=== PATIENT | female | born 1960 | race Caucasian/White ===

== ENCOUNTER 2020-07-12 20:39 | Inpatient (IN) | payer MEDICARE, OTHER ==
[~2020-07-12] VITALS: Ht 175.3 cm; Wt 55.8 kg
[2020-07-12 20:00] VITALS: BP 140/70
--- NOTE | 2020-07-12 20:05 | NUR ---
Patient noted grinding her teeth, transport stated that according to the report given to patient, "patient grinds her teeth every now and then." Cleansed and repositioned the patient, will continue monitor patient.
[~2020-07-12 20:39] MED LIST: TUBERCULIN,PURIF.PROT.DERIV. 5 TU/0.1 ML TEST ID ONE
--- NOTE | 2020-07-12 22:00 | NUR ---
Admitted a 60 years old female from [facility] with the following diagnosis: Cerebral Palsy, Respiratory failure, vent dependent, Abdominal wall abcess; Cellulitis, COPD, DM, Hx or MDRO urine; E.Coli and ESBL. Right femoral central line is intact and patent. 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 Noted with mid-abdominal surgical scar, abdominal distention but soft and (+) and active abdominal sounds, noted with left and right buttocks open skin, abdominal fold rashes and left under breast rashes. Jo catheter intact and patent noted with sediment, flushed with NS. Turned and Repositioned, kept clean and comfortable. I spoke with Patient's brother ( Dawood) and notified that patient is being admitted at the unit.
[2020-07-12] MEDS ORDERED: INSULIN REGULAR, HUMAN 300 UNIT/3 ML VIAL ONE (22:20)
[2020-07-12] MEDS ORDERED: ALBUTEROL SULFATE 2.5 MG/ 0.5 ML NEBU ONE (22:21)
[2020-07-12] MEDS ORDERED: HEPARIN SODIUM,PORCINE 5,000 UNITS/ML VIAL ONE (22:23)
[2020-07-12] MEDS ORDERED: IPRATROPIUM BROMIDE 0.5 MG/2.5 ML NEBU ONE (22:23)
[2020-07-12] MEDS ORDERED: LORAZEPAM 2 MG/1 ML VIAL IM PRN (22:30)
[2020-07-12] MEDS ORDERED: IV 10% DEXTROSE 1,000 ML IV PRN (22:30)
[2020-07-12] MEDS ORDERED: IPRATROPIUM BROMIDE 0.5 MG/2.5 ML NEBU NEB PRN (22:30)
[2020-07-12] MEDS: HEPARIN SODIUM,PORCINE 5,000 UNITS/ML VIAL SQ SCH (22:30)
[2020-07-12] MEDS ORDERED: IPRATROPIUM BROMIDE 0.5 MG/2.5 ML NEBU NEB SCH (22:30)
[2020-07-12] MEDS ORDERED: levETIRAcetam IV 500 MG in IV DEXTROSE 5% 100 ML IV SCH (22:30)
[2020-07-12] MEDS ORDERED: ALBUTEROL SULFATE 2.5 MG/3 ML NEBU NEB PRN (22:30)
[2020-07-12] MEDS ORDERED: ALBUTEROL SULFATE 2.5 MG/3 ML NEBU NEB SCH (22:30)
[2020-07-12] MEDS ORDERED: MISCELLANEOUS MED XX PRN (22:30)
[2020-07-12] MEDS: COD LIVER OIL/ZINC OXIDE OINT 113 GM TUBE TOP SCH (22:30)
[2020-07-12] MEDS: NORMAL SALINE FLUSH 10 ML DISP.SYRIN IV SCH (23:15)
--- NOTE | 2020-07-12 23:30 | NUR ---
HHN TX not given due to PUI protocol. No SOB noted. Charge nurse is aware. Will continue to monitor.
[2020-07-13] VITALS: BP 108/50
[2020-07-13] MEDS: COD LIVER OIL/ZINC OXIDE OINT 113 GM TUBE TOP SCH ×8 (03:15→21:00)
[2020-07-13 04:00] VITALS: BP 114/58
[2020-07-13] MEDS: INSULIN REGULAR, HUMAN 300 UNIT/3 ML VIAL SQ SCH ×4 (06:43→17:21)
[2020-07-13] MEDS: BLOOD SUGAR DIAGNOSTIC 1 EACH STRIP VI SCH ×4 (06:43→17:22)
[2020-07-13 07:47] VITALS: BP 132/86
[2020-07-13] MEDS: PANTOPRAZOLE SODIUM 40 MG VIAL IV SCH (09:00)
[2020-07-13] MEDS: LEVOTHYROXINE SODIUM 100 MCG VIAL IV SCH (09:00)
[2020-07-13] MEDS ORDERED: TPN/PPN PER PHARMACY IV PRN (09:00)
[2020-07-13] MEDS: NORMAL SALINE FLUSH 10 ML DISP.SYRIN IV SCH ×2 (09:00→21:02)
[2020-07-13] MEDS: NEOMY/BACITRAC/POLYMI OINT 28.35 GM TUBE TOP SCH (09:00)
[2020-07-13] MEDS: CLOTRIMAZOLE 1% CREAM 30 GM TUBE TOP SCH ×2 (09:00→21:00)
[2020-07-13] MEDS: HEPARIN SODIUM,PORCINE 5,000 UNITS/ML VIAL SQ SCH ×2 (09:00→21:00)
[2020-07-13] MEDS: levETIRAcetam IV 500 MG in IV DEXTROSE 5% 100 ML IV SCH ×2 (09:00→21:02)
[2020-07-13] MEDS: HYDROGEN PEROXIDE 3% 118 ML BOTTLE TP SCH ×2 (09:13→21:05)
[2020-07-13] MEDS ORDERED: TUBERCULIN,PURIF.PROT.DERIV. 5 TU/0.1 ML TEST ID ONE (10:00)
[2020-07-13 12:00] VITALS: BP 118/59
[2020-07-13 13:48] LABS: BASOPHILS # (AUTO) 0.1 K/uL (0.0-8.0); BASOPHILS % (AUTO) 1.1 % (0.0-2.0); EOSINOPHILS # (AUTO) 0.2 K/uL (0.0-0.7); EOSINOPHILS % (AUTO) 2.3 % (0.0-7.0); HEMATOCRIT 37.5 % (31.2-41.9); HEMOGLOBIN 12.7 g/dL (10.9-14.3); LYMPHOCYTES # (AUTO) 1.5 K/uL (20.0-40.0); LYMPHOCYTES % (AUTO) 16.1 % (20.5-51.5); MEAN CORPUSCULAR HEMOGLOBIN 27.2 uug (24.7-32.8); MEAN CORPUSCULAR HGB CONC 34 g/dL (32.3-35.6); MEAN CORPUSCULAR VOLUME 80.7 fL (75.5-95.3); MONOCYTES % (AUTO) 10.7 % (0.0-11.0); NEUTROPHILS # (AUTO) 6.6 K/uL (1.8-8.9); NEUTROPHILS % (AUTO) 69.8 % (38.5-71.5); PLATELET COUNT (AUTO) 265 K/uL (179-408); RED BLOOD CELL COUNT(AUTO) 4.65 MIL/uL (3.63-4.92); WHITE BLOOD COUNT (AUTO) 9.4 K/uL (3.8-11.8)
[2020-07-13 13:59] LABS: CREATININE 0.6 mg/dL (0.6-1.3); MAGNESIUM 1.6 mg/dL (1.8-2.4); PHOSPHOROUS 2.5 mg/dL (2.5-4.9); POTASSIUM 3.2 mmol/L (3.5-5.1)
[2020-07-13] MEDS: IPRATROPIUM BROMIDE 0.5 MG/2.5 ML NEBU NEB SCH ×2 (14:33→23:13)
[2020-07-13] MEDS: ALBUTEROL SULFATE 2.5 MG/3 ML NEBU NEB SCH ×2 (14:33→23:13)
--- NOTE | 2020-07-13 14:42 | NUR ---
9:15am: SW received a call from Curt Delvalle, discharge liaison from [facility], . Curt wanted to introduce herself to this SW. Curt informed this SW that patient's care is overseen by a multidisciplinary team at the [facility], and provided this SW with the name and phone number to the RN on the team, Gricelda Fry [phone]. SARA explained that once all disciplines have completed the initial assessment, this SW will be in contact with Curt for coordination of care. Curt expressed understanding and agreement. Curt also stated that patient's brother is patient's appointed conservator. SW to follow-up with completing the patient's initial psychosocial assessment, and will then coordinate care with patient's conservator and the [facility].
[2020-07-13] MEDS ORDERED: TPN BAG #1 IV SCH ×7 (16:00)
[2020-07-13 16:22] VITALS: BP 147/86
[2020-07-13 20:00] VITALS: BP 108/57
--- NOTE | 2020-07-13 22:00 | NUR ---
Patient is afebrile, trach is intact and patent, connected to vent , no respiratory distress noted, old Gt stoma is draining with greenish drainage, no nausea/ vomiting noted, with ongoing treatment to left and right buttocks open skin, left under breast and abdominal fold rash and the right 4th toe as ordered, parker catheter draining well to yellow urine, good je care rendered, Right femoral central line is intact and patent,kept clean and comfortable
--- NOTE | 2020-07-13 23:13 | NUR ---
HHN TX NOT GIVEN DUE TO PUI PROTOCOL.
[2020-07-14] VITALS: BP 116/61
[2020-07-14] MEDS: BLOOD SUGAR DIAGNOSTIC 1 EACH STRIP VI SCH ×5 (00:52→23:17)
[2020-07-14 04:00] VITALS: BP 128/78
[2020-07-14] MEDS ORDERED: TPN BAG #2 IV SCH ×2 (04:00)
[2020-07-14] MEDS: INSULIN REGULAR, HUMAN 300 UNIT/3 ML VIAL SQ SCH ×5 (05:51→23:17)
[2020-07-14] MEDS: ALBUTEROL SULFATE 2.5 MG/3 ML NEBU NEB SCH ×3 (07:26→22:58)
[2020-07-14] MEDS: HYDROGEN PEROXIDE 3% 118 ML BOTTLE TP SCH ×2 (07:26→21:25)
[2020-07-14] MEDS: IPRATROPIUM BROMIDE 0.5 MG/2.5 ML NEBU NEB SCH ×3 (07:26→22:58)
[2020-07-14 07:40] VITALS: BP 127/65
[2020-07-14] MEDS: HEPARIN SODIUM,PORCINE 5,000 UNITS/ML VIAL SQ SCH ×2 (08:18→20:23)
[2020-07-14] MEDS: CLOTRIMAZOLE 1% CREAM 30 GM TUBE TOP SCH ×2 (08:19→20:50)
[2020-07-14] MEDS: COD LIVER OIL/ZINC OXIDE OINT 113 GM TUBE TOP SCH ×6 (08:19→20:50)
[2020-07-14] MEDS: NEOMY/BACITRAC/POLYMI OINT 28.35 GM TUBE TOP SCH (08:19)
[2020-07-14] MEDS: LEVOTHYROXINE SODIUM 100 MCG VIAL IV SCH (09:00)
[2020-07-14] MEDS: levETIRAcetam IV 500 MG in IV DEXTROSE 5% 100 ML IV SCH ×2 (09:10→20:51)
[2020-07-14] MEDS: PANTOPRAZOLE SODIUM 40 MG VIAL IV SCH (09:10)
[2020-07-14] MEDS: IV FAT EMULSIONS 20% 250 ML IV SCH (09:10)
[2020-07-14] MEDS: NORMAL SALINE FLUSH 10 ML DISP.SYRIN IV SCH ×2 (09:10→20:51)
[2020-07-14 11:00] LABS: CREATININE 0.5 mg/dL (0.6-1.3); POTASSIUM 4.4 mmol/L (3.5-5.1)
[2020-07-14 11:11] LABS: MAGNESIUM 1.8 mg/dL (1.8-2.4); PHOSPHOROUS 1.6 mg/dL (2.5-4.9)
--- NOTE | 2020-07-14 11:40 | NUR ---
WOUND CARE CONSULT: PT PRESENTS WITH SACRAL SCAR, RASH TO BUTTOCKS, SOME REDNESS UNDER LEFT BREAST AND ABDOMINAL FOLD WELL BROWN LESION TO RT BUTTOCK, ALL PRESENT ON ADMISSION. PT ALSO NOTED TO HAVE ABDOMINAL OSTOMY WITH POUCH IN PLACE. CONCUR WITH ALL CURRENT ORDERS. RECOMMENDATIONS MADE FOR SKIN PROTECTION. DISCUSSED WITH NURSING STAFF. RECOMMEND SURGICAL CONSULT FOR OSTOMY. DR ABBY MORGAN NOTIFIED OF CONSULT REQUEST. RECOMMEND LOW AIRLOSS MATTRESS. DISCUSSED WITH COMPONENT INSPECTOR. WILL SEE PRNAngeline MARKS IN AGREEMENT WITH PLAN OF CARE.
--- NOTE | 2020-07-14 11:59 | NUR ---
Seen by wound nurse (Kristan), recommended to continue tx to buttocks, first step low airloss mattress ordered.
[2020-07-14 12:00] VITALS: BP 132/63
--- NOTE | 2020-07-14 12:30 | NUR ---
11:00am: SW completed patient's initial assessment today. Patient is awake, however is non-verbal. SW is unable to gather information from the patient. Patient is a 60 year old female, admitted to subacute on 07/12 due to respiratory failure. Patient was admitted from [facility]. Patient requires a trach and is vent-dependent. Patient's medical history includes DM, COPD, Cerebral Palsy. Patient is a client of the [facility]. SARA completed patient's assessment by phone with patient's brother Dawood ([phone]). Dawood was cooperative and engaged in dialogue with this SW. Dawood is patient's only sibling, patient's parents are . Dawood is also patient's conservator, although he stated that he is unable to locate the paperwork since he has been assigned conservatorship so long ago. SARA asked if it would be possible to locate a copy and provide it to this SW, and Dawood stated that both he and the [facility] were currently looking for a copy. Patient has been living at [facility] since 2001, located at [address] [place] [address]. Both Dawood's and the [facility]'s discharge plans are for the patient to return there once patient is medically stable. SARA discussed the admission paperwork with Dawood and he stated that he can stop by the hospital and pick them up on Wednesday 07/18 for review and signature. SARA expressed agreement and stated that SW will prepare the forms for him and leave them at the lobby desk for pick-up. Dawood expressed agreement. Patient's code status discussed, and Dawood expressed that patient is a Full Code. SARA informed Dawood of the monthly IDT meetings, and invited him to join the next IDT meeting on 07/18. Dawood stated he would like to participate, and SARA asked Dawood to be available on 07/18 between 11am-12pm to receive this SW's call. SARA informed Dawood of routine podiatry and optometry services, and asked Dawood if he would like for patient to receive these services, and Dawood expressed agreement. SW to coordinate these services for the patient. SW to prepare admission paperwork for Dawood to pickup driver on Wednesday 07/18. SW to also coordinate care with the [facility], DC liaison Stacia Delvalle [phone].
[2020-07-14] MEDS ORDERED: TPN BAG #3 IV SCH ×6 (14:00)
[2020-07-14] MEDS ORDERED: DEXTROSE 50% 50 ML DISP.SYRIN IV PRN (15:00)
--- NOTE | 2020-07-14 16:38 | NUR ---
3:06pm: This SW and nurse modeling manager Perry Verde called Stacia Delvalle DC liaison at [facility], , to discuss coordination of care. Stacia was not available, and therefore this SW left a voicemail message asking Stacia to call this SW back.
--- NOTE | 2020-07-14 18:50 | NUR ---
Seen by Dr. Koch, new orders carried out, cxr, abg, sputum c+s in am.
[2020-07-14 20:07] VITALS: BP 103/77
[2020-07-15 01:05] VITALS: BP 115/73
[2020-07-15] MEDS ORDERED: TPN BAG #4 IV SCH ×4 (02:00)
--- NOTE | 2020-07-15 02:53 | NUR ---
continue on ppn@ 75ml/hr and lipids @10.417ml/hr, afebrile,colostomy bag noted moderate amount of dark brown drainage, right femoral triple lumen central line patent, no respiratory distress noted.
[2020-07-15] MEDS: INSULIN REGULAR, HUMAN 300 UNIT/3 ML VIAL SQ SCH ×4 (05:26→23:01)
[2020-07-15] MEDS: BLOOD SUGAR DIAGNOSTIC 1 EACH STRIP VI SCH ×4 (05:27→23:01)
[2020-07-15 06:10] LABS: ABG HCO3 18.6 mmol/L; ABG PCO2 30.7 mmHg (35.0-45.0); ABG PH 7.401 (7.350-7.450); ABG PO2 83.2 mmHg (75.0-100.0); ABG SITE RIGHT RADIAL; ABG TOTAL HEMOGLOBIN 12.7 G/dL (12.0-16.0); COHb 0.4 % (0.5-1.5); MetHb 0.2 % (0.0-1.5); O2Hb 95.4 % (94.0-97.0); VENT MODE VENT - A/C; VT, ABG 500 mL
[2020-07-15] MEDS: IPRATROPIUM BROMIDE 0.5 MG/2.5 ML NEBU NEB SCH ×3 (07:15→23:30)
[2020-07-15] MEDS: ALBUTEROL SULFATE 2.5 MG/3 ML NEBU NEB SCH ×3 (07:15→23:30)
--- NOTE | 2020-07-15 07:15 | NUR ---
HHN TX NOT GIVEN DUE TO PUI PROTOCOL.
[2020-07-15 07:29] LABS: CREATININE 0.5 mg/dL (0.6-1.3); MAGNESIUM 1.9 mg/dL (1.8-2.4); PHOSPHOROUS 3.4 mg/dL (2.5-4.9); POTASSIUM 3.6 mmol/L (3.5-5.1)
[2020-07-15 07:50] VITALS: BP 96/64
[2020-07-15] MEDS: HYDROGEN PEROXIDE 3% 118 ML BOTTLE TP SCH ×2 (09:00→21:25)
[2020-07-15] MEDS: NEOMY/BACITRAC/POLYMI OINT 28.35 GM TUBE TOP SCH (09:18)
[2020-07-15] MEDS: COD LIVER OIL/ZINC OXIDE OINT 113 GM TUBE TOP SCH ×6 (09:18→20:31)
[2020-07-15] MEDS: HEPARIN SODIUM,PORCINE 5,000 UNITS/ML VIAL SQ SCH ×2 (09:18→20:31)
[2020-07-15] MEDS: CLOTRIMAZOLE 1% CREAM 30 GM TUBE TOP SCH ×2 (09:18→20:31)
[2020-07-15] MEDS: levETIRAcetam IV 500 MG in IV DEXTROSE 5% 100 ML IV SCH ×2 (09:25→21:00)
[2020-07-15] MEDS: PANTOPRAZOLE SODIUM 40 MG VIAL IV SCH (09:27)
[2020-07-15] MEDS: NORMAL SALINE FLUSH 10 ML DISP.SYRIN IV SCH ×2 (09:27→21:00)
[2020-07-15] MEDS: LEVOTHYROXINE SODIUM 100 MCG VIAL IV SCH (10:00)
[2020-07-15 12:00] VITALS: BP 122/77
[2020-07-15] MEDS ORDERED: TPN BAG #5 IV SCH ×6 (14:00)
[2020-07-15 20:24] VITALS: BP 117/84
--- NOTE | 2020-07-15 23:30 | NUR ---
Pt received on HT-50 vent, tolerating current vent settings well. No distress noted at this time. Pt's trach is in place, patents, and secured with trach tie. HHN tx not given due to PUI protocols. Suctioned pt with moderate amount of thick yellowish secretions. Vent alarms audible and functioning. Will continue to monitor pt throughout shift.
[2020-07-16 01:05] VITALS: BP 114/73
[2020-07-16] MEDS ORDERED: TPN BAG #6 IV SCH ×2 (02:00)
[2020-07-16 05:10] VITALS: BP 127/87
[2020-07-16] MEDS: INSULIN REGULAR, HUMAN 300 UNIT/3 ML VIAL SQ SCH ×4 (05:45→23:11)
[2020-07-16] MEDS: BLOOD SUGAR DIAGNOSTIC 1 EACH STRIP VI SCH ×4 (05:46→23:12)
[2020-07-16 05:53] LABS: CREATININE 0.6 mg/dL (0.6-1.3); MAGNESIUM 1.9 mg/dL (1.8-2.4); PHOSPHOROUS 3.1 mg/dL (2.5-4.9); POTASSIUM 3.2 mmol/L (3.5-5.1)
[2020-07-16] MEDS: IPRATROPIUM BROMIDE 0.5 MG/2.5 ML NEBU NEB SCH ×3 (07:15→23:05)
[2020-07-16] MEDS: ALBUTEROL SULFATE 2.5 MG/3 ML NEBU NEB SCH ×3 (07:15→23:05)
[2020-07-16] MEDS: HYDROGEN PEROXIDE 3% 118 ML BOTTLE TP SCH ×2 (08:40→21:47)
[2020-07-16] MEDS: LEVOTHYROXINE SODIUM 100 MCG VIAL IV SCH (09:25)
[2020-07-16] MEDS: NORMAL SALINE FLUSH 10 ML DISP.SYRIN IV SCH ×2 (09:25→20:45)
[2020-07-16] MEDS: PANTOPRAZOLE SODIUM 40 MG VIAL IV SCH (09:25)
[2020-07-16] MEDS: levETIRAcetam IV 500 MG in IV DEXTROSE 5% 100 ML IV SCH ×2 (09:25→20:45)
[2020-07-16] MEDS: HEPARIN SODIUM,PORCINE 5,000 UNITS/ML VIAL SQ SCH ×2 (09:28→20:32)
[2020-07-16] MEDS: COD LIVER OIL/ZINC OXIDE OINT 113 GM TUBE TOP SCH ×6 (09:28→20:32)
[2020-07-16] MEDS: NEOMY/BACITRAC/POLYMI OINT 28.35 GM TUBE TOP SCH (09:28)
[2020-07-16] MEDS: CLOTRIMAZOLE 1% CREAM 30 GM TUBE TOP SCH ×2 (09:28→20:32)
--- NOTE | 2020-07-16 10:00 | NUR ---
Pharmacy will add k to the PPn ,k level result 3.2.
[2020-07-16] MEDS ORDERED: TPN BAG #7 IV SCH ×6 (14:00)
--- NOTE | 2020-07-16 18:30 | NUR ---
Continue on PPn at 75 cc/hr and lipids,femoral line triple lumen intact,flushed as ordered,Covid 19 negative results.
[2020-07-16 20:24] VITALS: BP 118/70
[2020-07-17] MEDS ORDERED: TPN BAG #8 IV SCH ×2 (02:00)
[2020-07-17] MEDS: INSULIN REGULAR, HUMAN 300 UNIT/3 ML VIAL SQ SCH ×3 (05:38→17:39)
[2020-07-17] MEDS: BLOOD SUGAR DIAGNOSTIC 1 EACH STRIP VI SCH ×3 (05:38→17:40)
[2020-07-17 07:08] LABS: CREATININE 0.6 mg/dL (0.6-1.3); PHOSPHOROUS 2.6 mg/dL (2.5-4.9); POTASSIUM 3.8 mmol/L (3.5-5.1)
[2020-07-17] MEDS: ALBUTEROL SULFATE 2.5 MG/3 ML NEBU NEB SCH ×3 (07:35→23:19)
[2020-07-17] MEDS: IPRATROPIUM BROMIDE 0.5 MG/2.5 ML NEBU NEB SCH ×3 (07:35→23:19)
[2020-07-17 07:51] VITALS: BP 119/74
[2020-07-17] MEDS: COD LIVER OIL/ZINC OXIDE OINT 113 GM TUBE TOP SCH ×6 (08:14→21:00)
[2020-07-17] MEDS: CLOTRIMAZOLE 1% CREAM 30 GM TUBE TOP SCH ×2 (08:14→21:00)
[2020-07-17] MEDS: HEPARIN SODIUM,PORCINE 5,000 UNITS/ML VIAL SQ SCH ×2 (08:14→21:00)
[2020-07-17] MEDS: NEOMY/BACITRAC/POLYMI OINT 28.35 GM TUBE TOP SCH (08:14)
[2020-07-17] MEDS: HYDROGEN PEROXIDE 3% 118 ML BOTTLE TP SCH ×2 (09:00→21:33)
[2020-07-17] MEDS: IV FAT EMULSIONS 20% 250 ML IV SCH (09:04)
[2020-07-17] MEDS: levETIRAcetam IV 500 MG in IV DEXTROSE 5% 100 ML IV SCH ×2 (09:04→20:58)
[2020-07-17] MEDS: PANTOPRAZOLE SODIUM 40 MG VIAL IV SCH (09:05)
[2020-07-17] MEDS: NORMAL SALINE FLUSH 10 ML DISP.SYRIN IV SCH ×2 (09:05→20:58)
[2020-07-17] MEDS: LEVOTHYROXINE SODIUM 100 MCG VIAL IV SCH (09:05)
--- NOTE | 2020-07-17 12:43 | NUR ---
SEEN BY KING ANDERSON WITH NO NEW ORDER.
[2020-07-17] MEDS ORDERED: TPN BAG #9 IV SCH ×7 (14:00)
--- NOTE | 2020-07-17 14:59 | NUR ---
SARA received a voicemail message earlier today from Stacia Delvalle, , DC liaison from the [facility]. SARA called Stacia back, but Stacia was not available. SARA left Stacia a voicemail message stating that SARA was returning her call, and also reminded her that patient's IDT meeting is scheduled for tomorrow, 07/18 between the hours of 11am-12pm. SARA stated that patient's brother would be participating in the meeting, and asked if Stacia can let this SW know if Stacia, or patient's team nurse Gricelda, would like to also participate. SARA also included in the voicemail a request to identify a point person at [facility], and/or at patient's facility, who would be the person to provide updates to, for the purpose of care coordination, since there have been numerous inquiries from different staff from both places requesting updates on patient's condition. SARA stated the importance of streamlining patient's coordination of care within boundaries of confidentiality. SW waiting to hear back from Stacia to discuss all above.
[2020-07-17 20:17] VITALS: BP 118/73
--- NOTE | 2020-07-17 20:30 | NUR ---
RECEIVED PATIENT ON A HT-50 VENT. PATIENT IS TOLERATING CURRENT VENTILATOR SETTINGS THAT ARE CHARTED ON THE MECHANICAL VENTILATOR NOTES. TRACH IS PATENT AND SECURE WITH TRACH TIE. HHN TREATMENT NOT GIVEN DUE TO PUI PROTOCOLS. SUCTIONED PATIENT, MODERATE AMOUNT OF THICK YELLOW SECRETIONS. VENTILATOR ALARMS CHECKED AND THEY ARE ON AND AUDIBLE. NO SOB NOTED AT THIS TIME. WILL CONTINUE TO MONITOR.
[2020-07-18] MEDS ORDERED: TPN BAG #10 IV SCH ×2 (02:00)
[2020-07-18] MEDS: INSULIN REGULAR, HUMAN 300 UNIT/3 ML VIAL SQ SCH ×4 (06:00→18:00)
[2020-07-18] MEDS: BLOOD SUGAR DIAGNOSTIC 1 EACH STRIP VI SCH ×4 (06:24→18:17)
[2020-07-18] MEDS: IPRATROPIUM BROMIDE 0.5 MG/2.5 ML NEBU NEB SCH ×3 (07:04→23:10)
[2020-07-18] MEDS: ALBUTEROL SULFATE 2.5 MG/3 ML NEBU NEB SCH ×3 (07:04→23:10)
[2020-07-18] MEDS: HYDROGEN PEROXIDE 3% 118 ML BOTTLE TP SCH ×2 (07:04→21:53)
[2020-07-18 07:48] VITALS: BP 106/65
[2020-07-18] MEDS: HEPARIN SODIUM,PORCINE 5,000 UNITS/ML VIAL SQ SCH ×2 (08:18→21:46)
[2020-07-18] MEDS: COD LIVER OIL/ZINC OXIDE OINT 113 GM TUBE TOP SCH ×6 (08:18→21:47)
[2020-07-18] MEDS: CLOTRIMAZOLE 1% CREAM 30 GM TUBE TOP SCH ×2 (08:19→21:47)
[2020-07-18] MEDS: NEOMY/BACITRAC/POLYMI OINT 28.35 GM TUBE TOP SCH (08:20)
[2020-07-18] MEDS: PANTOPRAZOLE SODIUM 40 MG VIAL IV SCH (08:44)
[2020-07-18] MEDS: NORMAL SALINE FLUSH 10 ML DISP.SYRIN IV SCH ×2 (08:44→21:02)
[2020-07-18] MEDS: LEVOTHYROXINE SODIUM 100 MCG VIAL IV SCH (08:44)
[2020-07-18] MEDS: levETIRAcetam IV 500 MG in IV DEXTROSE 5% 100 ML IV SCH ×2 (08:44→21:02)
--- NOTE | 2020-07-18 10:00 | NUR ---
4:47pm: SARA spoke with Stacia Delvalle DC Liaison from [facility]. Attendees for the IDT meeting on 07/18 were identified, which includes patient's brother Dawood and [facility] RN Gricelda Fry. SW to call Dawood and Gricelda at time of meeting, and Stacia stated she would let Gricelda know. The SARA and Stacia also identified contact people at the [facility] and at [facility], and discussed the frequency of routine check-in's for the identified contact people. It was agreed that in addition to patient's brother Dawood Nascimento, the following identified contact people can call into the nurses station 1 x week to obtain updates on the patient: Stacia Delvalle DC Liaison from [facility], Gricelda Fry RN from [facility], Mayur Sher, Hog Ribber at [facility], SERAFIN Hogue at [facility], This information was filed in patient's chart, and pharmacist in charge owner Mario was also informed. SW asked pharmacist in charge owner Mario to endorse this information to next shift nurses.
--- NOTE | 2020-07-18 13:40 | NUR ---
Patient's brother Dawood arrived at the hospital lobby. SW met with Dawood and provided him with the admission paperwork to review and sign. Dawood stated he would review/sign the forms and return them to this .
[2020-07-18] MEDS ORDERED: TPN BAG #11 IV SCH ×8 (14:00)
--- NOTE | 2020-07-18 14:37 | NUR ---
Patient's brother Dawood returned the signed admission paperwork. This paperwork includes: Conditions of Admission, Patient Rights Acknowledgement, An Important Message from Medicare about your Rights, Documentation of Preferred Intensity of Care, Voluntary Prior Express Consent Form, Race and Ethnicity Patient Self-Identification, and the [facility] Agreement. Dawood was also provided with a copy of the Patient's Bill of Rights.
--- NOTE | 2020-07-18 15:25 | NUR ---
INTERDISCIPLINARY PLAN OF CARE CONFERENCE was held this morning. Patient's brother Dawood and [facility] RN Gricelda participated in the meeting through speaker phone. Dr. Koch and the Interdisciplinary team reviewed the current plan of care in detail. Patient was newly admitted to subacute on 07/12/20; RN reported on the patient's medical condition, recent lab findings, and current skin treatment. See RN IDT conference notes. All disciplines reported on their treatment plan. See all disciplines IDT notes and physician's progress notes for additional details. Silvino's and Gricelda's questions were addressed by the IDT team and by Dr. Koch, and they expressed being content with the current plan of care.
--- NOTE | 2020-07-18 15:56 | NUR ---
Left message to Dr Dawson for Gi consult.
--- NOTE | 2020-07-18 18:56 | NUR ---
Third call to brotharmani Nascimento since 07/13/20 messages left to call this insurance writer back or the nursing station to review resident's plan of care. but no return call. Endorsed again to night charge nurse to follow up. Electronically signed by Valeria King RN
--- NOTE | 2020-07-18 19:15 | NUR ---
19:16 pm Called Brotharmani Jimenez and was able to review Resident's baseline summary plan of care, and verbalized understanding
[2020-07-18 20:22] VITALS: BP 108/70
[2020-07-19] MEDS: BLOOD SUGAR DIAGNOSTIC 1 EACH STRIP VI SCH ×4 (00:35→18:05)
[2020-07-19] MEDS ORDERED: TPN BAG #12 IV SCH ×2 (02:00)
[2020-07-19] MEDS: INSULIN REGULAR, HUMAN 300 UNIT/3 ML VIAL SQ SCH ×4 (05:12→18:00)
[2020-07-19] MEDS: IPRATROPIUM BROMIDE 0.5 MG/2.5 ML NEBU NEB SCH ×3 (07:05→22:50)
[2020-07-19] MEDS: HYDROGEN PEROXIDE 3% 118 ML BOTTLE TP SCH ×2 (07:05→21:10)
[2020-07-19] MEDS: ALBUTEROL SULFATE 2.5 MG/3 ML NEBU NEB SCH ×3 (07:05→22:50)
[2020-07-19 07:43] VITALS: BP 112/60
[2020-07-19] MEDS: COD LIVER OIL/ZINC OXIDE OINT 113 GM TUBE TOP SCH ×6 (09:32→21:00)
[2020-07-19] MEDS: NEOMY/BACITRAC/POLYMI OINT 28.35 GM TUBE TOP SCH (09:32)
[2020-07-19] MEDS: CLOTRIMAZOLE 1% CREAM 30 GM TUBE TOP SCH ×2 (09:32→21:00)
[2020-07-19] MEDS: HEPARIN SODIUM,PORCINE 5,000 UNITS/ML VIAL SQ SCH ×2 (09:33→21:00)
[2020-07-19] MEDS: levETIRAcetam IV 500 MG in IV DEXTROSE 5% 100 ML IV SCH ×2 (09:43→21:21)
[2020-07-19] MEDS: LEVOTHYROXINE SODIUM 100 MCG VIAL IV SCH (09:44)
[2020-07-19] MEDS: PANTOPRAZOLE SODIUM 40 MG VIAL IV SCH (09:44)
[2020-07-19] MEDS: NORMAL SALINE FLUSH 10 ML DISP.SYRIN IV SCH ×2 (09:44→21:21)
[2020-07-19] MEDS: IV FAT EMULSIONS 20% 250 ML IV SCH (10:00)
[2020-07-19 12:03] LABS: CREATININE 0.5 mg/dL (0.6-1.3); POTASSIUM 3.7 mmol/L (3.5-5.1)
[2020-07-19 12:07] LABS: MAGNESIUM 1.9 mg/dL (1.8-2.4); PHOSPHOROUS 3.2 mg/dL (2.5-4.9)
[2020-07-19] MEDS ORDERED: TPN BAG #13 IV SCH ×7 (14:00)
[2020-07-19 20:13] VITALS: BP 133/74
--- NOTE | 2020-07-19 22:50 | NUR ---
Pt received on HT-50 vent, tolerating current vent settings well. No respiratory distress noted at this time. Pt's trach is patent and secured with trach tie. HHN tx not given due to PUI protocols. Suctioned pt with moderate amount of thick yellowish secretions. Vent alarms audible and functioning. Will continue to monitor pt throughout shift.
[2020-07-20] MEDS: BLOOD SUGAR DIAGNOSTIC 1 EACH STRIP VI SCH ×4 (00:55→17:47)
[2020-07-20] MEDS ORDERED: TPN BAG #14 IV SCH ×2 (02:00)
[2020-07-20] MEDS: INSULIN REGULAR, HUMAN 300 UNIT/3 ML VIAL SQ SCH ×4 (05:09→17:47)
[2020-07-20] MEDS: IPRATROPIUM BROMIDE 0.5 MG/2.5 ML NEBU NEB SCH ×3 (07:00→23:01)
[2020-07-20] MEDS: ALBUTEROL SULFATE 2.5 MG/3 ML NEBU NEB SCH ×3 (07:00→23:01)
--- NOTE | 2020-07-20 07:00 | NUR ---
PATIENT NOT RECEIVING NEBULIZER BREATHING TREATMENT DUE TO PUI PROTOCOL. NO S/S OF RESPIRATORY DISTRESS OBSERVED AT THIS TIME.
[2020-07-20 07:17] LABS: CREATININE 0.6 mg/dL (0.6-1.3); MAGNESIUM 1.8 mg/dL (1.8-2.4); PHOSPHOROUS 3.1 mg/dL (2.5-4.9); POTASSIUM 3.1 mmol/L (3.5-5.1)
[2020-07-20 07:52] VITALS: BP 119/62
[2020-07-20] MEDS: HEPARIN SODIUM,PORCINE 5,000 UNITS/ML VIAL SQ SCH ×2 (08:31→21:00)
[2020-07-20] MEDS: COD LIVER OIL/ZINC OXIDE OINT 113 GM TUBE TOP SCH ×6 (08:31→21:00)
[2020-07-20] MEDS: NEOMY/BACITRAC/POLYMI OINT 28.35 GM TUBE TOP SCH (08:33)
[2020-07-20] MEDS: CLOTRIMAZOLE 1% CREAM 30 GM TUBE TOP SCH ×2 (08:33→21:00)
[2020-07-20] MEDS: LEVOTHYROXINE SODIUM 100 MCG VIAL IV SCH (09:00)
[2020-07-20] MEDS: NORMAL SALINE FLUSH 10 ML DISP.SYRIN IV SCH ×2 (09:00→21:14)
[2020-07-20] MEDS: PANTOPRAZOLE SODIUM 40 MG VIAL IV SCH (09:00)
[2020-07-20] MEDS: levETIRAcetam IV 500 MG in IV DEXTROSE 5% 100 ML IV SCH ×2 (09:00→21:13)
[2020-07-20] MEDS: HYDROGEN PEROXIDE 3% 118 ML BOTTLE TP SCH ×2 (09:23→21:11)
[2020-07-20] MEDS ORDERED: TPN BAG #15 IV SCH ×6 (14:00)
--- NOTE | 2020-07-20 14:00 | NUR ---
RT. GROIN CENTRAL LINE DRESSING CHANGED D/T DISLODGEMENT.
--- NOTE | 2020-07-20 16:26 | NUR ---
MESSAGE LEFT TO DR. REI NEWELL RE SPUTUM C&S RESULTS FOR PSEUDOMONAS MULTIDRUG RESISTANT AND AWAITING FOR HIM TO CALL BACK,PT. AFEBRILE WITH OUT S/S OF RESP. DISTRESS.
[2020-07-20 20:00] VITALS: BP 116/56
[2020-07-21] MEDS: BLOOD SUGAR DIAGNOSTIC 1 EACH STRIP VI SCH ×4 (00:11→18:06)
[2020-07-21] MEDS ORDERED: TPN BAG #16 IV SCH ×2 (02:00)
[2020-07-21] MEDS: INSULIN REGULAR, HUMAN 300 UNIT/3 ML VIAL SQ SCH ×4 (05:57→18:00)
[2020-07-21] MEDS: BISACODYL 10 MG SUPP.RECT RC PRN (05:58)
[2020-07-21 07:07] LABS: BASOPHILS # (AUTO) 0.1 K/uL (0.0-8.0); BASOPHILS % (AUTO) 0.8 % (0.0-2.0); EOSINOPHILS # (AUTO) 0.5 K/uL (0.0-0.7); EOSINOPHILS % (AUTO) 6.3 % (0.0-7.0); HEMATOCRIT 30.4 % (31.2-41.9); HEMOGLOBIN 10.5 g/dL (10.9-14.3); LYMPHOCYTES # (AUTO) 1.2 K/uL (20.0-40.0); MEAN CORPUSCULAR HEMOGLOBIN 28.1 uug (24.7-32.8); MEAN CORPUSCULAR HGB CONC 35 g/dL (32.3-35.6); MEAN CORPUSCULAR VOLUME 81.4 fL (75.5-95.3); MONOCYTES # (AUTO) 0.7 K/uL (2.0-10.0); MONOCYTES % (AUTO) 8.3 % (0.0-11.0); NEUTROPHILS # (AUTO) 5.5 K/uL (1.8-8.9); NEUTROPHILS % (AUTO) 69.6 % (38.5-71.5); PLATELET COUNT (AUTO) 246 K/uL (179-408); RED BLOOD CELL COUNT(AUTO) 3.73 MIL/uL (3.63-4.92); WHITE BLOOD COUNT (AUTO) 7.9 K/uL (3.8-11.8)
[2020-07-21] MEDS: ALBUTEROL SULFATE 2.5 MG/3 ML NEBU NEB SCH ×3 (07:08→23:04)
[2020-07-21] MEDS: IPRATROPIUM BROMIDE 0.5 MG/2.5 ML NEBU NEB SCH ×3 (07:08→23:04)
[2020-07-21] MEDS: HYDROGEN PEROXIDE 3% 118 ML BOTTLE TP SCH ×2 (07:08→20:57)
[2020-07-21 07:18] LABS: CREATININE 0.6 mg/dL (0.6-1.3); MAGNESIUM 1.9 mg/dL (1.8-2.4); PHOSPHOROUS 3.2 mg/dL (2.5-4.9); POTASSIUM 3.4 mmol/L (3.5-5.1)
[2020-07-21 07:29] VITALS: BP 120/63
[2020-07-21] MEDS: COD LIVER OIL/ZINC OXIDE OINT 113 GM TUBE TOP SCH ×6 (09:33→20:51)
[2020-07-21] MEDS: HEPARIN SODIUM,PORCINE 5,000 UNITS/ML VIAL SQ SCH ×2 (09:33→21:00)
[2020-07-21] MEDS: NEOMY/BACITRAC/POLYMI OINT 28.35 GM TUBE TOP SCH (09:34)
[2020-07-21] MEDS: CLOTRIMAZOLE 1% CREAM 30 GM TUBE TOP SCH ×2 (09:34→20:51)
[2020-07-21] MEDS: IV FAT EMULSIONS 20% 250 ML IV SCH (09:46)
[2020-07-21] MEDS: levETIRAcetam IV 500 MG in IV DEXTROSE 5% 100 ML IV SCH ×2 (09:48→20:24)
[2020-07-21] MEDS: LEVOTHYROXINE SODIUM 100 MCG VIAL IV SCH (09:48)
[2020-07-21] MEDS: PANTOPRAZOLE SODIUM 40 MG VIAL IV SCH (09:48)
[2020-07-21] MEDS: NORMAL SALINE FLUSH 10 ML DISP.SYRIN IV SCH ×2 (09:48→20:25)
[2020-07-21] MEDS ORDERED: POTASSIUM CHLORIDE 50 ML IV SCH (11:00)
--- NOTE | 2020-07-21 11:00 | NUR ---
SEEN BY DR. CATHY GambleAND STATED THAT WILL CONTACT JEANNINE ERWIN.Pedrito)TO ASSESS SPUTUM CX RESULTS .
--- NOTE | 2020-07-21 11:59 | NUR ---
PT. HAD LOCAL DRESSING CHANGE ON RT GROIN CENTRAL LINE D/T DISLODGEMENT D/T MOISTURE ,IT WAS DONE ON STERILE MANNER.STILL INTACT AND PATENT WITH SUTURES ATTACHED TO SKIN.,NO LOCAL BLEEDING OR DRAINAGE.
[2020-07-21] MEDS ORDERED: TPN BAG #17 IV SCH ×7 (14:00)
--- NOTE | 2020-07-21 16:00 | NUR ---
SEEN BY DR. KC AND WITH NNO.
--- NOTE | 2020-07-21 18:00 | NUR ---
RT. GROIN CENTRAL LINE DRESSING CHANGED X 2 D/T DISLODGEMENT.
--- NOTE | 2020-07-21 20:00 | NUR ---
SEEN AND EXAMINED BY JEANNINE GIL(Heraclio) SEE NOTES.
[2020-07-21 20:24] VITALS: BP 115/94
--- NOTE | 2020-07-21 23:04 | NUR ---
PATIENT NOT RECEIVING NEBULIZER BREATHING TREATMENT DUE TO PUI PROTOCOL. NO S/S OF RESPIRATORY DISTRESS OBSERVED AT THIS TIME.
[2020-07-22] MEDS: BLOOD SUGAR DIAGNOSTIC 1 EACH STRIP VI SCH ×4 (00:51→17:47)
[2020-07-22] MEDS ORDERED: TPN BAG #18 IV SCH ×2 (02:00)
[2020-07-22] MEDS: INSULIN REGULAR, HUMAN 300 UNIT/3 ML VIAL SQ SCH ×4 (06:00→17:48)
[2020-07-22] MEDS: HYDROGEN PEROXIDE 3% 118 ML BOTTLE TP SCH ×2 (07:05→21:25)
[2020-07-22] MEDS: ALBUTEROL SULFATE 2.5 MG/3 ML NEBU NEB SCH ×3 (07:05→23:09)
[2020-07-22] MEDS: IPRATROPIUM BROMIDE 0.5 MG/2.5 ML NEBU NEB SCH ×3 (07:05→23:09)
[2020-07-22 07:28] VITALS: BP 119/60
[2020-07-22] MEDS: CLOTRIMAZOLE 1% CREAM 30 GM TUBE TOP SCH ×2 (08:43→20:22)
[2020-07-22] MEDS: HEPARIN SODIUM,PORCINE 5,000 UNITS/ML VIAL SQ SCH ×2 (08:43→21:52)
[2020-07-22] MEDS: NEOMY/BACITRAC/POLYMI OINT 28.35 GM TUBE TOP SCH (08:43)
[2020-07-22] MEDS: COD LIVER OIL/ZINC OXIDE OINT 113 GM TUBE TOP SCH ×6 (08:43→20:22)
[2020-07-22] MEDS: levETIRAcetam IV 500 MG in IV DEXTROSE 5% 100 ML IV SCH ×2 (09:32→20:56)
[2020-07-22] MEDS: PANTOPRAZOLE SODIUM 40 MG VIAL IV SCH (09:33)
[2020-07-22] MEDS: LEVOTHYROXINE SODIUM 100 MCG VIAL IV SCH (09:33)
[2020-07-22] MEDS: NORMAL SALINE FLUSH 10 ML DISP.SYRIN IV SCH ×2 (09:33→20:21)
[2020-07-22 09:45] LABS: CARBON DIOXIDE 25 mmol/L (21-32); CHLORIDE 105 mmol/L (98-107); CREATININE 0.4 mg/dL (0.6-1.3); GLUCOSE 121 mg/dL (74-106); MAGNESIUM 1.5 mg/dL (1.8-2.4); PHOSPHOROUS 2.5 mg/dL (2.5-4.9); POTASSIUM 3.3 mmol/L (3.5-5.1); UREA NITROGEN, BLOOD 20 mg/dL (7-18)
[2020-07-22] MEDS ORDERED: TPN BAG #19 IV SCH ×7 (14:00)
[2020-07-22 20:26] VITALS: BP 125/69
[2020-07-22] MEDS: ACETAMINOPHEN 650 MG SUPP.RECT RC PRN (21:53)
--- NOTE | 2020-07-22 23:10 | NUR ---
HHN TX NOT GIVEN DUE TO PUI PROTOCOL.
--- NOTE | 2020-07-22 23:55 | NUR ---
Afebrile, on TPN @ 75ml/hr, infusing well on Right Femoral central line, no adverse reactions. Keppra IV given as ordered, no seizure episodes noted, old gt stoma noted with greenish yellow drainage on colostomy bag that was attached to stoma. Jo catheter is draining well to yellow urine, good je care rendered, turned and repositioned, will continue monitor.
[2020-07-23] MEDS ORDERED: COD LIVER OIL/ZINC OXIDE OINT 113 GM TUBE TOP PRN (00:45)
--- NOTE | 2020-07-23 00:57 | NUR ---
Clarification of sacral scar treatment done X 30 days and then re-eval.
[2020-07-23] MEDS: COD LIVER OIL/ZINC OXIDE OINT 113 GM TUBE TOP SCH ×9 (01:27→21:00)
[2020-07-23] MEDS ORDERED: TPN BAG #20 IV SCH ×2 (02:00)
[2020-07-23] MEDS: INSULIN REGULAR, HUMAN 300 UNIT/3 ML VIAL SQ SCH ×4 (06:00→17:12)
[2020-07-23] MEDS: BLOOD SUGAR DIAGNOSTIC 1 EACH STRIP VI SCH ×4 (06:45→17:12)
[2020-07-23] MEDS: ALBUTEROL SULFATE 2.5 MG/3 ML NEBU NEB SCH ×3 (07:20→22:56)
[2020-07-23] MEDS: IPRATROPIUM BROMIDE 0.5 MG/2.5 ML NEBU NEB SCH ×3 (07:20→22:56)
[2020-07-23 07:29] VITALS: BP 104/82
[2020-07-23] MEDS: CLOTRIMAZOLE 1% CREAM 30 GM TUBE TOP SCH ×2 (08:31→21:00)
[2020-07-23] MEDS: HEPARIN SODIUM,PORCINE 5,000 UNITS/ML VIAL SQ SCH ×2 (08:31→21:00)
[2020-07-23] MEDS: LEVOTHYROXINE SODIUM 100 MCG VIAL IV SCH (09:00)
[2020-07-23] MEDS: PANTOPRAZOLE SODIUM 40 MG VIAL IV SCH (09:00)
[2020-07-23] MEDS: NORMAL SALINE FLUSH 10 ML DISP.SYRIN IV SCH ×2 (09:00→20:43)
[2020-07-23] MEDS: levETIRAcetam IV 500 MG in IV DEXTROSE 5% 100 ML IV SCH ×2 (09:00→20:43)
[2020-07-23 09:50] LABS: CREATININE 0.5 mg/dL (0.6-1.3); MAGNESIUM 1.7 mg/dL (1.8-2.4); PHOSPHOROUS 3.6 mg/dL (2.5-4.9); POTASSIUM 3.4 mmol/L (3.5-5.1)
[2020-07-23 10:59] LABS: CREATININE 0.5 mg/dL (0.6-1.3); POTASSIUM 3.8 mmol/L (3.5-5.1)
[2020-07-23] MEDS: HYDROGEN PEROXIDE 3% 118 ML BOTTLE TP SCH ×2 (11:00→21:06)
--- NOTE | 2020-07-23 13:18 | NUR ---
RT. GROIN CENTRAL LINE DRESSING CHANGED X 2 D/T DISLODGEMENT.
[2020-07-23] MEDS ORDERED: TPN BAG #21 IV SCH ×7 (14:00)
--- NOTE | 2020-07-23 15:03 | NUR ---
NEW ORDER FOR COVID19 TEST CARRIED OUT FROM DR CATHY Gamble PER [facility] ,MESSAGE LEFT TO PT'S RESP. LIBERTARIAN BROTHER AMBROSIO.
[2020-07-23 20:13] VITALS: BP 119/69
--- NOTE | 2020-07-23 23:20 | NUR ---
Pt received on HT-50 vent, tolerating current vent settings well. No signs of respiratory distress noted at this time. Pt's trach is patent and secured with trach tie. HHN tx not given due to PUI protocols. Suctioned pt with large amount of thick yellowish secretions. Vent alarms audible and functioning. Will continue to monitor pt throughout shift.
[2020-07-24] MEDS: BLOOD SUGAR DIAGNOSTIC 1 EACH STRIP VI SCH ×4 (00:17→17:13)
[2020-07-24] MEDS ORDERED: TPN BAG #22 IV SCH ×2 (02:00)
[2020-07-24] MEDS: INSULIN REGULAR, HUMAN 300 UNIT/3 ML VIAL SQ SCH ×4 (05:20→17:13)
[2020-07-24] MEDS: ALBUTEROL SULFATE 2.5 MG/3 ML NEBU NEB SCH ×3 (07:33→23:11)
[2020-07-24] MEDS: IPRATROPIUM BROMIDE 0.5 MG/2.5 ML NEBU NEB SCH ×3 (07:33→23:11)
[2020-07-24 07:43] VITALS: BP 120/40
[2020-07-24] MEDS: HYDROGEN PEROXIDE 3% 118 ML BOTTLE TP SCH ×2 (09:00→09:07)
[2020-07-24] MEDS: COD LIVER OIL/ZINC OXIDE OINT 113 GM TUBE TOP SCH ×8 (09:07→21:01)
[2020-07-24] MEDS: CLOTRIMAZOLE 1% CREAM 30 GM TUBE TOP SCH ×2 (09:07→21:01)
[2020-07-24] MEDS: HEPARIN SODIUM,PORCINE 5,000 UNITS/ML VIAL SQ SCH ×2 (09:08→21:00)
[2020-07-24] MEDS: LEVOTHYROXINE SODIUM 100 MCG VIAL IV SCH (09:25)
[2020-07-24] MEDS: IV FAT EMULSIONS 20% 250 ML IV SCH (09:25)
[2020-07-24] MEDS: NORMAL SALINE FLUSH 10 ML DISP.SYRIN IV SCH ×2 (09:25→21:10)
[2020-07-24] MEDS: levETIRAcetam IV 500 MG in IV DEXTROSE 5% 100 ML IV SCH ×2 (09:25→21:10)
[2020-07-24] MEDS: PANTOPRAZOLE SODIUM 40 MG VIAL IV SCH (09:25)
[2020-07-24 12:35] LABS: CREATININE 0.5 mg/dL (0.6-1.3); MAGNESIUM 1.8 mg/dL (1.8-2.4); PHOSPHOROUS 3.2 mg/dL (2.5-4.9); POTASSIUM 4.1 mmol/L (3.5-5.1)
--- NOTE | 2020-07-24 13:55 | NUR ---
PT'S BROTER RESP. GREEN PARTY AWARE OF NEGATIVE COVID 19 TEST RESULT.
[2020-07-24] MEDS ORDERED: TPN IV SCH ×4 (14:00)
--- NOTE | 2020-07-24 18:29 | NUR ---
pt stable on vent saturating 96-99%. no tx given due to PUI protocols. no changes with settings.
[2020-07-24 20:00] VITALS: BP 107/54
[2020-07-25] MEDS: BLOOD SUGAR DIAGNOSTIC 1 EACH STRIP VI SCH ×4 (00:13→17:50)
[2020-07-25] MEDS ORDERED: TPN IV SCH (02:00)
[2020-07-25] MEDS: INSULIN REGULAR, HUMAN 300 UNIT/3 ML VIAL SQ SCH ×4 (05:10→17:51)
[2020-07-25 07:29] VITALS: BP 110/62
[2020-07-25] MEDS: ALBUTEROL SULFATE 2.5 MG/3 ML NEBU NEB SCH ×4 (07:35→23:30)
[2020-07-25] MEDS: IPRATROPIUM BROMIDE 0.5 MG/2.5 ML NEBU NEB SCH ×4 (07:35→23:30)
[2020-07-25] MEDS: COD LIVER OIL/ZINC OXIDE OINT 113 GM TUBE TOP SCH ×8 (08:55→21:35)
[2020-07-25] MEDS: CLOTRIMAZOLE 1% CREAM 30 GM TUBE TOP SCH ×2 (08:58→21:35)
[2020-07-25] MEDS: LEVOTHYROXINE SODIUM 100 MCG VIAL IV SCH (09:00)
[2020-07-25] MEDS: levETIRAcetam IV 500 MG in IV DEXTROSE 5% 100 ML IV SCH ×2 (09:00→21:31)
[2020-07-25] MEDS: PANTOPRAZOLE SODIUM 40 MG VIAL IV SCH (09:00)
[2020-07-25] MEDS: NORMAL SALINE FLUSH 10 ML DISP.SYRIN IV SCH ×2 (09:00→21:31)
[2020-07-25] MEDS: HYDROGEN PEROXIDE 3% 118 ML BOTTLE TP SCH ×2 (09:43→21:25)
[2020-07-25] MEDS: HEPARIN SODIUM,PORCINE 5,000 UNITS/ML VIAL SQ SCH ×2 (10:06→21:59)
--- NOTE | 2020-07-25 12:13 | NUR ---
SARA spoke with Ania at Dr. Houston's office, , to schedule an initial eye exam for this patient. Ania stated that Dr. Houston was out of town this week, but he returns next week and that she will notify him of the need to see patient for her initial eye exam. SARA faxed patient's face sheet to Ania at [phone].
[2020-07-25 14:58] LABS: CREATININE 0.5 mg/dL (0.6-1.3); POTASSIUM 3.8 mmol/L (3.5-5.1)
[2020-07-25 15:01] LABS: MAGNESIUM 1.8 mg/dL (1.8-2.4); PHOSPHOROUS 5.5 mg/dL (2.5-4.9)
[2020-07-25] MEDS ORDERED: TPN BAG #25 IV SCH ×6 (16:00)
--- NOTE | 2020-07-25 19:09 | NUR ---
continue on tpn at 85 cc/hr,and lipids,R femoral line intact,no s/s of infection noted.
[2020-07-25 20:44] VITALS: BP 111/63
--- NOTE | 2020-07-25 23:35 | NUR ---
Patient is afebrile, trach is intact and patent, no respiratory distress noted, connected to vent. On TPN @ 85ml/hr infusing well on Right Femoral Central line. Old GT stoma noted with yellowish drainage, colostomy bag attached to old gt site for drainage collection. Abdomen is distended but soft tot the touch, Jo catheter is draining well to yellow urine, treatment done to buttocks as ordered, kept clean and comfortable, will continue monitor.
[2020-07-26] MEDS: BLOOD SUGAR DIAGNOSTIC 1 EACH STRIP VI SCH ×4 (00:59→17:25)
[2020-07-26] MEDS ORDERED: TPN BAG #26 IV SCH ×2 (04:00)
[2020-07-26] MEDS: INSULIN REGULAR, HUMAN 300 UNIT/3 ML VIAL SQ SCH ×4 (05:29→17:26)
[2020-07-26] MEDS: ALBUTEROL SULFATE 2.5 MG/3 ML NEBU NEB SCH ×3 (07:24→22:50)
[2020-07-26] MEDS: IPRATROPIUM BROMIDE 0.5 MG/2.5 ML NEBU NEB SCH ×3 (07:24→22:50)
[2020-07-26] MEDS: HYDROGEN PEROXIDE 3% 118 ML BOTTLE TP SCH ×2 (07:25→20:34)
[2020-07-26 07:47] VITALS: BP 107/60
[2020-07-26 07:48] LABS: CREATININE 0.5 mg/dL (0.6-1.3); MAGNESIUM 2.1 mg/dL (1.8-2.4); PHOSPHOROUS 3.5 mg/dL (2.5-4.9)
[2020-07-26] MEDS: COD LIVER OIL/ZINC OXIDE OINT 113 GM TUBE TOP SCH ×8 (08:34→20:31)
[2020-07-26] MEDS: HEPARIN SODIUM,PORCINE 5,000 UNITS/ML VIAL SQ SCH ×2 (08:34→21:46)
[2020-07-26] MEDS: CLOTRIMAZOLE 1% CREAM 30 GM TUBE TOP SCH ×2 (08:35→20:31)
[2020-07-26] MEDS: IV FAT EMULSIONS 20% 250 ML IV SCH (09:00)
[2020-07-26] MEDS: PANTOPRAZOLE SODIUM 40 MG VIAL IV SCH (09:00)
[2020-07-26] MEDS: NORMAL SALINE FLUSH 10 ML DISP.SYRIN IV SCH ×2 (09:00→20:30)
[2020-07-26] MEDS: levETIRAcetam IV 500 MG in IV DEXTROSE 5% 100 ML IV SCH ×2 (09:00→21:00)
[2020-07-26] MEDS: LEVOTHYROXINE SODIUM 100 MCG VIAL IV SCH (09:00)
[2020-07-26] MEDS ORDERED: TPN BAG #27 IV SCH ×4 (14:00)
--- NOTE | 2020-07-26 17:00 | NUR ---
Seen and examined By Kelsey Dunbar,no new orders.
[2020-07-26] MEDS: BISACODYL 10 MG SUPP.RECT RC PRN (18:30)
[2020-07-26 20:17] VITALS: BP 123/77
--- NOTE | 2020-07-26 22:59 | NUR ---
Patient is afebrile, trach is intact and patent, no respiratory distress noted, connected to vent. On TPN @ 90ml/hr infusing well on Right Femoral Central line. Old GT stoma noted with yellowish drainage, colostomy bag attached to old gt site for drainage collection is intact. On keppra IV every 12 hours for seizure, no seizure episodes noted, on seizure precaution. Abdomen is distended but soft to the touch, Jo catheter is draining well to yellow urine, treatment done to buttocks as ordered, kept clean and comfortable, will continue monitor.
[2020-07-26] MEDS ORDERED: levETIRAcetam 500 MG/5 ML VIAL IV ONE (23:56)
[2020-07-27] MEDS: ACETAMINOPHEN 650 MG SUPP.RECT RC PRN ×2 (02:00→02:10)
[2020-07-27] MEDS ORDERED: TPN BAG #28 IV SCH ×2 (02:00)
--- NOTE | 2020-07-27 02:00 | NUR ---
Noted with Axillary temperature of 102.1, rechecked rectally and I obtained a temperature of 101.9. Patient is hot to the touch, Tylenol suppository given as ordered, cooling measures done. On seizure precaution, no seizure episodes noted. old GT stoma noted with yellow green drainage, Jo catheter draining well to yellow urine, good je care rendered, kept clean and comfortable.
[2020-07-27 02:20] VITALS: BP 117/74
--- NOTE | 2020-07-27 02:20 | NUR ---
I notified Dr. Davidson about patient having a temperature of 102.1, MD ordered bloof cultures X 2, U/A C &S and CXR in am, noted and carried out.
[2020-07-27 03:26] LABS: *BILIRUBIN,URIN NEGATIVE (NEGATIVE); *BLOOD, URINE 1+ (NEGATIVE); *CLARITY,URINE SLIGHTLY CLOUDY (CLEAR); *COLOR,URINE YELLOW (YELLOW); *KETONES,URINE NEGATIVE (NEGATIVE); *UROBILINOGEN,URINE 0.2 E.U./dl (NORMAL); LEUKOCYTE ESTERASE ,URINE 2+ (NEGATIVE); NITRITE, URINE NEGATIVE (NEGATIVE); PH,URINE 8.5 (5.0-8.0); UGLUCOSE NEGATIVE (NEGATIVE)
[2020-07-27 03:34] LABS: BACTERIA,URINE MANY /HPF (NONE SEEN); SQUAMOUS EPITHELIAL CELL,UR FEW /HPF (NONE SEEN); WBC,URINE 20-50 /HPF (0-3)
[2020-07-27 03:35] LABS: URINE AMORPHOUS PHOSPHATES MODERATE /HPF
[2020-07-27] MEDS: INSULIN REGULAR, HUMAN 300 UNIT/3 ML VIAL SQ SCH ×4 (06:00→17:14)
[2020-07-27] MEDS: BLOOD SUGAR DIAGNOSTIC 1 EACH STRIP VI SCH ×4 (06:39→17:13)
[2020-07-27] MEDS: ALBUTEROL SULFATE 2.5 MG/3 ML NEBU NEB SCH ×3 (07:12→23:30)
[2020-07-27] MEDS: IPRATROPIUM BROMIDE 0.5 MG/2.5 ML NEBU NEB SCH ×3 (07:12→23:30)
[2020-07-27 07:41] VITALS: BP 131/73
[2020-07-27] MEDS: HEPARIN SODIUM,PORCINE 5,000 UNITS/ML VIAL SQ SCH ×2 (08:25→21:00)
[2020-07-27] MEDS: COD LIVER OIL/ZINC OXIDE OINT 113 GM TUBE TOP SCH ×8 (08:25→21:00)
[2020-07-27] MEDS: CLOTRIMAZOLE 1% CREAM 30 GM TUBE TOP SCH ×2 (08:26→21:00)
[2020-07-27] MEDS: NORMAL SALINE FLUSH 10 ML DISP.SYRIN IV SCH ×2 (09:00→21:35)
[2020-07-27] MEDS: HYDROGEN PEROXIDE 3% 118 ML BOTTLE TP SCH ×2 (09:00→21:15)
[2020-07-27] MEDS: PANTOPRAZOLE SODIUM 40 MG VIAL IV SCH (09:00)
[2020-07-27] MEDS: levETIRAcetam IV 500 MG in IV DEXTROSE 5% 100 ML IV SCH ×2 (09:00→21:35)
[2020-07-27] MEDS: LEVOTHYROXINE SODIUM 100 MCG VIAL IV SCH (09:00)
--- NOTE | 2020-07-27 09:00 | NUR ---
SARA spoke with Stacia Delvalle DC Liaison at [facility], , who wanted to schedule a meeting for the [facility] team, with the subacute team. SARA scheduled a meeting for 08/07/2020 at 10:30am. SARA to coordinate this meeting. SARA also informed Stacia that the July IDT meeting dates for the patient are 08/01/2020 and 08/05/2020, both at 11am. Stacia stated that she will let the [facility] RN Gricelda know about the meeting, since Gricelda will be participating through speaker phone. SARA will also notify patient's brother Dawood about the IDT meetings.
[2020-07-27 09:27] LABS: CREATININE 0.5 mg/dL (0.6-1.3); MAGNESIUM 1.8 mg/dL (1.8-2.4); PHOSPHOROUS 3.2 mg/dL (2.5-4.9); POTASSIUM 3.4 mmol/L (3.5-5.1)
--- NOTE | 2020-07-27 13:00 | NUR ---
PAGED DR MORGAN TWICE REGARDING RESULTED UA AND CXR WITH NO RESPONSES, COULD NOT LEAVE MESSAGE BECAUSE THE VOICE MAIL WAS FULL.
--- NOTE | 2020-07-27 13:37 | NUR ---
SW called patient's brother Dawood, . Dawood was not available, and therefore this SW left [place] a message stating that the next team meeting for the patient has been scheduled for 08/01/2020 at 11am. This SW asked Dawood to call this SW back and let this SW know if Dawood would like to participate in the IDT meeting through speaker phone.
[2020-07-27] MEDS: POTASSIUM CHLORIDE 50 ML IV SCH ×2 (13:45→15:03)
[2020-07-27] MEDS ORDERED: TPN BAG #29 IV SCH ×5 (14:00)
--- NOTE | 2020-07-27 17:12 | NUR ---
[facility] DELIVERED 10 BAGS OF IV KEPPRA. SINCE THERE HAD NOTED EARLIER THAT IT WAS NOT COVERED, I CALLED THEM TO VERIFY THE REASON FOR THE CHANGE. THERE NOTED THAT IS PART OF EMERGENCY MEDICATION AND WILL BE COVERED BY THE INSURANCE, ALL WE HAVE TO DO IS TO COMPLETE AND RETURN PRIOR AUTHORIZATION.
--- NOTE | 2020-07-27 18:27 | NUR ---
SEEN AND EXAMINED BY DR KC, NOTIFIED OF ELEVATED TEMP; RESULTED CXR AND UA. NEW ORDERS GIVEN. NOTED AND CARRIED OUT.
[2020-07-27 20:26] VITALS: BP 116/57
[2020-07-28] MEDS: BLOOD SUGAR DIAGNOSTIC 1 EACH STRIP VI SCH ×4 (00:45→17:02)
[2020-07-28] MEDS ORDERED: TPN BAG #30 IV SCH ×2 (02:00)
--- NOTE | 2020-07-28 04:13 | NUR ---
patient is afebrile, trach intact and patent, connected to ventilator, no respiratory distress noted. Remains on TPN infusing well on right med- thigh central line. old gt stoma with colostomy bag attached noted with yellow greenish drainage, Jo catheter draining with yellow urine. Good skin care done, turned and repositioned, will continue monitor.
[2020-07-28] MEDS: INSULIN REGULAR, HUMAN 300 UNIT/3 ML VIAL SQ SCH ×4 (05:23→17:02)
[2020-07-28 06:17] LABS: BASOPHILS % (AUTO) 0.6 % (0.0-2.0); EOSINOPHILS # (AUTO) 0.1 K/uL (0.0-0.7); HEMATOCRIT 27.8 % (31.2-41.9); HEMOGLOBIN 9.3 g/dL (10.9-14.3); LYMPHOCYTES # (AUTO) 0.6 K/uL (20.0-40.0); LYMPHOCYTES % (AUTO) 8.6 % (20.5-51.5); MEAN CORPUSCULAR HEMOGLOBIN 28.5 uug (24.7-32.8); MEAN CORPUSCULAR HGB CONC 34 g/dL (32.3-35.6); MONOCYTES # (AUTO) 0.8 K/uL (2.0-10.0); MONOCYTES % (AUTO) 10.3 % (0.0-11.0); NEUTROPHILS # (AUTO) 5.9 K/uL (1.8-8.9); NEUTROPHILS % (AUTO) 78.5 % (38.5-71.5); PLATELET COUNT (AUTO) 144 K/uL (179-408); RED BLOOD CELL COUNT(AUTO) 3.27 MIL/uL (3.63-4.92); WHITE BLOOD COUNT (AUTO) 7.5 K/uL (3.8-11.8)
[2020-07-28 06:32] LABS: MAGNESIUM 1.5 mg/dL (1.8-2.4); PHOSPHOROUS 2.2 mg/dL (2.5-4.9)
[2020-07-28 06:41] LABS: ALANINE AMINOTRANSFERASE 78 U/L (14-59); ALKALINE PHOSPHATASE 105 U/L (50-136); AMYLASE 32 U/L (25-115); ASPARTATE AMINOTRANSFERASE 35 U/L (15-37); BILIRUBIN,TOTAL 0.3 mg/dL (0.2-1.0); CARBON DIOXIDE 22 mmol/L (21-32); CHLORIDE 99 mmol/L (98-107); CREATININE 0.4 mg/dL (0.6-1.3); GLUCOSE 266 mg/dL (74-106); TOTAL PROTEIN, SERUM 5.7 g/dL (6.4-8.2); UREA NITROGEN, BLOOD 26 mg/dL (7-18)
[2020-07-28 06:43] LABS: POTASSIUM 2.8 mmol/L (3.5-5.1)
[2020-07-28 06:48] LABS: LIPASE 87 U/L (73-393)
[2020-07-28] MEDS: IPRATROPIUM BROMIDE 0.5 MG/2.5 ML NEBU NEB SCH ×3 (07:20→23:04)
[2020-07-28] MEDS: ALBUTEROL SULFATE 2.5 MG/3 ML NEBU NEB SCH ×3 (07:20→23:04)
[2020-07-28 07:43] VITALS: BP 119/86
[2020-07-28] MEDS: HYDROGEN PEROXIDE 3% 118 ML BOTTLE TP SCH ×2 (08:13→21:18)
[2020-07-28] MEDS: HEPARIN SODIUM,PORCINE 5,000 UNITS/ML VIAL SQ SCH ×2 (08:21→21:00)
[2020-07-28] MEDS: CLOTRIMAZOLE 1% CREAM 30 GM TUBE TOP SCH ×2 (08:22→21:00)
[2020-07-28] MEDS: COD LIVER OIL/ZINC OXIDE OINT 113 GM TUBE TOP SCH ×8 (08:22→21:00)
[2020-07-28] MEDS: IV FAT EMULSIONS 20% 250 ML IV SCH (09:00)
[2020-07-28] MEDS: LEVOTHYROXINE SODIUM 100 MCG VIAL IV SCH (09:00)
[2020-07-28] MEDS: NORMAL SALINE FLUSH 10 ML DISP.SYRIN IV SCH ×2 (09:00→21:25)
[2020-07-28] MEDS: levETIRAcetam IV 500 MG in IV DEXTROSE 5% 100 ML IV SCH ×2 (09:00→21:25)
[2020-07-28] MEDS: PANTOPRAZOLE SODIUM 40 MG VIAL IV SCH (09:00)
[2020-07-28] MEDS: MAGNESIUM SULFATE/D5W 100 ML IV SCH ×2 (11:30→12:30)
--- NOTE | 2020-07-28 11:35 | NUR ---
PAGED DR. MORGAN REGARDING RESULTED CXR AND UA. DR. MORGAN NOTED TO CONTACT INFECTIOUS DISEASE PERLA PAEZ TO CHECK IF SHE WANT TO START PATIENT ON ANTIBIOTIC OR NOT.
[2020-07-28] MEDS ORDERED: SODIUM PHOSPHATE MM 15 MMOL in IV NORMAL SALINE 250 ML IV ONE (12:00)
--- NOTE | 2020-07-28 12:02 | NUR ---
SARA spoke with Stcaia Delvalle DC Liaison at [facility], , to follow-up and coordinate details for the meeting scheduled for 08/07 at 10:30am. Stacia provided this SW with a conference line and code for the [phone], code [id number].
[2020-07-28] MEDS: POTASSIUM CHLORIDE 50 ML IV SCH ×6 (13:00→18:00)
[2020-07-28] MEDS ORDERED: TPN BAG #31 IV SCH ×5 (14:00)
--- NOTE | 2020-07-28 14:00 | NUR ---
NOTIFIED I/D PERLA PAEZ OF RESULTED CXR, UA AND ELEVATED TEMP OF 100.8. JEANNINE NOTED SHE WILL SEE PATIENT TODAY.
[2020-07-28] MEDS: ACETAMINOPHEN 650 MG SUPP.RECT RC PRN (14:27)
--- NOTE | 2020-07-28 14:29 | NUR ---
NOTED WITH TEMP OF 100.8. COOLING MEASURE RENDERED. TYLENOL SUPPOSITORY GIVEN. CHARGE NURSE AWARE.
--- NOTE | 2020-07-28 17:55 | NUR ---
rechecked temp. 100.0. cooling measure rendered.
--- NOTE | 2020-07-28 18:12 | NUR ---
RECEIVED A CALL FROM LAB. BLOOD CULTURE POSITIVE GRAM NEGATIVE RODS. PERLA MORTON MADE AWARE.
[2020-07-28] MEDS: COLISTIMETHATE SODIUM 150 MG VIAL INH SCH (19:30)
[2020-07-28 20:08] VITALS: BP 127/64
--- NOTE | 2020-07-28 20:30 | NUR ---
started on cefepime 1 gm iv for pneumonia, no adverse reaction noted,afebrile, right femoral central line patent, flushed per protocol.
[2020-07-28] MEDS: CEFEPIME HCL 1 G in IV DEXTROSE 5% 50 ML IV SCH (20:46)
[2020-07-29] MEDS: BLOOD SUGAR DIAGNOSTIC 1 EACH STRIP VI SCH ×4 (00:36→17:35)
[2020-07-29] MEDS ORDERED: TPN BAG #32 IV SCH ×2 (02:00)
[2020-07-29] MEDS: INSULIN REGULAR, HUMAN 300 UNIT/3 ML VIAL SQ SCH ×4 (05:37→17:34)
[2020-07-29] MEDS: IPRATROPIUM BROMIDE 0.5 MG/2.5 ML NEBU NEB SCH ×3 (07:05→23:04)
[2020-07-29] MEDS: ALBUTEROL SULFATE 2.5 MG/3 ML NEBU NEB SCH ×3 (07:05→23:04)
[2020-07-29] MEDS: COLISTIMETHATE SODIUM 150 MG VIAL INH SCH ×2 (07:05→19:30)
[2020-07-29] MEDS: CEFEPIME HCL 1 G in IV DEXTROSE 5% 50 ML IV SCH ×2 (08:00→20:45)
[2020-07-29 08:02] VITALS: BP 95/49
[2020-07-29 08:03] LABS: CREATININE 0.5 mg/dL (0.6-1.3); MAGNESIUM 2.2 mg/dL (1.8-2.4); PHOSPHOROUS 2.2 mg/dL (2.5-4.9); POTASSIUM 3.8 mmol/L (3.5-5.1)
[2020-07-29] MEDS: HEPARIN SODIUM,PORCINE 5,000 UNITS/ML VIAL SQ SCH ×2 (08:38→21:00)
[2020-07-29] MEDS: COD LIVER OIL/ZINC OXIDE OINT 113 GM TUBE TOP SCH ×8 (08:41→21:00)
[2020-07-29] MEDS: CLOTRIMAZOLE 1% CREAM 30 GM TUBE TOP SCH ×2 (08:42→21:00)
[2020-07-29] MEDS: HYDROGEN PEROXIDE 3% 118 ML BOTTLE TP SCH ×2 (09:00→21:06)
[2020-07-29] MEDS: LEVOTHYROXINE SODIUM 100 MCG VIAL IV SCH (09:45)
[2020-07-29] MEDS: NORMAL SALINE FLUSH 10 ML DISP.SYRIN IV SCH ×2 (09:45→21:59)
[2020-07-29] MEDS: levETIRAcetam IV 500 MG in IV DEXTROSE 5% 100 ML IV SCH ×2 (09:45→21:59)
[2020-07-29] MEDS: PANTOPRAZOLE SODIUM 40 MG VIAL IV SCH (09:45)
[2020-07-29] MEDS ORDERED: TPN BAG #34 IV SCH ×2 (12:15)
[2020-07-29] MEDS ORDERED: SODIUM PHOSPHATE MM 15 MMOL in IV NORMAL SALINE 250 ML IV ONE (13:00)
[2020-07-29] MEDS ORDERED: TPN PER PHARMACY IV SCH ×5 (14:00)
[2020-07-29 20:16] VITALS: BP 116/67
[2020-07-29] MEDS ORDERED: ACETAMINOPHEN 650 MG SUPP.RECT RC ONE (21:15)
[2020-07-29] MEDS: ACETAMINOPHEN 650 MG SUPP.RECT RC PRN (22:30)
[2020-07-30] MEDS: BLOOD SUGAR DIAGNOSTIC 1 EACH STRIP VI SCH ×5 (00:51→23:17)
[2020-07-30] MEDS ORDERED: TPN BAG #34 IV SCH ×2 (02:00)
[2020-07-30] MEDS: INSULIN REGULAR, HUMAN 300 UNIT/3 ML VIAL SQ SCH ×5 (05:44→23:16)
[2020-07-30] MEDS: COLISTIMETHATE SODIUM 150 MG VIAL INH SCH ×2 (07:04→18:48)
[2020-07-30] MEDS: ALBUTEROL SULFATE 2.5 MG/3 ML NEBU NEB SCH ×3 (07:11→22:30)
[2020-07-30] MEDS: IPRATROPIUM BROMIDE 0.5 MG/2.5 ML NEBU NEB SCH ×3 (07:11→22:30)
[2020-07-30] MEDS: CEFEPIME HCL 1 G in IV DEXTROSE 5% 50 ML IV SCH ×2 (08:00→20:00)
[2020-07-30] MEDS: HYDROGEN PEROXIDE 3% 118 ML BOTTLE TP SCH ×2 (08:40→18:48)
[2020-07-30] MEDS: levETIRAcetam IV 500 MG in IV DEXTROSE 5% 100 ML IV SCH ×2 (09:00→21:01)
[2020-07-30] MEDS: PANTOPRAZOLE SODIUM 40 MG VIAL IV SCH (09:00)
[2020-07-30] MEDS: NORMAL SALINE FLUSH 10 ML DISP.SYRIN IV SCH ×2 (09:00→21:01)
[2020-07-30] MEDS: LEVOTHYROXINE SODIUM 100 MCG VIAL IV SCH (09:00)
[2020-07-30] MEDS: HEPARIN SODIUM,PORCINE 5,000 UNITS/ML VIAL SQ SCH ×2 (09:51→21:48)
[2020-07-30] MEDS: COD LIVER OIL/ZINC OXIDE OINT 113 GM TUBE TOP SCH ×8 (09:52→21:43)
[2020-07-30] MEDS: CLOTRIMAZOLE 1% CREAM 30 GM TUBE TOP SCH ×2 (09:52→21:43)
[2020-07-30 09:59] LABS: CARBON DIOXIDE 25 mmol/L (21-32); CHLORIDE 105 mmol/L (98-107); CREATININE 0.4 mg/dL (0.6-1.3); GLUCOSE 132 mg/dL (74-106); MAGNESIUM 1.7 mg/dL (1.8-2.4); PHOSPHOROUS 2.4 mg/dL (2.5-4.9); UREA NITROGEN, BLOOD 19 mg/dL (7-18)
[2020-07-30 10:00] LABS: POTASSIUM 2.5 mmol/L (3.5-5.1)
[2020-07-30] MEDS: POTASSIUM CHLORIDE 50 ML IV SCH ×4 (11:00→14:00)
[2020-07-30] MEDS: MAGNESIUM SULFATE/D5W 100 ML IV SCH ×2 (11:15→13:03)
[2020-07-30] MEDS ORDERED: TPN BAG #35 IV SCH ×5 (14:00)
[2020-07-30] MEDS ORDERED: POTASSIUM PHOSPHATE MM 15 MMOL in IV NORMAL SALINE 250 ML IV ONE (16:00)
--- NOTE | 2020-07-30 18:35 | NUR ---
Covid 19 test done today.per [facility] requirement.Responsible green party notified.
--- NOTE | 2020-07-30 19:00 | NUR ---
Continue on PPN at 90 cc/hr,mg sulfate 1 Gm x2 for low Mg 1.7,k phosp 15ml for low K 2.5,phosp 2.4,kcl 40 Meq x 1 over 4 hours,for K 2.5,triple lumen R femoral intact,on Ivatb Maxepine,no adverse reaction noted.
[2020-07-30 20:21] VITALS: BP 97/60
[2020-07-31] MEDS ORDERED: TPN BAG #36 IV SCH ×2 (02:00)
--- NOTE | 2020-07-31 04:36 | NUR ---
Patient continue to receive TPN at a rate of 90ml/hr infusing via R femoral line triple lumen, site without discharge/redness/tenderness. Pt also receiving Cefepime 1gm IV Q12hrs for UTI per sensitivity report. No adverse reaction noted. Afebrile this shift. Continue to monitor.
[2020-07-31] MEDS: INSULIN REGULAR, HUMAN 300 UNIT/3 ML VIAL SQ SCH ×3 (06:00→17:45)
[2020-07-31] MEDS: BLOOD SUGAR DIAGNOSTIC 1 EACH STRIP VI SCH ×3 (06:05→17:00)
[2020-07-31 06:24] LABS: MAGNESIUM 2.1 mg/dL (1.8-2.4); PHOSPHOROUS 2.6 mg/dL (2.5-4.9)
[2020-07-31] MEDS: IPRATROPIUM BROMIDE 0.5 MG/2.5 ML NEBU NEB SCH ×3 (07:02→23:12)
[2020-07-31] MEDS: COLISTIMETHATE SODIUM 150 MG VIAL INH SCH ×2 (07:02→19:29)
[2020-07-31] MEDS: HYDROGEN PEROXIDE 3% 118 ML BOTTLE TP SCH ×2 (07:02→21:13)
[2020-07-31] MEDS: ALBUTEROL SULFATE 2.5 MG/3 ML NEBU NEB SCH ×3 (07:02→23:12)
[2020-07-31 07:29] VITALS: BP 120/68
[2020-07-31] MEDS: COD LIVER OIL/ZINC OXIDE OINT 113 GM TUBE TOP SCH ×8 (08:14→20:27)
[2020-07-31] MEDS: CLOTRIMAZOLE 1% CREAM 30 GM TUBE TOP SCH ×2 (08:15→20:27)
[2020-07-31] MEDS: HEPARIN SODIUM,PORCINE 5,000 UNITS/ML VIAL SQ SCH ×2 (08:15→21:00)
[2020-07-31] MEDS: CEFEPIME HCL 1 G in IV DEXTROSE 5% 50 ML IV SCH ×2 (08:58→20:21)
[2020-07-31] MEDS: levETIRAcetam IV 500 MG in IV DEXTROSE 5% 100 ML IV SCH ×2 (08:58→21:18)
[2020-07-31] MEDS: NORMAL SALINE FLUSH 10 ML DISP.SYRIN IV SCH ×2 (08:59→21:18)
[2020-07-31] MEDS: LEVOTHYROXINE SODIUM 100 MCG VIAL IV SCH (08:59)
[2020-07-31] MEDS: PANTOPRAZOLE SODIUM 40 MG VIAL IV SCH (08:59)
[2020-07-31] MEDS: IV FAT EMULSIONS 20% 250 ML IV SCH (09:30)
[2020-07-31 10:07] LABS: CREATININE 0.5 mg/dL (0.6-1.3); POTASSIUM 3.6 mmol/L (3.5-5.1)
[2020-07-31 10:11] LABS: MAGNESIUM 2.1 mg/dL (1.8-2.4); PHOSPHOROUS 2.5 mg/dL (2.5-4.9)
--- NOTE | 2020-07-31 12:00 | NUR ---
SEEN BY KYLER Giron AND WITH NNO.
[2020-07-31] MEDS ORDERED: TPN BAG #37 IV SCH ×6 (14:00)
--- NOTE | 2020-07-31 14:55 | NUR ---
JEANNINE CLARK I.Pedrito) WAS NOTIFIED WITH MESSAGE RE POSITIVE BLOOD CX WITH CRE.
--- NOTE | 2020-07-31 15:04 | NUR ---
JEANNINE GIL (Heraclio) CALLED BACK AND AWARE OF MICROLAB RESULTS AND STATED THAT SHE WILL COME AND SEE PT. SEE PT.
--- NOTE | 2020-07-31 18:08 | NUR ---
PT'S BROTHER WAS NOTIFIED RE: RESULTS OF COVID 19 TEST NEGATIVE.
[2020-07-31 20:41] VITALS: BP 121/69
[2020-07-31] MEDS ORDERED: DOSING PER PHARMACY-AMIKACIN IV XX PRN (20:45)
--- NOTE | 2020-07-31 22:00 | NUR ---
Seen with new orders from Betzaida Multani, Infectious Disease DE ICER ELEMENT WINDER to start on Amikacin IV Pharmacy to dose for Blood stream infection.
[2020-07-31] MEDS ORDERED: DEXTROSE 5% IV ONE (23:00)
[2020-07-31] MEDS ORDERED: AMIKACIN IV ONE (23:00)
[2020-07-31] MEDS ORDERED: ACETAMINOPHEN 650 MG SUPP.RECT RC ONE (23:34)
--- NOTE | 2020-08-01 | NUR ---
Amikacin 280mg IVPB given X 1 dose infusing well on CARLEY peripheral line, no adverse reactions noted. Patient is afebrile, still on TPN infusion, Lipids is infusing well, no signs of fluid overload, no signs of respiratory distress. Patient is afebrile, old GT stoma is draining to yellow green drainage, abdomen is distended but soft, (+) bowel sounds on all 4 quadrants. Jo catheter is draining well to yellow urine, good je care rendered, turned and repositioned, will continue monitor. Addendum: 08/01/20 at 0602 by EUGENIE LOCKETT RN Put patient on contact isolation for Klebsiella Pneumonia in the blood; probable CRE.
[2020-08-01] MEDS ORDERED: AMIKACIN SULFATE 500 MG/2 ML VIAL ONE (00:14)
[2020-08-01] MEDS: BLOOD SUGAR DIAGNOSTIC 1 EACH STRIP VI SCH ×4 (00:44→17:50)
[2020-08-01] MEDS: INSULIN REGULAR, HUMAN 300 UNIT/3 ML VIAL SQ SCH ×4 (00:46→17:50)
[2020-08-01] MEDS: ACETAMINOPHEN 650 MG SUPP.RECT RC PRN (00:47)
[2020-08-01] MEDS ORDERED: TPN BAG #38 IV SCH ×2 (02:00)
--- NOTE | 2020-08-01 07:00 | NUR ---
Left message to Dawood (brother) to call back.
--- NOTE | 2020-08-01 07:15 | NUR ---
Acetaminophen suppository order for 06/30/20 2330 was not administered as per now order but rather it was administered at 0040 as PRN pain. Pls refer to medication administration record.
[2020-08-01 07:22] VITALS: BP 119/57
[2020-08-01] MEDS: IPRATROPIUM BROMIDE 0.5 MG/2.5 ML NEBU NEB SCH ×3 (07:35→23:10)
[2020-08-01] MEDS: ALBUTEROL SULFATE 2.5 MG/3 ML NEBU NEB SCH ×3 (07:35→23:10)
[2020-08-01] MEDS: HYDROGEN PEROXIDE 3% 118 ML BOTTLE TP SCH ×2 (07:35→21:59)
[2020-08-01] MEDS: COLISTIMETHATE SODIUM 150 MG VIAL INH SCH ×2 (08:00→20:30)
[2020-08-01] MEDS: CEFEPIME HCL 1 G in IV DEXTROSE 5% 50 ML IV SCH ×2 (08:00→20:36)
[2020-08-01] MEDS: HEPARIN SODIUM,PORCINE 5,000 UNITS/ML VIAL SQ SCH ×2 (08:32→21:31)
[2020-08-01] MEDS: CLOTRIMAZOLE 1% CREAM 30 GM TUBE TOP SCH ×2 (08:41→21:32)
[2020-08-01] MEDS: COD LIVER OIL/ZINC OXIDE OINT 113 GM TUBE TOP SCH ×8 (08:41→21:32)
[2020-08-01] MEDS: levETIRAcetam IV 500 MG in IV DEXTROSE 5% 100 ML IV SCH ×2 (09:00→21:29)
[2020-08-01] MEDS: NORMAL SALINE FLUSH 10 ML DISP.SYRIN IV SCH ×2 (09:00→20:37)
[2020-08-01] MEDS: LEVOTHYROXINE SODIUM 100 MCG VIAL IV SCH (09:00)
[2020-08-01] MEDS: PANTOPRAZOLE SODIUM 40 MG VIAL IV SCH (09:00)
[2020-08-01 11:43] LABS: CREATININE 0.5 mg/dL (0.6-1.3); MAGNESIUM 1.8 mg/dL (1.8-2.4); PHOSPHOROUS 2.2 mg/dL (2.5-4.9); POTASSIUM 3.4 mmol/L (3.5-5.1)
[2020-08-01] MEDS ORDERED: POTASSIUM CHLORIDE 50 ML IV SCH (13:00)
[2020-08-01] MEDS ORDERED: TPN BAG #39 IV SCH ×6 (14:00)
[2020-08-01] MEDS ORDERED: POTASSIUM PHOSPHATE MM 15 MMOL in IV NORMAL SALINE 250 ML IV ONE (14:00)
[2020-08-01] MEDS: AMIKACIN 300 MG in IV DEXTROSE 5% 100 ML IV SCH ×2 (14:33→22:25)
--- NOTE | 2020-08-01 15:00 | NUR ---
Seen and examined By Dr Davidson with new orders noted,to dc picc line triple lumen,continue on PPN at 90 cc/hr,on Ivatb Cefepine and Amikacin per pharmacy ,carried out.
--- NOTE | 2020-08-01 15:16 | NUR ---
INTERDISCIPLINARY PLAN OF CARE CONFERENCE was held today. Patient's brother Dawood and [facility] RN Gricelda participated in the meeting through speaker phone. Dr. Koch and the Interdisciplinary Team reviewed the current plan of care in detail. RN reported on patient's medical condition, and current treatments. RN also reported that patient is currently on contact isolation for CRE in the blood. See RN IDT conference notes. RD discussed current nutritional regime. See all disciplines IDT notes and physician's progress notes for additional details. Dawood's and Gricelda's questions were addressed by the IDT team and they expressed understanding and agreement with the current plan of care.
--- NOTE | 2020-08-01 19:00 | NUR ---
Betzaida Gear Machinist call with new orders noted and carried out.
--- NOTE | 2020-08-01 19:13 | NUR ---
Picc line on the R femoral discontinue midkine on the R upper arm inserted by Gloria Morse,procedure tolerated well.
[2020-08-01 20:02] VITALS: BP 117/60
[2020-08-02] MEDS: BLOOD SUGAR DIAGNOSTIC 1 EACH STRIP VI SCH ×4 (00:57→18:41)
[2020-08-02] MEDS ORDERED: TPN BAG #40 IV SCH ×2 (02:00)
--- NOTE | 2020-08-02 05:53 | NUR ---
continue on amikacin 300mg iv cre in blood,no adverse reaction noted,afebrile,continue on isolation.
[2020-08-02] MEDS: INSULIN REGULAR, HUMAN 300 UNIT/3 ML VIAL SQ SCH ×4 (06:00→18:00)
[2020-08-02] MEDS: AMIKACIN 300 MG in IV DEXTROSE 5% 100 ML IV SCH ×3 (07:01→22:59)
[2020-08-02 07:08] LABS: CREATININE 0.5 mg/dL (0.6-1.3); MAGNESIUM 1.8 mg/dL (1.8-2.4); PHOSPHOROUS 2.1 mg/dL (2.5-4.9)
[2020-08-02] MEDS: COLISTIMETHATE SODIUM 150 MG VIAL INH SCH ×2 (07:17→19:45)
[2020-08-02 07:27] VITALS: BP 122/62
[2020-08-02] MEDS: ALBUTEROL SULFATE 2.5 MG/3 ML NEBU NEB SCH ×3 (07:33→22:46)
[2020-08-02] MEDS: IPRATROPIUM BROMIDE 0.5 MG/2.5 ML NEBU NEB SCH ×3 (07:33→22:46)
[2020-08-02] MEDS: CEFEPIME HCL 1 G in IV DEXTROSE 5% 50 ML IV SCH ×2 (08:00→20:22)
[2020-08-02] MEDS: HYDROGEN PEROXIDE 3% 118 ML BOTTLE TP SCH ×2 (08:40→21:43)
[2020-08-02] MEDS: HEPARIN SODIUM,PORCINE 5,000 UNITS/ML VIAL SQ SCH ×2 (09:00→21:58)
[2020-08-02] MEDS: COD LIVER OIL/ZINC OXIDE OINT 113 GM TUBE TOP SCH ×7 (09:14→21:58)
[2020-08-02] MEDS: CLOTRIMAZOLE 1% CREAM 30 GM TUBE TOP SCH ×2 (09:16→21:58)
[2020-08-02] MEDS: IV FAT EMULSIONS 20% 250 ML IV SCH (09:54)
[2020-08-02] MEDS: levETIRAcetam IV 500 MG in IV DEXTROSE 5% 100 ML IV SCH ×2 (09:55→21:22)
[2020-08-02] MEDS: NORMAL SALINE FLUSH 10 ML DISP.SYRIN IV SCH ×2 (09:56→21:22)
[2020-08-02] MEDS: POTASSIUM CHLORIDE 50 ML IV SCH ×4 (09:56→12:30)
[2020-08-02] MEDS: PANTOPRAZOLE SODIUM 40 MG VIAL IV SCH (09:56)
[2020-08-02] MEDS: POTASSIUM PHOSPHATE MM 15 MMOL in IV NORMAL SALINE 250 ML IV ONE ×2 (09:56→10:00)
[2020-08-02] MEDS: LEVOTHYROXINE SODIUM 100 MCG VIAL IV SCH (09:56)
--- NOTE | 2020-08-02 10:51 | NUR ---
Left message to Dr Lester LOUIS regarding the increase of gastric discharge bile color 600 to 850 cc.
[2020-08-02] MEDS ORDERED: TPN BAG #41 IV SCH ×8 (14:00)
--- NOTE | 2020-08-02 17:24 | NUR ---
Spoke to Dr Batista and notified him regarding the gastric drainage ,he will evaluate the patient tonight.
--- NOTE | 2020-08-02 18:04 | NUR ---
Seen and examined by Dr Koch with new orders noted,
[2020-08-02 20:00] VITALS: BP 121/72
[2020-08-03] MEDS ORDERED: TPN BAG #42 IV SCH ×2 (02:00)
[2020-08-03] MEDS: INSULIN REGULAR, HUMAN 300 UNIT/3 ML VIAL SQ SCH ×4 (06:00→17:55)
[2020-08-03] MEDS: BLOOD SUGAR DIAGNOSTIC 1 EACH STRIP VI SCH ×4 (06:30→17:54)
[2020-08-03] MEDS: AMIKACIN 300 MG in IV DEXTROSE 5% 100 ML IV SCH ×2 (06:48→14:30)
[2020-08-03 07:46] VITALS: BP 129/71
[2020-08-03] MEDS: COLISTIMETHATE SODIUM 150 MG VIAL INH SCH ×2 (07:50→19:41)
[2020-08-03] MEDS: IPRATROPIUM BROMIDE 0.5 MG/2.5 ML NEBU NEB SCH ×3 (07:50→22:52)
[2020-08-03] MEDS: ALBUTEROL SULFATE 2.5 MG/3 ML NEBU NEB SCH ×3 (07:50→22:52)
[2020-08-03] MEDS: COD LIVER OIL/ZINC OXIDE OINT 113 GM TUBE TOP SCH ×6 (08:46→20:47)
[2020-08-03] MEDS: CLOTRIMAZOLE 1% CREAM 30 GM TUBE TOP SCH ×2 (08:46→20:47)
[2020-08-03] MEDS: HEPARIN SODIUM,PORCINE 5,000 UNITS/ML VIAL SQ SCH ×2 (08:47→20:47)
[2020-08-03] MEDS: LEVOTHYROXINE SODIUM 100 MCG VIAL IV SCH (08:59)
[2020-08-03] MEDS: levETIRAcetam IV 500 MG in IV DEXTROSE 5% 100 ML IV SCH ×2 (08:59→21:13)
[2020-08-03] MEDS: NORMAL SALINE FLUSH 10 ML DISP.SYRIN IV SCH ×2 (08:59→21:13)
[2020-08-03] MEDS: PANTOPRAZOLE SODIUM 40 MG VIAL IV SCH (08:59)
[2020-08-03] MEDS: CEFEPIME HCL 1 G in IV DEXTROSE 5% 50 ML IV SCH ×2 (08:59→20:16)
[2020-08-03 09:30] LABS: CARBON DIOXIDE 26 mmol/L (21-32); CHLORIDE 104 mmol/L (98-107); CREATININE 0.4 mg/dL (0.6-1.3); GLUCOSE 110 mg/dL (74-106); MAGNESIUM 1.5 mg/dL (1.8-2.4); PHOSPHOROUS 2.7 mg/dL (2.5-4.9); POTASSIUM 3.3 mmol/L (3.5-5.1); UREA NITROGEN, BLOOD 20 mg/dL (7-18)
[2020-08-03] MEDS: HYDROGEN PEROXIDE 3% 118 ML BOTTLE TP SCH ×2 (09:58→21:34)
[2020-08-03] MEDS: MAGNESIUM SULFATE/D5W 100 ML IV SCH ×2 (10:30→12:11)
--- NOTE | 2020-08-03 10:45 | NUR ---
AMIKACIN LEVEL AND BUN AND CREATININE RESULTS WERE FAXED AND NOTIFIED TO ARABELLA FROM [facility].
[2020-08-03] MEDS: POTASSIUM CHLORIDE 50 ML IV SCH ×4 (11:06→13:30)
[2020-08-03] MEDS ORDERED: TPN BAG #43 IV SCH ×8 (14:00)
--- NOTE | 2020-08-03 16:59 | NUR ---
SARA followed up with Ania at Dr. Houston's office, regarding the optometry exam that was requested on 07/25 (see SS note). Ania stated that Dr. Houston would be available during the first or second week of August, and that Ania would call this SARA closer to the date to confirm.
--- NOTE | 2020-08-03 17:30 | NUR ---
NEW ORDERS CARRIED OUT FROM JEANNINE MONTES) AND RECOMMENDED BY [facility] PH[facility]ACIST TRUPTI .
[2020-08-03 20:00] VITALS: BP 120/68
[2020-08-04] MEDS: BLOOD SUGAR DIAGNOSTIC 1 EACH STRIP VI SCH ×5 (00:42→23:18)
[2020-08-04] MEDS: AMIKACIN 350 MG in IV DEXTROSE 5% 100 ML IV SCH ×3 (01:01→17:51)
[2020-08-04] MEDS ORDERED: TPN BAG #44 IV SCH ×2 (02:00)
--- NOTE | 2020-08-04 02:00 | NUR ---
started amikacin 350mg iv for cre in blood, no adverse reaction noted, right upper arm mid line patent, flushed per protocol.
[2020-08-04] MEDS: INSULIN REGULAR, HUMAN 300 UNIT/3 ML VIAL SQ SCH ×6 (05:50→23:18)
[2020-08-04 06:02] LABS: CARBON DIOXIDE 26 mmol/L (21-32); CHLORIDE 104 mmol/L (98-107); CREATININE 0.4 mg/dL (0.6-1.3); GLUCOSE 111 mg/dL (74-106); MAGNESIUM 2.2 mg/dL (1.8-2.4); PHOSPHOROUS 2.8 mg/dL (2.5-4.9); POTASSIUM 3.8 mmol/L (3.5-5.1); UREA NITROGEN, BLOOD 20 mg/dL (7-18)
[2020-08-04 07:28] VITALS: BP 127/64
[2020-08-04] MEDS: ALBUTEROL SULFATE 2.5 MG/3 ML NEBU NEB SCH ×3 (07:28→23:10)
[2020-08-04] MEDS: COLISTIMETHATE SODIUM 150 MG VIAL INH SCH (07:28)
[2020-08-04] MEDS: IPRATROPIUM BROMIDE 0.5 MG/2.5 ML NEBU NEB SCH ×3 (07:28→23:10)
[2020-08-04] MEDS: CEFEPIME HCL 1 G in IV DEXTROSE 5% 50 ML IV SCH ×2 (08:08→20:07)
[2020-08-04] MEDS: PANTOPRAZOLE SODIUM 40 MG VIAL IV SCH (08:10)
[2020-08-04] MEDS: LEVOTHYROXINE SODIUM 100 MCG VIAL IV SCH (08:10)
[2020-08-04] MEDS: HEPARIN SODIUM,PORCINE 5,000 UNITS/ML VIAL SQ SCH ×2 (08:32→20:34)
[2020-08-04] MEDS: COD LIVER OIL/ZINC OXIDE OINT 113 GM TUBE TOP SCH ×6 (08:32→20:35)
[2020-08-04] MEDS: CLOTRIMAZOLE 1% CREAM 30 GM TUBE TOP SCH ×2 (08:32→20:35)
[2020-08-04] MEDS: HYDROGEN PEROXIDE 3% 118 ML BOTTLE TP SCH ×2 (08:37→21:14)
--- NOTE | 2020-08-04 09:30 | NUR ---
[facility]
--- NOTE | 2020-08-04 09:30 | NUR ---
PT. OBSERVED WITH RT ARM MIDLINE INSERTION SITE WITH SLIGHT REDNESS BUT WHEN REPOSITIONED OBSERVED WITH POSTERIOR RT . CONTRACTED ARM WITH INCREASED LOCAL TEMP. AND WITH APPARENTLY LOCAL EDEMA ,NO LEAKEAGE FROM INSERTION SITE,NO BLEEDING .PT. WITH VERY POOR VENOUS ACCESS BUT NURSE ABLE TO PLACE # 24 PERIPHERAL SALINE IV CATHETER AND A # 22 AND ABLE TO ADMIN. ALL MEDS EXCEPT. TPN AND LIPID AND DR. CATHY Gamble WAS PAGED WELL DR. KC.
[2020-08-04] MEDS: levETIRAcetam IV 500 MG in IV DEXTROSE 5% 100 ML IV SCH ×2 (09:35→21:00)
[2020-08-04] MEDS: IV FAT EMULSIONS 20% 250 ML IV SCH (09:35)
[2020-08-04] MEDS: NORMAL SALINE FLUSH 10 ML DISP.SYRIN IV SCH ×2 (09:35→21:00)
--- NOTE | 2020-08-04 09:54 | NUR ---
NEW ORDER FROM DR. CATHY GambleCARRIED OUT FOR PICC LINE INSERTION ,SIENA DUBOISUPSETTING MACHINE OPERATOR NOTIFIED AND WILL CALL PICC CLINICAL BIOSTATISTICIAN.
--- NOTE | 2020-08-04 10:00 | NUR ---
CONSENT WAS OBTAINED FROM PT'S RESP. LIBERTARIAN AMBROSIO POPE FOR PICC LINE INSERTION.
--- NOTE | 2020-08-04 11:30 | NUR ---
MONY Mendieta DOCUMENT WAS SIGNED BY DR. MORGAN AND FAXED TO [facility].PT. WAS SEEN AND EXAMINED BY DR. MORGAN AND WITH NEW ORDER TO ADMIN. D10% AT 100 ML /HR UNTIL PICC LINE IS PLACED AND AVAILABLE TO CONTINUE TPN AND LIPIDS.LEFT HAND WITH PERIPHERAL LINE # 22 AND #24 AVAILABLE.
--- NOTE | 2020-08-04 12:00 | NUR ---
JEANNINE Rehman) WAS AWARE OF GRAM NEG RODS IN A BOTTLE OF BLOOD CX FROM 08/02/20 AND AWARE THAT RT ARM MID LINE WILL BE CHANGED.
[2020-08-04] MEDS: IV 10% DEXTROSE 1,000 ML IV PRN ×2 (12:06→22:00)
[2020-08-04] MEDS ORDERED: TPN BAG #45 IV SCH ×8 (14:00)
--- NOTE | 2020-08-04 14:00 | NUR ---
DR. CATHY Gamble WAS NOTIFIED THAT PICC FRAME CATCHER WAS UNABLE TO PLACE ANY PICC LINE AND ANY MIDLINE AND ANY GROIN CENTRAL LINE ,SHE RECOMMENDED A CENTRAL LINE ON THE NECK BUT SHE STATED THAT SHE CAN NOT DO THAT AND TO F/U WITH NURSING SUPERVISER AND DRAFTING CLERK .PER LUCINAA MOLINA HE ASKED CH. NURSE TO CALL DR. LOREN NAJERA TO ASSESS PT. CH. NURSE CALLED DR. LOREN NAJERA AND HE STATED THAT HE WILL DO IT IN AM AND HE REQUESTED SUPPLY :20 CM TRIPLE LUMMEN ,ULTRASOUND PROBE COVER AND A PAIR OF STERILE GLOVES SIZE 7AND A HALF AND ALSO TO OBTAIN CONSENT FOR CENTRAL LINE PLACEMENT.
--- NOTE | 2020-08-04 15:29 | NUR ---
MESSAGE LEFT TO PT'S RESP. [employer] TO CALL BACK TO GIVE UPDATE OF LATEST ORDERS AND CONDITIONS.
--- NOTE | 2020-08-04 16:45 | NUR ---
DR. TEAGUE(G.I)WAS CALLED AND STATED THAT HE WILL SEE PT. TOMORROW.
--- NOTE | 2020-08-04 17:12 | NUR ---
PT'S RESP. DEMOCRAT AND BROTHER AMBROSIO WAS NOTIFIED THAT PICC LINE TECH WAS NOT ABLE TO PLACE PICC LINE BUT TOMORROW DR. LOREN NAJERA WILL ATTEMPT TO PLACE A CENTRAL LINE AND HE GAVE CONSENT TO 2 NURSES AT THIS TIME.
[2020-08-04 20:00] VITALS: BP 129/62
--- NOTE | 2020-08-04 22:57 | NUR ---
Afebrile, trach is intact and patent, connected to vent on prescribed settings, no respiratory distress noted. 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 On D10 Water @100ml/Hr infusing well on right hand, no signs of any infiltration, Jo catheter draining well to yellow urine, Good je care rendered, kept clean and comfortable.
[2020-08-05] MEDS: AMIKACIN 350 MG in IV DEXTROSE 5% 100 ML IV SCH ×3 (01:00→17:56)
[2020-08-05 01:32] LABS: CREATININE 0.4 mg/dL (0.6-1.3); UREA NITROGEN, BLOOD 13 mg/dL (7-18)
[2020-08-05] MEDS ORDERED: TPN IV SCH ×2 (02:00)
[2020-08-05] MEDS: BLOOD SUGAR DIAGNOSTIC 1 EACH STRIP VI SCH ×4 (05:50→23:23)
[2020-08-05] MEDS: INSULIN REGULAR, HUMAN 300 UNIT/3 ML VIAL SQ SCH ×4 (05:50→23:22)
--- NOTE | 2020-08-05 07:02 | NUR ---
Noted with facial rashes, kept skin clean and dry, will continue monitor. Addendum: 08/05/20 at 0712 by EUGENIE LOCKETT RN Rashes noted on the face but not on other parts of the body, no signs of any respiratory distress noted, afebrile, turned and repositioned, still noted with bile colored drainage from gt stoma and excessive gas coming from the stoma, release gas as needed, kept clean and comfortable.
[2020-08-05] MEDS: HYDROGEN PEROXIDE 3% 118 ML BOTTLE TP SCH ×2 (07:05→21:37)
[2020-08-05] MEDS: ALBUTEROL SULFATE 2.5 MG/3 ML NEBU NEB SCH ×3 (07:05→22:51)
[2020-08-05] MEDS: IPRATROPIUM BROMIDE 0.5 MG/2.5 ML NEBU NEB SCH ×3 (07:05→22:51)
[2020-08-05 07:26] VITALS: BP 128/76
[2020-08-05 07:31] LABS: CARBON DIOXIDE 24 mmol/L (21-32); CHLORIDE 99 mmol/L (98-107); CREATININE 0.4 mg/dL (0.6-1.3); GLUCOSE 124 mg/dL (74-106); MAGNESIUM 2.1 mg/dL (1.8-2.4); PHOSPHOROUS 3.3 mg/dL (2.5-4.9); UREA NITROGEN, BLOOD 10 mg/dL (7-18)
[2020-08-05] MEDS: CEFEPIME HCL 1 G in IV DEXTROSE 5% 50 ML IV SCH (08:00)
[2020-08-05] MEDS: COD LIVER OIL/ZINC OXIDE OINT 113 GM TUBE TOP SCH ×6 (09:00→21:41)
[2020-08-05] MEDS: HEPARIN SODIUM,PORCINE 5,000 UNITS/ML VIAL SQ SCH ×2 (09:00→21:52)
[2020-08-05] MEDS: PANTOPRAZOLE SODIUM 40 MG VIAL IV SCH (09:12)
[2020-08-05] MEDS: LEVOTHYROXINE SODIUM 100 MCG VIAL IV SCH (09:12)
[2020-08-05] MEDS: NORMAL SALINE FLUSH 10 ML DISP.SYRIN IV SCH ×2 (09:12→21:00)
[2020-08-05] MEDS: levETIRAcetam IV 500 MG in IV DEXTROSE 5% 100 ML IV SCH ×2 (09:12→21:00)
[2020-08-05] MEDS: CLOTRIMAZOLE 1% CREAM 30 GM TUBE TOP SCH ×2 (09:45→21:41)
--- NOTE | 2020-08-05 09:45 | NUR ---
GERHARDRubio JEFFERY WAS NOTIFIED ABOUT FACIAL RASH SIMILAR TO SEBORRHEIC DERMATITIS ONLY FOUND ON FACE(FOREHEAD,NASAL FOLDS AND A LITTLE BIT ON CHIN ) ,PICTURE TAKEN AND SHE STATED CONTINUE WITH AMIKACIN AND CEFEPIME ORDERED .
--- NOTE | 2020-08-05 11:00 | NUR ---
NEW ORDER WAS CARRIED OUT FROM DR. CATHY Gamble TO OK THE USE OF LOWER EXTREMITIES TO PLACE PERIPHERAL IV LINES TILL CENTRAL LINE IS AVAILABLE AND WITH NEW ORDER FOR NYSTATIN CREAM TO FACIAL RASH .
--- NOTE | 2020-08-05 11:30 | NUR ---
NEW ORDER CARRIED OUT FROM NERA ISMAIL(I.D) TO D/C CEFEPIME .
--- NOTE | 2020-08-05 12:22 | NUR ---
PT. SEEN AND EXAMINED BY DR. TEAGUE (G.I) AND STATED THAT HE TALKED TO DR. CATHY Gamble ABOUT PT. AND SHE NEED A SURGICAL F/U NOT A G.I.
--- NOTE | 2020-08-05 13:14 | NUR ---
DR. LOREN NAJERA CAME AND ASSESSED PT. FOR CENTRAL LINE AND AFTER TIME OUT AND CONSENT CHECKED HE WAS ABLE TO PLACE A CENTRAL LINE ON THE RT. NECK AT FIRST ATTEMPT WITH GOOD BLOOD RETURN ON TRIPLE LUMEN AND PT. HAD PROCEDURE WELL TOLERATED AND CXR WAS ORDERED STAT TO CHECK PLACEMENT.
--- NOTE | 2020-08-05 14:18 | NUR ---
DR. LOREN NAJERA WAS NOTIFIED RE:CXR RESULT FOR PLACEMENT OF RT NECK CENTRAL LINE AND HE SAID IT'S OK TO USE AND [facility] PHARMACIST AWARE.
--- NOTE | 2020-08-05 15:00 | NUR ---
NEW ORDER CARRIED OUT FROM DR. MORGAN FOR DESITIN ON ABDOMINAL SKIN MAINTENANCE TO PROTECT SKIN FROM ANY BILE DRAIN FROM OLD GT SITE THAT MAY BE LEAK FROM POUCH (D/T LARGE AMOUNTS OF GAS OBSERVED) AND IRRITATE SKIN.
[2020-08-05] MEDS: POTASSIUM CHLORIDE 50 ML IV SCH ×6 (15:35→20:02)
[2020-08-05] MEDS ORDERED: TPN BAG #45 IV SCH ×6 (16:00)
--- NOTE | 2020-08-05 16:00 | NUR ---
NEW ORDERS FROM NERA ISMAIL (I.D) RECOMMENDED BY [facility]AC[facility]
[2020-08-05 19:28] VITALS: BP 116/70
[2020-08-05] MEDS: NYSTATIN CREAM 30 GM TUBE TP SCH (21:41)
[2020-08-05] MEDS: COD LIVER OIL/ZINC OXIDE OINT 113 GM TUBE TP SCH (21:41)
[2020-08-05] MEDS: ACETAMINOPHEN 650 MG SUPP.RECT RC PRN (21:41)
--- NOTE | 2020-08-05 22:15 | NUR ---
Noted with right upper arm skin tear, cleansed and initiated in- house treatment. Addendum: 08/05/20 at 2236 by EUGENIE LOCKETT RN Patient is afebrile, trach is intact and patent, no signs of any distress noted. Right jugular central line is intact, TPN infusing well @ 90ml/hr, keppra IV given as ordered, no seizure episodes noted. Old gt stoma is draining with yellow- green drainage, and noted with excessive gas coming out from the stoma. Abdomen is distended but soft, noted with hyperactive bowel sounds on all 4 quadrants. Jo catheter is draining well to yellow urine, good je care rendered, kept clean and comfortable.
[2020-08-05] MEDS: NEOMY/BACITRAC/POLYMI OINT 28.35 GM TUBE TOP SCH (22:42)
[2020-08-06] MEDS: AMIKACIN 350 MG in IV DEXTROSE 5% 100 ML IV SCH ×3 (01:01→17:48)
[2020-08-06] MEDS ORDERED: TPN IV SCH ×10 (04:00→14:00)
[2020-08-06] MEDS: BLOOD SUGAR DIAGNOSTIC 1 EACH STRIP VI SCH ×3 (05:21→17:13)
[2020-08-06] MEDS: INSULIN REGULAR, HUMAN 300 UNIT/3 ML VIAL SQ SCH ×3 (05:21→17:13)
[2020-08-06 06:09] LABS: CREATININE 0.5 mg/dL (0.6-1.3); MAGNESIUM 1.9 mg/dL (1.8-2.4); PHOSPHOROUS 2.4 mg/dL (2.5-4.9); POTASSIUM 3.6 mmol/L (3.5-5.1)
[2020-08-06] MEDS: HYDROGEN PEROXIDE 3% 118 ML BOTTLE TP SCH ×2 (07:05→21:11)
[2020-08-06] MEDS: ALBUTEROL SULFATE 2.5 MG/3 ML NEBU NEB SCH ×3 (07:05→22:51)
[2020-08-06] MEDS: IPRATROPIUM BROMIDE 0.5 MG/2.5 ML NEBU NEB SCH ×3 (07:05→22:51)
[2020-08-06 07:28] VITALS: BP 108/67
[2020-08-06] MEDS: NYSTATIN CREAM 30 GM TUBE TP SCH ×2 (08:09→21:51)
[2020-08-06] MEDS: COD LIVER OIL/ZINC OXIDE OINT 113 GM TUBE TP SCH ×2 (08:09→21:51)
[2020-08-06] MEDS: HEPARIN SODIUM,PORCINE 5,000 UNITS/ML VIAL SQ SCH ×2 (08:09→21:50)
[2020-08-06] MEDS: CLOTRIMAZOLE 1% CREAM 30 GM TUBE TOP SCH ×2 (08:09→21:51)
[2020-08-06] MEDS: COD LIVER OIL/ZINC OXIDE OINT 113 GM TUBE TOP SCH ×6 (08:09→21:51)
[2020-08-06] MEDS: NEOMY/BACITRAC/POLYMI OINT 28.35 GM TUBE TOP SCH (08:09)
[2020-08-06] MEDS: levETIRAcetam IV 500 MG in IV DEXTROSE 5% 100 ML IV SCH ×2 (08:36→21:12)
[2020-08-06] MEDS: PANTOPRAZOLE SODIUM 40 MG VIAL IV SCH (08:37)
[2020-08-06] MEDS: NORMAL SALINE FLUSH 10 ML DISP.SYRIN IV SCH ×2 (08:37→21:12)
[2020-08-06] MEDS: LEVOTHYROXINE SODIUM 100 MCG VIAL IV SCH (08:37)
[2020-08-06] MEDS: ACETAMINOPHEN 650 MG SUPP.RECT RC PRN (14:50)
--- NOTE | 2020-08-06 15:26 | NUR ---
NEW ORDER CARRIED OUT FROM JEANNINE Swain.Pedrito) FOR BLOOD CULTURES IN AM .
--- NOTE | 2020-08-06 15:29 | NUR ---
RT. NECK CENTRAL LINE LOCAL DRESSING CHANGED D/T STARTING TO GET DISLODGED ,IN STERILE MANNER DONE NOTED WITH INTACT SUTURES AND NO LOCAL BLEEDING ,NO REDNESS ,LINES KEPT KEPT FAR POSSIBLE FROM TRACH AND VENT TO AVOID ANY SOILINF WITH HEATHER OR ORAL SECRETIONS.
--- NOTE | 2020-08-06 17:18 | NUR ---
Resident in stable condition. Remains afebrile. No SOB noted. 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 All staff educated on proper PPE usage. Resident with a central line on the R Jugular. Central line intact and patent. No S/SX of infection noted at central line site. ui software developer did Sterile Central Line dressing change. Will continue to monitor.
[2020-08-06 19:30] VITALS: BP 119/69
--- NOTE | 2020-08-06 22:45 | NUR ---
Afebrile, on TPN @ 90ml/Hr infusing well on Right jugular central line, no complications on the site noted. Keppra IV given, no seizure episodes noted. 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 On contact isolation precaution, facial rashes is getting better, nystatin cream applied as ordered. Old gt stoma is draining with yellow green drainage, noted with excessive gas from the stoma, released gas as needed, parker catheter is draining well to yellow urine, good je care rendered, kept patient clean and comfortable, will continue monitor.
[2020-08-07] MEDS: AMIKACIN 350 MG in IV DEXTROSE 5% 100 ML IV SCH ×3 (01:44→17:00)
[2020-08-07] MEDS ORDERED: TPN IV SCH ×10 (02:00→14:00)
[2020-08-07] MEDS: INSULIN REGULAR, HUMAN 300 UNIT/3 ML VIAL SQ SCH ×4 (05:30→18:00)
[2020-08-07] MEDS: BLOOD SUGAR DIAGNOSTIC 1 EACH STRIP VI SCH ×4 (05:30→18:22)
[2020-08-07 06:48] LABS: CARBON DIOXIDE 26 mmol/L (21-32); CHLORIDE 103 mmol/L (98-107); CREATININE 0.4 mg/dL (0.6-1.3); GLUCOSE 108 mg/dL (74-106); MAGNESIUM 1.8 mg/dL (1.8-2.4); PHOSPHOROUS 3.7 mg/dL (2.5-4.9); UREA NITROGEN, BLOOD 24 mg/dL (7-18)
--- NOTE | 2020-08-07 07:00 | NUR ---
Will test patient for COVID-19 today.
[2020-08-07] MEDS: IPRATROPIUM BROMIDE 0.5 MG/2.5 ML NEBU NEB SCH ×3 (07:13→23:02)
[2020-08-07] MEDS: ALBUTEROL SULFATE 2.5 MG/3 ML NEBU NEB SCH ×3 (07:13→23:02)
[2020-08-07] MEDS: HYDROGEN PEROXIDE 3% 118 ML BOTTLE TP SCH ×2 (07:13→21:57)
[2020-08-07] MEDS: NORMAL SALINE FLUSH 10 ML DISP.SYRIN IV SCH ×2 (09:32→21:00)
[2020-08-07] MEDS: levETIRAcetam IV 500 MG in IV DEXTROSE 5% 100 ML IV SCH ×2 (09:32→21:00)
[2020-08-07] MEDS: PANTOPRAZOLE SODIUM 40 MG VIAL IV SCH (09:32)
[2020-08-07] MEDS: IV FAT EMULSIONS 20% 250 ML IV SCH (09:32)
[2020-08-07] MEDS: LEVOTHYROXINE SODIUM 100 MCG VIAL IV SCH (09:32)
[2020-08-07] MEDS: COD LIVER OIL/ZINC OXIDE OINT 113 GM TUBE TOP SCH ×6 (09:53→22:00)
[2020-08-07] MEDS: HEPARIN SODIUM,PORCINE 5,000 UNITS/ML VIAL SQ SCH ×2 (09:53→22:00)
[2020-08-07] MEDS: CLOTRIMAZOLE 1% CREAM 30 GM TUBE TOP SCH ×2 (09:53→22:00)
[2020-08-07] MEDS: COD LIVER OIL/ZINC OXIDE OINT 113 GM TUBE TP SCH ×2 (09:54→22:00)
[2020-08-07] MEDS: NEOMY/BACITRAC/POLYMI OINT 28.35 GM TUBE TOP SCH (09:54)
[2020-08-07] MEDS: NYSTATIN CREAM 30 GM TUBE TP SCH ×2 (09:54→22:00)
--- NOTE | 2020-08-07 11:00 | NUR ---
MEETING ATTENDED BY PHONE CONFERENCE WITH PT'S RESP. LIBERTARIAN AND BROTHER AMBROSIO AND,ARSENIO (LOGISTICS PLANNING ENGINEER) AND SHANTHI (GLASS FRAME FITTER) AND OTHER ABOVE MENTIONED PROFESSIONALS (SEE GLASS FRAME FITTER NOTES) AND CH. NURSE GAVE THEM AN UPDATE RE: PT'S LATEST CONDITION,TX ,CONSULTATIONS AND PROGRESS ,PT'S BROTHER AMBROSIO WELL INFORMED PREVIOUSLY BY CH. NURSE AND WITH NO QUESTIONS AT THIS TIME.
--- NOTE | 2020-08-07 11:12 | NUR ---
Per request from Stacia Delvalle DC Liaison at [facility], a phone conference was held with the treating team at [facility] and representatives of [facility] and care. Participating in this meeting were this SW, Tico Faria, charge accounts audit clerk Kristy Borrero, and subacute nurse sales floor manager Perry Verde, along with Tony Nascimento, patient's brother, Mayur Sher, Nurse Technician of [facility], Redd Castellon LVN at [facility]. Radha Del Rosario, Crew Foreman of [facility] facility, Gricelda Fry, RN Nurse Humanities And Languages Professor at [facility], and Stacia Delvalle DC Liaisonat [facility]. DEYANIRA Wagner reported on patient's current medical condition, current treatments, medications/antibiotoics, and that patient continues to remain on contact isolation for CRE. Questions from the representatives of [facility] and [facility] were addressed by the subacute team. The representatives of [facility] and [facility] and [facility] all expressed understanding, and thanked the subacute team for providing an update on patient's condition. This SW informed patient's brother Taylor and [facility] nurse Gricelda about the next IDT meeting scheduled for 08/08/2020, and invited them both to participate by phone, and they were both in agreement. SW will contact Tony and Gricelda during the IDT meeting on 08/08.
--- NOTE | 2020-08-07 12:30 | NUR ---
SEEN BY KYLER MACEDO WITH NNO.
[2020-08-07 20:17] VITALS: BP 115/88
[2020-08-08] MEDS: AMIKACIN 350 MG in IV DEXTROSE 5% 100 ML IV SCH ×3 (00:57→17:00)
--- NOTE | 2020-08-08 01:13 | NUR ---
right jugular triple lumen central line patent, flushed per protocol, amikacin iv for infection ni blood, no adverse reaction noted,no respiratory distress noted.
[2020-08-08] MEDS ORDERED: TPN IV SCH ×10 (02:00→14:00)
[2020-08-08] MEDS: INSULIN REGULAR, HUMAN 300 UNIT/3 ML VIAL SQ SCH ×5 (05:30→23:40)
[2020-08-08] MEDS: BLOOD SUGAR DIAGNOSTIC 1 EACH STRIP VI SCH ×5 (05:30→23:39)
[2020-08-08 06:58] LABS: BASOPHILS % (AUTO) 0.4 % (0.0-2.0); EOSINOPHILS # (AUTO) 0.2 K/uL (0.0-0.7); EOSINOPHILS % (AUTO) 2.6 % (0.0-7.0); HEMATOCRIT 27.7 % (31.2-41.9); HEMOGLOBIN 9.5 g/dL (10.9-14.3); LYMPHOCYTES # (AUTO) 1.1 K/uL (20.0-40.0); LYMPHOCYTES % (AUTO) 13.6 % (20.5-51.5); MEAN CORPUSCULAR HEMOGLOBIN 29.2 uug (24.7-32.8); MEAN CORPUSCULAR HGB CONC 34 g/dL (32.3-35.6); MEAN CORPUSCULAR VOLUME 85.1 fL (75.5-95.3); MONOCYTES # (AUTO) 0.6 K/uL (2.0-10.0); MONOCYTES % (AUTO) 7.5 % (0.0-11.0); NEUTROPHILS # (AUTO) 6.1 K/uL (1.8-8.9); NEUTROPHILS % (AUTO) 75.9 % (38.5-71.5); PLATELET COUNT (AUTO) 334 K/uL (179-408); RED BLOOD CELL COUNT(AUTO) 3.26 MIL/uL (3.63-4.92); WHITE BLOOD COUNT (AUTO) 8.1 K/uL (3.8-11.8)
[2020-08-08 07:04] LABS: CARBON DIOXIDE 26 mmol/L (21-32); CHLORIDE 102 mmol/L (98-107); CREATININE 0.4 mg/dL (0.6-1.3); GLUCOSE 112 mg/dL (74-106); MAGNESIUM 1.9 mg/dL (1.8-2.4); POTASSIUM 3.4 mmol/L (3.5-5.1); UREA NITROGEN, BLOOD 19 mg/dL (7-18)
[2020-08-08] MEDS: ALBUTEROL SULFATE 2.5 MG/3 ML NEBU NEB SCH ×3 (07:17→23:00)
[2020-08-08] MEDS: IPRATROPIUM BROMIDE 0.5 MG/2.5 ML NEBU NEB SCH ×3 (07:17→23:00)
[2020-08-08 08:02] VITALS: BP 117/58
[2020-08-08] MEDS: HEPARIN SODIUM,PORCINE 5,000 UNITS/ML VIAL SQ SCH ×2 (08:51→21:00)
[2020-08-08] MEDS: COD LIVER OIL/ZINC OXIDE OINT 113 GM TUBE TOP SCH ×6 (08:59→21:00)
[2020-08-08] MEDS: CLOTRIMAZOLE 1% CREAM 30 GM TUBE TOP SCH ×2 (09:00→21:00)
[2020-08-08] MEDS: NEOMY/BACITRAC/POLYMI OINT 28.35 GM TUBE TOP SCH (09:00)
[2020-08-08] MEDS: COD LIVER OIL/ZINC OXIDE OINT 113 GM TUBE TP SCH ×2 (09:01→21:00)
[2020-08-08] MEDS: NYSTATIN CREAM 30 GM TUBE TP SCH ×2 (09:01→21:00)
[2020-08-08] MEDS: HYDROGEN PEROXIDE 3% 118 ML BOTTLE TP SCH ×2 (09:20→21:04)
[2020-08-08] MEDS: PANTOPRAZOLE SODIUM 40 MG VIAL IV SCH (09:53)
[2020-08-08] MEDS: levETIRAcetam IV 500 MG in IV DEXTROSE 5% 100 ML IV SCH ×2 (09:53→21:00)
[2020-08-08] MEDS: NORMAL SALINE FLUSH 10 ML DISP.SYRIN IV SCH ×2 (09:54→21:00)
[2020-08-08] MEDS: LEVOTHYROXINE SODIUM 100 MCG VIAL IV SCH (09:54)
[2020-08-08] MEDS: POTASSIUM CHLORIDE 50 ML IV SCH ×2 (10:45→11:45)
--- NOTE | 2020-08-08 13:29 | NUR ---
INTERDISCIPLINARY PLAN OF CARE CONFERENCE was held today. Patient's brother Tony and [facility] RN Gricelda participated in the meeting through speaker phone. Dr. Koch and the Interdisciplinary team reviewed the current plan of care in detail. RN reported on the patient's medical condition, current medications/treatments, and report from GI consult. See RN IDT conference notes. RT, RD, and Pharmacy all reported on their treatment plans and stated patient was stable at this time. RNA services continue. See all disciplines IDT notes and physician's progress notes for additional details. Tony's and Gricelda's questions were addressed by Dr. Koch and the IDT team, and both Tony and Gricelda expressed understanding and agreement with the current plan of care.
--- NOTE | 2020-08-08 19:50 | NUR ---
Continue on PPN at 90 cc/hr,R yugular triple lumen intact,no s/s of infection noted,Continue on Amikacin Ivatb,no adverse reaction noted.
[2020-08-08 19:59] VITALS: BP 113/67
[2020-08-08 20:08] VITALS: BP 116/72
--- NOTE | 2020-08-08 22:34 | NUR ---
Marcus from Lab called and stated that patient's Covid-19 test resulted negative.
--- NOTE | 2020-08-08 22:39 | NUR ---
Afebrile, still on TPN @ 90ml/hr, infusing well on right jugular central line. On Keppra IV for seizure, no seizure episodes noted, old gt stoma is still draining with bile color drainage, colostomy bag attached to the stoma. Jo catheter draining well with yellow urine, good je care rendered, kept clean and comfortable.
[2020-08-09] MEDS: AMIKACIN 350 MG in IV DEXTROSE 5% 100 ML IV SCH ×3 (01:50→17:42)
[2020-08-09] MEDS ORDERED: TPN IV SCH ×10 (02:00→14:00)
[2020-08-09] MEDS: INSULIN REGULAR, HUMAN 300 UNIT/3 ML VIAL SQ SCH ×3 (05:56→18:00)
[2020-08-09] MEDS: BLOOD SUGAR DIAGNOSTIC 1 EACH STRIP VI SCH ×3 (05:56→18:24)
[2020-08-09] MEDS: ALBUTEROL SULFATE 2.5 MG/3 ML NEBU NEB SCH ×3 (07:12→23:06)
[2020-08-09] MEDS: HYDROGEN PEROXIDE 3% 118 ML BOTTLE TP SCH ×2 (07:12→21:12)
[2020-08-09] MEDS: IPRATROPIUM BROMIDE 0.5 MG/2.5 ML NEBU NEB SCH ×3 (07:12→23:06)
[2020-08-09 07:40] VITALS: BP 107/65
[2020-08-09] MEDS: HEPARIN SODIUM,PORCINE 5,000 UNITS/ML VIAL SQ SCH ×2 (08:13→20:53)
[2020-08-09] MEDS: NEOMY/BACITRAC/POLYMI OINT 28.35 GM TUBE TOP SCH (08:14)
[2020-08-09] MEDS: COD LIVER OIL/ZINC OXIDE OINT 113 GM TUBE TOP SCH ×6 (08:14→20:53)
[2020-08-09] MEDS: CLOTRIMAZOLE 1% CREAM 30 GM TUBE TOP SCH ×2 (08:14→20:53)
[2020-08-09] MEDS: COD LIVER OIL/ZINC OXIDE OINT 113 GM TUBE TP SCH ×3 (08:15→20:53)
[2020-08-09] MEDS: NYSTATIN CREAM 30 GM TUBE TP SCH ×2 (08:15→20:53)
[2020-08-09 08:53] LABS: CARBON DIOXIDE 24 mmol/L (21-32); CHLORIDE 103 mmol/L (98-107); CREATININE 0.4 mg/dL (0.6-1.3); GLUCOSE 115 mg/dL (74-106); MAGNESIUM 1.7 mg/dL (1.8-2.4); PHOSPHOROUS 2.9 mg/dL (2.5-4.9); POTASSIUM 3.4 mmol/L (3.5-5.1); UREA NITROGEN, BLOOD 20 mg/dL (7-18)
[2020-08-09] MEDS: levETIRAcetam IV 500 MG in IV DEXTROSE 5% 100 ML IV SCH ×2 (09:00→21:13)
[2020-08-09] MEDS: LEVOTHYROXINE SODIUM 100 MCG VIAL IV SCH (09:00)
[2020-08-09] MEDS: NORMAL SALINE FLUSH 10 ML DISP.SYRIN IV SCH ×2 (09:00→21:13)
[2020-08-09] MEDS: PANTOPRAZOLE SODIUM 40 MG VIAL IV SCH (09:00)
[2020-08-09] MEDS: IV FAT EMULSIONS 20% 250 ML IV SCH (09:00)
--- NOTE | 2020-08-09 10:30 | NUR ---
Pt's brother aware of Covid 19 results negative.
[2020-08-09] MEDS: MAGNESIUM SULFATE/D5W 100 ML IV SCH ×2 (11:09→12:27)
[2020-08-09] MEDS ORDERED: SODIUM PHOSPHATE MM 15 MMOL in IV NORMAL SALINE 250 ML IV ONE (13:00)
--- NOTE | 2020-08-09 16:56 | NUR ---
Seen and examined by Dr Davidson ,no new orders.
--- NOTE | 2020-08-09 18:00 | NUR ---
Continue on PPN at 90 cc/hr,R yugular triple lumen intact,no s/s of infection noted,Continue on Amikacin Ivatb,no adverse reaction noted.
--- NOTE | 2020-08-09 18:48 | NUR ---
Seen and examined by Betzaida with new orders to continue Ivatb,no adverse reaction noted.Seen and examined by Dr Koch with no new orders at this time.
--- NOTE | 2020-08-09 20:01 | NUR ---
New tx orders for L and R buttocks excoriations x 30 days ,carried out.
[2020-08-09 20:18] VITALS: BP 133/71
[2020-08-10] MEDS: BLOOD SUGAR DIAGNOSTIC 1 EACH STRIP VI SCH ×4 (00:53→17:03)
[2020-08-10] MEDS: AMIKACIN 350 MG in IV DEXTROSE 5% 100 ML IV SCH ×3 (01:52→17:57)
[2020-08-10] MEDS ORDERED: TPN IV SCH ×9 (02:00→14:00)
--- NOTE | 2020-08-10 04:11 | NUR ---
Afebrile, still on TPN @ 90ml/hr, and Lipids infusing well on right jugular central line. On Keppra IV for seizure, no seizure episodes noted, old gt stoma is still draining with yellow green color drainage, colostomy bag attached to the stoma. Jo catheter draining well with yellow urine, good je care rendered, kept clean and comfortable.
[2020-08-10] MEDS: INSULIN REGULAR, HUMAN 300 UNIT/3 ML VIAL SQ SCH ×4 (06:00→17:02)
[2020-08-10 06:43] LABS: CARBON DIOXIDE 26 mmol/L (21-32); CHLORIDE 104 mmol/L (98-107); CREATININE 0.4 mg/dL (0.6-1.3); GLUCOSE 126 mg/dL (74-106); MAGNESIUM 2.4 mg/dL (1.8-2.4); PHOSPHOROUS 3.4 mg/dL (2.5-4.9); POTASSIUM 3.2 mmol/L (3.5-5.1); UREA NITROGEN, BLOOD 20 mg/dL (7-18)
[2020-08-10] MEDS: IPRATROPIUM BROMIDE 0.5 MG/2.5 ML NEBU NEB SCH ×4 (07:04→23:17)
[2020-08-10] MEDS: ALBUTEROL SULFATE 2.5 MG/3 ML NEBU NEB SCH ×4 (07:04→23:17)
[2020-08-10 07:34] VITALS: BP 120/64
[2020-08-10] MEDS: HEPARIN SODIUM,PORCINE 5,000 UNITS/ML VIAL SQ SCH ×2 (08:10→21:00)
[2020-08-10] MEDS: COD LIVER OIL/ZINC OXIDE OINT 113 GM TUBE TOP SCH ×6 (08:10→21:00)
[2020-08-10] MEDS: CLOTRIMAZOLE 1% CREAM 30 GM TUBE TOP SCH ×2 (08:11→21:00)
[2020-08-10] MEDS: COD LIVER OIL/ZINC OXIDE OINT 113 GM TUBE TP SCH ×4 (08:11→21:00)
[2020-08-10] MEDS: NEOMY/BACITRAC/POLYMI OINT 28.35 GM TUBE TOP SCH (08:11)
[2020-08-10] MEDS: NYSTATIN CREAM 30 GM TUBE TP SCH ×2 (08:12→21:00)
[2020-08-10] MEDS: NORMAL SALINE FLUSH 10 ML DISP.SYRIN IV SCH ×2 (09:00→21:00)
[2020-08-10] MEDS: PANTOPRAZOLE SODIUM 40 MG VIAL IV SCH (09:00)
[2020-08-10] MEDS: POTASSIUM CHLORIDE 50 ML IV SCH ×4 (09:00→12:00)
[2020-08-10] MEDS: levETIRAcetam IV 500 MG in IV DEXTROSE 5% 100 ML IV SCH ×2 (09:00→21:00)
[2020-08-10] MEDS: LEVOTHYROXINE SODIUM 100 MCG VIAL IV SCH (09:01)
[2020-08-10] MEDS: HYDROGEN PEROXIDE 3% 118 ML BOTTLE TP SCH ×2 (09:17→21:24)
--- NOTE | 2020-08-10 17:40 | NUR ---
SEEN AND EXAMINE BY DR. MORGAN WITH NO NEW ORDERS. NOTED WITH LOW POTASSIUM 3.2. POTASSIUM REPLACED ORDERED. CONTINUE ON TPN AT 90ML/HR. NO ADVERSE REACTION NOTED. AFEBRILE, WILL CONTINUE TO MONITOR.
[2020-08-10 20:08] VITALS: BP 106/69
[2020-08-10] MEDS: BISACODYL 10 MG SUPP.RECT RC PRN (22:00)
--- NOTE | 2020-08-10 22:58 | NUR ---
Patient remains on TPN @ 90ml/hr, infusing well on right jugular central line. On Keppra IV for seizure, no seizure episodes noted, old gt stoma is still draining bile colored drainage, colostomy bag attached to the stoma was noted with excessive gas, release gas as needed. Jo catheter draining well with yellow urine, good je care rendered, kept clean and comfortable.
[2020-08-10] MEDS: ACETAMINOPHEN 650 MG SUPP.RECT RC PRN (23:00)
[2020-08-11] MEDS: BLOOD SUGAR DIAGNOSTIC 1 EACH STRIP VI SCH ×4 (00:47→17:09)
[2020-08-11] MEDS: AMIKACIN 350 MG in IV DEXTROSE 5% 100 ML IV SCH ×3 (01:00→16:18)
[2020-08-11] MEDS ORDERED: TPN IV SCH ×9 (02:00→14:00)
[2020-08-11] MEDS: INSULIN REGULAR, HUMAN 300 UNIT/3 ML VIAL SQ SCH ×4 (05:56→17:08)
[2020-08-11 07:07] LABS: CARBON DIOXIDE 26 mmol/L (21-32); CHLORIDE 106 mmol/L (98-107); CREATININE 0.4 mg/dL (0.6-1.3); GLUCOSE 123 mg/dL (74-106); MAGNESIUM 1.9 mg/dL (1.8-2.4); PHOSPHOROUS 2.9 mg/dL (2.5-4.9); POTASSIUM 4.1 mmol/L (3.5-5.1); UREA NITROGEN, BLOOD 22 mg/dL (7-18)
[2020-08-11] MEDS: ALBUTEROL SULFATE 2.5 MG/3 ML NEBU NEB SCH ×3 (07:10→23:07)
[2020-08-11] MEDS: IPRATROPIUM BROMIDE 0.5 MG/2.5 ML NEBU NEB SCH ×3 (07:10→23:07)
[2020-08-11 07:38] VITALS: BP 134/80
[2020-08-11] MEDS: COD LIVER OIL/ZINC OXIDE OINT 113 GM TUBE TOP SCH ×5 (08:20→21:05)
[2020-08-11] MEDS: NEOMY/BACITRAC/POLYMI OINT 28.35 GM TUBE TOP SCH (08:20)
[2020-08-11] MEDS: NYSTATIN CREAM 30 GM TUBE TP SCH ×2 (08:20→21:07)
[2020-08-11] MEDS: CLOTRIMAZOLE 1% CREAM 30 GM TUBE TOP SCH ×2 (08:20→21:06)
[2020-08-11] MEDS: COD LIVER OIL/ZINC OXIDE OINT 113 GM TUBE TP SCH ×4 (08:20→21:07)
[2020-08-11] MEDS: HEPARIN SODIUM,PORCINE 5,000 UNITS/ML VIAL SQ SCH ×2 (08:20→21:00)
[2020-08-11] MEDS: levETIRAcetam IV 500 MG in IV DEXTROSE 5% 100 ML IV SCH ×2 (08:27→20:58)
[2020-08-11] MEDS: NORMAL SALINE FLUSH 10 ML DISP.SYRIN IV SCH ×2 (08:27→20:58)
[2020-08-11] MEDS: LEVOTHYROXINE SODIUM 100 MCG VIAL IV SCH (08:27)
[2020-08-11] MEDS: IV FAT EMULSIONS 20% 250 ML IV SCH (08:27)
[2020-08-11] MEDS: PANTOPRAZOLE SODIUM 40 MG VIAL IV SCH (08:38)
[2020-08-11] MEDS: HYDROGEN PEROXIDE 3% 118 ML BOTTLE TP SCH ×2 (08:56→21:05)
[2020-08-11 22:35] VITALS: BP 125/60
[2020-08-12] MEDS: BLOOD SUGAR DIAGNOSTIC 1 EACH STRIP VI SCH ×5 (00:49→23:39)
[2020-08-12] MEDS: AMIKACIN 350 MG in IV DEXTROSE 5% 100 ML IV SCH ×3 (01:04→17:03)
[2020-08-12] MEDS ORDERED: TPN IV SCH ×10 (02:00→14:00)
[2020-08-12] MEDS: INSULIN REGULAR, HUMAN 300 UNIT/3 ML VIAL SQ SCH ×5 (05:46→23:40)
[2020-08-12] MEDS: ALBUTEROL SULFATE 2.5 MG/3 ML NEBU NEB SCH ×3 (07:21→22:52)
[2020-08-12] MEDS: IPRATROPIUM BROMIDE 0.5 MG/2.5 ML NEBU NEB SCH ×3 (07:21→22:52)
[2020-08-12 07:41] VITALS: BP 108/53
[2020-08-12] MEDS: PANTOPRAZOLE SODIUM 40 MG VIAL IV SCH (08:04)
[2020-08-12] MEDS: LEVOTHYROXINE SODIUM 100 MCG VIAL IV SCH (08:04)
[2020-08-12] MEDS: levETIRAcetam IV 500 MG in IV DEXTROSE 5% 100 ML IV SCH ×2 (08:04→20:54)
[2020-08-12] MEDS: NORMAL SALINE FLUSH 10 ML DISP.SYRIN IV SCH ×2 (08:04→20:54)
[2020-08-12] MEDS: HYDROGEN PEROXIDE 3% 118 ML BOTTLE TP SCH ×2 (09:03→20:01)
[2020-08-12] MEDS: HEPARIN SODIUM,PORCINE 5,000 UNITS/ML VIAL SQ SCH ×2 (09:15→20:05)
[2020-08-12] MEDS: NEOMY/BACITRAC/POLYMI OINT 28.35 GM TUBE TOP SCH (09:15)
[2020-08-12] MEDS: COD LIVER OIL/ZINC OXIDE OINT 113 GM TUBE TOP SCH ×4 (09:15→20:01)
[2020-08-12] MEDS: COD LIVER OIL/ZINC OXIDE OINT 113 GM TUBE TP SCH ×4 (09:15→20:01)
[2020-08-12] MEDS: NYSTATIN CREAM 30 GM TUBE TP SCH ×2 (09:15→20:01)
[2020-08-12 10:07] LABS: CARBON DIOXIDE 25 mmol/L (21-32); CHLORIDE 100 mmol/L (98-107); CREATININE 0.4 mg/dL (0.6-1.3); GLUCOSE 114 mg/dL (74-106); UREA NITROGEN, BLOOD 18 mg/dL (7-18)
[2020-08-12 10:10] LABS: MAGNESIUM 1.6 mg/dL (1.8-2.4); PHOSPHOROUS 3.2 mg/dL (2.5-4.9)
--- NOTE | 2020-08-12 17:39 | NUR ---
Continue on TPN at 90 cc/hr,per pharmacy Kcl and mg was added to the tpn bag due to low k 3.0,mg 1.6,continue on Amikacin IVatb,no adverse reaction,Amikacin level result 5.9 reported to [facility] Iv department,will continue same dose of amikacin.
[2020-08-12 22:18] VITALS: BP 123/66
--- NOTE | 2020-08-12 22:34 | NUR ---
continue on tpn@ 90ml/hr, right jugular triple lumen patent, flushed per protocol, continue on amikacin 350mg iv for, cre in blood, no adverse reaction noted, old gastrostomy site draining bile color drainage, no s/s of hypo or hyperglycemia observed, trach to vent, no respiratory distress noted, afebrile
[2020-08-13] MEDS: AMIKACIN 350 MG in IV DEXTROSE 5% 100 ML IV SCH ×3 (00:57→17:46)
[2020-08-13] MEDS ORDERED: TPN IV SCH ×10 (02:00→14:00)
[2020-08-13] MEDS: ACETAMINOPHEN 650 MG SUPP.RECT RC PRN (02:08)
[2020-08-13] MEDS: BLOOD SUGAR DIAGNOSTIC 1 EACH STRIP VI SCH ×3 (05:29→17:32)
[2020-08-13] MEDS: INSULIN REGULAR, HUMAN 300 UNIT/3 ML VIAL SQ SCH ×3 (05:30→17:32)
[2020-08-13 07:02] LABS: CREATININE 0.5 mg/dL (0.6-1.3); MAGNESIUM 1.8 mg/dL (1.8-2.4); PHOSPHOROUS 2.9 mg/dL (2.5-4.9)
[2020-08-13] MEDS: ALBUTEROL SULFATE 2.5 MG/3 ML NEBU NEB SCH ×3 (07:10→23:10)
[2020-08-13] MEDS: IPRATROPIUM BROMIDE 0.5 MG/2.5 ML NEBU NEB SCH ×3 (07:10→23:10)
[2020-08-13 07:40] VITALS: BP 154/86
[2020-08-13] MEDS: HEPARIN SODIUM,PORCINE 5,000 UNITS/ML VIAL SQ SCH ×2 (08:47→21:58)
[2020-08-13] MEDS: NEOMY/BACITRAC/POLYMI OINT 28.35 GM TUBE TOP SCH (08:47)
[2020-08-13] MEDS: COD LIVER OIL/ZINC OXIDE OINT 113 GM TUBE TOP SCH ×4 (08:47→20:52)
[2020-08-13] MEDS: COD LIVER OIL/ZINC OXIDE OINT 113 GM TUBE TP SCH ×4 (08:47→20:52)
[2020-08-13] MEDS: NYSTATIN CREAM 30 GM TUBE TP SCH ×2 (08:47→20:52)
[2020-08-13] MEDS: LEVOTHYROXINE SODIUM 100 MCG VIAL IV SCH (09:00)
[2020-08-13] MEDS: levETIRAcetam IV 500 MG in IV DEXTROSE 5% 100 ML IV SCH ×2 (09:00→20:58)
[2020-08-13] MEDS: NORMAL SALINE FLUSH 10 ML DISP.SYRIN IV SCH ×2 (09:00→20:58)
[2020-08-13] MEDS: PANTOPRAZOLE SODIUM 40 MG VIAL IV SCH (09:00)
[2020-08-13] MEDS: HYDROGEN PEROXIDE 3% 118 ML BOTTLE TP SCH ×2 (09:18→20:33)
[2020-08-13 19:54] VITALS: BP 119/68
[2020-08-14] MEDS: BLOOD SUGAR DIAGNOSTIC 1 EACH STRIP VI SCH ×4 (00:58→17:31)
[2020-08-14] MEDS: INSULIN REGULAR, HUMAN 300 UNIT/3 ML VIAL SQ SCH ×4 (00:58→17:31)
[2020-08-14] MEDS: AMIKACIN 350 MG in IV DEXTROSE 5% 100 ML IV SCH ×3 (01:06→16:36)
[2020-08-14] MEDS ORDERED: TPN IV SCH ×9 (02:00→14:00)
--- NOTE | 2020-08-14 05:51 | NUR ---
continue on tpn @90ml/hr,continue on amikacin 350mg iv, no adverse reaction noted, right jugular triple lumen patent, flushed per protocol, afebrile, no s/s of hypo or hyperglycemia noted.
[2020-08-14] MEDS: IPRATROPIUM BROMIDE 0.5 MG/2.5 ML NEBU NEB SCH ×3 (07:14→22:31)
[2020-08-14] MEDS: ALBUTEROL SULFATE 2.5 MG/3 ML NEBU NEB SCH ×3 (07:14→22:31)
[2020-08-14 07:37] LABS: CREATININE 0.6 mg/dL (0.6-1.3); MAGNESIUM 1.8 mg/dL (1.8-2.4); POTASSIUM 3.8 mmol/L (3.5-5.1)
[2020-08-14 08:02] VITALS: BP 138/65
[2020-08-14] MEDS: HYDROGEN PEROXIDE 3% 118 ML BOTTLE TP SCH ×2 (08:16→18:42)
[2020-08-14] MEDS: LEVOTHYROXINE SODIUM 100 MCG VIAL IV SCH (08:22)
[2020-08-14] MEDS: NORMAL SALINE FLUSH 10 ML DISP.SYRIN IV SCH ×2 (08:22→21:00)
[2020-08-14] MEDS: PANTOPRAZOLE SODIUM 40 MG VIAL IV SCH (08:22)
[2020-08-14] MEDS: levETIRAcetam IV 500 MG in IV DEXTROSE 5% 100 ML IV SCH ×2 (08:22→20:33)
[2020-08-14] MEDS: HEPARIN SODIUM,PORCINE 5,000 UNITS/ML VIAL SQ SCH ×2 (09:07→21:00)
[2020-08-14] MEDS: COD LIVER OIL/ZINC OXIDE OINT 113 GM TUBE TOP SCH ×4 (09:08→21:00)
[2020-08-14] MEDS: NEOMY/BACITRAC/POLYMI OINT 28.35 GM TUBE TOP SCH (09:08)
[2020-08-14] MEDS: COD LIVER OIL/ZINC OXIDE OINT 113 GM TUBE TP SCH ×4 (09:09→21:00)
[2020-08-14] MEDS: NYSTATIN CREAM 30 GM TUBE TP SCH ×2 (09:09→21:00)
[2020-08-14] MEDS: IV FAT EMULSIONS 20% 250 ML IV SCH (09:36)
--- NOTE | 2020-08-14 12:00 | NUR ---
Seen Mavis Dobson, and Jess AUSTIN, notified of patient's condition (facial and back rash), new orders given to apply triamcinolone 0.1% cream mix with nystatin cream to the face, benzoyl peroxide gel to the back.
[2020-08-14 20:06] VITALS: BP 120/70
[2020-08-14] MEDS: BENZOYL PEROXIDE 10% GEL 60 GM TUBE TP SCH (21:00)
[2020-08-14] MEDS: TRIAMCINOLONE ACET 0.1% CREAM 15 GM TUBE TP SCH (21:00)
[2020-08-15] MEDS: AMIKACIN 350 MG in IV DEXTROSE 5% 100 ML IV SCH ×3 (00:05→17:04)
[2020-08-15] MEDS: BLOOD SUGAR DIAGNOSTIC 1 EACH STRIP VI SCH ×5 (00:12→23:23)
[2020-08-15] MEDS ORDERED: TPN IV SCH ×10 (02:00→14:00)
[2020-08-15] MEDS: INSULIN REGULAR, HUMAN 300 UNIT/3 ML VIAL SQ SCH ×5 (06:00→23:25)
[2020-08-15] MEDS: IPRATROPIUM BROMIDE 0.5 MG/2.5 ML NEBU NEB SCH ×3 (07:05→23:00)
[2020-08-15] MEDS: ALBUTEROL SULFATE 2.5 MG/3 ML NEBU NEB SCH ×3 (07:05→23:00)
[2020-08-15 07:30] VITALS: BP 141/61
[2020-08-15 08:41] LABS: CREATININE 0.6 mg/dL (0.6-1.3); MAGNESIUM 1.7 mg/dL (1.8-2.4); PHOSPHOROUS 2.6 mg/dL (2.5-4.9)
[2020-08-15 08:42] LABS: IRON, SERUM 25 ug/dL (50-175)
[2020-08-15] MEDS: HEPARIN SODIUM,PORCINE 5,000 UNITS/ML VIAL SQ SCH ×2 (08:48→21:57)
[2020-08-15] MEDS: COD LIVER OIL/ZINC OXIDE OINT 113 GM TUBE TP SCH ×4 (08:49→21:59)
[2020-08-15] MEDS: BENZOYL PEROXIDE 10% GEL 60 GM TUBE TP SCH ×2 (08:49→21:59)
[2020-08-15] MEDS: COD LIVER OIL/ZINC OXIDE OINT 113 GM TUBE TOP SCH ×4 (08:49→21:59)
[2020-08-15] MEDS: NYSTATIN CREAM 30 GM TUBE TP SCH ×2 (08:50→21:59)
[2020-08-15] MEDS: TRIAMCINOLONE ACET 0.1% CREAM 15 GM TUBE TP SCH ×2 (08:50→21:59)
[2020-08-15] MEDS: PANTOPRAZOLE SODIUM 40 MG VIAL IV SCH (09:00)
[2020-08-15] MEDS: NORMAL SALINE FLUSH 10 ML DISP.SYRIN IV SCH ×2 (09:00→21:11)
[2020-08-15] MEDS: levETIRAcetam IV 500 MG in IV DEXTROSE 5% 100 ML IV SCH ×2 (09:00→21:11)
[2020-08-15] MEDS: LEVOTHYROXINE SODIUM 100 MCG VIAL IV SCH (09:00)
[2020-08-15] MEDS: HYDROGEN PEROXIDE 3% 118 ML BOTTLE TP SCH ×2 (09:37→21:32)
[2020-08-15] MEDS ORDERED: MAGNESIUM SULFATE/D5W 100 ML IV SCH (11:00)
[2020-08-15] MEDS: POTASSIUM CHLORIDE 50 ML IV SCH ×6 (12:24→17:05)
[2020-08-15 20:42] VITALS: BP 143/69
[2020-08-16] MEDS: AMIKACIN 350 MG in IV DEXTROSE 5% 100 ML IV SCH ×3 (01:15→16:05)
[2020-08-16] MEDS ORDERED: TPN IV SCH ×11 (02:00→14:00)
[2020-08-16] MEDS: INSULIN REGULAR, HUMAN 300 UNIT/3 ML VIAL SQ SCH ×3 (05:36→18:00)
[2020-08-16] MEDS: BLOOD SUGAR DIAGNOSTIC 1 EACH STRIP VI SCH ×3 (05:36→18:27)
[2020-08-16 07:06] LABS: BASOPHILS % (AUTO) 0.6 % (0.0-2.0); EOSINOPHILS # (AUTO) 0.2 K/uL (0.0-0.7); EOSINOPHILS % (AUTO) 4.5 % (0.0-7.0); HEMOGLOBIN 8.8 g/dL (10.9-14.3); LYMPHOCYTES # (AUTO) 0.8 K/uL (20.0-40.0); LYMPHOCYTES % (AUTO) 15.8 % (20.5-51.5); MEAN CORPUSCULAR HEMOGLOBIN 29.3 uug (24.7-32.8); MEAN CORPUSCULAR HGB CONC 34 g/dL (32.3-35.6); MEAN CORPUSCULAR VOLUME 86.5 fL (75.5-95.3); MONOCYTES # (AUTO) 0.7 K/uL (2.0-10.0); MONOCYTES % (AUTO) 12.9 % (0.0-11.0); NEUTROPHILS # (AUTO) 3.5 K/uL (1.8-8.9); NEUTROPHILS % (AUTO) 66.2 % (38.5-71.5); PLATELET COUNT (AUTO) 249 K/uL (179-408); RED BLOOD CELL COUNT(AUTO) 3.01 MIL/uL (3.63-4.92); WHITE BLOOD COUNT (AUTO) 5.2 K/uL (3.8-11.8)
[2020-08-16 07:08] LABS: CREATININE 0.5 mg/dL (0.6-1.3); MAGNESIUM 1.9 mg/dL (1.8-2.4); PHOSPHOROUS 2.8 mg/dL (2.5-4.9); POTASSIUM 3.7 mmol/L (3.5-5.1)
[2020-08-16] MEDS: IPRATROPIUM BROMIDE 0.5 MG/2.5 ML NEBU NEB SCH ×3 (07:13→22:57)
[2020-08-16] MEDS: ALBUTEROL SULFATE 2.5 MG/3 ML NEBU NEB SCH ×3 (07:13→22:57)
[2020-08-16 07:50] VITALS: BP 133/66
[2020-08-16] MEDS: HEPARIN SODIUM,PORCINE 5,000 UNITS/ML VIAL SQ SCH ×2 (08:33→20:42)
[2020-08-16] MEDS: COD LIVER OIL/ZINC OXIDE OINT 113 GM TUBE TOP SCH ×4 (08:34→20:43)
[2020-08-16] MEDS: COD LIVER OIL/ZINC OXIDE OINT 113 GM TUBE TP SCH ×4 (08:34→20:43)
[2020-08-16] MEDS: BENZOYL PEROXIDE 10% GEL 60 GM TUBE TP SCH ×2 (08:34→20:43)
[2020-08-16] MEDS: TRIAMCINOLONE ACET 0.1% CREAM 15 GM TUBE TP SCH ×2 (08:35→20:44)
[2020-08-16] MEDS: NYSTATIN CREAM 30 GM TUBE TP SCH ×2 (08:35→20:44)
[2020-08-16] MEDS: FAMOTIDINE. 20 MG/2 ML VIAL IV SCH (09:00)
[2020-08-16] MEDS: levETIRAcetam IV 500 MG in IV DEXTROSE 5% 100 ML IV SCH ×2 (09:00→21:14)
[2020-08-16] MEDS: IV FAT EMULSIONS 20% 250 ML IV SCH (09:00)
[2020-08-16] MEDS: LEVOTHYROXINE SODIUM 100 MCG VIAL IV SCH (09:00)
[2020-08-16] MEDS: NORMAL SALINE FLUSH 10 ML DISP.SYRIN IV SCH ×2 (09:00→21:14)
[2020-08-16] MEDS: HYDROGEN PEROXIDE 3% 118 ML BOTTLE TP SCH ×2 (09:32→21:00)
--- NOTE | 2020-08-16 19:04 | NUR ---
Seen and examined By Dr Koch,no new orders noted Continue on ppn at 90 cc/hr and lipids MWF,on ivatb for bacteremia ,no adverse reaction noted.
[2020-08-16 20:00] VITALS: BP 130/71
--- NOTE | 2020-08-16 22:54 | NUR ---
Patient afebrile, trach intact and patent, no signs of any respiratory distress noted, on TPN @ 90ml/Hr, infusing well on her right jugular central line, keppra was also given as ordered, no seizure episodes noted. 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 On contact isolation for CRE in the blood. Old gt site still draining with yellow green drainage, also noted with excessive gas coming from the stoma, release gas as needed, parker catheter is draining well to yellow urine, good je care rendered, with ongoing treatment to face with triamcinolone with Nystatin, face still red, kept affected area clean and comfortable.
[2020-08-17] MEDS: BLOOD SUGAR DIAGNOSTIC 1 EACH STRIP VI SCH ×4 (00:21→17:57)
[2020-08-17] MEDS: AMIKACIN 350 MG in IV DEXTROSE 5% 100 ML IV SCH ×3 (01:11→17:19)
[2020-08-17] MEDS ORDERED: TPN IV SCH ×11 (02:00→14:00)
[2020-08-17] MEDS: ACETAMINOPHEN 650 MG SUPP.RECT RC PRN (06:00)
[2020-08-17] MEDS: INSULIN REGULAR, HUMAN 300 UNIT/3 ML VIAL SQ SCH ×4 (06:00→17:56)
[2020-08-17 06:15] LABS: CREATININE 0.5 mg/dL (0.6-1.3); MAGNESIUM 1.9 mg/dL (1.8-2.4); POTASSIUM 3.6 mmol/L (3.5-5.1)
--- NOTE | 2020-08-17 06:27 | NUR ---
Patient is awake, no signs of any distress noted, change colostomy bag over old gt site due to soiling X 3 this shift.
--- NOTE | 2020-08-17 07:06 | NUR ---
Changed treatment to abdominal area for skin irritation from continuous bile drainage from old gt site, kept skin clean and dry.
[2020-08-17] MEDS: ALBUTEROL SULFATE 2.5 MG/3 ML NEBU NEB SCH ×3 (07:30→22:30)
[2020-08-17] MEDS: IPRATROPIUM BROMIDE 0.5 MG/2.5 ML NEBU NEB SCH ×3 (07:30→22:30)
[2020-08-17 07:33] VITALS: BP 123/68
[2020-08-17] MEDS: NORMAL SALINE FLUSH 10 ML DISP.SYRIN IV SCH ×2 (09:00→20:46)
[2020-08-17] MEDS: FAMOTIDINE. 20 MG/2 ML VIAL IV SCH (09:00)
[2020-08-17] MEDS: levETIRAcetam IV 500 MG in IV DEXTROSE 5% 100 ML IV SCH ×2 (09:00→20:46)
[2020-08-17] MEDS: LEVOTHYROXINE SODIUM 100 MCG VIAL IV SCH (09:00)
--- NOTE | 2020-08-17 09:00 | NUR ---
OSTOMY SITE LEFT OPEN TO AIR WITH DESITIN ON SURROUNDING SKIN SKIN BARRIER D/T CONTINUOUS BILE DRAINAGE ERODING AND DENUDING SKIN AND ONLY CHANGING LOCAL DRESSING PROMPTLY.
[2020-08-17] MEDS: NYSTATIN CREAM 30 GM TUBE TP SCH ×2 (09:05→21:17)
[2020-08-17] MEDS: COD LIVER OIL/ZINC OXIDE OINT 113 GM TUBE TP SCH ×2 (09:05→20:39)
[2020-08-17] MEDS: BENZOYL PEROXIDE 10% GEL 60 GM TUBE TP SCH ×2 (09:05→21:17)
[2020-08-17] MEDS: TRIAMCINOLONE ACET 0.1% CREAM 15 GM TUBE TP SCH ×2 (09:05→21:17)
[2020-08-17] MEDS: COD LIVER OIL/ZINC OXIDE OINT 113 GM TUBE TOP SCH ×6 (09:06→20:39)
[2020-08-17] MEDS: HEPARIN SODIUM,PORCINE 5,000 UNITS/ML VIAL SQ SCH ×2 (09:07→20:39)
[2020-08-17] MEDS: HYDROGEN PEROXIDE 3% 118 ML BOTTLE TP SCH ×2 (09:44→21:24)
--- NOTE | 2020-08-17 17:19 | NUR ---
DR. KC AWARE OF OSTOMY DRAINING BILE CONTINUOUSLY AND ERODING SURROUNDING SKIN AND HE WILL TALK TO GI TO FIND OUT IF AN NGT WILL HELP TO PREVENT BILE DRAINING TROUGH THE OSTOMY AND IN THAT WAY HELP SKIN TO HEAL AND OSTOMY TO CLOSE ,ALSO AWARE THAT APPARENTLY SEBORRHEIC DERMATITIS AFFECTING RT NECK SKIN TOO COMPROMISING CENTRAL LINE DRESSING AND AT RISK FOR CONTAMINATION AND WITH NEW ORDER FOR DERMATOLOGY CONSULT.MESSAGE LEFT TO CHILD CARE LEAD TEACHER.
[2020-08-17] MEDS: COD LIVER OIL/ZINC OXIDE OINT 113 GM TUBE TOP PRN (18:00)
--- NOTE | 2020-08-17 19:37 | NUR ---
Received pt on HT-50 ventilator with the following settings of AC-14, Vt-500, PEEP+5, FIO2-2.5lpm bleed in, trached with Portex#7 cuffed trach, which is in the place and secure. No respiratory distress noted. Airway care done, pt responded to physical stimuli. HME changed. Resus. bag and back up trach at bedside. Vent and alarms checked and reset.
[2020-08-17 20:00] VITALS: BP 138/72
--- NOTE | 2020-08-17 22:17 | NUR ---
Afebrile, TPN @75ml/Hr infusing well on Right jugular central line, keppra IV given for seizure disorder, no seizure episodes noted. Still on Amikacin IV for Bacteria/ CRE in the blood, no adverse reactions noted. still with facial redness/rashes, treatment done as ordered, will follow- up for derma consult. Old gt stoma still draining continuously with bile drainage, skin on the old stoma and surrounding skin is denuded. kept area clean and applied Desitin moisture barrier ointment as ordered, Abdomen is distended but soft, Jo catheter is draining well with yellow urine, good je care rendered, will continue monitor.
[2020-08-18] MEDS: AMIKACIN 350 MG in IV DEXTROSE 5% 100 ML IV SCH ×3 (01:01→17:52)
[2020-08-18] MEDS ORDERED: TPN IV SCH ×11 (02:00→13:00)
[2020-08-18] MEDS: ACETAMINOPHEN 650 MG SUPP.RECT RC PRN ×2 (02:47→11:12)
[2020-08-18] MEDS: INSULIN REGULAR, HUMAN 300 UNIT/3 ML VIAL SQ SCH ×4 (06:00→17:47)
[2020-08-18] MEDS: BLOOD SUGAR DIAGNOSTIC 1 EACH STRIP VI SCH ×4 (06:07→17:46)
[2020-08-18] MEDS: ALBUTEROL SULFATE 2.5 MG/3 ML NEBU NEB SCH ×3 (07:45→22:55)
[2020-08-18] MEDS: IPRATROPIUM BROMIDE 0.5 MG/2.5 ML NEBU NEB SCH ×3 (07:45→22:55)
[2020-08-18] MEDS: HYDROGEN PEROXIDE 3% 118 ML BOTTLE TP SCH ×2 (07:46→21:05)
[2020-08-18 07:49] VITALS: BP 131/75
[2020-08-18 09:06] LABS: CREATININE 0.5 mg/dL (0.6-1.3); PHOSPHOROUS 3.2 mg/dL (2.5-4.9); POTASSIUM 3.5 mmol/L (3.5-5.1)
[2020-08-18] MEDS: HEPARIN SODIUM,PORCINE 5,000 UNITS/ML VIAL SQ SCH ×2 (09:06→20:52)
[2020-08-18] MEDS: NYSTATIN CREAM 30 GM TUBE TP SCH (09:07)
[2020-08-18] MEDS: TRIAMCINOLONE ACET 0.1% CREAM 15 GM TUBE TP SCH (09:07)
[2020-08-18] MEDS: COD LIVER OIL/ZINC OXIDE OINT 113 GM TUBE TP SCH ×3 (09:07→20:54)
[2020-08-18] MEDS: BENZOYL PEROXIDE 10% GEL 60 GM TUBE TP SCH ×2 (09:07→20:54)
[2020-08-18] MEDS: COD LIVER OIL/ZINC OXIDE OINT 113 GM TUBE TOP SCH ×6 (09:07→20:53)
[2020-08-18] MEDS: COD LIVER OIL/ZINC OXIDE OINT 113 GM TUBE TOP PRN ×2 (09:09→11:19)
[2020-08-18] MEDS: NORMAL SALINE FLUSH 10 ML DISP.SYRIN IV SCH ×2 (09:30→20:58)
[2020-08-18] MEDS: LEVOTHYROXINE SODIUM 100 MCG VIAL IV SCH (09:30)
[2020-08-18] MEDS: IV FAT EMULSIONS 20% 250 ML IV SCH (09:31)
[2020-08-18] MEDS: levETIRAcetam IV 500 MG in IV DEXTROSE 5% 100 ML IV SCH ×2 (09:31→20:58)
[2020-08-18] MEDS: FAMOTIDINE. 20 MG/2 ML VIAL IV SCH ×2 (09:31→20:58)
--- NOTE | 2020-08-18 11:10 | NUR ---
AFTER MORNING CARE AND OSTOMY CARE TYLENOL GIVEN D/T P/A 11/29 M/B FACIAL GRIMACING .
[2020-08-18] MEDS ORDERED: LORAZEPAM 2 MG/1 ML VIAL IM ONE (11:30)
--- NOTE | 2020-08-18 11:30 | NUR ---
MEDICATED WITH ATIVAN ORDERED PRN FOR ANXIETY M/B RESTLESSNESS ,MOVING CONTINUOUSLY MOUTH,NECK AND FRICTIONING BOTH HANDS AGAINST CHEST CONTINUOUSLY REACHING IRRITATED ABDOMINAL SKIN AT RISK FOR BREAKING DOWN SKIN.ABDOMINAL IRRITATED SKIN (D/T BILE DRAIN) TREATED WITH SKIN BARRIER (SEE RECORD) NEEDED DILIGENTLY.
--- NOTE | 2020-08-18 15:23 | NUR ---
MESSAGE LEFT TO DR. SERRANO (UNDERGROUND MINE SUPERINTENDENT ) TO F/U SKIN LESIONS ON RT. NECK AND FACE .MESSAGE LEFT TO DR. CATHY GambleRE:TO F/U CONSIDERATION OF MAY BE NGT TO ALLEVIATE CONTINUOUSLY BILE DRAIN TROUGH ABDOMINAL OSTOMY THAT IS CAUSING SKIN IRRITATION AND SKIN BREAK DOWN AND TO CHANGE ATIVAN PRN FROM IM TO IV PER PT'S COMFORT.
[2020-08-18] MEDS ORDERED: FAMOTIDINE. 20 MG/2 ML VIAL IV SCH (16:06)
--- NOTE | 2020-08-18 17:20 | NUR ---
PT. OBSERVED VISIBLE CALMED AND NO RESTLESSNESS OBSERVED AND SHE STOPPED FRICTIONING ABDOMINAL SKIN AND OSTOMY WITH LEFT FLEXED UPPER EXTREMITY.NO S/S OF ACUTE DISTRESS,NO RESPIRATORY DISTRESS S/S NOTED .WILL CONT. TO MONITOR.
--- NOTE | 2020-08-18 17:43 | NUR ---
DR. REI Gamble WAS CALLED AGAIN AT THIS TIME .
--- NOTE | 2020-08-18 18:06 | NUR ---
DR. CATHY Gamble CALLED BACK AND WITH NEW ORDERS CARRIED OUT AND HE STATED THAT HE WILL SPEAK TO Vicky MARKS TO CONSIDER A SX CLIP.
[2020-08-18 20:00] VITALS: BP 138/67
[2020-08-18] MEDS: KETOCONAZOLE 2% CREAM 30 GM TUBE TP SCH (20:54)
[2020-08-19] MEDS: BLOOD SUGAR DIAGNOSTIC 1 EACH STRIP VI SCH ×4 (00:49→18:25)
[2020-08-19] MEDS: AMIKACIN 350 MG in IV DEXTROSE 5% 100 ML IV SCH ×3 (00:55→17:17)
[2020-08-19] MEDS ORDERED: TPN IV SCH ×11 (01:00→13:00)
[2020-08-19] MEDS: INSULIN REGULAR, HUMAN 300 UNIT/3 ML VIAL SQ SCH ×4 (05:30→18:00)
[2020-08-19] MEDS: HYDROGEN PEROXIDE 3% 118 ML BOTTLE TP SCH ×2 (07:05→21:05)
[2020-08-19] MEDS: ALBUTEROL SULFATE 2.5 MG/3 ML NEBU NEB SCH ×3 (07:05→23:15)
[2020-08-19] MEDS: IPRATROPIUM BROMIDE 0.5 MG/2.5 ML NEBU NEB SCH ×3 (07:05→23:15)
[2020-08-19 07:24] LABS: CREATININE 0.5 mg/dL (0.6-1.3); MAGNESIUM 1.8 mg/dL (1.8-2.4); PHOSPHOROUS 3.1 mg/dL (2.5-4.9); POTASSIUM 3.3 mmol/L (3.5-5.1)
[2020-08-19 08:00] VITALS: BP 119/68
[2020-08-19] MEDS: COD LIVER OIL/ZINC OXIDE OINT 113 GM TUBE TP SCH ×4 (08:14→20:30)
[2020-08-19] MEDS: COD LIVER OIL/ZINC OXIDE OINT 113 GM TUBE TOP SCH ×6 (08:14→20:30)
[2020-08-19] MEDS: BENZOYL PEROXIDE 10% GEL 60 GM TUBE TP SCH ×2 (08:15→20:30)
[2020-08-19] MEDS: KETOCONAZOLE 2% CREAM 30 GM TUBE TP SCH ×2 (08:16→20:30)
[2020-08-19] MEDS: HEPARIN SODIUM,PORCINE 5,000 UNITS/ML VIAL SQ SCH ×2 (08:17→20:27)
[2020-08-19] MEDS: levETIRAcetam IV 500 MG in IV DEXTROSE 5% 100 ML IV SCH ×2 (09:22→20:55)
[2020-08-19] MEDS: diphenhydrAMINE 50 MG/1 ML VIAL IV PRN (09:25)
[2020-08-19] MEDS: FAMOTIDINE. 20 MG/2 ML VIAL IV SCH ×2 (09:25→21:24)
[2020-08-19] MEDS: LEVOTHYROXINE SODIUM 100 MCG VIAL IV SCH (09:25)
[2020-08-19] MEDS: NORMAL SALINE FLUSH 10 ML DISP.SYRIN IV SCH ×2 (09:25→20:55)
[2020-08-19] MEDS: ACETAMINOPHEN 650 MG SUPP.RECT RC PRN (09:26)
--- NOTE | 2020-08-19 10:00 | NUR ---
PT. WAS MEDICATED ORDERED FOR PAIN AND ITCHING AND WITH GOOD EFFECT ,PT. REMAINS CALMED AND RELAXED NOT FRICTIONING ABDOMINAL IRRITATED SKIN WITH LEFT FLEXED UPPER EXTREMITY.
[2020-08-19] MEDS: POTASSIUM CHLORIDE 50 ML IV SCH ×2 (10:52→11:00)
--- NOTE | 2020-08-19 11:00 | NUR ---
New order was carried out from Dr. Stuart garcia/brady potassium level 3.3.
[2020-08-19 20:01] VITALS: BP 121/66
[2020-08-19] MEDS: LORAZEPAM 2 MG/1 ML VIAL IV PRN (20:55)
[2020-08-19] MEDS ORDERED: LORAZEPAM 2 MG/1 ML VIAL IM ONE (20:56)
--- NOTE | 2020-08-19 20:56 | NUR ---
Patient is restless, trach is intact and patent, connected to vent, 02 sat @ 98%, cleaned, changed and repositioned, still restless. Ativan IVP given as ordered, kept patient clean and dry will continue monitor.
--- NOTE | 2020-08-19 22:47 | NUR ---
Patient is sleeping but easy to arouse, still on TPN @ 75ml/Hr, infusing well on Right jugular central line, central line is intact and patent, old GT stoma is continuously draining with bile colored drainage, treatment to stoma applied as ordered, parker catheter is draining well to yellow urine, good je care rendered, will continue monitor.
[2020-08-20] MEDS ORDERED: TPN IV SCH ×11 (01:00→13:00)
[2020-08-20] MEDS: AMIKACIN 350 MG in IV DEXTROSE 5% 100 ML IV SCH ×3 (01:08→17:22)
[2020-08-20] MEDS: BLOOD SUGAR DIAGNOSTIC 1 EACH STRIP VI SCH ×4 (05:43→17:58)
[2020-08-20] MEDS: INSULIN REGULAR, HUMAN 300 UNIT/3 ML VIAL SQ SCH ×4 (05:44→17:57)
[2020-08-20 07:10] LABS: CREATININE 0.6 mg/dL (0.6-1.3); PHOSPHOROUS 3.1 mg/dL (2.5-4.9); POTASSIUM 3.4 mmol/L (3.5-5.1)
[2020-08-20] MEDS: ALBUTEROL SULFATE 2.5 MG/3 ML NEBU NEB SCH ×3 (07:24→23:14)
[2020-08-20] MEDS: IPRATROPIUM BROMIDE 0.5 MG/2.5 ML NEBU NEB SCH ×3 (07:24→23:14)
[2020-08-20 07:36] VITALS: BP 116/67
[2020-08-20] MEDS: KETOCONAZOLE 2% CREAM 30 GM TUBE TP SCH ×2 (08:04→21:00)
[2020-08-20] MEDS: BENZOYL PEROXIDE 10% GEL 60 GM TUBE TP SCH ×2 (08:05→20:46)
[2020-08-20] MEDS: COD LIVER OIL/ZINC OXIDE OINT 113 GM TUBE TOP SCH ×6 (08:05→20:45)
[2020-08-20] MEDS: COD LIVER OIL/ZINC OXIDE OINT 113 GM TUBE TP SCH ×4 (08:05→20:46)
[2020-08-20] MEDS: HEPARIN SODIUM,PORCINE 5,000 UNITS/ML VIAL SQ SCH ×2 (08:08→21:00)
[2020-08-20] MEDS: LEVOTHYROXINE SODIUM 100 MCG VIAL IV SCH (09:45)
[2020-08-20] MEDS: levETIRAcetam IV 500 MG in IV DEXTROSE 5% 100 ML IV SCH ×2 (09:45→20:51)
[2020-08-20] MEDS: FAMOTIDINE. 20 MG/2 ML VIAL IV SCH ×2 (09:45→20:51)
[2020-08-20] MEDS: NORMAL SALINE FLUSH 10 ML DISP.SYRIN IV SCH ×2 (09:45→20:51)
[2020-08-20] MEDS: HYDROGEN PEROXIDE 3% 118 ML BOTTLE TP SCH ×2 (09:50→21:01)
[2020-08-20] MEDS: diphenhydrAMINE 50 MG/1 ML VIAL IV PRN ×2 (09:57→23:04)
[2020-08-20] MEDS: POTASSIUM CHLORIDE 50 ML IV SCH ×2 (10:00→11:00)
[2020-08-20 20:17] VITALS: BP 121/66
[2020-08-21] MEDS: BLOOD SUGAR DIAGNOSTIC 1 EACH STRIP VI SCH ×4 (00:42→17:14)
[2020-08-21] MEDS: AMIKACIN 350 MG in IV DEXTROSE 5% 100 ML IV SCH ×3 (01:15→17:54)
[2020-08-21] MEDS: TPN IV SCH ×4 (01:16→13:00)
[2020-08-21] MEDS: INSULIN REGULAR, HUMAN 300 UNIT/3 ML VIAL SQ SCH ×4 (05:50→17:14)
[2020-08-21 07:01] LABS: CREATININE 0.5 mg/dL (0.6-1.3); MAGNESIUM 1.9 mg/dL (1.8-2.4); PHOSPHOROUS 3.4 mg/dL (2.5-4.9); POTASSIUM 3.9 mmol/L (3.5-5.1)
[2020-08-21 07:31] VITALS: BP 123/48
[2020-08-21] MEDS: ALBUTEROL SULFATE 2.5 MG/3 ML NEBU NEB SCH ×3 (07:40→23:01)
[2020-08-21] MEDS: IPRATROPIUM BROMIDE 0.5 MG/2.5 ML NEBU NEB SCH ×3 (07:40→23:01)
[2020-08-21] MEDS: FAMOTIDINE. 20 MG/2 ML VIAL IV SCH ×2 (08:24→20:54)
[2020-08-21] MEDS: levETIRAcetam IV 500 MG in IV DEXTROSE 5% 100 ML IV SCH ×2 (08:24→20:54)
[2020-08-21] MEDS: NORMAL SALINE FLUSH 10 ML DISP.SYRIN IV SCH ×2 (08:25→20:54)
[2020-08-21] MEDS: LEVOTHYROXINE SODIUM 100 MCG VIAL IV SCH (08:26)
[2020-08-21] MEDS: IV FAT EMULSIONS 20% 250 ML IV SCH (08:28)
[2020-08-21] MEDS: diphenhydrAMINE 50 MG/1 ML VIAL IV PRN (08:28)
[2020-08-21] MEDS: ACETAMINOPHEN 650 MG SUPP.RECT RC PRN (08:29)
--- NOTE | 2020-08-21 08:30 | NUR ---
PT. WAS MEDICATED ORDERED FOR S/S OF PAIN (ABDOMINAL SKIN IRRITATION)
--- NOTE | 2020-08-21 08:30 | NUR ---
PT. WAS MEDICATED ORDERED WITH BENADRYL FOR ITCHING ON FACIAL SKIN ORDERED.
[2020-08-21] MEDS: HEPARIN SODIUM,PORCINE 5,000 UNITS/ML VIAL SQ SCH ×2 (09:11→21:00)
[2020-08-21] MEDS: COD LIVER OIL/ZINC OXIDE OINT 113 GM TUBE TOP SCH ×5 (09:11→21:01)
[2020-08-21] MEDS: COD LIVER OIL/ZINC OXIDE OINT 113 GM TUBE TP SCH ×4 (09:11→21:01)
[2020-08-21] MEDS: KETOCONAZOLE 2% CREAM 30 GM TUBE TP SCH ×2 (09:12→21:01)
[2020-08-21] MEDS: BENZOYL PEROXIDE 10% GEL 60 GM TUBE TP SCH ×2 (09:12→21:01)
[2020-08-21] MEDS: HYDROGEN PEROXIDE 3% 118 ML BOTTLE TP SCH ×2 (09:48→21:21)
--- NOTE | 2020-08-21 10:20 | NUR ---
DR. [id number]) WAS CALLED AND MESSAGE LEFT WITH COOK APPRENTICE PASTRY FOR CONSULTATION .
--- NOTE | 2020-08-21 10:24 | NUR ---
Dermatology order faxed to Dr. Vines at [phone] (tel # [phone]).
--- NOTE | 2020-08-21 12:00 | NUR ---
PT. APPEARS MORE CALMED AND COMFORTABLE TOLERATING CARE .TRACH DRESSING FREQUENTLY CHANGED TO KEEP SKIN DRY . RT. NECK CENTRAL LINE DRESSING KEPT STERILE POSSIBLE AND CHANGE NEEDED.
--- NOTE | 2020-08-21 12:25 | NUR ---
PT. WAS SEEN AND EXAMINED BY KYLER Giron AND WITH NEW ORDERS CARRIED OUT.
[2020-08-21] MEDS ORDERED: TPN IV SCH ×9 (14:00)
[2020-08-21] MEDS: LORAZEPAM 2 MG/1 ML VIAL IV PRN (14:30)
[2020-08-21] MEDS ORDERED: LORAZEPAM 2 MG/1 ML VIAL IM ONE (14:30)
--- NOTE | 2020-08-21 14:30 | NUR ---
PT. WAS MEDICATED ORDERED WITH ATIVAN IV FOR RESTLESSNESS INTERFERING WITH CARE ,MOVING HEAD SIDE TO SIDE AND ALSO MOUTH CONTINUOUSLY DISLODGING RT. NECK CENTRAL LINE DRESSING,LESS RESTRICTIVE MEASURES APPLIED BUT NOT EFFECTIVE.PT. KEPT CLEAN POSSIBLE AND COMFORTABLE POSSIBLE WITH GENTLE REPOSITIONING.FREQUENT VISUAL CHECKS DONE FOR COMFORT AND SAFETY. ABDOMINAL IRRITATED SKIN KEPT MUCH POSSIBLE DRY AND FREE FROM BILE .
[2020-08-21 19:58] VITALS: BP 136/59
[2020-08-22] MEDS: BLOOD SUGAR DIAGNOSTIC 1 EACH STRIP VI SCH ×4 (00:45→17:13)
[2020-08-22] MEDS: AMIKACIN 350 MG in IV DEXTROSE 5% 100 ML IV SCH ×3 (00:55→16:49)
[2020-08-22] MEDS ORDERED: TPN IV SCH ×11 (02:00→14:00)
[2020-08-22] MEDS: INSULIN REGULAR, HUMAN 300 UNIT/3 ML VIAL SQ SCH ×4 (05:45→17:13)
[2020-08-22] MEDS: ALBUTEROL SULFATE 2.5 MG/3 ML NEBU NEB SCH ×3 (07:20→23:07)
[2020-08-22] MEDS: HYDROGEN PEROXIDE 3% 118 ML BOTTLE TP SCH ×2 (07:20→21:02)
[2020-08-22] MEDS: IPRATROPIUM BROMIDE 0.5 MG/2.5 ML NEBU NEB SCH ×3 (07:20→23:07)
[2020-08-22 07:21] VITALS: BP 131/67
[2020-08-22 08:01] LABS: BASOPHILS % (AUTO) 0.5 % (0.0-2.0); EOSINOPHILS # (AUTO) 0.4 K/uL (0.0-0.7); HEMATOCRIT 27.8 % (31.2-41.9); HEMOGLOBIN 9.3 g/dL (10.9-14.3); LYMPHOCYTES # (AUTO) 0.9 K/uL (20.0-40.0); LYMPHOCYTES % (AUTO) 14.5 % (20.5-51.5); MEAN CORPUSCULAR HGB CONC 34 g/dL (32.3-35.6); MEAN CORPUSCULAR VOLUME 86.4 fL (75.5-95.3); MONOCYTES # (AUTO) 0.6 K/uL (2.0-10.0); MONOCYTES % (AUTO) 9.7 % (0.0-11.0); NEUTROPHILS # (AUTO) 4.4 K/uL (1.8-8.9); NEUTROPHILS % (AUTO) 68.3 % (38.5-71.5); PLATELET COUNT (AUTO) 206 K/uL (179-408); RED BLOOD CELL COUNT(AUTO) 3.21 MIL/uL (3.63-4.92); WHITE BLOOD COUNT (AUTO) 6.4 K/uL (3.8-11.8)
[2020-08-22 08:08] LABS: CREATININE 0.6 mg/dL (0.6-1.3); MAGNESIUM 1.8 mg/dL (1.8-2.4); PHOSPHOROUS 4.2 mg/dL (2.5-4.9); POTASSIUM 3.5 mmol/L (3.5-5.1)
[2020-08-22] MEDS: HEPARIN SODIUM,PORCINE 5,000 UNITS/ML VIAL SQ SCH ×2 (08:30→21:34)
[2020-08-22] MEDS: COD LIVER OIL/ZINC OXIDE OINT 113 GM TUBE TP SCH ×4 (08:30→21:34)
[2020-08-22] MEDS: COD LIVER OIL/ZINC OXIDE OINT 113 GM TUBE TOP SCH ×4 (08:30→21:34)
[2020-08-22] MEDS: BENZOYL PEROXIDE 10% GEL 60 GM TUBE TP SCH ×2 (08:31→21:34)
[2020-08-22] MEDS: KETOCONAZOLE 2% CREAM 30 GM TUBE TP SCH ×3 (08:31→21:35)
[2020-08-22] MEDS: levETIRAcetam IV 500 MG in IV DEXTROSE 5% 100 ML IV SCH ×2 (09:00→20:57)
[2020-08-22] MEDS: FAMOTIDINE. 20 MG/2 ML VIAL IV SCH ×2 (09:00→20:57)
[2020-08-22] MEDS: LEVOTHYROXINE SODIUM 100 MCG VIAL IV SCH (09:00)
[2020-08-22] MEDS: NORMAL SALINE FLUSH 10 ML DISP.SYRIN IV SCH ×2 (09:00→20:57)
--- NOTE | 2020-08-22 09:00 | NUR ---
Seen and examined by Dr Vines molded goods inspector trimmer with new orders noted.for seborrheic dermatitis on face and intertrigo around the mouth corners.
--- NOTE | 2020-08-22 10:48 | NUR ---
NEW ORDER CARRIED OUT FROM DR. SERRANO (SHAFT MECHANIC) AND CLARIFIED RECOMMENDED BY PHARMACIST.
--- NOTE | 2020-08-22 11:36 | NUR ---
SARA followed up with Ania at Dr. Houston's office, , regarding the optometry exam that was requested on 07/25 (see SS note). Ania stated that Dr. Houston would be returning to the office on 08/24, and she would then coordinate a date with him and call this SW back to confirm date. SARA expressed agreement. SW to follow-up with Ania, if needed.
[2020-08-22] MEDS ORDERED: FLUCONAZOLE 200 MG/NS 100ML IV 200 MG in PREMIXED 1 EACH IV ONE (12:00)
[2020-08-22] MEDS ORDERED: FLUCONAZOLE IV ONE (12:00)
[2020-08-22] MEDS ORDERED: [UNRECOGNIZED DRUG - OTHER] IV ONE (12:00)
[2020-08-22] MEDS ORDERED: PREMIXED IV ONE (12:00)
--- NOTE | 2020-08-22 15:30 | NUR ---
Seen by Dr Davidson,no new orders.Continue on PPN at 80 cc/hr,on Amikacin ivatb,for bacteremia,no adverse reaction noted.
[2020-08-22] MEDS: NYSTATIN CREAM 30 GM TUBE TP SCH (17:12)
--- NOTE | 2020-08-22 19:00 | NUR ---
Diflucan 200 mg ivatb given for candidiasis,no adverse reaction noted.
[2020-08-22 20:00] VITALS: BP 120/66
[2020-08-22] MEDS: TRIAMCINOLONE ACET 0.1% CREAM 15 GM TUBE TP SCH (21:35)
--- NOTE | 2020-08-22 22:15 | NUR ---
Patient is afebrile, facial rashes looks better and dry, Right Jugular Central line is intact, TPN infusing well @ 80ml/Hr, Pepcid IV and Keppra IV was given with no adverse reactions noted. Old gt stoma with bile color drainage, with treatment around stoma, treatment done as ordered, kept skin clean and dry, Jo catheter draining well to yellow urine, good je care rendered, turned and repositioned, kept clean and comfortable. Addendum: 08/22/20 at 2224 by EUGENIE LOCKETT RN S/p Diflucan IV was given by AM shift, no adverse reactions noted.
[2020-08-23] MEDS: BLOOD SUGAR DIAGNOSTIC 1 EACH STRIP VI SCH ×4 (00:27→17:48)
[2020-08-23] MEDS: AMIKACIN 350 MG in IV DEXTROSE 5% 100 ML IV SCH ×3 (00:58→17:00)
[2020-08-23] MEDS ORDERED: TPN IV SCH ×10 (02:00→14:00)
--- NOTE | 2020-08-23 05:30 | NUR ---
Patient is restless, trach is intact and patent, no respiratory distress noted, 02 sat is 99%, connected to vent on prescribed settings, old gt stoma with continuous bile drainage, treatment done to surrounding areas, parker catheter is draining well to yellow urine, turned and repositioned, still restless, Ativan given as ordered, kept clean and comfortable, will continue monitor.
[2020-08-23] MEDS: INSULIN REGULAR, HUMAN 300 UNIT/3 ML VIAL SQ SCH ×4 (06:00→17:49)
[2020-08-23] MEDS ORDERED: LORAZEPAM 2 MG/1 ML VIAL IM ONE (06:30)
[2020-08-23] MEDS: LORAZEPAM 2 MG/1 ML VIAL IV PRN (06:30)
--- NOTE | 2020-08-23 06:57 | NUR ---
Patient is sleeping at this time, appears calm, no signs of any distress noted, kept clean and comfortable.
[2020-08-23] MEDS: ALBUTEROL SULFATE 2.5 MG/3 ML NEBU NEB SCH ×3 (07:05→22:48)
[2020-08-23] MEDS: IPRATROPIUM BROMIDE 0.5 MG/2.5 ML NEBU NEB SCH ×3 (07:05→22:48)
[2020-08-23] MEDS: HYDROGEN PEROXIDE 3% 118 ML BOTTLE TP SCH ×2 (07:05→20:56)
[2020-08-23 07:22] VITALS: BP 132/74
[2020-08-23 08:10] LABS: CARBON DIOXIDE 21 mmol/L (21-32); CHLORIDE 105 mmol/L (98-107); CREATININE 0.4 mg/dL (0.6-1.3); GLUCOSE 114 mg/dL (74-106); MAGNESIUM 2.1 mg/dL (1.8-2.4); PHOSPHOROUS 4.5 mg/dL (2.5-4.9); POTASSIUM 3.9 mmol/L (3.5-5.1); UREA NITROGEN, BLOOD 24 mg/dL (7-18)
[2020-08-23] MEDS: COD LIVER OIL/ZINC OXIDE OINT 113 GM TUBE TOP SCH ×4 (09:00→21:37)
[2020-08-23] MEDS: NYSTATIN CREAM 30 GM TUBE TP SCH ×2 (09:00→17:44)
[2020-08-23] MEDS: HEPARIN SODIUM,PORCINE 5,000 UNITS/ML VIAL SQ SCH ×2 (09:00→21:37)
[2020-08-23] MEDS: KETOCONAZOLE 2% CREAM 30 GM TUBE TP SCH ×3 (09:00→21:37)
[2020-08-23] MEDS: COD LIVER OIL/ZINC OXIDE OINT 113 GM TUBE TP SCH ×4 (09:00→21:37)
[2020-08-23] MEDS: levETIRAcetam IV 500 MG in IV DEXTROSE 5% 100 ML IV SCH ×2 (09:00→21:29)
[2020-08-23] MEDS: IV FAT EMULSIONS 20% 250 ML IV SCH (09:00)
[2020-08-23] MEDS: FAMOTIDINE. 20 MG/2 ML VIAL IV SCH ×2 (09:00→21:30)
[2020-08-23] MEDS: BENZOYL PEROXIDE 10% GEL 60 GM TUBE TP SCH ×2 (09:00→21:37)
[2020-08-23] MEDS: LEVOTHYROXINE SODIUM 100 MCG VIAL IV SCH (09:00)
[2020-08-23] MEDS: NORMAL SALINE FLUSH 10 ML DISP.SYRIN IV SCH ×2 (09:00→21:30)
--- NOTE | 2020-08-23 11:04 | NUR ---
Gricelda from [facility] call ,notified her pt condition,vital signs and new orders.
--- NOTE | 2020-08-23 17:30 | NUR ---
Seen and examined by Kelsey [employer] Lister ,no new orders noted for the abdomen old Gt site,she stated Dr Davidson surgeon nenita discuss with Dr Lester Fam regarding the old gt site leakage and further tx.Pt continue on PPN at 80 cc/hr and lipids,last dose of ivatb Amikacin given for bacteremia,no adverse reaction noted,Betzaida Hinojosa notified pt received the last dose of ivatb,last blood cultures results was negative.didn't call back.
[2020-08-23 20:00] VITALS: BP 144/79
--- NOTE | 2020-08-23 21:00 | NUR ---
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
[2020-08-23] MEDS: TRIAMCINOLONE ACET 0.1% CREAM 15 GM TUBE TP SCH (21:37)
[2020-08-24] MEDS: BLOOD SUGAR DIAGNOSTIC 1 EACH STRIP VI SCH ×4 (00:22→17:59)
[2020-08-24] MEDS ORDERED: TPN IV SCH ×10 (02:00→14:00)
[2020-08-24] MEDS: INSULIN REGULAR, HUMAN 300 UNIT/3 ML VIAL SQ SCH ×4 (05:55→17:59)
[2020-08-24] MEDS: HYDROGEN PEROXIDE 3% 118 ML BOTTLE TP SCH ×2 (07:05→21:37)
[2020-08-24] MEDS: ALBUTEROL SULFATE 2.5 MG/3 ML NEBU NEB SCH ×3 (07:43→23:05)
[2020-08-24] MEDS: IPRATROPIUM BROMIDE 0.5 MG/2.5 ML NEBU NEB SCH ×3 (07:43→23:05)
[2020-08-24 08:07] VITALS: BP 132/72
[2020-08-24] MEDS: HEPARIN SODIUM,PORCINE 5,000 UNITS/ML VIAL SQ SCH ×2 (08:58→21:49)
[2020-08-24] MEDS: BENZOYL PEROXIDE 10% GEL 60 GM TUBE TP SCH ×2 (09:00→21:46)
[2020-08-24] MEDS: COD LIVER OIL/ZINC OXIDE OINT 113 GM TUBE TP SCH ×4 (09:00→21:46)
[2020-08-24] MEDS: levETIRAcetam IV 500 MG in IV DEXTROSE 5% 100 ML IV SCH ×2 (09:00→21:42)
[2020-08-24] MEDS: LEVOTHYROXINE SODIUM 100 MCG VIAL IV SCH (09:00)
[2020-08-24] MEDS: FAMOTIDINE. 20 MG/2 ML VIAL IV SCH ×2 (09:00→21:43)
[2020-08-24] MEDS: COD LIVER OIL/ZINC OXIDE OINT 113 GM TUBE TOP SCH ×4 (09:00→21:46)
[2020-08-24] MEDS: NYSTATIN CREAM 30 GM TUBE TP SCH ×2 (09:00→17:58)
[2020-08-24] MEDS: NORMAL SALINE FLUSH 10 ML DISP.SYRIN IV SCH ×2 (09:00→21:43)
[2020-08-24] MEDS: KETOCONAZOLE 2% CREAM 30 GM TUBE TP SCH ×3 (09:01→21:46)
[2020-08-24 12:00] LABS: CARBON DIOXIDE 24 mmol/L (21-32); CHLORIDE 101 mmol/L (98-107); CREATININE 0.4 mg/dL (0.6-1.3); GLUCOSE 112 mg/dL (74-106); MAGNESIUM 1.9 mg/dL (1.8-2.4); PHOSPHOROUS 3.7 mg/dL (2.5-4.9); POTASSIUM 3.9 mmol/L (3.5-5.1); UREA NITROGEN, BLOOD 22 mg/dL (7-18)
[2020-08-24 20:00] VITALS: BP 129/68
[2020-08-24] MEDS: TRIAMCINOLONE ACET 0.1% CREAM 15 GM TUBE TP SCH (21:46)
[2020-08-24] MEDS: LORAZEPAM 2 MG/1 ML VIAL IV PRN (22:45)
[2020-08-24] MEDS ORDERED: LORAZEPAM 2 MG/1 ML VIAL IM ONE (22:45)
[2020-08-25] MEDS: BLOOD SUGAR DIAGNOSTIC 1 EACH STRIP VI SCH ×5 (00:30→23:20)
--- NOTE | 2020-08-25 00:46 | NUR ---
Afebrile, TPN infusing @ 80ml/hr to right jugular central line, Keppra and IV Pepcid given as ordered, no seizure episodes , no signs of any distress noted, old gt stoma is continuously draining with bile color drainage, treatment done surrounding the stoma, abdomen is distended but soft to the touch, parker catheter is draining well to yellow urine, good pericare rendered, kept clean and comfortable.
[2020-08-25] MEDS ORDERED: TPN IV SCH ×10 (02:00→14:00)
[2020-08-25] MEDS: INSULIN REGULAR, HUMAN 300 UNIT/3 ML VIAL SQ SCH ×5 (06:00→23:20)
[2020-08-25] MEDS: ALBUTEROL SULFATE 2.5 MG/3 ML NEBU NEB SCH ×3 (07:21→23:08)
[2020-08-25] MEDS: IPRATROPIUM BROMIDE 0.5 MG/2.5 ML NEBU NEB SCH ×3 (07:21→23:08)
[2020-08-25 07:30] VITALS: BP 114/69
[2020-08-25] MEDS: levETIRAcetam IV 500 MG in IV DEXTROSE 5% 100 ML IV SCH ×2 (08:51→20:59)
[2020-08-25] MEDS: IV FAT EMULSIONS 20% 250 ML IV SCH (08:51)
[2020-08-25] MEDS: LEVOTHYROXINE SODIUM 100 MCG VIAL IV SCH (08:51)
[2020-08-25] MEDS: NORMAL SALINE FLUSH 10 ML DISP.SYRIN IV SCH ×2 (08:51→20:59)
[2020-08-25] MEDS: FAMOTIDINE. 20 MG/2 ML VIAL IV SCH ×2 (09:05→20:59)
[2020-08-25] MEDS: COD LIVER OIL/ZINC OXIDE OINT 113 GM TUBE TOP SCH ×4 (09:10→20:35)
[2020-08-25] MEDS: BENZOYL PEROXIDE 10% GEL 60 GM TUBE TP SCH ×2 (09:10→20:35)
[2020-08-25] MEDS: HEPARIN SODIUM,PORCINE 5,000 UNITS/ML VIAL SQ SCH ×2 (09:10→20:34)
[2020-08-25] MEDS: COD LIVER OIL/ZINC OXIDE OINT 113 GM TUBE TP SCH ×4 (09:10→20:35)
[2020-08-25] MEDS: NYSTATIN CREAM 30 GM TUBE TP SCH ×2 (09:10→17:01)
[2020-08-25] MEDS: KETOCONAZOLE 2% CREAM 30 GM TUBE TP SCH ×3 (09:10→20:35)
[2020-08-25] MEDS: HYDROGEN PEROXIDE 3% 118 ML BOTTLE TP SCH ×2 (09:35→21:36)
[2020-08-25 09:49] LABS: CREATININE 0.5 mg/dL (0.6-1.3); MAGNESIUM 1.8 mg/dL (1.8-2.4); PHOSPHOROUS 3.8 mg/dL (2.5-4.9); POTASSIUM 3.7 mmol/L (3.5-5.1)
--- NOTE | 2020-08-25 13:51 | NUR ---
SW received a message from Ania at Dr. Houston's office stating that Dr. Houston will be in on 08/30 to see the patient for her initial eye exam.
--- NOTE | 2020-08-25 15:41 | NUR ---
SARA called patient's brother Silvino [phone] and informed him that the next IDT meeting for the patient is scheduled for Friday, 08/29, at 11am. SARA asked Silvino if he wanted to participate in the meeting via speaker phone, and Silvino expressed agreement. SARA asked Silvino to be available on 08/29 between 11am-12pm to receive the team's call, and [employer] expressed understanding and agreement.
[2020-08-25 20:05] VITALS: BP 123/64
[2020-08-25] MEDS: TRIAMCINOLONE ACET 0.1% CREAM 15 GM TUBE TP SCH (20:35)
--- NOTE | 2020-08-25 20:36 | NUR ---
Patient afebrile, trach is intact and patent, no signs of any respiratory distress, old gt stoma still draining with bile color drainage continuously, with ongoing treatment surrounding the stoma, kept stoma clean and dry. Abdomen is soft to the touch, parker catheter draining well to yellow urine, good je care rendered, will continue monitor.
[2020-08-26] MEDS ORDERED: TPN IV SCH ×10 (02:00→14:00)
--- NOTE | 2020-08-26 02:10 | NUR ---
Patient is noted to be restless in bed, connected to bed, suctioned, no respiratory distress noted, 02 sat 98%, changed dressing from the old gt stoma, kept area clean and dry, turned and repositioned, will recheck frequently.
[2020-08-26] MEDS ORDERED: LORAZEPAM 2 MG/1 ML VIAL IM ONE (02:20)
[2020-08-26] MEDS: LORAZEPAM 2 MG/1 ML VIAL IV PRN (02:20)
--- NOTE | 2020-08-26 02:20 | NUR ---
Patient is still restless, Ativan given as ordered, kept patient clean and comfortable.
[2020-08-26] MEDS: BLOOD SUGAR DIAGNOSTIC 1 EACH STRIP VI SCH ×4 (06:00→23:14)
[2020-08-26] MEDS: INSULIN REGULAR, HUMAN 300 UNIT/3 ML VIAL SQ SCH ×4 (06:00→23:14)
[2020-08-26] MEDS: ALBUTEROL SULFATE 2.5 MG/3 ML NEBU NEB SCH ×3 (07:12→23:01)
[2020-08-26] MEDS: IPRATROPIUM BROMIDE 0.5 MG/2.5 ML NEBU NEB SCH ×3 (07:12→23:01)
[2020-08-26 07:55] VITALS: BP 99/62
[2020-08-26] MEDS: NYSTATIN CREAM 30 GM TUBE TP SCH ×2 (08:36→17:07)
[2020-08-26] MEDS: COD LIVER OIL/ZINC OXIDE OINT 113 GM TUBE TP SCH ×4 (08:36→20:20)
[2020-08-26] MEDS: BENZOYL PEROXIDE 10% GEL 60 GM TUBE TP SCH ×2 (08:36→20:20)
[2020-08-26] MEDS: COD LIVER OIL/ZINC OXIDE OINT 113 GM TUBE TOP SCH ×4 (08:36→20:20)
[2020-08-26] MEDS: HEPARIN SODIUM,PORCINE 5,000 UNITS/ML VIAL SQ SCH ×2 (08:36→20:20)
[2020-08-26] MEDS: KETOCONAZOLE 2% CREAM 30 GM TUBE TP SCH ×3 (08:37→20:21)
[2020-08-26] MEDS: HYDROGEN PEROXIDE 3% 118 ML BOTTLE TP SCH ×2 (08:40→21:00)
[2020-08-26] MEDS: NORMAL SALINE FLUSH 10 ML DISP.SYRIN IV SCH ×2 (09:17→20:46)
[2020-08-26] MEDS: LEVOTHYROXINE SODIUM 100 MCG VIAL IV SCH (09:17)
[2020-08-26] MEDS: levETIRAcetam IV 500 MG in IV DEXTROSE 5% 100 ML IV SCH ×2 (09:17→20:46)
[2020-08-26] MEDS: FAMOTIDINE. 20 MG/2 ML VIAL IV SCH ×2 (09:17→20:46)
[2020-08-26 10:33] LABS: CREATININE 0.5 mg/dL (0.6-1.3); MAGNESIUM 1.7 mg/dL (1.8-2.4); PHOSPHOROUS 3.3 mg/dL (2.5-4.9); POTASSIUM 3.2 mmol/L (3.5-5.1)
--- NOTE | 2020-08-26 18:00 | NUR ---
Pt still on PPN at 80 cc/hr,R yugular triple lumen catheter intact,no seizure activity noted.old Gt site cover with dressing,changed as needed.
[2020-08-26 20:11] VITALS: BP 124/74
[2020-08-26] MEDS: TRIAMCINOLONE ACET 0.1% CREAM 15 GM TUBE TP SCH (20:21)
[2020-08-27] MEDS ORDERED: TPN IV SCH ×10 (02:00→14:00)
[2020-08-27] MEDS: INSULIN REGULAR, HUMAN 300 UNIT/3 ML VIAL SQ SCH ×4 (06:00→23:24)
[2020-08-27] MEDS: BLOOD SUGAR DIAGNOSTIC 1 EACH STRIP VI SCH ×4 (06:01→23:24)
[2020-08-27] MEDS: ALBUTEROL SULFATE 2.5 MG/3 ML NEBU NEB SCH ×3 (07:33→22:52)
[2020-08-27] MEDS: IPRATROPIUM BROMIDE 0.5 MG/2.5 ML NEBU NEB SCH ×3 (07:33→22:52)
[2020-08-27] MEDS: HYDROGEN PEROXIDE 3% 118 ML BOTTLE TP SCH ×2 (07:34→21:28)
[2020-08-27 07:39] VITALS: BP 142/82
[2020-08-27 07:40] LABS: CREATININE 0.6 mg/dL (0.6-1.3); MAGNESIUM 2.1 mg/dL (1.8-2.4); PHOSPHOROUS 3.7 mg/dL (2.5-4.9)
[2020-08-27] MEDS: KETOCONAZOLE 2% CREAM 30 GM TUBE TP SCH ×3 (08:11→20:19)
[2020-08-27] MEDS: COD LIVER OIL/ZINC OXIDE OINT 113 GM TUBE TP SCH ×4 (08:11→20:19)
[2020-08-27] MEDS: BENZOYL PEROXIDE 10% GEL 60 GM TUBE TP SCH ×2 (08:11→20:19)
[2020-08-27] MEDS: NYSTATIN CREAM 30 GM TUBE TP SCH ×2 (08:11→17:08)
[2020-08-27] MEDS: HEPARIN SODIUM,PORCINE 5,000 UNITS/ML VIAL SQ SCH ×2 (08:11→20:19)
[2020-08-27] MEDS: COD LIVER OIL/ZINC OXIDE OINT 113 GM TUBE TOP SCH ×4 (08:11→20:19)
[2020-08-27] MEDS: NORMAL SALINE FLUSH 10 ML DISP.SYRIN IV SCH ×2 (09:00→21:14)
[2020-08-27] MEDS: levETIRAcetam IV 500 MG in IV DEXTROSE 5% 100 ML IV SCH ×2 (09:00→21:14)
[2020-08-27] MEDS: LEVOTHYROXINE SODIUM 100 MCG VIAL IV SCH (09:00)
[2020-08-27] MEDS: FAMOTIDINE. 20 MG/2 ML VIAL IV SCH ×2 (09:00→21:14)
[2020-08-27] MEDS: TRIAMCINOLONE ACET 0.1% CREAM 15 GM TUBE TP SCH (20:19)
[2020-08-27 20:45] VITALS: BP 128/80
[2020-08-28] MEDS ORDERED: TPN IV SCH ×10 (02:00→14:00)
[2020-08-28] MEDS: BLOOD SUGAR DIAGNOSTIC 1 EACH STRIP VI SCH ×3 (05:29→17:08)
[2020-08-28] MEDS: INSULIN REGULAR, HUMAN 300 UNIT/3 ML VIAL SQ SCH ×3 (05:29→17:07)
[2020-08-28 07:27] LABS: CARBON DIOXIDE 26 mmol/L (21-32); CHLORIDE 105 mmol/L (98-107); CREATININE 0.4 mg/dL (0.6-1.3); GLUCOSE 105 mg/dL (74-106); MAGNESIUM 1.6 mg/dL (1.8-2.4); PHOSPHOROUS 3.1 mg/dL (2.5-4.9); POTASSIUM 3.1 mmol/L (3.5-5.1); UREA NITROGEN, BLOOD 21 mg/dL (7-18)
[2020-08-28 07:52] VITALS: BP 150/73
[2020-08-28] MEDS: IPRATROPIUM BROMIDE 0.5 MG/2.5 ML NEBU NEB SCH ×3 (07:55→22:35)
[2020-08-28] MEDS: ALBUTEROL SULFATE 2.5 MG/3 ML NEBU NEB SCH ×3 (07:55→22:35)
[2020-08-28] MEDS: LEVOTHYROXINE SODIUM 100 MCG VIAL IV SCH (08:01)
[2020-08-28] MEDS: IV FAT EMULSIONS 20% 250 ML IV SCH (08:01)
[2020-08-28] MEDS: NORMAL SALINE FLUSH 10 ML DISP.SYRIN IV SCH ×2 (08:01→21:24)
[2020-08-28] MEDS: FAMOTIDINE. 20 MG/2 ML VIAL IV SCH ×2 (08:01→21:24)
[2020-08-28] MEDS: levETIRAcetam IV 500 MG in IV DEXTROSE 5% 100 ML IV SCH ×2 (08:01→21:23)
[2020-08-28] MEDS: HEPARIN SODIUM,PORCINE 5,000 UNITS/ML VIAL SQ SCH ×2 (08:10→21:00)
[2020-08-28] MEDS: HYDROGEN PEROXIDE 3% 118 ML BOTTLE TP SCH ×2 (09:23→21:00)
[2020-08-28] MEDS: COD LIVER OIL/ZINC OXIDE OINT 113 GM TUBE TOP SCH ×4 (09:56→20:45)
[2020-08-28] MEDS: COD LIVER OIL/ZINC OXIDE OINT 113 GM TUBE TP SCH ×4 (09:57→20:45)
[2020-08-28] MEDS: BENZOYL PEROXIDE 10% GEL 60 GM TUBE TP SCH ×2 (09:57→20:45)
[2020-08-28] MEDS: NYSTATIN CREAM 30 GM TUBE TP SCH ×2 (09:57→16:59)
[2020-08-28] MEDS: KETOCONAZOLE 2% CREAM 30 GM TUBE TP SCH ×2 (09:58)
[2020-08-28] MEDS: POTASSIUM CHLORIDE 50 ML IV SCH ×4 (10:15→13:22)
[2020-08-28] MEDS: MAGNESIUM SULFATE/D5W 100 ML IV SCH ×2 (11:03→12:09)
[2020-08-28] MEDS ORDERED: MAGNESIUM SULFATE/D5W 100 ML IV SCH (15:00)
--- NOTE | 2020-08-28 15:48 | NUR ---
Unable to contact brother Dawood regarding notification of covid19 test [phone] number not in service. Addendum: 08/28/20 at 1556 by EL KIRBY RN Error on above entry. phone lines down at this time.
--- NOTE | 2020-08-28 16:13 | NUR ---
Left message to brother Dawood regarding covid19 test to be done.
[2020-08-28] MEDS: HYDROGEN PEROXIDE 3% 118 ML BOTTLE TP PRN (18:39)
[2020-08-28 20:01] VITALS: BP 139/74
[2020-08-28] MEDS: TRIAMCINOLONE ACET 0.1% CREAM 15 GM TUBE TP SCH (20:45)
--- NOTE | 2020-08-28 21:30 | NUR ---
Patient is afebrile, still on TPN @ 80ml/Hr, infusing well on right Jugular central line, IV Pepcid and Keppra given, on seizure precaution, old gt stoma still draining with yellow green drainage, treatment done surrounding the stoma, kept affected area clean and dry. Jo catheter is draining well to yellow urine, good ej care rendered, turned and repositioned, will continue monitor.
[2020-08-29] MEDS: BLOOD SUGAR DIAGNOSTIC 1 EACH STRIP VI SCH ×4 (00:33→17:08)
[2020-08-29] MEDS: LORAZEPAM 2 MG/1 ML VIAL IV PRN (00:45)
[2020-08-29] MEDS ORDERED: LORAZEPAM 2 MG/1 ML VIAL IM ONE (00:45)
[2020-08-29] MEDS ORDERED: [UNRECOGNIZED DRUG - MIXTURE] IV SCH ×2 (02:00)
[2020-08-29] MEDS: INSULIN REGULAR, HUMAN 300 UNIT/3 ML VIAL SQ SCH ×4 (05:58→17:08)
[2020-08-29 07:34] VITALS: BP 114/61
[2020-08-29] MEDS: ALBUTEROL SULFATE 2.5 MG/3 ML NEBU NEB SCH ×3 (07:34→23:46)
[2020-08-29] MEDS: IPRATROPIUM BROMIDE 0.5 MG/2.5 ML NEBU NEB SCH ×3 (07:34→23:46)
[2020-08-29 07:42] LABS: CARBON DIOXIDE 25 mmol/L (21-32); CHLORIDE 104 mmol/L (98-107); CREATININE 0.4 mg/dL (0.6-1.3); GLUCOSE 112 mg/dL (74-106); MAGNESIUM 1.9 mg/dL (1.8-2.4); PHOSPHOROUS 2.8 mg/dL (2.5-4.9); POTASSIUM 3.6 mmol/L (3.5-5.1); UREA NITROGEN, BLOOD 22 mg/dL (7-18)
[2020-08-29] MEDS: LEVOTHYROXINE SODIUM 100 MCG VIAL IV SCH (08:03)
[2020-08-29] MEDS: FAMOTIDINE. 20 MG/2 ML VIAL IV SCH ×2 (08:03→21:04)
[2020-08-29] MEDS: NORMAL SALINE FLUSH 10 ML DISP.SYRIN IV SCH ×2 (08:03→21:04)
[2020-08-29] MEDS: HEPARIN SODIUM,PORCINE 5,000 UNITS/ML VIAL SQ SCH ×2 (08:04→21:00)
[2020-08-29] MEDS: COD LIVER OIL/ZINC OXIDE OINT 113 GM TUBE TOP SCH ×4 (08:06→21:00)
[2020-08-29] MEDS: COD LIVER OIL/ZINC OXIDE OINT 113 GM TUBE TP SCH ×4 (08:07→21:00)
[2020-08-29] MEDS: levETIRAcetam IV 500 MG in IV DEXTROSE 5% 100 ML IV SCH ×2 (08:41→21:04)
[2020-08-29] MEDS: HYDROGEN PEROXIDE 3% 118 ML BOTTLE TP PRN (08:44)
[2020-08-29] MEDS: BENZOYL PEROXIDE 10% GEL 60 GM TUBE TP SCH ×2 (09:00→21:00)
[2020-08-29] MEDS: HYDROGEN PEROXIDE 3% 118 ML BOTTLE TP SCH ×2 (09:00→21:39)
[2020-08-29] MEDS: NYSTATIN CREAM 30 GM TUBE TP SCH (09:00)
[2020-08-29] MEDS ORDERED: TPN IV SCH ×9 (14:00)
--- NOTE | 2020-08-29 15:14 | NUR ---
INTERDISCIPLINARY PLAN OF CARE CONFERENCE was held today. Patient's brother Silvino participated in the IDT meetings through speaker phone. Dr. Koch and the Interdisciplinary Team reviewed the current plan of care in detail. Nursing reported on patient's medical condition and current treatments. See nursing IDT conference notes. No major changes in medical condition were reported by nursing or by other disciplines. See all other disciplines IDT notes and physician's progress notes for additional details. Silvino's questions were addressed by Dr. Koch and the IDT team, and Silvino expressed being content with the current plan of care.
[2020-08-29 20:17] VITALS: BP 110/74
[2020-08-30] MEDS: BLOOD SUGAR DIAGNOSTIC 1 EACH STRIP VI SCH ×4 (00:15→17:15)
[2020-08-30] MEDS ORDERED: [UNRECOGNIZED DRUG - MIXTURE] IV SCH ×2 (02:00)
[2020-08-30] MEDS: INSULIN REGULAR, HUMAN 300 UNIT/3 ML VIAL SQ SCH ×4 (06:00→17:15)
[2020-08-30] MEDS: IPRATROPIUM BROMIDE 0.5 MG/2.5 ML NEBU NEB SCH ×3 (07:07→22:50)
[2020-08-30] MEDS: ALBUTEROL SULFATE 2.5 MG/3 ML NEBU NEB SCH ×3 (07:07→22:50)
[2020-08-30] MEDS: HYDROGEN PEROXIDE 3% 118 ML BOTTLE TP SCH ×2 (07:07→21:36)
[2020-08-30 07:42] VITALS: BP 132/66
[2020-08-30] MEDS: FAMOTIDINE. 20 MG/2 ML VIAL IV SCH ×2 (08:43→21:04)
[2020-08-30] MEDS: NORMAL SALINE FLUSH 10 ML DISP.SYRIN IV SCH ×2 (08:43→21:04)
[2020-08-30] MEDS: levETIRAcetam IV 500 MG in IV DEXTROSE 5% 100 ML IV SCH ×2 (08:43→21:04)
[2020-08-30] MEDS: LEVOTHYROXINE SODIUM 100 MCG VIAL IV SCH (08:43)
[2020-08-30] MEDS: IV FAT EMULSIONS 20% 250 ML IV SCH (08:43)
[2020-08-30 08:50] LABS: CREATININE 0.5 mg/dL (0.6-1.3); MAGNESIUM 1.8 mg/dL (1.8-2.4); POTASSIUM 3.8 mmol/L (3.5-5.1)
[2020-08-30] MEDS: COD LIVER OIL/ZINC OXIDE OINT 113 GM TUBE TOP SCH ×4 (09:06→21:00)
[2020-08-30] MEDS: BENZOYL PEROXIDE 10% GEL 60 GM TUBE TP SCH ×2 (09:06→21:00)
[2020-08-30] MEDS: COD LIVER OIL/ZINC OXIDE OINT 113 GM TUBE TP SCH ×4 (09:06→21:00)
[2020-08-30] MEDS: HEPARIN SODIUM,PORCINE 5,000 UNITS/ML VIAL SQ SCH ×2 (10:09→21:00)
--- NOTE | 2020-08-30 10:56 | NUR ---
Patient's optometry appointment with Dr. Houston has been rescheduled for 09/06/2020.
--- NOTE | 2020-08-30 11:27 | NUR ---
WOUND CARE CONSULT: PT SEEN FOR RE-EVALUATION OF ABDOMINAL SKIN IRRITATION AROUND PREVIOUS STOMA SITE. THERE IS AN AREA OF REDNESS AROUND PREVIOUS STOMA, NO DRAINAGE OR ODOR. ABDOMINAL SKIN IS FRAGILE,TIGHT AND SHINY. RECOMMEND OSTOMY POUCH WITH SKIN PREP AND STOMA POWDER PRIOR TO APPLICATION OF POUCH. DISCUSSED WITH NURSING STAFF, Kamla BULLOCK, SURGICAL N.P. AND COMPUTER SCIENCE INSTRUCTOR. IN AGREEMENT WITH PLAN OF CARE.
--- NOTE | 2020-08-30 11:35 | NUR ---
SEEN AND EVALUATED BY THE WOUND DENTAL TECHNOLOGIST ,REGARDING THE OLD GT SITE IRRITATION,WITH NEW ORDERS NOTED.
--- NOTE | 2020-08-30 11:47 | NUR ---
Continue on PPN at 80 cc/hr,infusing well, r yugular triple lumen catheter ,no s/s of infection noted.
[2020-08-30] MEDS ORDERED: TPN IV SCH ×8 (14:00)
--- NOTE | 2020-08-30 19:00 | NUR ---
Seen and examined by Dr Koch ,no new orders noted.
[2020-08-30 20:00] VITALS: BP 118/79
--- NOTE | 2020-08-30 22:20 | NUR ---
left a message nik,brother to call back encino regarding result of covid test.
[2020-08-31] MEDS: BLOOD SUGAR DIAGNOSTIC 1 EACH STRIP VI SCH ×4 (00:48→17:17)
[2020-08-31] MEDS ORDERED: [UNRECOGNIZED DRUG - MIXTURE] IV SCH ×2 (02:00)
[2020-08-31] MEDS: INSULIN REGULAR, HUMAN 300 UNIT/3 ML VIAL SQ SCH ×4 (05:36→17:18)
[2020-08-31] MEDS: ALBUTEROL SULFATE 2.5 MG/3 ML NEBU NEB SCH ×3 (07:21→23:11)
[2020-08-31] MEDS: IPRATROPIUM BROMIDE 0.5 MG/2.5 ML NEBU NEB SCH ×3 (07:21→23:11)
[2020-08-31 07:48] VITALS: BP 135/69
[2020-08-31] MEDS: HEPARIN SODIUM,PORCINE 5,000 UNITS/ML VIAL SQ SCH ×2 (08:22→21:00)
[2020-08-31] MEDS: COD LIVER OIL/ZINC OXIDE OINT 113 GM TUBE TOP SCH ×4 (08:22→21:00)
[2020-08-31] MEDS: COD LIVER OIL/ZINC OXIDE OINT 113 GM TUBE TP SCH ×4 (08:22→21:00)
[2020-08-31] MEDS: FAMOTIDINE. 20 MG/2 ML VIAL IV SCH ×2 (08:38→21:02)
[2020-08-31] MEDS: LEVOTHYROXINE SODIUM 100 MCG VIAL IV SCH (08:38)
[2020-08-31] MEDS: NORMAL SALINE FLUSH 10 ML DISP.SYRIN IV SCH ×2 (08:38→21:02)
[2020-08-31] MEDS: levETIRAcetam IV 500 MG in IV DEXTROSE 5% 100 ML IV SCH ×2 (08:39→21:02)
[2020-08-31] MEDS ORDERED: levETIRAcetam 500 MG/5 ML VIAL IV ONE (08:42)
[2020-08-31] MEDS: BENZOYL PEROXIDE 10% GEL 60 GM TUBE TP SCH ×2 (09:00→21:00)
--- NOTE | 2020-08-31 09:00 | NUR ---
PT. NOTED AT THIS TIME WITH ABDOMINAL GAS AND LEAKING FROM OSTOMY BAG(OSTOMY BAD INFLATED ) AND NOTED NAUSEOUS AND BURPING GAS AND ALSO FLATULENCE EPISODE.OSTOMY BAG GAS WAS RELEASED AND OBSERVED IMPROVEMENT.
[2020-08-31] MEDS: HYDROGEN PEROXIDE 3% 118 ML BOTTLE TP SCH ×2 (09:38→21:00)
[2020-08-31 12:28] LABS: CREATININE 0.5 mg/dL (0.6-1.3); MAGNESIUM 1.8 mg/dL (1.8-2.4); PHOSPHOROUS 3.7 mg/dL (2.5-4.9)
[2020-08-31] MEDS ORDERED: TPN IV SCH ×8 (14:00)
--- NOTE | 2020-08-31 16:54 | NUR ---
PT'S BROTHER AMBROSIO WAS CALLED RE: A MESSAGE YESTERDAY FOR NEGATIVE COVID 19 TEST.
[2020-08-31 20:00] VITALS: BP 118/50
[2020-09-01] MEDS: BLOOD SUGAR DIAGNOSTIC 1 EACH STRIP VI SCH ×4 (00:42→17:20)
[2020-09-01] MEDS ORDERED: [UNRECOGNIZED DRUG - MIXTURE] IV SCH ×2 (02:00)
[2020-09-01] MEDS: INSULIN REGULAR, HUMAN 300 UNIT/3 ML VIAL SQ SCH ×4 (05:41→17:20)
[2020-09-01] MEDS: ALBUTEROL SULFATE 2.5 MG/3 ML NEBU NEB SCH ×3 (07:18→23:43)
[2020-09-01] MEDS: IPRATROPIUM BROMIDE 0.5 MG/2.5 ML NEBU NEB SCH ×3 (07:18→23:43)
[2020-09-01 07:37] VITALS: BP 138/69
[2020-09-01 07:53] LABS: CREATININE 0.5 mg/dL (0.6-1.3); MAGNESIUM 1.9 mg/dL (1.8-2.4); PHOSPHOROUS 3.6 mg/dL (2.5-4.9); POTASSIUM 3.2 mmol/L (3.5-5.1)
[2020-09-01] MEDS: LEVOTHYROXINE SODIUM 100 MCG VIAL IV SCH (08:16)
[2020-09-01] MEDS: NORMAL SALINE FLUSH 10 ML DISP.SYRIN IV SCH ×2 (08:16→21:36)
[2020-09-01] MEDS: IV FAT EMULSIONS 20% 250 ML IV SCH (08:16)
[2020-09-01] MEDS: levETIRAcetam IV 500 MG in IV DEXTROSE 5% 100 ML IV SCH ×2 (08:16→21:36)
[2020-09-01] MEDS: FAMOTIDINE. 20 MG/2 ML VIAL IV SCH ×2 (08:16→21:36)
[2020-09-01] MEDS: COD LIVER OIL/ZINC OXIDE OINT 113 GM TUBE TP SCH ×4 (08:39→20:52)
[2020-09-01] MEDS: COD LIVER OIL/ZINC OXIDE OINT 113 GM TUBE TOP SCH ×4 (08:39→20:52)
[2020-09-01] MEDS: HEPARIN SODIUM,PORCINE 5,000 UNITS/ML VIAL SQ SCH ×2 (08:39→21:00)
[2020-09-01] MEDS: BENZOYL PEROXIDE 10% GEL 60 GM TUBE TP SCH ×2 (09:00→20:52)
[2020-09-01] MEDS: HYDROGEN PEROXIDE 3% 118 ML BOTTLE TP SCH ×2 (09:00→21:56)
[2020-09-01] MEDS: POTASSIUM CHLORIDE 50 ML IV SCH ×3 (10:00→12:00)
[2020-09-01] MEDS ORDERED: IV NORMAL SALINE 250 ML IV ONE (10:15)
--- NOTE | 2020-09-01 10:24 | NUR ---
NEW ORDERS CARRIED OUT FROM DR. MINAYA HAngeline D/T POTASSIUM LEVEL 3.2 AND SODIUM LEVEL 134 TODAY.
--- NOTE | 2020-09-01 11:00 | NUR ---
PT. WAS SEEN BY DR. CATHY Gamble AND WITH NNO AT THIS TIME BUT HE STATED THAT HE WILL CONTACT DR.TIM NAJERA TO CHANGE THE CENTRAL LINE FROM PT'S RT. NECK.
[2020-09-01] MEDS ORDERED: TPN IV SCH ×8 (14:00)
--- NOTE | 2020-09-01 18:14 | NUR ---
FREQUENT VISUAL CHECKS DONE AND NOTED NO BEHAVIORAL PROBLEMS OBSERVED, ALL NEEDS ATTENDED IN ADVANCE AND ABLE TO USE CALL LIGHT,PT'S AWARE AND HE ASKED NURSE TO PLEASE PLACE BED ALARM ON JUST IN CASE SHE TRIES TO GET OUT OB BED BECAUSE SHE HAD DONE IT IN THE PREVIOUS FACILITY WHEN SHE USED TO BE AGITATED ,HE WANTS IT LIKE THAT JUST FOR HIS PEACE OF MIND.STILL AWAITING FOR PSYCH. CONSULT. NO A/R TO IV ATB TX ,LEFT HAND WITH INTACT AND PATENT PERIPHERAL LINE.
--- NOTE | 2020-09-01 18:15 | NUR ---
ERROR IN ENTRY WRONG ACCOUNT.
[2020-09-01 19:19] VITALS: BP 120/68
--- NOTE | 2020-09-01 21:50 | NUR ---
Patient is afebrile, remains on TPN @ 80ml/hr, infusing well on right jugular central line, no adverse reaction noted, Lipids is also infusing, IV Keppra and Pepcid given as ordered. No seizure episodes, on aspiration and seizure precaution. Trach is intact and patent, suctioned, no respiratory distress noted. Old gt stoma still draining with yellow greenish drainage, treatment done to surrounding area, kept skin clean ans dry. Oj catheter is draining well with yellow urine, good je care rendered, kept clean and comfortable.
[2020-09-02] MEDS: BLOOD SUGAR DIAGNOSTIC 1 EACH STRIP VI SCH ×4 (00:39→17:40)
[2020-09-02] MEDS ORDERED: [UNRECOGNIZED DRUG - MIXTURE] IV SCH ×2 (02:00)
--- NOTE | 2020-09-02 02:41 | NUR ---
For COVID-19 testing as per [facility] requirement.
[2020-09-02] MEDS ORDERED: LORAZEPAM 2 MG/1 ML VIAL IM ONE (05:32)
[2020-09-02] MEDS: LORAZEPAM 2 MG/1 ML VIAL IV PRN (05:40)
[2020-09-02] MEDS: INSULIN REGULAR, HUMAN 300 UNIT/3 ML VIAL SQ SCH ×4 (06:00→17:40)
[2020-09-02] MEDS: IPRATROPIUM BROMIDE 0.5 MG/2.5 ML NEBU NEB SCH ×2 (07:05→15:05)
[2020-09-02] MEDS: HYDROGEN PEROXIDE 3% 118 ML BOTTLE TP SCH ×2 (07:05→21:00)
[2020-09-02] MEDS: ALBUTEROL SULFATE 2.5 MG/3 ML NEBU NEB SCH ×2 (07:05→15:05)
[2020-09-02] MEDS: levETIRAcetam IV 500 MG in IV DEXTROSE 5% 100 ML IV SCH ×2 (08:37→20:42)
[2020-09-02] MEDS: NORMAL SALINE FLUSH 10 ML DISP.SYRIN IV SCH ×2 (08:37→20:42)
[2020-09-02] MEDS: LEVOTHYROXINE SODIUM 100 MCG VIAL IV SCH (08:37)
[2020-09-02] MEDS: FAMOTIDINE. 20 MG/2 ML VIAL IV SCH ×2 (08:37→20:42)
[2020-09-02 08:39] LABS: BASOPHILS % (AUTO) 0.3 % (0.0-2.0); EOSINOPHILS # (AUTO) 0.2 K/uL (0.0-0.7); EOSINOPHILS % (AUTO) 3.2 % (0.0-7.0); HEMOGLOBIN 10.1 g/dL (10.9-14.3); LYMPHOCYTES % (AUTO) 16.3 % (20.5-51.5); MEAN CORPUSCULAR HEMOGLOBIN 29.5 uug (24.7-32.8); MEAN CORPUSCULAR HGB CONC 34 g/dL (32.3-35.6); MEAN CORPUSCULAR VOLUME 87.5 fL (75.5-95.3); MONOCYTES # (AUTO) 0.6 K/uL (2.0-10.0); MONOCYTES % (AUTO) 9.3 % (0.0-11.0); NEUTROPHILS # (AUTO) 4.5 K/uL (1.8-8.9); NEUTROPHILS % (AUTO) 70.9 % (38.5-71.5); PLATELET COUNT (AUTO) 247 K/uL (179-408); RED BLOOD CELL COUNT(AUTO) 3.43 MIL/uL (3.63-4.92); WHITE BLOOD COUNT (AUTO) 6.3 K/uL (3.8-11.8)
[2020-09-02] MEDS: COD LIVER OIL/ZINC OXIDE OINT 113 GM TUBE TOP SCH ×4 (08:39→21:15)
[2020-09-02] MEDS: HEPARIN SODIUM,PORCINE 5,000 UNITS/ML VIAL SQ SCH ×2 (08:39→21:16)
[2020-09-02] MEDS: COD LIVER OIL/ZINC OXIDE OINT 113 GM TUBE TP SCH ×4 (08:40→21:15)
[2020-09-02 08:41] LABS: CREATININE 0.6 mg/dL (0.6-1.3); MAGNESIUM 1.8 mg/dL (1.8-2.4); PHOSPHOROUS 3.1 mg/dL (2.5-4.9)
[2020-09-02] MEDS: BENZOYL PEROXIDE 10% GEL 60 GM TUBE TP SCH ×2 (09:00→21:16)
--- NOTE | 2020-09-02 09:00 | NUR ---
PT'S BROTHER AWARE OF COVID 19 TEST ORDER FOR TODAY WITH A MESSAGE.
[2020-09-02] MEDS ORDERED: TPN IV SCH ×8 (14:00)
[2020-09-02 19:17] VITALS: BP 129/86
--- NOTE | 2020-09-02 21:01 | NUR ---
Patient is awake, afebrile, no signs of any respiratory distress, connected to vent on prescribed settings, TPN infusing @ 80ml/hr, IV Pepcid and Keppra given as ordered, old gt stoma still draining well with yellow green drainage, kept skin clean and dry, abdomen is soft, still with excessive gas noted and with hyperactive bowel sounds, Jo catheter is draining with clear yellow urine, good je care rendered, kept patient clean and dry.
[2020-09-03] MEDS: ALBUTEROL SULFATE 2.5 MG/3 ML NEBU NEB SCH ×4 (00:16→23:35)
[2020-09-03] MEDS: IPRATROPIUM BROMIDE 0.5 MG/2.5 ML NEBU NEB SCH ×4 (00:16→23:35)
[2020-09-03] MEDS: BLOOD SUGAR DIAGNOSTIC 1 EACH STRIP VI SCH ×4 (00:41→17:52)
[2020-09-03] MEDS ORDERED: [UNRECOGNIZED DRUG - MIXTURE] IV SCH ×2 (02:00)
[2020-09-03] MEDS: INSULIN REGULAR, HUMAN 300 UNIT/3 ML VIAL SQ SCH ×4 (06:00→17:52)
[2020-09-03] MEDS: HYDROGEN PEROXIDE 3% 118 ML BOTTLE TP SCH ×2 (07:49→21:18)
[2020-09-03 07:56] VITALS: BP 118/64
[2020-09-03] MEDS: COD LIVER OIL/ZINC OXIDE OINT 113 GM TUBE TOP SCH ×4 (08:16→21:56)
[2020-09-03] MEDS: BENZOYL PEROXIDE 10% GEL 60 GM TUBE TP SCH ×2 (08:17→21:56)
[2020-09-03] MEDS: COD LIVER OIL/ZINC OXIDE OINT 113 GM TUBE TP SCH ×4 (08:17→21:56)
[2020-09-03 08:19] LABS: CREATININE 0.5 mg/dL (0.6-1.3); MAGNESIUM 1.8 mg/dL (1.8-2.4); PHOSPHOROUS 3.6 mg/dL (2.5-4.9); POTASSIUM 3.9 mmol/L (3.5-5.1)
[2020-09-03] MEDS: LEVOTHYROXINE SODIUM 100 MCG VIAL IV SCH (09:04)
[2020-09-03] MEDS: NORMAL SALINE FLUSH 10 ML DISP.SYRIN IV SCH ×2 (09:04→20:02)
[2020-09-03] MEDS: FAMOTIDINE. 20 MG/2 ML VIAL IV SCH ×2 (09:04→20:02)
[2020-09-03] MEDS: levETIRAcetam IV 500 MG in IV DEXTROSE 5% 100 ML IV SCH ×2 (09:04→20:02)
[2020-09-03] MEDS: HEPARIN SODIUM,PORCINE 5,000 UNITS/ML VIAL SQ SCH ×2 (09:58→21:00)
[2020-09-03] MEDS ORDERED: TPN IV SCH ×8 (14:00)
--- NOTE | 2020-09-03 17:00 | NUR ---
PT'S BROTHER AWARE THAT COVID 19 TEST RESULT IS NEGATIVE.
[2020-09-03 19:15] VITALS: BP 135/72
[2020-09-04] MEDS: BLOOD SUGAR DIAGNOSTIC 1 EACH STRIP VI SCH ×5 (00:23→23:47)
[2020-09-04] MEDS ORDERED: [UNRECOGNIZED DRUG - MIXTURE] IV SCH ×2 (02:00)
[2020-09-04] MEDS: INSULIN REGULAR, HUMAN 300 UNIT/3 ML VIAL SQ SCH ×5 (05:51→23:47)
[2020-09-04 06:06] LABS: CREATININE 0.5 mg/dL (0.6-1.3); MAGNESIUM 1.9 mg/dL (1.8-2.4); PHOSPHOROUS 3.6 mg/dL (2.5-4.9); POTASSIUM 3.7 mmol/L (3.5-5.1)
[2020-09-04] MEDS: IPRATROPIUM BROMIDE 0.5 MG/2.5 ML NEBU NEB SCH ×3 (07:22→23:00)
[2020-09-04] MEDS: ALBUTEROL SULFATE 2.5 MG/3 ML NEBU NEB SCH ×3 (07:22→23:00)
[2020-09-04 07:34] VITALS: BP 110/72
[2020-09-04] MEDS: IV FAT EMULSIONS 20% 250 ML IV SCH (08:07)
[2020-09-04] MEDS: levETIRAcetam IV 500 MG in IV DEXTROSE 5% 100 ML IV SCH ×2 (08:07→21:06)
[2020-09-04] MEDS: FAMOTIDINE. 20 MG/2 ML VIAL IV SCH ×2 (08:07→21:06)
[2020-09-04] MEDS: NORMAL SALINE FLUSH 10 ML DISP.SYRIN IV SCH ×2 (08:07→21:06)
[2020-09-04] MEDS: LEVOTHYROXINE SODIUM 100 MCG VIAL IV SCH (08:07)
[2020-09-04] MEDS: LORAZEPAM 2 MG/1 ML VIAL IV PRN (08:25)
--- NOTE | 2020-09-04 08:26 | NUR ---
PT. WAS MEDICATED ORDERED WITH ATIVAN PRN D/T RESTLESSNESS MOVING NECK AND HEAD CONTINUOUSLY AND AT RISK OF DISLODGING THE RT. NECK CENTRAL LINE DRESSING AND GETTING IT CONTAMINATED.
[2020-09-04] MEDS: HYDROGEN PEROXIDE 3% 118 ML BOTTLE TP SCH ×2 (08:30→21:05)
[2020-09-04] MEDS ORDERED: LORAZEPAM 2 MG/1 ML VIAL IM ONE (08:30)
[2020-09-04] MEDS: COD LIVER OIL/ZINC OXIDE OINT 113 GM TUBE TOP SCH ×4 (08:36→21:56)
[2020-09-04] MEDS: HEPARIN SODIUM,PORCINE 5,000 UNITS/ML VIAL SQ SCH ×2 (08:36→21:56)
[2020-09-04] MEDS: COD LIVER OIL/ZINC OXIDE OINT 113 GM TUBE TP SCH ×4 (08:36→21:57)
[2020-09-04] MEDS: BENZOYL PEROXIDE 10% GEL 60 GM TUBE TP SCH (08:37)
--- NOTE | 2020-09-04 10:04 | NUR ---
NURSE LÁZARO CALLED FROM [facility] AND WAS UPDATED ABOUT PT'S CURRENT CONDITION .
--- NOTE | 2020-09-04 11:08 | NUR ---
MESSAGE LEFT TO DR. CATHY WESTBROOK:HE NEEDS TO CALL DIRECTLY TO APPEAL DEPARTAMENT FROM [facility] IN ORDER TO APPEAL DENIAL FROM INSURANCE OF IV SYNTHROID MEDICATION AT [phone] PER SCAR FROM [facility] BILLING DEPARTAMENT.
--- NOTE | 2020-09-04 13:33 | NUR ---
SEEN AND EXAMINED BY KYLER MACEDO WITH NNO.
[2020-09-04] MEDS ORDERED: TPN IV SCH ×8 (14:00)
--- NOTE | 2020-09-04 17:02 | NUR ---
RT. NECK LOCAL CENTRAL LINE DRESSING CHANGED AT THIS TIME AND OBSERVED PATENT AND INTACT ,NO LOCAL S/S OF INFECTION,NO REDNESS ,NO DRAINAGE.
[2020-09-04 20:04] VITALS: BP 98/74
[2020-09-05] MEDS ORDERED: [UNRECOGNIZED DRUG - MIXTURE] IV SCH ×4 (02:00→13:15)
[2020-09-05] MEDS: BLOOD SUGAR DIAGNOSTIC 1 EACH STRIP VI SCH ×4 (05:58→23:33)
[2020-09-05] MEDS: INSULIN REGULAR, HUMAN 300 UNIT/3 ML VIAL SQ SCH ×4 (05:59→23:33)
[2020-09-05 07:26] VITALS: BP 153/80
[2020-09-05] MEDS: IPRATROPIUM BROMIDE 0.5 MG/2.5 ML NEBU NEB SCH ×3 (07:40→23:17)
[2020-09-05] MEDS: ALBUTEROL SULFATE 2.5 MG/3 ML NEBU NEB SCH ×3 (07:40→23:18)
[2020-09-05] MEDS: HYDROGEN PEROXIDE 3% 118 ML BOTTLE TP SCH ×2 (08:46→21:04)
[2020-09-05] MEDS: COD LIVER OIL/ZINC OXIDE OINT 113 GM TUBE TP SCH ×4 (09:00→21:16)
[2020-09-05] MEDS: COD LIVER OIL/ZINC OXIDE OINT 113 GM TUBE TOP SCH ×4 (09:00→21:16)
[2020-09-05] MEDS: HEPARIN SODIUM,PORCINE 5,000 UNITS/ML VIAL SQ SCH ×2 (09:00→21:15)
[2020-09-05] MEDS: NORMAL SALINE FLUSH 10 ML DISP.SYRIN IV SCH ×2 (09:58→21:17)
[2020-09-05] MEDS: levETIRAcetam IV 500 MG in IV DEXTROSE 5% 100 ML IV SCH ×2 (09:58→21:17)
[2020-09-05] MEDS: FAMOTIDINE. 20 MG/2 ML VIAL IV SCH ×2 (09:58→21:17)
[2020-09-05] MEDS: LEVOTHYROXINE SODIUM 100 MCG VIAL IV SCH (09:58)
[2020-09-05 13:31] LABS: CARBON DIOXIDE 23 mmol/L (21-32); CHLORIDE 104 mmol/L (98-107); CREATININE 0.4 mg/dL (0.6-1.3); GLUCOSE 89 mg/dL (74-106); POTASSIUM 4.2 mmol/L (3.5-5.1); UREA NITROGEN, BLOOD 21 mg/dL (7-18)
--- NOTE | 2020-09-05 13:54 | NUR ---
Seen and examined by Dr gustafson ,no new orders.
[2020-09-05] MEDS ORDERED: TPN IV SCH ×8 (14:00)
--- NOTE | 2020-09-05 14:15 | NUR ---
Seen and examined by Jess Puga,no new orders.
--- NOTE | 2020-09-05 15:11 | NUR ---
11:30am: Phone meeting held today with patient's brother, [facility] staff, and staff from the board and care facility patient resides in. Present during this meeting were: Stacia Delvalle DC coordinator [facility] ([facility]); Gricelda Fry nurse [facility], Redd Castellon-[facility] board and care, Gustavo Sher admininstrator of [facility], Tony Nascimento-brother conservator, Nixon Mcfarlane-[facility], [facility]. Present from subacute were this SW, clinical trials nurse Radhika, and unit nurse culinary manager Perry Verde. Radhika provided a report on patient's current medical condition, recent and current treatments, and medications. Recent dermatology consultation and treatment plan discussed. Plan of care for GI and surgeon discussed, and Radhika to follow up on plan of care. Questions from [facility] and board and care staff were addressed. All attendees expressed understanding and being in agreement with the current plan of care. SARA informed DEYANIRA Madison and patient's brother Silvino about the next IDT meeting, which is scheduled for 09/12/2020 at 11am, and invited them to participate in the meeting by speaker phone. Both Gricelda and Silvino stated they would participate, and therefore this SW asked for Gricelda and Silvino to be available between 11am-12pm on 09/12 to receive this SW's call during the meeting.
[2020-09-05 20:00] VITALS: BP 114/69
--- NOTE | 2020-09-05 21:19 | NUR ---
Patient remains on TPN @ 80ml/hr infusing well on right jugular central line, IV Keppra and Pepcid given as ordered, no adverse reactions noted, old gt stoma still draining with yellow green drainage, with ongoing treatment to old gt stoma surrounding areas, kept skin clean and dry, parker cataheter is draining well to yellow urine, good je care rendered, turned and repositioned, kept clean and comfortable.
[2020-09-06] MEDS: LORAZEPAM 2 MG/1 ML VIAL IV PRN
[2020-09-06] MEDS ORDERED: LORAZEPAM 2 MG/1 ML VIAL IM ONE
[2020-09-06] MEDS ORDERED: [UNRECOGNIZED DRUG - REMARK] IV SCH ×2 (02:00)
[2020-09-06] MEDS: BLOOD SUGAR DIAGNOSTIC 1 EACH STRIP VI SCH ×3 (05:50→18:21)
[2020-09-06] MEDS: INSULIN REGULAR, HUMAN 300 UNIT/3 ML VIAL SQ SCH ×3 (05:51→18:00)
[2020-09-06 07:23] VITALS: BP 133/67
[2020-09-06] MEDS: IPRATROPIUM BROMIDE 0.5 MG/2.5 ML NEBU NEB SCH ×2 (07:34→15:30)
[2020-09-06] MEDS: ALBUTEROL SULFATE 2.5 MG/3 ML NEBU NEB SCH ×2 (07:35→15:30)
[2020-09-06 08:11] LABS: CREATININE 0.5 mg/dL (0.6-1.3); MAGNESIUM 1.8 mg/dL (1.8-2.4); PHOSPHOROUS 3.5 mg/dL (2.5-4.9)
[2020-09-06] MEDS: COD LIVER OIL/ZINC OXIDE OINT 113 GM TUBE TOP SCH ×4 (08:25→20:19)
[2020-09-06] MEDS: COD LIVER OIL/ZINC OXIDE OINT 113 GM TUBE TP SCH ×4 (08:25→20:19)
[2020-09-06] MEDS: HEPARIN SODIUM,PORCINE 5,000 UNITS/ML VIAL SQ SCH ×2 (08:28→21:54)
[2020-09-06] MEDS: HYDROGEN PEROXIDE 3% 118 ML BOTTLE TP SCH ×2 (09:44→21:05)
[2020-09-06] MEDS: NORMAL SALINE FLUSH 10 ML DISP.SYRIN IV SCH ×2 (09:45→21:00)
[2020-09-06] MEDS: IV FAT EMULSIONS 20% 250 ML IV SCH (09:45)
[2020-09-06] MEDS: FAMOTIDINE. 20 MG/2 ML VIAL IV SCH ×2 (09:45→21:00)
[2020-09-06] MEDS: levETIRAcetam IV 500 MG in IV DEXTROSE 5% 100 ML IV SCH ×2 (09:45→21:00)
[2020-09-06] MEDS: LEVOTHYROXINE SODIUM 100 MCG VIAL IV SCH (09:45)
[2020-09-06] MEDS ORDERED: TPN IV SCH ×8 (14:00)
--- NOTE | 2020-09-06 19:09 | NUR ---
Continue on tpn at 80 cc/hr,and lipids ,R yugular triple lumen intact,no s/s of infection noted.
[2020-09-06 20:00] VITALS: BP 125/72
--- NOTE | 2020-09-06 22:00 | NUR ---
Afebrile, still on TPN @ 80ml/hr infusing well on right jugular central line, IV Keppra and Pepcid given as ordered, no adverse reactions noted. On seizure precaution, no seizure episodes noted at this time. Old Gt stoma still draining with yellow green drainage, with ongoing treatment to surrounding areas, parker catheter is draining well to yellow urine, good je care rendered, turned and repositioned, kept clean and comfortable.
[2020-09-07] MEDS: IPRATROPIUM BROMIDE 0.5 MG/2.5 ML NEBU NEB SCH ×4 (00:08→23:18)
[2020-09-07] MEDS: ALBUTEROL SULFATE 2.5 MG/3 ML NEBU NEB SCH ×4 (00:08→23:18)
[2020-09-07] MEDS: BLOOD SUGAR DIAGNOSTIC 1 EACH STRIP VI SCH ×4 (00:54→18:34)
[2020-09-07] MEDS: LORAZEPAM 2 MG/1 ML VIAL IV PRN (01:00)
[2020-09-07] MEDS: ACETAMINOPHEN 650 MG SUPP.RECT RC PRN (01:30)
[2020-09-07] MEDS ORDERED: [UNRECOGNIZED DRUG - MIXTURE] IV SCH ×2 (02:00)
[2020-09-07] MEDS: INSULIN REGULAR, HUMAN 300 UNIT/3 ML VIAL SQ SCH ×4 (06:40→18:00)
[2020-09-07] MEDS: HYDROGEN PEROXIDE 3% 118 ML BOTTLE TP SCH ×2 (07:17→21:00)
[2020-09-07 07:36] VITALS: BP 122/78
[2020-09-07] MEDS: HEPARIN SODIUM,PORCINE 5,000 UNITS/ML VIAL SQ SCH ×2 (08:23→21:00)
[2020-09-07] MEDS: COD LIVER OIL/ZINC OXIDE OINT 113 GM TUBE TOP SCH ×4 (09:00→21:00)
[2020-09-07] MEDS: COD LIVER OIL/ZINC OXIDE OINT 113 GM TUBE TP SCH ×4 (09:00→21:00)
[2020-09-07 09:11] LABS: CREATININE 0.5 mg/dL (0.6-1.3); PHOSPHOROUS 3.9 mg/dL (2.5-4.9); POTASSIUM 3.9 mmol/L (3.5-5.1)
[2020-09-07] MEDS: levETIRAcetam IV 500 MG in IV DEXTROSE 5% 100 ML IV SCH ×2 (09:46→21:00)
[2020-09-07] MEDS: FAMOTIDINE. 20 MG/2 ML VIAL IV SCH ×2 (09:46→21:00)
[2020-09-07] MEDS: LEVOTHYROXINE SODIUM 100 MCG VIAL IV SCH (09:46)
[2020-09-07] MEDS: NORMAL SALINE FLUSH 10 ML DISP.SYRIN IV SCH ×2 (09:46→21:00)
[2020-09-07] MEDS ORDERED: TPN IV SCH ×8 (14:00)
--- NOTE | 2020-09-07 16:45 | NUR ---
Continue on PPn at 80 cc/hr,tolerated well,Fior zepeda triple lumen,Dr gustafson request to Brennan Vides if can change the catheter to another site to prevent infection.dressing intact done on 09/04/20,no redness noted.
[2020-09-07 20:00] VITALS: BP 130/60
[2020-09-08] MEDS: BLOOD SUGAR DIAGNOSTIC 1 EACH STRIP VI SCH ×4 (00:46→18:30)
[2020-09-08] MEDS ORDERED: [UNRECOGNIZED DRUG - REMARK] IV SCH ×2 (02:00)
[2020-09-08] MEDS: LORAZEPAM 2 MG/1 ML VIAL IV PRN (02:55)
[2020-09-08] MEDS: INSULIN REGULAR, HUMAN 300 UNIT/3 ML VIAL SQ SCH ×4 (05:19→18:00)
[2020-09-08] MEDS: IPRATROPIUM BROMIDE 0.5 MG/2.5 ML NEBU NEB SCH ×3 (07:14→23:07)
[2020-09-08] MEDS: HYDROGEN PEROXIDE 3% 118 ML BOTTLE TP SCH ×2 (07:14→21:19)
[2020-09-08] MEDS: ALBUTEROL SULFATE 2.5 MG/3 ML NEBU NEB SCH ×3 (07:14→23:07)
[2020-09-08 07:38] VITALS: BP 129/67
[2020-09-08] MEDS: COD LIVER OIL/ZINC OXIDE OINT 113 GM TUBE TOP SCH ×4 (08:06→20:36)
[2020-09-08] MEDS: HEPARIN SODIUM,PORCINE 5,000 UNITS/ML VIAL SQ SCH ×2 (08:06→20:32)
[2020-09-08] MEDS: COD LIVER OIL/ZINC OXIDE OINT 113 GM TUBE TP SCH ×3 (08:06→20:36)
[2020-09-08] MEDS: NORMAL SALINE FLUSH 10 ML DISP.SYRIN IV SCH ×2 (08:28→20:50)
[2020-09-08] MEDS: levETIRAcetam IV 500 MG in IV DEXTROSE 5% 100 ML IV SCH ×2 (08:28→20:50)
[2020-09-08] MEDS: LEVOTHYROXINE SODIUM 100 MCG VIAL IV SCH (08:28)
[2020-09-08] MEDS: FAMOTIDINE. 20 MG/2 ML VIAL IV SCH ×2 (08:28→20:50)
[2020-09-08] MEDS: IV FAT EMULSIONS 20% 250 ML IV SCH (08:28)
[2020-09-08 08:38] LABS: CARBON DIOXIDE 24 mmol/L (21-32); CHLORIDE 103 mmol/L (98-107); CREATININE 0.4 mg/dL (0.6-1.3); GLUCOSE 106 mg/dL (74-106); MAGNESIUM 1.8 mg/dL (1.8-2.4); PHOSPHOROUS 3.6 mg/dL (2.5-4.9); POTASSIUM 4.3 mmol/L (3.5-5.1); UREA NITROGEN, BLOOD 28 mg/dL (7-18)
[2020-09-08 09:56] LABS: BASOPHILS % (AUTO) 0.4 % (0.0-2.0); EOSINOPHILS # (AUTO) 0.2 K/uL (0.0-0.7); EOSINOPHILS % (AUTO) 3.4 % (0.0-7.0); HEMATOCRIT 27.4 % (31.2-41.9); HEMOGLOBIN 9.2 g/dL (10.9-14.3); LYMPHOCYTES # (AUTO) 0.8 K/uL (20.0-40.0); MEAN CORPUSCULAR HGB CONC 34 g/dL (32.3-35.6); MEAN CORPUSCULAR VOLUME 89.4 fL (75.5-95.3); MONOCYTES # (AUTO) 0.4 K/uL (2.0-10.0); MONOCYTES % (AUTO) 8.5 % (0.0-11.0); NEUTROPHILS # (AUTO) 3.3 K/uL (1.8-8.9); NEUTROPHILS % (AUTO) 70.7 % (38.5-71.5); PLATELET COUNT (AUTO) 186 K/uL (179-408); RED BLOOD CELL COUNT(AUTO) 3.07 MIL/uL (3.63-4.92); WHITE BLOOD COUNT (AUTO) 4.6 K/uL (3.8-11.8)
[2020-09-08] MEDS ORDERED: IV NORMAL SALINE 250 ML IV ONE (10:30)
[2020-09-08] MEDS ORDERED: TPN IV SCH ×8 (14:00)
[2020-09-08 20:00] VITALS: BP 101/71
[2020-09-09] MEDS: BLOOD SUGAR DIAGNOSTIC 1 EACH STRIP VI SCH ×4 (00:38→17:58)
[2020-09-09] MEDS ORDERED: [UNRECOGNIZED DRUG - REMARK] IV SCH ×2 (02:00)
[2020-09-09] MEDS: INSULIN REGULAR, HUMAN 300 UNIT/3 ML VIAL SQ SCH ×4 (05:49→17:58)
[2020-09-09] MEDS: ALBUTEROL SULFATE 2.5 MG/3 ML NEBU NEB SCH ×3 (07:47→23:10)
[2020-09-09] MEDS: IPRATROPIUM BROMIDE 0.5 MG/2.5 ML NEBU NEB SCH ×3 (07:47→23:10)
[2020-09-09] MEDS: HYDROGEN PEROXIDE 3% 118 ML BOTTLE TP SCH ×2 (07:47→21:00)
[2020-09-09 07:51] VITALS: BP 144/70
[2020-09-09] MEDS: LEVOTHYROXINE SODIUM 100 MCG VIAL IV SCH (09:13)
[2020-09-09] MEDS: NORMAL SALINE FLUSH 10 ML DISP.SYRIN IV SCH ×2 (09:13→20:59)
[2020-09-09] MEDS: levETIRAcetam IV 500 MG in IV DEXTROSE 5% 100 ML IV SCH ×2 (09:13→20:59)
[2020-09-09] MEDS: FAMOTIDINE. 20 MG/2 ML VIAL IV SCH ×2 (09:13→20:59)
[2020-09-09] MEDS: HEPARIN SODIUM,PORCINE 5,000 UNITS/ML VIAL SQ SCH ×2 (09:18→20:23)
[2020-09-09] MEDS: COD LIVER OIL/ZINC OXIDE OINT 113 GM TUBE TOP SCH ×4 (09:19→21:00)
[2020-09-09] MEDS: COD LIVER OIL/ZINC OXIDE OINT 113 GM TUBE TP SCH ×2 (09:20→21:00)
[2020-09-09 14:07] LABS: CREATININE 0.5 mg/dL (0.6-1.3); MAGNESIUM 1.8 mg/dL (1.8-2.4); PHOSPHOROUS 3.6 mg/dL (2.5-4.9)
[2020-09-09] MEDS ORDERED: TPN IV SCH ×8 (15:00)
--- NOTE | 2020-09-09 17:41 | NUR ---
Continue on PPn at 80 CC/hr,infusing on the R yugular triple lumen,no adverse reaction noted,iv site with no redness o s/s of infection noted,lipids started on friday completed this morning.
[2020-09-09 20:15] VITALS: BP 138/69
[2020-09-10] MEDS: BLOOD SUGAR DIAGNOSTIC 1 EACH STRIP VI SCH ×4 (00:42→18:09)
[2020-09-10] MEDS ORDERED: [UNRECOGNIZED DRUG - MIXTURE] IV SCH ×2 (03:00)
[2020-09-10] MEDS: INSULIN REGULAR, HUMAN 300 UNIT/3 ML VIAL SQ SCH ×4 (05:56→18:00)
[2020-09-10] MEDS: HYDROGEN PEROXIDE 3% 118 ML BOTTLE TP SCH ×2 (07:26→19:41)
[2020-09-10] MEDS: IPRATROPIUM BROMIDE 0.5 MG/2.5 ML NEBU NEB SCH ×3 (07:26→23:01)
[2020-09-10] MEDS: ALBUTEROL SULFATE 2.5 MG/3 ML NEBU NEB SCH ×3 (07:26→23:01)
[2020-09-10 07:27] VITALS: BP 127/61
[2020-09-10] MEDS: levETIRAcetam IV 500 MG in IV DEXTROSE 5% 100 ML IV SCH ×2 (08:40→21:30)
[2020-09-10] MEDS: FAMOTIDINE. 20 MG/2 ML VIAL IV SCH ×2 (08:40→21:30)
[2020-09-10] MEDS: NORMAL SALINE FLUSH 10 ML DISP.SYRIN IV SCH ×2 (08:40→21:30)
[2020-09-10] MEDS: LEVOTHYROXINE SODIUM 100 MCG VIAL IV SCH (08:40)
[2020-09-10] MEDS: HEPARIN SODIUM,PORCINE 5,000 UNITS/ML VIAL SQ SCH ×2 (09:02→21:00)
[2020-09-10] MEDS: COD LIVER OIL/ZINC OXIDE OINT 113 GM TUBE TP SCH ×2 (09:03→21:00)
[2020-09-10] MEDS: COD LIVER OIL/ZINC OXIDE OINT 113 GM TUBE TOP SCH ×4 (09:03→21:00)
[2020-09-10 09:17] LABS: CREATININE 0.6 mg/dL (0.6-1.3); MAGNESIUM 1.9 mg/dL (1.8-2.4); PHOSPHOROUS 3.5 mg/dL (2.5-4.9); POTASSIUM 3.5 mmol/L (3.5-5.1)
[2020-09-10] MEDS ORDERED: TPN IV SCH ×8 (14:00)
--- NOTE | 2020-09-10 19:47 | NUR ---
Covid results negative,Silvino pt's brother notified.Patient continue on PPN at 80 cc/hr,infusing well on the R yugular triple lumen,dressing changed.
[2020-09-10 19:48] VITALS: BP 144/67
[2020-09-10] MEDS: LORAZEPAM 2 MG/1 ML VIAL IV PRN (23:30)
[2020-09-11] MEDS: BLOOD SUGAR DIAGNOSTIC 1 EACH STRIP VI SCH ×4 (00:41→17:30)
[2020-09-11] MEDS ORDERED: [UNRECOGNIZED DRUG - REMARK] IV SCH ×2 (02:00)
[2020-09-11] MEDS: INSULIN REGULAR, HUMAN 300 UNIT/3 ML VIAL SQ SCH ×4 (06:00→17:31)
--- NOTE | 2020-09-11 06:23 | NUR ---
Still on TPN @ 80ml/hr, infusing well on left jugular central line, no adverse reactions noted, IV PEPCID and Keppra given as ordered, no seizure episodes at this time, still with drainage from old gt stoma, treatment around the stoma is done, Jo catheter is draining with yellow urine,good je care done, turned and repositioned, kept and comfortable.
[2020-09-11 07:27] VITALS: BP 117/58
[2020-09-11] MEDS: IPRATROPIUM BROMIDE 0.5 MG/2.5 ML NEBU NEB SCH ×3 (07:38→23:10)
[2020-09-11] MEDS: ALBUTEROL SULFATE 2.5 MG/3 ML NEBU NEB SCH ×3 (07:38→23:10)
[2020-09-11 08:06] LABS: CREATININE 0.5 mg/dL (0.6-1.3); MAGNESIUM 1.8 mg/dL (1.8-2.4); PHOSPHOROUS 2.8 mg/dL (2.5-4.9); POTASSIUM 3.2 mmol/L (3.5-5.1)
[2020-09-11] MEDS: NORMAL SALINE FLUSH 10 ML DISP.SYRIN IV SCH ×2 (08:13→21:02)
[2020-09-11] MEDS: FAMOTIDINE. 20 MG/2 ML VIAL IV SCH ×2 (08:13→21:02)
[2020-09-11] MEDS: IV FAT EMULSIONS 20% 250 ML IV SCH (08:13)
[2020-09-11] MEDS: LEVOTHYROXINE SODIUM 100 MCG VIAL IV SCH (08:13)
[2020-09-11] MEDS: levETIRAcetam IV 500 MG in IV DEXTROSE 5% 100 ML IV SCH ×2 (08:13→21:02)
[2020-09-11] MEDS: HYDROGEN PEROXIDE 3% 118 ML BOTTLE TP SCH ×2 (09:06→21:24)
[2020-09-11] MEDS: HEPARIN SODIUM,PORCINE 5,000 UNITS/ML VIAL SQ SCH ×2 (09:16→21:00)
[2020-09-11] MEDS: COD LIVER OIL/ZINC OXIDE OINT 113 GM TUBE TP SCH ×2 (09:16→20:45)
[2020-09-11] MEDS: COD LIVER OIL/ZINC OXIDE OINT 113 GM TUBE TOP SCH ×4 (09:16→20:45)
[2020-09-11] MEDS: POTASSIUM CHLORIDE 50 ML IV SCH ×4 (13:00→16:00)
[2020-09-11] MEDS ORDERED: TPN IV SCH ×16 (14:00→17:00)
[2020-09-11 20:00] VITALS: BP 141/79
--- NOTE | 2020-09-11 21:51 | NUR ---
Afebrile, remains on TPN @ 80ml/hr, infusing well on right jugular central line, IV Keppra and IV Pepcid given as ordered, no seizure episodes noted, on aspiration precaution. Old gt stoma still with yellow green drainage, with ongoing treatment surrounding the old gt stoma, kept area clean and dry. Abdomen is distended but soft, (+) bowel sounds on all 4 quadrants, Jo catheter is draining well to yellow urine, good je care rendered.
[2020-09-11] MEDS: LORAZEPAM 2 MG/1 ML VIAL IV PRN (22:15)
[2020-09-12] MEDS: BLOOD SUGAR DIAGNOSTIC 1 EACH STRIP VI SCH ×4 (00:46→17:28)
[2020-09-12] MEDS ORDERED: [UNRECOGNIZED DRUG - MIXTURE] IV SCH ×4 (02:00→05:00)
[2020-09-12] MEDS: INSULIN REGULAR, HUMAN 300 UNIT/3 ML VIAL SQ SCH ×4 (06:00→17:28)
[2020-09-12 07:33] VITALS: BP 130/63
[2020-09-12] MEDS: HYDROGEN PEROXIDE 3% 118 ML BOTTLE TP SCH ×2 (07:50→21:00)
[2020-09-12] MEDS: IPRATROPIUM BROMIDE 0.5 MG/2.5 ML NEBU NEB SCH ×3 (07:50→23:07)
[2020-09-12] MEDS: ALBUTEROL SULFATE 2.5 MG/3 ML NEBU NEB SCH ×3 (07:50→23:07)
[2020-09-12] MEDS: HEPARIN SODIUM,PORCINE 5,000 UNITS/ML VIAL SQ SCH ×2 (08:18→21:47)
[2020-09-12 08:55] LABS: CREATININE 0.5 mg/dL (0.6-1.3); PHOSPHOROUS 3.3 mg/dL (2.5-4.9); POTASSIUM 4.2 mmol/L (3.5-5.1)
[2020-09-12] MEDS: COD LIVER OIL/ZINC OXIDE OINT 113 GM TUBE TOP SCH ×4 (09:07→21:48)
[2020-09-12] MEDS: COD LIVER OIL/ZINC OXIDE OINT 113 GM TUBE TP SCH ×2 (09:07→21:48)
[2020-09-12] MEDS: levETIRAcetam IV 500 MG in IV DEXTROSE 5% 100 ML IV SCH ×2 (09:10→21:08)
[2020-09-12] MEDS: NORMAL SALINE FLUSH 10 ML DISP.SYRIN IV SCH ×2 (09:10→21:09)
[2020-09-12] MEDS: FAMOTIDINE. 20 MG/2 ML VIAL IV SCH ×2 (09:10→21:09)
[2020-09-12] MEDS: LEVOTHYROXINE SODIUM 100 MCG VIAL IV SCH (09:11)
[2020-09-12] MEDS ORDERED: TPN IV SCH ×16 (11:15→14:00)
--- NOTE | 2020-09-12 13:00 | NUR ---
Seen and examined by Jess Puga,no new orders noted.
--- NOTE | 2020-09-12 15:45 | NUR ---
INTERDISCIPLINARY PLAN OF CARE CONFERENCE was held today. Patient's brother Silvino and [facility] RN Gricelda, participated in the IDT meetings through speaker phone. Dr. Koch and the Interdisciplinary Team reviewed the current plan of care in detail. Nursing reported on patient's medical condition, current treatments, and findings of most recent labs. See nursing IDT conference notes. See all disciplines IDT notes and physician's progress notes for additional details. Silvino's and Gricelda's questions were addressed by the IDT team, and both Silvino and Gricelda expressed being content with the current plan of care.
--- NOTE | 2020-09-12 18:02 | NUR ---
Pt continue on PPN at 80 cc/hr,R yugular triple lumen in place ,no s/s of infection noted,dressing intact changed as ordered.
[2020-09-12 22:50] VITALS: BP 111/72
[2020-09-13] MEDS ORDERED: [UNRECOGNIZED DRUG - REMARK] IV SCH ×2 (02:00)
[2020-09-13] MEDS: INSULIN REGULAR, HUMAN 300 UNIT/3 ML VIAL SQ SCH ×4 (06:00→17:27)
[2020-09-13] MEDS: BLOOD SUGAR DIAGNOSTIC 1 EACH STRIP VI SCH ×4 (06:13→17:23)
[2020-09-13] MEDS: IPRATROPIUM BROMIDE 0.5 MG/2.5 ML NEBU NEB SCH ×3 (07:21→23:13)
[2020-09-13] MEDS: ALBUTEROL SULFATE 2.5 MG/3 ML NEBU NEB SCH ×3 (07:21→23:13)
[2020-09-13 07:47] VITALS: BP 118/70
[2020-09-13] MEDS: COD LIVER OIL/ZINC OXIDE OINT 113 GM TUBE TP SCH ×2 (08:13→21:35)
[2020-09-13] MEDS: COD LIVER OIL/ZINC OXIDE OINT 113 GM TUBE TOP SCH ×4 (08:13→21:34)
[2020-09-13] MEDS: HEPARIN SODIUM,PORCINE 5,000 UNITS/ML VIAL SQ SCH ×2 (08:15→21:34)
[2020-09-13] MEDS: HYDROGEN PEROXIDE 3% 118 ML BOTTLE TP SCH ×2 (08:40→21:36)
[2020-09-13] MEDS: LEVOTHYROXINE SODIUM 100 MCG VIAL IV SCH (08:42)
[2020-09-13] MEDS: NORMAL SALINE FLUSH 10 ML DISP.SYRIN IV SCH ×2 (08:42→21:11)
[2020-09-13] MEDS: levETIRAcetam IV 500 MG in IV DEXTROSE 5% 100 ML IV SCH ×2 (08:42→21:11)
[2020-09-13] MEDS: IV FAT EMULSIONS 20% 250 ML IV SCH (08:42)
[2020-09-13] MEDS: FAMOTIDINE. 20 MG/2 ML VIAL IV SCH ×2 (08:42→21:11)
[2020-09-13] MEDS: LORAZEPAM 2 MG/1 ML VIAL IV PRN (09:19)
--- NOTE | 2020-09-13 09:20 | NUR ---
PT. WAS MEDICATED ORDERED WITH ATIVAN FOR RESTLESSNESS ,MOVING NECK AND HEAD CONTINUOUSLY AND AT RISK OF DISLODGING RT NECK CENTRAL LINE DRESSING AND AT RISK FOR CONTAMINATION OF IT.
--- NOTE | 2020-09-13 10:35 | NUR ---
PT. WAS SEEN AND EXAMINED BY DR. RAMSAY GENERAL MAINTENANCE TECHNICIAN AND WITHY NEW ORDERS CARRIED OUT.
[2020-09-13 11:56] LABS: CREATININE 0.5 mg/dL (0.6-1.3); MAGNESIUM 1.9 mg/dL (1.8-2.4); PHOSPHOROUS 3.5 mg/dL (2.5-4.9); POTASSIUM 3.6 mmol/L (3.5-5.1)
[2020-09-13] MEDS ORDERED: TPN IV SCH ×8 (14:00)
--- NOTE | 2020-09-13 15:23 | NUR ---
Patient seen by customer specialist Dr. Houston today. See optometry notes for details.
[2020-09-13 20:08] VITALS: BP 136/65
[2020-09-13 20:43] VITALS: BP 136/65
[2020-09-14] MEDS ORDERED: [UNRECOGNIZED DRUG - MIXTURE] IV SCH ×2 (02:00)
[2020-09-14] MEDS: BLOOD SUGAR DIAGNOSTIC 1 EACH STRIP VI SCH ×5 (05:46→23:18)
[2020-09-14] MEDS: INSULIN REGULAR, HUMAN 300 UNIT/3 ML VIAL SQ SCH ×5 (05:47→23:17)
[2020-09-14 06:23] LABS: CREATININE 0.6 mg/dL (0.6-1.3); MAGNESIUM 1.6 mg/dL (1.8-2.4); PHOSPHOROUS 3.5 mg/dL (2.5-4.9); POTASSIUM 3.5 mmol/L (3.5-5.1)
[2020-09-14] MEDS: ALBUTEROL SULFATE 2.5 MG/3 ML NEBU NEB SCH ×3 (07:29→23:24)
[2020-09-14] MEDS: IPRATROPIUM BROMIDE 0.5 MG/2.5 ML NEBU NEB SCH ×3 (07:29→23:24)
[2020-09-14 07:52] VITALS: BP 143/68
[2020-09-14] MEDS: COD LIVER OIL/ZINC OXIDE OINT 113 GM TUBE TOP SCH ×4 (08:37→20:06)
[2020-09-14] MEDS: HEPARIN SODIUM,PORCINE 5,000 UNITS/ML VIAL SQ SCH ×2 (08:37→21:56)
[2020-09-14] MEDS: HYDROGEN PEROXIDE 3% 118 ML BOTTLE TP SCH ×2 (08:40→21:00)
[2020-09-14] MEDS: MOXIFLOXACIN HCL 3 ML OPHT DROPS EACHEYE SCH ×3 (09:00→17:06)
[2020-09-14] MEDS: COD LIVER OIL/ZINC OXIDE OINT 113 GM TUBE TP SCH ×2 (09:00→20:06)
[2020-09-14] MEDS: FAMOTIDINE. 20 MG/2 ML VIAL IV SCH ×2 (09:35→21:06)
[2020-09-14] MEDS: NORMAL SALINE FLUSH 10 ML DISP.SYRIN IV SCH ×2 (09:35→21:06)
[2020-09-14] MEDS: levETIRAcetam IV 500 MG in IV DEXTROSE 5% 100 ML IV SCH ×2 (09:35→21:06)
[2020-09-14] MEDS: LEVOTHYROXINE SODIUM 100 MCG VIAL IV SCH (09:37)
[2020-09-14] MEDS: MAGNESIUM SULFATE/D5W 100 ML IV SCH ×2 (09:47→11:00)
--- NOTE | 2020-09-14 12:10 | NUR ---
Spoke with Pt's brother Dawood Pily. Verbal consent given by Dawood Nascimento for patient to receive COVID 19 Vaccine.
[2020-09-14] MEDS ORDERED: TPN IV SCH ×8 (14:00)
[2020-09-14 20:05] VITALS: BP 140/69
[2020-09-15] MEDS ORDERED: [UNRECOGNIZED DRUG - OTHER] IV SCH ×2 (02:00)
[2020-09-15] MEDS: INSULIN REGULAR, HUMAN 300 UNIT/3 ML VIAL SQ SCH ×3 (06:00→17:28)
[2020-09-15] MEDS: BLOOD SUGAR DIAGNOSTIC 1 EACH STRIP VI SCH ×3 (06:06→17:27)
[2020-09-15] MEDS: IPRATROPIUM BROMIDE 0.5 MG/2.5 ML NEBU NEB SCH ×3 (07:52→23:03)
[2020-09-15] MEDS: ALBUTEROL SULFATE 2.5 MG/3 ML NEBU NEB SCH ×3 (07:52→23:03)
[2020-09-15 07:53] VITALS: BP 149/105
[2020-09-15 08:53] LABS: BASOPHILS % (AUTO) 0.3 % (0.0-2.0); EOSINOPHILS # (AUTO) 0.1 K/uL (0.0-0.7); EOSINOPHILS % (AUTO) 1.5 % (0.0-7.0); HEMATOCRIT 28.5 % (31.2-41.9); HEMOGLOBIN 9.6 g/dL (10.9-14.3); LYMPHOCYTES # (AUTO) 1.1 K/uL (20.0-40.0); LYMPHOCYTES % (AUTO) 14.7 % (20.5-51.5); MEAN CORPUSCULAR HEMOGLOBIN 29.7 uug (24.7-32.8); MEAN CORPUSCULAR HGB CONC 34 g/dL (32.3-35.6); MEAN CORPUSCULAR VOLUME 88.1 fL (75.5-95.3); MONOCYTES # (AUTO) 0.5 K/uL (2.0-10.0); MONOCYTES % (AUTO) 6.4 % (0.0-11.0); NEUTROPHILS # (AUTO) 5.9 K/uL (1.8-8.9); NEUTROPHILS % (AUTO) 77.1 % (38.5-71.5); PLATELET COUNT (AUTO) 168 K/uL (179-408); RED BLOOD CELL COUNT(AUTO) 3.23 MIL/uL (3.63-4.92); WHITE BLOOD COUNT (AUTO) 7.6 K/uL (3.8-11.8)
[2020-09-15 08:54] LABS: CREATININE 0.5 mg/dL (0.6-1.3); MAGNESIUM 1.8 mg/dL (1.8-2.4); PHOSPHOROUS 3.3 mg/dL (2.5-4.9); POTASSIUM 3.3 mmol/L (3.5-5.1)
[2020-09-15] MEDS: MOXIFLOXACIN HCL 3 ML OPHT DROPS EACHEYE SCH ×3 (08:55→17:28)
[2020-09-15] MEDS: HYDROGEN PEROXIDE 3% 118 ML BOTTLE TP SCH ×2 (08:55→21:34)
[2020-09-15] MEDS: COD LIVER OIL/ZINC OXIDE OINT 113 GM TUBE TOP SCH ×4 (08:57→20:57)
[2020-09-15] MEDS: HEPARIN SODIUM,PORCINE 5,000 UNITS/ML VIAL SQ SCH ×2 (08:57→20:57)
[2020-09-15] MEDS: COD LIVER OIL/ZINC OXIDE OINT 113 GM TUBE TP SCH ×2 (08:58→20:57)
[2020-09-15] MEDS: NORMAL SALINE FLUSH 10 ML DISP.SYRIN IV SCH ×2 (09:18→21:00)
[2020-09-15] MEDS: FAMOTIDINE. 20 MG/2 ML VIAL IV SCH ×2 (09:18→21:00)
[2020-09-15] MEDS: levETIRAcetam IV 500 MG in IV DEXTROSE 5% 100 ML IV SCH ×2 (09:18→21:00)
[2020-09-15] MEDS: LEVOTHYROXINE SODIUM 100 MCG VIAL IV SCH (09:18)
[2020-09-15] MEDS: IV FAT EMULSIONS 20% 250 ML IV SCH (09:18)
[2020-09-15] MEDS: POTASSIUM CHLORIDE 50 ML IV SCH ×2 (13:00→14:00)
[2020-09-15] MEDS ORDERED: TPN IV SCH ×8 (14:00)
[2020-09-15 20:38] VITALS: BP 123/73
[2020-09-16] MEDS: ACETAMINOPHEN 650 MG SUPP.RECT RC PRN (01:00)
[2020-09-16] MEDS ORDERED: [UNRECOGNIZED DRUG - MIXTURE] IV SCH ×2 (02:00)
[2020-09-16] MEDS: INSULIN REGULAR, HUMAN 300 UNIT/3 ML VIAL SQ SCH ×4 (05:17→17:01)
[2020-09-16] MEDS: BLOOD SUGAR DIAGNOSTIC 1 EACH STRIP VI SCH ×4 (06:00→17:01)
[2020-09-16] MEDS: HYDROGEN PEROXIDE 3% 118 ML BOTTLE TP SCH ×2 (07:37→21:07)
[2020-09-16] MEDS: IPRATROPIUM BROMIDE 0.5 MG/2.5 ML NEBU NEB SCH ×3 (07:37→22:50)
[2020-09-16] MEDS: ALBUTEROL SULFATE 2.5 MG/3 ML NEBU NEB SCH ×3 (07:37→22:50)
[2020-09-16 07:52] VITALS: BP 107/67
[2020-09-16] MEDS: MOXIFLOXACIN HCL 3 ML OPHT DROPS EACHEYE SCH ×3 (08:17→17:00)
[2020-09-16] MEDS: COD LIVER OIL/ZINC OXIDE OINT 113 GM TUBE TOP SCH ×2 (08:19→20:51)
[2020-09-16] MEDS: COD LIVER OIL/ZINC OXIDE OINT 113 GM TUBE TP SCH ×2 (08:19→20:51)
[2020-09-16] MEDS: HEPARIN SODIUM,PORCINE 5,000 UNITS/ML VIAL SQ SCH ×2 (08:19→21:15)
[2020-09-16] MEDS: NORMAL SALINE FLUSH 10 ML DISP.SYRIN IV SCH ×2 (09:35→21:53)
[2020-09-16] MEDS: LEVOTHYROXINE SODIUM 100 MCG VIAL IV SCH (09:35)
[2020-09-16] MEDS: levETIRAcetam IV 500 MG in IV DEXTROSE 5% 100 ML IV SCH ×2 (09:35→21:53)
[2020-09-16] MEDS: FAMOTIDINE. 20 MG/2 ML VIAL IV SCH ×2 (09:35→21:53)
[2020-09-16 12:09] LABS: CREATININE 0.5 mg/dL (0.6-1.3); PHOSPHOROUS 3.3 mg/dL (2.5-4.9); POTASSIUM 4.3 mmol/L (3.5-5.1)
[2020-09-16] MEDS ORDERED: TPN IV SCH ×8 (14:00)
[2020-09-16] MEDS: LORAZEPAM 2 MG/1 ML VIAL IV PRN (18:00)
--- NOTE | 2020-09-16 18:00 | NUR ---
PT. WITH FREQUENT EPISODES OF RESTLESSNESS MOVING HEAD AND NECK SIDE TO SIDE AND ALSO TRUNK SIDE TO SIDE SLOWLY AND AT RISK FOR DISLODGING RT NECK CENTRAL LINE LOCAL DRESSING.
--- NOTE | 2020-09-16 18:34 | NUR ---
PT. REMAINS RELAXED AND COMFORTABLE.
[2020-09-16 19:51] VITALS: BP 108/48
[2020-09-17] MEDS: BLOOD SUGAR DIAGNOSTIC 1 EACH STRIP VI SCH ×4 (00:29→17:24)
[2020-09-17] MEDS ORDERED: [UNRECOGNIZED DRUG - MIXTURE] IV SCH ×2 (02:00)
--- NOTE | 2020-09-17 02:19 | NUR ---
Patient is afebrile, remains on TPN @ 80ml/hr, infusing well on right jugular central line. On seizure and aspiration precaution. IV Pepcid and Keppra given as ordered, no adverse reactions noted, old gt stoma still draining with yellow green drainage, treatment done on old gt stoma as ordered, turned and repositioned, kept clean and comfortable.
[2020-09-17] MEDS: INSULIN REGULAR, HUMAN 300 UNIT/3 ML VIAL SQ SCH ×4 (05:58→17:25)
[2020-09-17] MEDS: IPRATROPIUM BROMIDE 0.5 MG/2.5 ML NEBU NEB SCH ×3 (07:07→23:00)
[2020-09-17] MEDS: ALBUTEROL SULFATE 2.5 MG/3 ML NEBU NEB SCH ×3 (07:08→23:00)
[2020-09-17 07:45] VITALS: BP 133/69
[2020-09-17] MEDS: MOXIFLOXACIN HCL 3 ML OPHT DROPS EACHEYE SCH ×3 (08:18→17:25)
[2020-09-17] MEDS: COD LIVER OIL/ZINC OXIDE OINT 113 GM TUBE TP SCH ×2 (08:20→21:54)
[2020-09-17] MEDS: COD LIVER OIL/ZINC OXIDE OINT 113 GM TUBE TOP SCH ×2 (08:20→21:54)
[2020-09-17] MEDS: FAMOTIDINE. 20 MG/2 ML VIAL IV SCH ×2 (09:00→20:26)
[2020-09-17] MEDS: levETIRAcetam IV 500 MG in IV DEXTROSE 5% 100 ML IV SCH ×2 (09:00→20:26)
[2020-09-17] MEDS: LEVOTHYROXINE SODIUM 100 MCG VIAL IV SCH (09:00)
[2020-09-17] MEDS: NORMAL SALINE FLUSH 10 ML DISP.SYRIN IV SCH ×2 (09:00→20:26)
[2020-09-17] MEDS: HEPARIN SODIUM,PORCINE 5,000 UNITS/ML VIAL SQ SCH ×2 (09:01→21:55)
[2020-09-17] MEDS: HYDROGEN PEROXIDE 3% 118 ML BOTTLE TP SCH ×2 (09:19→21:00)
[2020-09-17 10:04] LABS: CREATININE 0.5 mg/dL (0.6-1.3); MAGNESIUM 1.8 mg/dL (1.8-2.4); PHOSPHOROUS 3.5 mg/dL (2.5-4.9); POTASSIUM 3.3 mmol/L (3.5-5.1)
[2020-09-17] MEDS: POTASSIUM CHLORIDE 50 ML IV SCH ×2 (13:39→14:00)
[2020-09-17] MEDS ORDERED: TPN IV SCH ×8 (14:00)
[2020-09-17 20:42] VITALS: BP 129/70
[2020-09-18] MEDS: BLOOD SUGAR DIAGNOSTIC 1 EACH STRIP VI SCH ×4 (00:35→17:24)
[2020-09-18] MEDS ORDERED: [UNRECOGNIZED DRUG - REMARK] IV SCH ×2 (02:00)
[2020-09-18] MEDS: LORAZEPAM 2 MG/1 ML VIAL IV PRN (02:33)
[2020-09-18] MEDS: INSULIN REGULAR, HUMAN 300 UNIT/3 ML VIAL SQ SCH ×4 (05:12→17:23)
[2020-09-18] MEDS: ALBUTEROL SULFATE 2.5 MG/3 ML NEBU NEB SCH ×3 (07:05→23:01)
[2020-09-18] MEDS: IPRATROPIUM BROMIDE 0.5 MG/2.5 ML NEBU NEB SCH ×3 (07:05→23:01)
[2020-09-18] MEDS: HYDROGEN PEROXIDE 3% 118 ML BOTTLE TP SCH ×2 (07:05→21:51)
[2020-09-18 07:34] VITALS: BP 148/84
[2020-09-18] MEDS: IV FAT EMULSIONS 20% 250 ML IV SCH ×2 (09:21→09:26)
[2020-09-18] MEDS: MOXIFLOXACIN HCL 3 ML OPHT DROPS EACHEYE SCH ×3 (09:21→17:23)
[2020-09-18] MEDS: HEPARIN SODIUM,PORCINE 5,000 UNITS/ML VIAL SQ SCH ×2 (09:22→21:17)
[2020-09-18] MEDS: COD LIVER OIL/ZINC OXIDE OINT 113 GM TUBE TOP SCH ×2 (09:22→21:21)
[2020-09-18] MEDS: COD LIVER OIL/ZINC OXIDE OINT 113 GM TUBE TP SCH ×2 (09:22→21:21)
[2020-09-18] MEDS: LEVOTHYROXINE SODIUM 100 MCG VIAL IV SCH (09:23)
[2020-09-18] MEDS: levETIRAcetam IV 500 MG in IV DEXTROSE 5% 100 ML IV SCH ×2 (09:23→20:50)
[2020-09-18] MEDS: FAMOTIDINE. 20 MG/2 ML VIAL IV SCH ×2 (09:23→20:50)
[2020-09-18] MEDS: NORMAL SALINE FLUSH 10 ML DISP.SYRIN IV SCH ×2 (09:23→20:50)
[2020-09-18 09:31] LABS: CREATININE 0.5 mg/dL (0.6-1.3); MAGNESIUM 1.9 mg/dL (1.8-2.4); PHOSPHOROUS 3.6 mg/dL (2.5-4.9); POTASSIUM 3.9 mmol/L (3.5-5.1)
--- NOTE | 2020-09-18 10:00 | NUR ---
PT'S BROTHER CALLED BACK AND AWARE THAT PT. WAS NEGATIVE FOR COVID 19 TEST FROM 09/14/20.
--- NOTE | 2020-09-18 11:00 | NUR ---
CH. NURSE SPOKE TO NURSE SESAY FROM [facility] AND AWARE OF PT'S CURRENT STABLE CONDITION ,WITH NO PRESSURE SORES,NO INFECTIONS,STABLE V/S AND NNO ,CURRENTLY ON TPN AND WELL TOLERATED.ABDOMINAL SKIN SURROUNDING STOMA SLIGHTLY RED BUT WITHOUT SKIN BREAKAGE.
[2020-09-18] MEDS ORDERED: TPN IV SCH ×8 (14:00)
--- NOTE | 2020-09-18 15:00 | NUR ---
CORRECTIONAL FACILITY NURSE ARSENIO ASKED DR. CATHY Gamble BY PHONE TO CALL [phone] TO APPEALING DEPARTMENT FROM [facility] [employer] TO APPEAL REJECTED PRIOR AUTHORIZATION COVERAGE FROM INSURANCE FOR MEDICATION SYNTHROID 50MCG IV PUSH.
[2020-09-18 20:01] VITALS: BP 139/82
[2020-09-19] MEDS: BLOOD SUGAR DIAGNOSTIC 1 EACH STRIP VI SCH ×5 (00:20→23:38)
[2020-09-19] MEDS ORDERED: [UNRECOGNIZED DRUG - REMARK] IV SCH ×2 (02:00)
[2020-09-19] MEDS: INSULIN REGULAR, HUMAN 300 UNIT/3 ML VIAL SQ SCH ×5 (05:40→23:39)
[2020-09-19] MEDS: HYDROGEN PEROXIDE 3% 118 ML BOTTLE TP SCH ×2 (07:27→21:05)
[2020-09-19] MEDS: IPRATROPIUM BROMIDE 0.5 MG/2.5 ML NEBU NEB SCH ×3 (07:27→23:02)
[2020-09-19] MEDS: ALBUTEROL SULFATE 2.5 MG/3 ML NEBU NEB SCH ×3 (07:27→23:02)
[2020-09-19 07:34] VITALS: BP 147/60
[2020-09-19] MEDS: MOXIFLOXACIN HCL 3 ML OPHT DROPS EACHEYE SCH ×3 (08:09→17:00)
[2020-09-19 08:13] LABS: CREATININE 0.6 mg/dL (0.6-1.3); MAGNESIUM 1.8 mg/dL (1.8-2.4); PHOSPHOROUS 3.7 mg/dL (2.5-4.9); POTASSIUM 3.6 mmol/L (3.5-5.1)
[2020-09-19] MEDS: HEPARIN SODIUM,PORCINE 5,000 UNITS/ML VIAL SQ SCH ×2 (08:13→21:45)
[2020-09-19] MEDS: COD LIVER OIL/ZINC OXIDE OINT 113 GM TUBE TOP SCH ×2 (08:15→21:45)
[2020-09-19] MEDS: COD LIVER OIL/ZINC OXIDE OINT 113 GM TUBE TP SCH ×2 (08:15→21:47)
[2020-09-19] MEDS: LEVOTHYROXINE SODIUM 100 MCG VIAL IV SCH (09:03)
[2020-09-19] MEDS: levETIRAcetam IV 500 MG in IV DEXTROSE 5% 100 ML IV SCH ×2 (09:03→21:18)
[2020-09-19] MEDS: FAMOTIDINE. 20 MG/2 ML VIAL IV SCH ×2 (09:03→21:18)
[2020-09-19] MEDS: NORMAL SALINE FLUSH 10 ML DISP.SYRIN IV SCH ×2 (09:03→21:18)
[2020-09-19] MEDS ORDERED: TPN IV SCH ×8 (14:00)
--- NOTE | 2020-09-19 19:46 | NUR ---
New orders to Give COVID vaccine x 1 carried out.
--- NOTE | 2020-09-19 19:46 | NUR ---
Continue on TPN at 80 cc/hr,yugular triple lumen intact,no s/s of infection noted.
[2020-09-19 20:21] VITALS: BP 139/70
--- NOTE | 2020-09-19 22:32 | NUR ---
Afebrile, remains on TPN @ 80ml/hr infusing well on right jugular central line, no adverse reactions noted. IV Pepcid and Keppra given as ordered, no adverse reactions noted. still with yellow greenish drainage from old gt stoma stoma, abdomen is distended but soft, (+) hyperactive bowel sounds on all 4 quadrants, treatment around old gt stoma applied as ordered, Jo catheter is draining well to yellow urine, good je care rendered, turned and repositioned, will continue monitor.
[2020-09-20] MEDS: LORAZEPAM 2 MG/1 ML VIAL IV PRN (01:30)
[2020-09-20] MEDS ORDERED: [UNRECOGNIZED DRUG - MIXTURE] IV SCH ×2 (02:00)
[2020-09-20] MEDS: INSULIN REGULAR, HUMAN 300 UNIT/3 ML VIAL SQ SCH ×3 (05:38→17:06)
[2020-09-20] MEDS: BLOOD SUGAR DIAGNOSTIC 1 EACH STRIP VI SCH ×3 (05:38→17:06)
[2020-09-20 07:39] VITALS: BP 146/69
[2020-09-20] MEDS: IPRATROPIUM BROMIDE 0.5 MG/2.5 ML NEBU NEB SCH ×3 (08:07→22:37)
[2020-09-20] MEDS: ALBUTEROL SULFATE 2.5 MG/3 ML NEBU NEB SCH ×3 (08:08→22:37)
[2020-09-20] MEDS: MOXIFLOXACIN HCL 3 ML OPHT DROPS EACHEYE SCH ×3 (08:30→16:54)
[2020-09-20] MEDS: COD LIVER OIL/ZINC OXIDE OINT 113 GM TUBE TP SCH ×2 (08:31→21:15)
[2020-09-20] MEDS: COD LIVER OIL/ZINC OXIDE OINT 113 GM TUBE TOP SCH ×2 (08:31→21:15)
[2020-09-20] MEDS: HEPARIN SODIUM,PORCINE 5,000 UNITS/ML VIAL SQ SCH ×2 (08:36→21:00)
[2020-09-20] MEDS: IV FAT EMULSIONS 20% 250 ML IV SCH (08:51)
[2020-09-20] MEDS: levETIRAcetam IV 500 MG in IV DEXTROSE 5% 100 ML IV SCH ×2 (08:51→21:21)
[2020-09-20] MEDS: LEVOTHYROXINE SODIUM 100 MCG VIAL IV SCH (08:51)
[2020-09-20] MEDS: NORMAL SALINE FLUSH 10 ML DISP.SYRIN IV SCH ×2 (08:51→21:21)
[2020-09-20] MEDS: FAMOTIDINE. 20 MG/2 ML VIAL IV SCH ×2 (08:51→21:21)
[2020-09-20] MEDS: HYDROGEN PEROXIDE 3% 118 ML BOTTLE TP SCH ×2 (10:05→21:05)
[2020-09-20 13:10] LABS: CARBON DIOXIDE 23 mmol/L (21-32); CHLORIDE 105 mmol/L (98-107); CREATININE 0.4 mg/dL (0.6-1.3); GLUCOSE 113 mg/dL (74-106); MAGNESIUM 1.8 mg/dL (1.8-2.4); PHOSPHOROUS 3.4 mg/dL (2.5-4.9); UREA NITROGEN, BLOOD 25 mg/dL (7-18)
[2020-09-20] MEDS ORDERED: TPN IV SCH ×6 (14:00)
--- NOTE | 2020-09-20 15:49 | NUR ---
Continue on Tpn at 80 cc/hr,and lipids on MWF ,R yugular triple lumen intact,no s/s of infection noted.
[2020-09-20] MEDS ORDERED: COVID-19 VACC,MRNA(MODERNA)/PF 100 MCG/0.5 ML VIAL IM ONE (18:00)
--- NOTE | 2020-09-20 18:30 | NUR ---
COVID VACCINE GIVEN TP PATIENT ORDERED, NO REACTIONS AT THIS TIME. PATIENT'S BROTHER WAS NOTIFIED.
[2020-09-20 20:00] VITALS: BP 122/87
[2020-09-21] MEDS ORDERED: [UNRECOGNIZED DRUG - REMARK] IV SCH ×2 (02:00)
--- NOTE | 2020-09-21 02:51 | NUR ---
S/P COVID-19 vaccination, afebrile, no adverse reaction noted. Site without redness/swelling. Continue to monitor.
[2020-09-21] MEDS: INSULIN REGULAR, HUMAN 300 UNIT/3 ML VIAL SQ SCH ×4 (06:00→18:00)
[2020-09-21] MEDS: BLOOD SUGAR DIAGNOSTIC 1 EACH STRIP VI SCH ×4 (06:00→18:01)
[2020-09-21] MEDS: HYDROGEN PEROXIDE 3% 118 ML BOTTLE TP SCH ×2 (07:05→18:34)
[2020-09-21] MEDS: IPRATROPIUM BROMIDE 0.5 MG/2.5 ML NEBU NEB SCH ×3 (07:05→23:00)
[2020-09-21] MEDS: ALBUTEROL SULFATE 2.5 MG/3 ML NEBU NEB SCH ×3 (07:05→23:00)
[2020-09-21 07:10] LABS: CREATININE 0.6 mg/dL (0.6-1.3); MAGNESIUM 1.9 mg/dL (1.8-2.4); PHOSPHOROUS 4.1 mg/dL (2.5-4.9); POTASSIUM 3.5 mmol/L (3.5-5.1)
[2020-09-21 08:00] VITALS: BP 117/72
[2020-09-21] MEDS: HEPARIN SODIUM,PORCINE 5,000 UNITS/ML VIAL SQ SCH ×2 (08:40→20:53)
[2020-09-21] MEDS: COD LIVER OIL/ZINC OXIDE OINT 113 GM TUBE TP SCH ×2 (08:40→21:00)
[2020-09-21] MEDS: COD LIVER OIL/ZINC OXIDE OINT 113 GM TUBE TOP SCH ×2 (08:40→21:00)
[2020-09-21] MEDS: levETIRAcetam IV 500 MG in IV DEXTROSE 5% 100 ML IV SCH ×2 (09:43→21:50)
[2020-09-21] MEDS: FAMOTIDINE. 20 MG/2 ML VIAL IV SCH ×2 (09:43→21:50)
[2020-09-21] MEDS: NORMAL SALINE FLUSH 10 ML DISP.SYRIN IV SCH ×2 (09:43→21:50)
[2020-09-21] MEDS: LEVOTHYROXINE SODIUM 100 MCG VIAL IV SCH (09:43)
[2020-09-21] MEDS ORDERED: TPN IV SCH ×7 (14:00)
--- NOTE | 2020-09-21 19:12 | NUR ---
no rashes or adverse reaction from moderna covid vaccine observed.
[2020-09-21 20:16] VITALS: BP 107/58
--- NOTE | 2020-09-21 23:28 | NUR ---
Patient is afebrile, no signs of any adverse reactions noted from the COVID-19 vaccine.
[2020-09-22] MEDS: BLOOD SUGAR DIAGNOSTIC 1 EACH STRIP VI SCH ×5 (00:42→23:17)
[2020-09-22] MEDS: LORAZEPAM 2 MG/1 ML VIAL IV PRN (00:45)
[2020-09-22] MEDS ORDERED: [UNRECOGNIZED DRUG - MIXTURE] IV SCH ×2 (02:00)
[2020-09-22] MEDS: INSULIN REGULAR, HUMAN 300 UNIT/3 ML VIAL SQ SCH ×5 (05:23→23:17)
[2020-09-22 07:27] LABS: CREATININE 0.5 mg/dL (0.6-1.3); MAGNESIUM 2.3 mg/dL (1.8-2.4); PHOSPHOROUS 3.5 mg/dL (2.5-4.9); POTASSIUM 4.4 mmol/L (3.5-5.1)
[2020-09-22] MEDS: ALBUTEROL SULFATE 2.5 MG/3 ML NEBU NEB SCH ×3 (07:35→23:31)
[2020-09-22] MEDS: IPRATROPIUM BROMIDE 0.5 MG/2.5 ML NEBU NEB SCH ×3 (07:35→23:31)
[2020-09-22 07:51] VITALS: BP 135/68
[2020-09-22] MEDS: HEPARIN SODIUM,PORCINE 5,000 UNITS/ML VIAL SQ SCH ×2 (08:14→20:17)
[2020-09-22] MEDS: COD LIVER OIL/ZINC OXIDE OINT 113 GM TUBE TP SCH ×2 (08:37→20:17)
[2020-09-22] MEDS: COD LIVER OIL/ZINC OXIDE OINT 113 GM TUBE TOP SCH ×2 (08:37→20:17)
[2020-09-22] MEDS: LEVOTHYROXINE SODIUM 100 MCG VIAL IV SCH (09:00)
[2020-09-22] MEDS: IV FAT EMULSIONS 20% 250 ML IV SCH (09:00)
[2020-09-22] MEDS: HYDROGEN PEROXIDE 3% 118 ML BOTTLE TP SCH ×2 (09:00→21:47)
[2020-09-22] MEDS: NORMAL SALINE FLUSH 10 ML DISP.SYRIN IV SCH ×2 (09:00→21:53)
[2020-09-22] MEDS: levETIRAcetam IV 500 MG in IV DEXTROSE 5% 100 ML IV SCH ×2 (09:00→21:53)
[2020-09-22] MEDS: FAMOTIDINE. 20 MG/2 ML VIAL IV SCH ×2 (09:00→21:53)
--- NOTE | 2020-09-22 17:54 | NUR ---
Patient remains afebrile, no signs of any adverse reactions noted from the COVID-19 vaccine.
[2020-09-22 19:10] VITALS: BP 127/62
--- NOTE | 2020-09-22 22:14 | NUR ---
Patient is afebrile, no signs of adverse effects from Covid-19 vaccine.
[2020-09-23] MEDS ORDERED: [UNRECOGNIZED DRUG - REMARK] IV SCH ×2 (02:00)
[2020-09-23] MEDS: INSULIN REGULAR, HUMAN 300 UNIT/3 ML VIAL SQ SCH ×4 (05:52→23:12)
[2020-09-23] MEDS: BLOOD SUGAR DIAGNOSTIC 1 EACH STRIP VI SCH ×4 (05:52→23:12)
[2020-09-23] MEDS: IPRATROPIUM BROMIDE 0.5 MG/2.5 ML NEBU NEB SCH ×3 (07:14→23:00)
[2020-09-23] MEDS: ALBUTEROL SULFATE 2.5 MG/3 ML NEBU NEB SCH ×3 (07:14→23:00)
[2020-09-23 08:00] VITALS: BP 135/74
[2020-09-23] MEDS: HEPARIN SODIUM,PORCINE 5,000 UNITS/ML VIAL SQ SCH ×2 (08:29→20:20)
[2020-09-23] MEDS: COD LIVER OIL/ZINC OXIDE OINT 113 GM TUBE TP SCH ×2 (08:29→20:20)
[2020-09-23] MEDS: COD LIVER OIL/ZINC OXIDE OINT 113 GM TUBE TOP SCH ×2 (08:29→20:20)
[2020-09-23] MEDS: levETIRAcetam IV 500 MG in IV DEXTROSE 5% 100 ML IV SCH ×2 (08:42→21:17)
[2020-09-23] MEDS: FAMOTIDINE. 20 MG/2 ML VIAL IV SCH ×2 (08:42→21:17)
[2020-09-23] MEDS: LEVOTHYROXINE SODIUM 100 MCG VIAL IV SCH (08:42)
[2020-09-23] MEDS: NORMAL SALINE FLUSH 10 ML DISP.SYRIN IV SCH ×2 (08:42→21:17)
[2020-09-23] MEDS: HYDROGEN PEROXIDE 3% 118 ML BOTTLE TP SCH ×2 (09:00→21:00)
[2020-09-23 12:46] LABS: CARBON DIOXIDE 25 mmol/L (21-32); CHLORIDE 103 mmol/L (98-107); CREATININE 0.4 mg/dL (0.6-1.3); GLUCOSE 115 mg/dL (74-106); MAGNESIUM 1.5 mg/dL (1.8-2.4); PHOSPHOROUS 3.7 mg/dL (2.5-4.9); POTASSIUM 3.2 mmol/L (3.5-5.1); TRIGLYCERIDES 58 MG/DL (30-150); UREA NITROGEN, BLOOD 22 mg/dL (7-18)
[2020-09-23] MEDS ORDERED: TPN IV SCH ×7 (14:00)
[2020-09-23] MEDS ORDERED: IV NORMAL SALINE 250 ML IV ONE (14:00)
[2020-09-23] MEDS: POTASSIUM CHLORIDE 50 ML IV SCH ×4 (14:13→17:28)
[2020-09-23] MEDS: MAGNESIUM SULFATE/D5W 100 ML IV SCH ×2 (18:21→20:00)
--- NOTE | 2020-09-23 18:42 | NUR ---
no adverse reaction to covid vaccine noted.
[2020-09-23 19:06] LABS: BASOPHILS % (AUTO) 0.3 % (0.0-2.0); EOSINOPHILS % (AUTO) 0.5 % (0.0-7.0); HEMATOCRIT 34.5 % (31.2-41.9); HEMOGLOBIN 11.5 g/dL (10.9-14.3); LYMPHOCYTES # (AUTO) 0.9 K/uL (20.0-40.0); LYMPHOCYTES % (AUTO) 12.4 % (20.5-51.5); MEAN CORPUSCULAR HEMOGLOBIN 29.1 uug (24.7-32.8); MEAN CORPUSCULAR HGB CONC 33 g/dL (32.3-35.6); MEAN CORPUSCULAR VOLUME 87.4 fL (75.5-95.3); MONOCYTES # (AUTO) 0.7 K/uL (2.0-10.0); MONOCYTES % (AUTO) 8.9 % (0.0-11.0); NEUTROPHILS # (AUTO) 5.7 K/uL (1.8-8.9); NEUTROPHILS % (AUTO) 77.9 % (38.5-71.5); PLATELET COUNT (AUTO) 197 K/uL (179-408); RED BLOOD CELL COUNT(AUTO) 3.95 MIL/uL (3.63-4.92); WHITE BLOOD COUNT (AUTO) 7.4 K/uL (3.8-11.8)
[2020-09-23 19:15] VITALS: BP 139/81
[2020-09-24] MEDS ORDERED: [UNRECOGNIZED DRUG - REMARK] IV SCH ×2 (02:00)
[2020-09-24] MEDS: BLOOD SUGAR DIAGNOSTIC 1 EACH STRIP VI SCH ×4 (05:29→23:18)
[2020-09-24] MEDS: INSULIN REGULAR, HUMAN 300 UNIT/3 ML VIAL SQ SCH ×4 (05:29→23:18)
[2020-09-24] MEDS: IPRATROPIUM BROMIDE 0.5 MG/2.5 ML NEBU NEB SCH ×3 (07:12→23:01)
[2020-09-24] MEDS: ALBUTEROL SULFATE 2.5 MG/3 ML NEBU NEB SCH ×3 (07:12→23:01)
--- NOTE | 2020-09-24 07:15 | NUR ---
pt restless with large amount of secretion, ativan 1mg ivp given. tolerated well.
[2020-09-24] MEDS: LORAZEPAM 2 MG/1 ML VIAL IV PRN ×2 (07:25→15:50)
[2020-09-24 07:48] VITALS: BP 142/77
[2020-09-24] MEDS: HEPARIN SODIUM,PORCINE 5,000 UNITS/ML VIAL SQ SCH ×2 (08:21→20:11)
[2020-09-24] MEDS: COD LIVER OIL/ZINC OXIDE OINT 113 GM TUBE TOP SCH ×2 (08:21→20:11)
[2020-09-24] MEDS: COD LIVER OIL/ZINC OXIDE OINT 113 GM TUBE TP SCH ×2 (08:21→20:11)
[2020-09-24 08:40] LABS: CREATININE 0.6 mg/dL (0.6-1.3); MAGNESIUM 2.2 mg/dL (1.8-2.4); PHOSPHOROUS 3.4 mg/dL (2.5-4.9); POTASSIUM 3.6 mmol/L (3.5-5.1)
[2020-09-24] MEDS: HYDROGEN PEROXIDE 3% 118 ML BOTTLE TP SCH ×2 (08:40→21:05)
[2020-09-24] MEDS: NORMAL SALINE FLUSH 10 ML DISP.SYRIN IV SCH ×2 (09:42→21:08)
[2020-09-24] MEDS: LEVOTHYROXINE SODIUM 100 MCG VIAL IV SCH (09:42)
[2020-09-24] MEDS: levETIRAcetam IV 500 MG in IV DEXTROSE 5% 100 ML IV SCH ×2 (09:42→21:08)
[2020-09-24] MEDS: FAMOTIDINE. 20 MG/2 ML VIAL IV SCH ×2 (09:42→21:08)
[2020-09-24] MEDS ORDERED: IV NORMAL SALINE 500 ML IV ONE (11:00)
[2020-09-24] MEDS ORDERED: TPN IV SCH ×7 (14:00)
--- NOTE | 2020-09-24 17:53 | NUR ---
Continue on ppn at 80 cc/hr,Na level 133,Ns 500 ml given as ordered yugular triple lumen site with no s/s of infection.
[2020-09-24 20:43] VITALS: BP 137/82
[2020-09-25] MEDS ORDERED: [UNRECOGNIZED DRUG - MIXTURE] IV SCH ×2 (02:00)
[2020-09-25] MEDS: INSULIN REGULAR, HUMAN 300 UNIT/3 ML VIAL SQ SCH (05:49)
[2020-09-25] MEDS: BLOOD SUGAR DIAGNOSTIC 1 EACH STRIP VI SCH (05:49)
[2020-09-25 07:35] VITALS: BP 117/62
[2020-09-25 08:45] LABS: CREATININE 0.5 mg/dL (0.6-1.3); MAGNESIUM 1.9 mg/dL (1.8-2.4); PHOSPHOROUS 2.6 mg/dL (2.5-4.9); POTASSIUM 3.5 mmol/L (3.5-5.1)
== END 2020-09-21 23:59 | disposition still patient (30) | DRG 207 ==
LOC: SA 20:39
PROVIDERS: ADMIT Internal Medicine Nephrology; ATTEND Internal Medicine Nephrology
PROC: 5A1955Z Respiratory Ventilation, Greater than 96 Consecutive Hours (ICD-10-PCS; principal; 2020-07-12)
PROC: 3E0336Z Introduction of Nutritional Substance into Peripheral Vein, Percutaneous Approach (ICD-10-PCS; 2020-07-12)
PROC: 05H933Z Insertion of Infusion Device into Right Brachial Vein, Percutaneous Approach (ICD-10-PCS; 2020-08-01)
PROC: 02HV33Z Insertion of Infusion Device into Superior Vena Cava, Percutaneous Approach (ICD-10-PCS; 2020-08-05)
PROC: B548ZZA Ultrasonography of Superior Vena Cava, Guidance (ICD-10-PCS; 2020-08-05)
DX: J96.11 Chronic respiratory failure with hypoxia (principal); G92 Toxic encephalopathy; R53.2 Functional quadriplegia; N39.0 Urinary tract infection, site not specified; Z99.11 Dependence on respirator [ventilator] status; K31.6 Fistula of stomach and duodenum; E87.1 Hypo-osmolality and hyponatremia; G80.9 Cerebral palsy, unspecified; L30.9 Dermatitis, unspecified; Z93.0 Tracheostomy status; J96.12 Chronic respiratory failure with hypercapnia; G40.909 Epilepsy, unspecified, not intractable, without status epilepticus; K21.9 Gastro-esophageal reflux disease without esophagitis; E11.9 Type 2 diabetes mellitus without complications; E78.5 Hyperlipidemia, unspecified; E03.9 Hypothyroidism, unspecified; J44.9 Chronic obstructive pulmonary disease, unspecified; Z87.01 Personal history of pneumonia (recurrent); R13.10 Dysphagia, unspecified; E83.42 Hypomagnesemia; E87.6 Hypokalemia
CPT/HCPCS: 36415; 36569; 36600; 71045; 83550; 83690; 83735; 84100; 84443; 84478; 84520; 85025; 85610; 86140; 86580; 87040; 87070; 87077; 87086; 94002; 94003; 94640; C9113; J0278; J0692; J0770; J1450; J1644; J1815; J1953; J2060; J3475; J3480; J3490; J3590; J7040; J7050; J7060; J7131; U0003

== ENCOUNTER 2020-09-22 | Inpatient (IN) | payer MEDICARE, OTHER ==
[~2020-09-22] VITALS: Ht 175.3 cm; Wt 54.4 kg
[2020-09-24] MEDS ORDERED: LORAZEPAM 2 MG/1 ML VIAL IM ONE (15:50)
[2020-09-25] MEDS: IPRATROPIUM BROMIDE 0.5 MG/2.5 ML NEBU NEB SCH ×4 (07:30→23:32)
[2020-09-25] MEDS ORDERED: ACETAMINOPHEN 650 MG SUPP.RECT RC PRN ×2 (08:00)
[2020-09-25] MEDS ORDERED: TPN/PPN PER PHARMACY IV PRN (08:00)
[2020-09-25] MEDS ORDERED: BISACODYL 10 MG SUPP.RECT RC PRN (08:00)
[2020-09-25] MEDS ORDERED: HYDROGEN PEROXIDE 3% 118 ML BOTTLE TP PRN (08:00)
[2020-09-25] MEDS ORDERED: IPRATROPIUM BROMIDE 0.5 MG/2.5 ML NEBU NEB PRN (08:00)
[2020-09-25] MEDS ORDERED: ALBUTEROL SULFATE 2.5 MG/3 ML NEBU NEB PRN (08:00)
[2020-09-25 08:01] VITALS: BP 117/62
[2020-09-25] MEDS ORDERED: [UNRECOGNIZED DRUG - MIXTURE] IV SCH ×2 (08:15)
[2020-09-25] MEDS ORDERED: DEXTROSE 50% 50 ML DISP.SYRIN IV PRN (08:15)
[2020-09-25] MEDS ORDERED: diphenhydrAMINE 50 MG/1 ML VIAL IV PRN (08:15)
[2020-09-25] MEDS: COD LIVER OIL/ZINC OXIDE OINT 113 GM TUBE TP SCH ×2 (08:48→21:59)
[2020-09-25] MEDS: COD LIVER OIL/ZINC OXIDE OINT 113 GM TUBE TOP SCH ×2 (08:48→21:59)
[2020-09-25] MEDS: HEPARIN SODIUM,PORCINE 5,000 UNITS/ML VIAL SQ SCH ×2 (08:50→21:00)
[2020-09-25] MEDS: LEVOTHYROXINE SODIUM 100 MCG VIAL IV SCH (09:10)
[2020-09-25] MEDS: NORMAL SALINE FLUSH 10 ML DISP.SYRIN IV SCH ×2 (09:10→20:56)
[2020-09-25] MEDS: levETIRAcetam IV 500 MG in IV DEXTROSE 5% 100 ML IV SCH ×2 (09:10→20:56)
[2020-09-25] MEDS: IV FAT EMULSIONS 20% 250 ML IV SCH (09:10)
[2020-09-25] MEDS: FAMOTIDINE. 20 MG/2 ML VIAL IV SCH ×2 (09:10→20:56)
[2020-09-25] MEDS: HYDROGEN PEROXIDE 3% 118 ML BOTTLE TP SCH ×2 (09:23→21:00)
[2020-09-25] MEDS: INSULIN REGULAR, HUMAN 300 UNIT/3 ML VIAL SQ SCH ×3 (12:00→23:28)
[2020-09-25] MEDS: BLOOD SUGAR DIAGNOSTIC 1 EACH STRIP VI SCH ×3 (13:00→23:27)
[2020-09-25] MEDS ORDERED: TPN IV SCH ×7 (14:00)
[2020-09-25] MEDS ORDERED: LORAZEPAM 2 MG/1 ML VIAL IM ONE (14:25)
[2020-09-25] MEDS: LORAZEPAM 2 MG/1 ML VIAL IV PRN (14:27)
[2020-09-25] MEDS: ALBUTEROL SULFATE 2.5 MG/3 ML NEBU NEB SCH ×2 (16:02→23:26)
--- NOTE | 2020-09-25 16:30 | NUR ---
Consent for piccline/midline insertion given by brother Dawood Nascimento, supervisor wash house notified, stated "piccline nurse will be coming at 8pm"
--- NOTE | 2020-09-25 16:30 | NUR ---
0815 Tpn dose not administered, already on tpn from previous shift (2 am) with exact composition, continue infusion from audiology doctor, community ambassador notified.
[2020-09-25 20:00] VITALS: BP 117/62
--- NOTE | 2020-09-25 22:20 | NUR ---
judah estes called and asked consent is signed, replied yes, signed by brother, franklyn so stated, will be there in 15 minutes.
--- NOTE | 2020-09-26 00:10 | NUR ---
franklyn farrarn.p. came inserted picc line triple lumen @ right thigh, ordered stat cxr, stat kub to confirm picc line placement, 2430- cxr and kub done, anuj farrar.melo. read result, stated okay to use right thigh picc line.
[2020-09-26] MEDS ORDERED: [UNRECOGNIZED DRUG - REMARK] IV SCH ×2 (02:00)
[2020-09-26] MEDS: BLOOD SUGAR DIAGNOSTIC 1 EACH STRIP VI SCH ×4 (05:33→23:40)
[2020-09-26] MEDS: INSULIN REGULAR, HUMAN 300 UNIT/3 ML VIAL SQ SCH ×4 (05:34→23:40)
--- NOTE | 2020-09-26 06:33 | NUR ---
discontinued right neck picc line, no bleeding or hematoma observed, tolerated procedure well.
[2020-09-26 07:25] VITALS: BP 122/74
[2020-09-26] MEDS: HYDROGEN PEROXIDE 3% 118 ML BOTTLE TP SCH ×2 (07:53→21:35)
[2020-09-26] MEDS: IPRATROPIUM BROMIDE 0.5 MG/2.5 ML NEBU NEB SCH ×2 (07:53→22:44)
[2020-09-26] MEDS: ALBUTEROL SULFATE 2.5 MG/3 ML NEBU NEB SCH ×3 (07:53→22:44)
[2020-09-26] MEDS: HEPARIN SODIUM,PORCINE 5,000 UNITS/ML VIAL SQ SCH ×2 (08:09→21:55)
[2020-09-26] MEDS: COD LIVER OIL/ZINC OXIDE OINT 113 GM TUBE TOP SCH ×2 (08:10→21:55)
[2020-09-26] MEDS: COD LIVER OIL/ZINC OXIDE OINT 113 GM TUBE TP SCH ×2 (08:10→21:55)
[2020-09-26] MEDS: FAMOTIDINE. 20 MG/2 ML VIAL IV SCH ×2 (09:00→21:05)
[2020-09-26] MEDS: levETIRAcetam IV 500 MG in IV DEXTROSE 5% 100 ML IV SCH ×2 (09:00→21:05)
[2020-09-26] MEDS: LEVOTHYROXINE SODIUM 100 MCG VIAL IV SCH (09:00)
[2020-09-26] MEDS: NORMAL SALINE FLUSH 10 ML DISP.SYRIN IV SCH ×2 (09:00→21:05)
[2020-09-26 12:23] LABS: CREATININE 0.5 mg/dL (0.6-1.3); MAGNESIUM 1.6 mg/dL (1.8-2.4); PHOSPHOROUS 2.7 mg/dL (2.5-4.9); POTASSIUM 3.6 mmol/L (3.5-5.1)
[2020-09-26] MEDS ORDERED: TPN IV SCH ×7 (14:00)
[2020-09-26] MEDS: MAGNESIUM SULFATE/D5W 100 ML IV SCH ×2 (14:00→15:44)
--- NOTE | 2020-09-26 17:30 | NUR ---
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
[2020-09-26 20:00] VITALS: BP 135/71
[2020-09-27] MEDS ORDERED: LORAZEPAM 2 MG/1 ML VIAL IM ONE (02:00)
[2020-09-27] MEDS ORDERED: [UNRECOGNIZED DRUG - MIXTURE] IV SCH ×2 (02:00)
[2020-09-27] MEDS: LORAZEPAM 2 MG/1 ML VIAL IV PRN (02:11)
[2020-09-27] MEDS: INSULIN REGULAR, HUMAN 300 UNIT/3 ML VIAL SQ SCH ×3 (05:09→17:41)
[2020-09-27] MEDS: BLOOD SUGAR DIAGNOSTIC 1 EACH STRIP VI SCH ×3 (05:10→17:42)
[2020-09-27 07:31] VITALS: BP 130/70
[2020-09-27] MEDS: IPRATROPIUM BROMIDE 0.5 MG/2.5 ML NEBU NEB SCH ×3 (07:45→22:45)
[2020-09-27] MEDS: ALBUTEROL SULFATE 2.5 MG/3 ML NEBU NEB SCH ×3 (07:45→22:45)
[2020-09-27] MEDS: HEPARIN SODIUM,PORCINE 5,000 UNITS/ML VIAL SQ SCH ×2 (08:49→20:10)
[2020-09-27] MEDS: COD LIVER OIL/ZINC OXIDE OINT 113 GM TUBE TP SCH ×2 (08:50→20:10)
[2020-09-27] MEDS: COD LIVER OIL/ZINC OXIDE OINT 113 GM TUBE TOP SCH ×2 (08:50→20:10)
[2020-09-27] MEDS: HYDROGEN PEROXIDE 3% 118 ML BOTTLE TP SCH ×2 (09:00→21:36)
[2020-09-27] MEDS: IV FAT EMULSIONS 20% 250 ML IV SCH (09:42)
[2020-09-27] MEDS: NORMAL SALINE FLUSH 10 ML DISP.SYRIN IV SCH ×2 (09:42→21:03)
[2020-09-27] MEDS: levETIRAcetam IV 500 MG in IV DEXTROSE 5% 100 ML IV SCH ×2 (09:42→21:03)
[2020-09-27] MEDS: FAMOTIDINE. 20 MG/2 ML VIAL IV SCH ×2 (09:42→21:03)
[2020-09-27] MEDS: LEVOTHYROXINE SODIUM 100 MCG VIAL IV SCH (09:42)
[2020-09-27] MEDS ORDERED: IV NORMAL SALINE 500 ML IV ONE (11:00)
[2020-09-27] MEDS ORDERED: TPN IV SCH ×9 (14:00)
--- NOTE | 2020-09-27 19:39 | NUR ---
Continue on PPN at 80 cc/hr,and lipids ,NS 500 ml given as ordered for low NA.picc line on the R femoral intact.
[2020-09-27 20:00] VITALS: BP 124/94
[2020-09-28] MEDS ORDERED: LORAZEPAM 2 MG/1 ML VIAL IM ONE (01:00)
[2020-09-28] MEDS ORDERED: [UNRECOGNIZED DRUG - REMARK] IV SCH ×2 (02:00)
[2020-09-28] MEDS: INSULIN REGULAR, HUMAN 300 UNIT/3 ML VIAL SQ SCH ×4 (05:21→17:20)
[2020-09-28] MEDS: BLOOD SUGAR DIAGNOSTIC 1 EACH STRIP VI SCH ×4 (05:22→17:20)
[2020-09-28] MEDS: ALBUTEROL SULFATE 2.5 MG/3 ML NEBU NEB SCH ×3 (07:20→22:30)
[2020-09-28] MEDS: IPRATROPIUM BROMIDE 0.5 MG/2.5 ML NEBU NEB SCH ×3 (07:20→22:30)
[2020-09-28 07:31] VITALS: BP 110/63
[2020-09-28] MEDS: HYDROGEN PEROXIDE 3% 118 ML BOTTLE TP SCH ×2 (09:00→21:34)
[2020-09-28] MEDS: COD LIVER OIL/ZINC OXIDE OINT 113 GM TUBE TP SCH ×2 (09:29→21:55)
[2020-09-28] MEDS: COD LIVER OIL/ZINC OXIDE OINT 113 GM TUBE TOP SCH ×2 (09:29→21:55)
[2020-09-28] MEDS: HEPARIN SODIUM,PORCINE 5,000 UNITS/ML VIAL SQ SCH ×2 (09:31→21:55)
[2020-09-28] MEDS: levETIRAcetam IV 500 MG in IV DEXTROSE 5% 100 ML IV SCH ×2 (09:37→21:06)
[2020-09-28] MEDS: FAMOTIDINE. 20 MG/2 ML VIAL IV SCH ×2 (09:37→21:06)
[2020-09-28] MEDS: NORMAL SALINE FLUSH 10 ML DISP.SYRIN IV SCH ×2 (09:37→21:06)
[2020-09-28] MEDS: LEVOTHYROXINE SODIUM 100 MCG VIAL IV SCH (09:38)
[2020-09-28] MEDS ORDERED: TPN IV SCH ×8 (14:00)
[2020-09-28 20:00] VITALS: BP 134/74
--- NOTE | 2020-09-28 22:28 | NUR ---
Afebrile, remains on TPN/PPN @ 80ml/hr infusing well on right femoral central line, no adverse reactions noted, IV keppra and Pepcid given as ordered, on aspiration and seizure precaution, still with ongoing treatment to old gt stoma site, abdomen soft and non- distended, (+) hyperactive bowel sounds, noted with yellow green drainage from the old gt stoma, Jo catheter is draining well with yellow urine, good je care rendered,turned and repositioned patient, kept patient clean and comfortable.
[2020-09-29] MEDS: BLOOD SUGAR DIAGNOSTIC 1 EACH STRIP VI SCH ×4 (00:51→17:06)
[2020-09-29] MEDS: LORAZEPAM 2 MG/1 ML VIAL IV PRN (01:10)
[2020-09-29] MEDS ORDERED: [UNRECOGNIZED DRUG - MIXTURE] IV SCH ×2 (02:00)
[2020-09-29] MEDS: INSULIN REGULAR, HUMAN 300 UNIT/3 ML VIAL SQ SCH ×4 (06:00→17:05)
[2020-09-29] MEDS: ALBUTEROL SULFATE 2.5 MG/3 ML NEBU NEB SCH ×3 (07:18→22:36)
[2020-09-29] MEDS: IPRATROPIUM BROMIDE 0.5 MG/2.5 ML NEBU NEB SCH ×3 (07:18→22:36)
[2020-09-29 07:42] VITALS: BP 139/79
[2020-09-29] MEDS: HEPARIN SODIUM,PORCINE 5,000 UNITS/ML VIAL SQ SCH ×2 (08:37→21:00)
[2020-09-29] MEDS: COD LIVER OIL/ZINC OXIDE OINT 113 GM TUBE TOP SCH ×2 (08:39→21:00)
[2020-09-29] MEDS: COD LIVER OIL/ZINC OXIDE OINT 113 GM TUBE TP SCH ×2 (08:39→21:00)
[2020-09-29] MEDS: HYDROGEN PEROXIDE 3% 118 ML BOTTLE TP SCH ×2 (09:00→21:46)
[2020-09-29] MEDS: FAMOTIDINE. 20 MG/2 ML VIAL IV SCH ×2 (09:36→21:29)
[2020-09-29] MEDS: LEVOTHYROXINE SODIUM 100 MCG VIAL IV SCH (09:36)
[2020-09-29] MEDS: levETIRAcetam IV 500 MG in IV DEXTROSE 5% 100 ML IV SCH ×2 (09:36→21:29)
[2020-09-29] MEDS: NORMAL SALINE FLUSH 10 ML DISP.SYRIN IV SCH ×2 (09:36→21:29)
[2020-09-29] MEDS: IV FAT EMULSIONS 20% 250 ML IV SCH (09:50)
[2020-09-29] MEDS ORDERED: TPN IV SCH ×8 (14:00)
--- NOTE | 2020-09-29 16:29 | NUR ---
SW called patient's brother Silvino [phone] and [facility] RN Gricelda [phone] and informed them both that the next IDT meeting is scheduled for 10/03/2020 at 11am. Both Gricelda and Silvino stated that would like to participate in the meeting by speaker phone, and this SW asked them to be available between 11am-12pm on 10/03 in order to receive the teams call. Both Silvino and Gricelda expressed understanding and agreement.
[2020-09-29 20:00] VITALS: BP 122/69
--- NOTE | 2020-09-29 20:30 | NUR ---
Marcus from Lab called re: Patient Covid-19 result was negative.
--- NOTE | 2020-09-29 20:30 | NUR ---
Marcus from Lab called re: Patient Covid-19 result was negative.
--- NOTE | 2020-09-29 20:30 | NUR ---
Marcus from Lab called re: Patient Covid-19 result was negative.
[2020-09-30] MEDS: LORAZEPAM 2 MG/1 ML VIAL IV PRN (00:05)
[2020-09-30] MEDS ORDERED: LORAZEPAM 2 MG/1 ML VIAL IM ONE (00:05)
--- NOTE | 2020-09-30 00:11 | NUR ---
Patient is afebrile, trach is intact and patent, connected to vent, 02 sat is 100%, patient is restless, turned and repositioned but still restless, Ativan given as ordered, still on TPN @ 80ml/Hr and lipids is infusing well, no signs of fluid overload noted. Keppra and Pepcid IV given as ordered, kept clean and comfortable, will continue monitor.
[2020-09-30] MEDS: BLOOD SUGAR DIAGNOSTIC 1 EACH STRIP VI SCH ×4 (00:47→18:40)
[2020-09-30] MEDS ORDERED: [UNRECOGNIZED DRUG - REMARK] IV SCH ×2 (02:00)
[2020-09-30] MEDS: INSULIN REGULAR, HUMAN 300 UNIT/3 ML VIAL SQ SCH ×4 (05:26→18:00)
[2020-09-30] MEDS: ALBUTEROL SULFATE 2.5 MG/3 ML NEBU NEB SCH ×3 (07:40→22:36)
[2020-09-30] MEDS: IPRATROPIUM BROMIDE 0.5 MG/2.5 ML NEBU NEB SCH ×3 (07:40→22:36)
[2020-09-30 07:42] VITALS: BP 110/64
[2020-09-30 08:21] LABS: BASOPHILS % (AUTO) 0.2 % (0.0-2.0); EOSINOPHILS # (AUTO) 0.2 K/uL (0.0-0.7); EOSINOPHILS % (AUTO) 4.1 % (0.0-7.0); HEMATOCRIT 27.4 % (31.2-41.9); LYMPHOCYTES # (AUTO) 1.2 K/uL (20.0-40.0); LYMPHOCYTES % (AUTO) 21.5 % (20.5-51.5); MEAN CORPUSCULAR HEMOGLOBIN 28.4 uug (24.7-32.8); MEAN CORPUSCULAR HGB CONC 33 g/dL (32.3-35.6); MEAN CORPUSCULAR VOLUME 86.6 fL (75.5-95.3); MONOCYTES # (AUTO) 0.6 K/uL (2.0-10.0); MONOCYTES % (AUTO) 11.2 % (0.0-11.0); NEUTROPHILS # (AUTO) 3.5 K/uL (1.8-8.9); PLATELET COUNT (AUTO) 179 K/uL (179-408); RED BLOOD CELL COUNT(AUTO) 3.16 MIL/uL (3.63-4.92); WHITE BLOOD COUNT (AUTO) 5.5 K/uL (3.8-11.8)
--- NOTE | 2020-09-30 08:41 | NUR ---
PT'S BROTHER AMBROSIO WAS NOTIFIED WITH A MESSAGE RE: COVID19 TEST RESULT FROM 09/27/20.
[2020-09-30] MEDS: COD LIVER OIL/ZINC OXIDE OINT 113 GM TUBE TOP SCH ×2 (08:53→21:40)
[2020-09-30] MEDS: COD LIVER OIL/ZINC OXIDE OINT 113 GM TUBE TP SCH ×2 (08:53→21:40)
[2020-09-30] MEDS: HEPARIN SODIUM,PORCINE 5,000 UNITS/ML VIAL SQ SCH ×2 (08:53→21:39)
[2020-09-30] MEDS: HYDROGEN PEROXIDE 3% 118 ML BOTTLE TP SCH ×2 (09:17→21:35)
[2020-09-30] MEDS: FAMOTIDINE. 20 MG/2 ML VIAL IV SCH ×2 (09:58→20:39)
[2020-09-30] MEDS: LEVOTHYROXINE SODIUM 100 MCG VIAL IV SCH (09:58)
[2020-09-30] MEDS: NORMAL SALINE FLUSH 10 ML DISP.SYRIN IV SCH ×2 (09:58→20:39)
[2020-09-30] MEDS: levETIRAcetam IV 500 MG in IV DEXTROSE 5% 100 ML IV SCH ×2 (09:58→20:39)
[2020-09-30] MEDS ORDERED: TPN IV SCH ×7 (14:00)
--- NOTE | 2020-09-30 15:08 | NUR ---
PT. WAS SEEN AND EXAMINED BY DR. HESTER AND WITH NNO.
[2020-09-30 19:10] VITALS: BP 127/62
--- NOTE | 2020-09-30 22:21 | NUR ---
Patient is afebrile, trach is intact and connected to vent, no respiratory distress noted, TPN is infusing @ 80ml/Hr on Right thigh, no signs of fluid overload, old GT stoma still draining with greenish yellow drainage, treatment done as ordered, abdomen is distended but soft, Jo catheter is draining well with yellow urine, good je care rendered, turned and repositioned patient, kept clean and comfortable.
[2020-10-01] MEDS: BLOOD SUGAR DIAGNOSTIC 1 EACH STRIP VI SCH ×4 (00:47→18:12)
[2020-10-01] MEDS ORDERED: LORAZEPAM 2 MG/1 ML VIAL IM ONE (01:51)
[2020-10-01] MEDS: LORAZEPAM 2 MG/1 ML VIAL IV PRN (01:51)
[2020-10-01] MEDS ORDERED: [UNRECOGNIZED DRUG - MIXTURE] IV SCH ×2 (02:00)
[2020-10-01] MEDS: INSULIN REGULAR, HUMAN 300 UNIT/3 ML VIAL SQ SCH ×4 (05:56→18:00)
[2020-10-01] MEDS: HYDROGEN PEROXIDE 3% 118 ML BOTTLE TP SCH ×2 (07:07→21:50)
[2020-10-01] MEDS: IPRATROPIUM BROMIDE 0.5 MG/2.5 ML NEBU NEB SCH ×3 (07:07→22:55)
[2020-10-01] MEDS: ALBUTEROL SULFATE 2.5 MG/3 ML NEBU NEB SCH ×3 (07:07→22:55)
[2020-10-01 07:28] VITALS: BP 117/67
[2020-10-01] MEDS: HEPARIN SODIUM,PORCINE 5,000 UNITS/ML VIAL SQ SCH ×2 (08:38→21:36)
[2020-10-01] MEDS: COD LIVER OIL/ZINC OXIDE OINT 113 GM TUBE TOP SCH ×2 (08:38→21:37)
[2020-10-01] MEDS: COD LIVER OIL/ZINC OXIDE OINT 113 GM TUBE TP SCH ×2 (08:39→21:37)
[2020-10-01] MEDS: LEVOTHYROXINE SODIUM 100 MCG VIAL IV SCH (09:30)
[2020-10-01] MEDS: FAMOTIDINE. 20 MG/2 ML VIAL IV SCH ×2 (09:30→21:08)
[2020-10-01] MEDS: NORMAL SALINE FLUSH 10 ML DISP.SYRIN IV SCH ×2 (09:30→21:08)
[2020-10-01] MEDS: levETIRAcetam IV 500 MG in IV DEXTROSE 5% 100 ML IV SCH ×2 (09:30→21:08)
[2020-10-01] MEDS ORDERED: TPN IV SCH ×7 (14:00)
[2020-10-01 20:38] VITALS: BP 139/80
[2020-10-02] MEDS: BLOOD SUGAR DIAGNOSTIC 1 EACH STRIP VI SCH ×5 (00:05→23:07)
[2020-10-02] MEDS ORDERED: [UNRECOGNIZED DRUG - REMARK] IV SCH ×2 (02:00)
[2020-10-02] MEDS: INSULIN REGULAR, HUMAN 300 UNIT/3 ML VIAL SQ SCH ×4 (06:00→17:44)
[2020-10-02] MEDS: IPRATROPIUM BROMIDE 0.5 MG/2.5 ML NEBU NEB SCH ×3 (07:24→22:30)
[2020-10-02 07:34] VITALS: BP 109/64
[2020-10-02] MEDS: ALBUTEROL SULFATE 2.5 MG/3 ML NEBU NEB SCH ×3 (07:35→22:30)
--- NOTE | 2020-10-02 08:15 | NUR ---
RECTAL TEMP. CHECKED AND 98.8F.BED BATH WILL BE GIVEN.
[2020-10-02] MEDS: levETIRAcetam IV 500 MG in IV DEXTROSE 5% 100 ML IV SCH ×2 (09:00→20:38)
[2020-10-02] MEDS: COD LIVER OIL/ZINC OXIDE OINT 113 GM TUBE TOP SCH ×2 (09:00→21:46)
[2020-10-02] MEDS: COD LIVER OIL/ZINC OXIDE OINT 113 GM TUBE TP SCH ×2 (09:00→21:46)
[2020-10-02] MEDS: HEPARIN SODIUM,PORCINE 5,000 UNITS/ML VIAL SQ SCH ×2 (09:00→21:44)
[2020-10-02] MEDS: FAMOTIDINE. 20 MG/2 ML VIAL IV SCH ×2 (09:00→20:38)
[2020-10-02] MEDS: LEVOTHYROXINE SODIUM 100 MCG VIAL IV SCH (09:00)
[2020-10-02] MEDS: IV FAT EMULSIONS 20% 250 ML IV SCH (09:00)
[2020-10-02] MEDS: NORMAL SALINE FLUSH 10 ML DISP.SYRIN IV SCH ×2 (09:00→20:38)
[2020-10-02] MEDS: HYDROGEN PEROXIDE 3% 118 ML BOTTLE TP SCH ×2 (09:50→21:49)
--- NOTE | 2020-10-02 12:50 | NUR ---
PT. WAS SEEN NAD EXAMINED BY KYLER Giron AND AWARE OF TEMP 100.8F AND WITH NEW ORDERS CARRIED OUT.
[2020-10-02 13:08] LABS: BASOPHILS # (AUTO) 0.1 K/uL (0.0-8.0); BASOPHILS % (AUTO) 1.7 % (0.0-2.0); EOSINOPHILS % (AUTO) 0.5 % (0.0-7.0); HEMATOCRIT 28.6 % (31.2-41.9); HEMOGLOBIN 9.4 g/dL (10.9-14.3); LYMPHOCYTES # (AUTO) 0.8 K/uL (20.0-40.0); LYMPHOCYTES % (AUTO) 11.6 % (20.5-51.5); MEAN CORPUSCULAR HEMOGLOBIN 28.3 uug (24.7-32.8); MEAN CORPUSCULAR HGB CONC 33 g/dL (32.3-35.6); MEAN CORPUSCULAR VOLUME 86.2 fL (75.5-95.3); NEUTROPHILS % (AUTO) 71.2 % (38.5-71.5); PLATELET COUNT (AUTO) 186 K/uL (179-408); RED BLOOD CELL COUNT(AUTO) 3.31 MIL/uL (3.63-4.92)
[2020-10-02 13:23] LABS: BILIRUBIN,TOTAL 0.7 mg/dL (0.2-1.0); CREATININE 0.5 mg/dL (0.6-1.3); MAGNESIUM 1.8 mg/dL (1.8-2.4); POTASSIUM 4.2 mmol/L (3.5-5.1); TOTAL PROTEIN, SERUM 6.8 g/dL (6.4-8.2)
[2020-10-02] MEDS ORDERED: TPN IV SCH ×7 (14:00)
--- NOTE | 2020-10-02 16:16 | NUR ---
DR.ASHANI Gamble WAS CALLED RE:PT'S LOW GRADE TEMP.(SEE RECORD) AND ORDERS FROM KYLER Giron
--- NOTE | 2020-10-02 17:23 | NUR ---
JEANNINE Rehman) WAS NOTIFIED RE: PT. WITH TEMP 100.8 F AND WITH NEW ORDERS CARRIED OUT.
--- NOTE | 2020-10-02 18:35 | NUR ---
F/c was changed and urine specimen was sent to lab and blood was drawn for blood cx.
[2020-10-02 19:35] LABS: *BILIRUBIN,URIN NEGATIVE (NEGATIVE); *BLOOD, URINE 2+ (NEGATIVE); *CLARITY,URINE CLOUDY (CLEAR); *COLOR,URINE YELLOW (YELLOW); *KETONES,URINE NEGATIVE (NEGATIVE); LEUKOCYTE ESTERASE ,URINE 3+ (NEGATIVE); NITRITE, URINE NEGATIVE (NEGATIVE); PH,URINE 8.5 (5.0-8.0); UGLUCOSE NEGATIVE (NEGATIVE)
[2020-10-02 20:40] VITALS: BP 111/65
[2020-10-02 20:52] LABS: BACTERIA,URINE MODERATE /HPF (NONE SEEN); SQUAMOUS EPITHELIAL CELL,UR FEW /HPF (NONE SEEN); WBC,URINE TNTC /HPF (0-3)
[2020-10-03] MEDS ORDERED: [UNRECOGNIZED DRUG - REMARK] IV SCH ×2 (02:00)
[2020-10-03] MEDS: BLOOD SUGAR DIAGNOSTIC 1 EACH STRIP VI SCH ×4 (05:55→23:39)
[2020-10-03] MEDS: INSULIN REGULAR, HUMAN 300 UNIT/3 ML VIAL SQ SCH ×4 (05:55→17:30)
[2020-10-03] MEDS ORDERED: PANTOPRAZOLE ORAL SUSPENSION 40 MG SUSPDR.PKT GT SCH (07:12)
[2020-10-03 07:21] VITALS: BP 92/57
[2020-10-03 07:28] VITALS: BP 112/48
[2020-10-03] MEDS: ALBUTEROL SULFATE 2.5 MG/3 ML NEBU NEB SCH ×3 (07:35→23:01)
[2020-10-03] MEDS: IPRATROPIUM BROMIDE 0.5 MG/2.5 ML NEBU NEB SCH ×3 (07:35→23:01)
[2020-10-03] MEDS: HEPARIN SODIUM,PORCINE 5,000 UNITS/ML VIAL SQ SCH ×2 (08:48→21:00)
[2020-10-03] MEDS: HYDROGEN PEROXIDE 3% 118 ML BOTTLE TP SCH ×2 (09:00→21:00)
[2020-10-03] MEDS: COD LIVER OIL/ZINC OXIDE OINT 113 GM TUBE TP SCH ×2 (09:00→21:00)
[2020-10-03] MEDS: COD LIVER OIL/ZINC OXIDE OINT 113 GM TUBE TOP SCH ×2 (09:00→21:00)
[2020-10-03] MEDS: levETIRAcetam IV 500 MG in IV DEXTROSE 5% 100 ML IV SCH ×2 (09:09→20:47)
[2020-10-03] MEDS: FAMOTIDINE. 20 MG/2 ML VIAL IV SCH ×2 (09:09→20:47)
[2020-10-03] MEDS: NORMAL SALINE FLUSH 10 ML DISP.SYRIN IV SCH ×2 (09:10→20:47)
[2020-10-03] MEDS: LEVOTHYROXINE SODIUM 100 MCG VIAL IV SCH (09:10)
[2020-10-03] MEDS ORDERED: POTASSIUM CHLORIDE 50 ML IV SCH (13:00)
[2020-10-03] MEDS ORDERED: SODIUM ACETATE IV SCH ×6 (14:00)
[2020-10-03] MEDS ORDERED: [UNRECOGNIZED DRUG - OTHER] IV SCH ×6 (14:00)
[2020-10-03] MEDS ORDERED: SODIUM CHLORIDE IV SCH ×6 (14:00)
[2020-10-03] MEDS: POTASSIUM CHLORIDE 50 ML IV SCH ×6 (15:00→20:13)
--- NOTE | 2020-10-03 16:13 | NUR ---
INTERDISCIPLINARY PLAN OF CARE CONFERENCE was held today. Patient's brother Silvino and [facility] nurse Gricelda participated in the meeting by speaker phone. Dr. Kcoh and the Interdisciplinary Team reviewed the current plan of care in detail. RN reported on patient's medical condition, current treatments, and pending labs. See RN IDT conference notes. No major changes were reported by the other disciplines. See all other disciplines IDT notes and physician's progress notes for additional details. Silvino's and Gricelda's questions were addressed by the IDT team, and they both expressed being content with the current plan of care.
--- NOTE | 2020-10-03 17:48 | NUR ---
Continue on PPN at 80 cc/hr ,infusing well on the r femoral triple lumen,Lipids completed and new orders for K 60 meq iv for K 2.8,Seen by Kelsey Dunbar Np ,notified her pt has low grade temp yesterday ,she stated ,When Betzaida Cohen ,medical clear the patient ,Pt will get Radiology guided Jt placement.
[2020-10-03 20:14] VITALS: BP 140/60
[2020-10-04] MEDS: INSULIN REGULAR, HUMAN 300 UNIT/3 ML VIAL SQ SCH ×4 (00:44→17:04)
[2020-10-04] MEDS ORDERED: [UNRECOGNIZED DRUG - MIXTURE] IV SCH ×2 (02:00)
[2020-10-04] MEDS: BLOOD SUGAR DIAGNOSTIC 1 EACH STRIP VI SCH ×3 (05:38→17:04)
[2020-10-04 07:27] VITALS: BP 117/68
[2020-10-04] MEDS: ALBUTEROL SULFATE 2.5 MG/3 ML NEBU NEB SCH ×3 (07:27→22:36)
[2020-10-04] MEDS: IPRATROPIUM BROMIDE 0.5 MG/2.5 ML NEBU NEB SCH ×3 (07:27→22:36)
[2020-10-04] MEDS: HYDROGEN PEROXIDE 3% 118 ML BOTTLE TP SCH ×2 (07:27→21:43)
[2020-10-04] MEDS: HEPARIN SODIUM,PORCINE 5,000 UNITS/ML VIAL SQ SCH ×2 (08:17→20:44)
[2020-10-04] MEDS: COD LIVER OIL/ZINC OXIDE OINT 113 GM TUBE TOP SCH ×2 (08:17→20:44)
[2020-10-04] MEDS: COD LIVER OIL/ZINC OXIDE OINT 113 GM TUBE TP SCH ×2 (08:17→20:44)
[2020-10-04] MEDS: IV FAT EMULSIONS 20% 250 ML IV SCH (09:00)
[2020-10-04] MEDS: NORMAL SALINE FLUSH 10 ML DISP.SYRIN IV SCH ×2 (09:00→21:13)
[2020-10-04] MEDS: FAMOTIDINE. 20 MG/2 ML VIAL IV SCH ×2 (09:00→21:13)
[2020-10-04] MEDS: levETIRAcetam IV 500 MG in IV DEXTROSE 5% 100 ML IV SCH ×2 (09:00→21:13)
[2020-10-04] MEDS: LEVOTHYROXINE SODIUM 100 MCG VIAL IV SCH (09:00)
[2020-10-04] MEDS: POTASSIUM CHLORIDE 50 ML IV SCH ×2 (11:00→12:31)
[2020-10-04] MEDS ORDERED: TPN IV SCH ×8 (14:00)
--- NOTE | 2020-10-04 19:00 | NUR ---
Covid test done today,Left message to Silvino pt's brother.Continue on PPN at 80 cc/hr and lipids,potassium given as ordered.picc line on the r femoral triple lumen intact.
--- NOTE | 2020-10-04 19:00 | NUR ---
Message left to Noel Huston,notified her regarding,Kelsey hurtado NP,request a medical clearance to reinsert The JT by radiologist,Pt has a urine culture pending and has temp 2 days ago temp 100.8.Pt needs to transfer to [facility] for this procedure.
[2020-10-04 20:03] VITALS: BP 124/66
[2020-10-04] MEDS: CEFEPIME HCL 1 G in IV DEXTROSE 5% 50 ML IV SCH (22:00)
--- NOTE | 2020-10-04 22:04 | NUR ---
Seen with new orders from Betzaida Multani NP to recollect urine for U/A C&S, and to start on Cefepime 1 gram IVPB every 8 hours X 5 days per protocol, noted and carried out.
[2020-10-05] MEDS: BLOOD SUGAR DIAGNOSTIC 1 EACH STRIP VI SCH ×4 (00:47→17:08)
--- NOTE | 2020-10-05 01:02 | NUR ---
Still on TPN @ 80ml/hr, infusing well on right thigh, Lipids infusing well, keppra and Pepcid IV were given as ordered, Started on Cefepime IV for UTI, no adverse reactions noted, fluids given as ordered. Jo catheter draining well with yellow urine. Kept clean and comfortable.
[2020-10-05] MEDS ORDERED: LORAZEPAM 2 MG/1 ML VIAL IM ONE (02:00)
[2020-10-05] MEDS ORDERED: [UNRECOGNIZED DRUG - MIXTURE] IV SCH ×2 (02:00)
[2020-10-05] MEDS: LORAZEPAM 2 MG/1 ML VIAL IV PRN (02:00)
[2020-10-05] MEDS: CEFEPIME HCL 1 G in IV DEXTROSE 5% 50 ML IV SCH ×3 (05:39→22:29)
[2020-10-05] MEDS: INSULIN REGULAR, HUMAN 300 UNIT/3 ML VIAL SQ SCH ×4 (05:56→17:08)
[2020-10-05] MEDS: ALBUTEROL SULFATE 2.5 MG/3 ML NEBU NEB SCH ×3 (07:35→22:36)
[2020-10-05] MEDS: IPRATROPIUM BROMIDE 0.5 MG/2.5 ML NEBU NEB SCH ×3 (07:35→22:36)
[2020-10-05 07:37] VITALS: BP 139/90
[2020-10-05] MEDS: HEPARIN SODIUM,PORCINE 5,000 UNITS/ML VIAL SQ SCH ×2 (08:02→20:40)
[2020-10-05] MEDS: COD LIVER OIL/ZINC OXIDE OINT 113 GM TUBE TOP SCH ×2 (08:02→21:00)
[2020-10-05] MEDS: COD LIVER OIL/ZINC OXIDE OINT 113 GM TUBE TP SCH ×2 (08:02→21:00)
[2020-10-05] MEDS: FAMOTIDINE. 20 MG/2 ML VIAL IV SCH ×2 (09:00→21:08)
[2020-10-05] MEDS: NORMAL SALINE FLUSH 10 ML DISP.SYRIN IV SCH ×2 (09:00→21:08)
[2020-10-05] MEDS: levETIRAcetam IV 500 MG in IV DEXTROSE 5% 100 ML IV SCH ×2 (09:00→21:08)
[2020-10-05] MEDS: LEVOTHYROXINE SODIUM 100 MCG VIAL IV SCH (09:00)
[2020-10-05] MEDS: HYDROGEN PEROXIDE 3% 118 ML BOTTLE TP SCH ×2 (09:00→21:38)
[2020-10-05] MEDS ORDERED: TPN IV SCH ×7 (14:00)
[2020-10-05 19:50] VITALS: BP 139/74
--- NOTE | 2020-10-05 21:38 | NUR ---
Still on TPN @ 80ml/hr, infusing well on right thigh, keppra and Pepcid IV were given as ordered, Still on Cefepime IV for UTI, no adverse reactions noted, fluids given as ordered. Jo catheter draining well with yellow urine, good je care rendered. Kept clean and comfortable.
[2020-10-06] MEDS: BLOOD SUGAR DIAGNOSTIC 1 EACH STRIP VI SCH ×4 (00:31→17:46)
[2020-10-06] MEDS: INSULIN REGULAR, HUMAN 300 UNIT/3 ML VIAL SQ SCH ×4 (00:33→17:45)
[2020-10-06] MEDS ORDERED: [UNRECOGNIZED DRUG - MIXTURE] IV SCH ×2 (02:00)
[2020-10-06] MEDS: CEFEPIME HCL 1 G in IV DEXTROSE 5% 50 ML IV SCH ×3 (05:38→22:28)
[2020-10-06 07:40] VITALS: BP 130/62
[2020-10-06] MEDS: FAMOTIDINE. 20 MG/2 ML VIAL IV SCH ×2 (08:00→21:05)
[2020-10-06] MEDS: IV FAT EMULSIONS 20% 250 ML IV SCH (08:00)
[2020-10-06] MEDS: NORMAL SALINE FLUSH 10 ML DISP.SYRIN IV SCH ×2 (08:00→21:08)
[2020-10-06] MEDS: levETIRAcetam IV 500 MG in IV DEXTROSE 5% 100 ML IV SCH ×2 (08:00→21:08)
[2020-10-06] MEDS: LEVOTHYROXINE SODIUM 100 MCG VIAL IV SCH (08:01)
[2020-10-06] MEDS: IPRATROPIUM BROMIDE 0.5 MG/2.5 ML NEBU NEB SCH ×3 (08:17→23:46)
[2020-10-06] MEDS: ALBUTEROL SULFATE 2.5 MG/3 ML NEBU NEB SCH ×3 (08:17→23:46)
[2020-10-06] MEDS: HEPARIN SODIUM,PORCINE 5,000 UNITS/ML VIAL SQ SCH ×2 (08:36→20:25)
[2020-10-06] MEDS: COD LIVER OIL/ZINC OXIDE OINT 113 GM TUBE TOP SCH ×2 (08:37→21:00)
[2020-10-06] MEDS: HYDROGEN PEROXIDE 3% 118 ML BOTTLE TP SCH ×2 (08:37→21:00)
[2020-10-06] MEDS: COD LIVER OIL/ZINC OXIDE OINT 113 GM TUBE TP SCH ×2 (08:37→21:00)
[2020-10-06] MEDS ORDERED: TPN IV SCH ×8 (14:00)
[2020-10-06 19:20] VITALS: BP 129/65
[2020-10-07] MEDS: BLOOD SUGAR DIAGNOSTIC 1 EACH STRIP VI SCH ×4 (00:41→17:14)
[2020-10-07] MEDS ORDERED: [UNRECOGNIZED DRUG - MIXTURE] IV SCH ×2 (02:00)
[2020-10-07] MEDS: CEFEPIME HCL 1 G in IV DEXTROSE 5% 50 ML IV SCH ×3 (05:05→22:00)
[2020-10-07] MEDS: INSULIN REGULAR, HUMAN 300 UNIT/3 ML VIAL SQ SCH ×4 (05:49→17:14)
[2020-10-07 07:33] VITALS: BP_SYST 112; BP_SYST 147; BP_DIAS 66; BP_DIAS 74
[2020-10-07] MEDS: ALBUTEROL SULFATE 2.5 MG/3 ML NEBU NEB SCH ×3 (07:35→23:34)
[2020-10-07] MEDS: IPRATROPIUM BROMIDE 0.5 MG/2.5 ML NEBU NEB SCH ×3 (07:35→23:34)
[2020-10-07] MEDS: FAMOTIDINE. 20 MG/2 ML VIAL IV SCH ×2 (09:00→21:00)
[2020-10-07] MEDS: NORMAL SALINE FLUSH 10 ML DISP.SYRIN IV SCH ×2 (09:00→21:00)
[2020-10-07] MEDS: levETIRAcetam IV 500 MG in IV DEXTROSE 5% 100 ML IV SCH ×2 (09:00→21:00)
[2020-10-07] MEDS: HYDROGEN PEROXIDE 3% 118 ML BOTTLE TP SCH ×2 (09:00→21:00)
[2020-10-07] MEDS: LEVOTHYROXINE SODIUM 100 MCG VIAL IV SCH (09:00)
[2020-10-07 09:03] LABS: BASOPHILS % (AUTO) 0.3 % (0.0-2.0); EOSINOPHILS % (AUTO) 0.3 % (0.0-7.0); HEMATOCRIT 28.4 % (31.2-41.9); HEMOGLOBIN 9.2 g/dL (10.9-14.3); LYMPHOCYTES # (AUTO) 0.5 K/uL (20.0-40.0); LYMPHOCYTES % (AUTO) 6.2 % (20.5-51.5); MEAN CORPUSCULAR HEMOGLOBIN 27.3 uug (24.7-32.8); MEAN CORPUSCULAR HGB CONC 33 g/dL (32.3-35.6); MEAN CORPUSCULAR VOLUME 84.2 fL (75.5-95.3); MONOCYTES # (AUTO) 0.8 K/uL (2.0-10.0); MONOCYTES % (AUTO) 9.2 % (0.0-11.0); NEUTROPHILS # (AUTO) 6.9 K/uL (1.8-8.9); PLATELET COUNT (AUTO) 203 K/uL (179-408); RED BLOOD CELL COUNT(AUTO) 3.38 MIL/uL (3.63-4.92); WHITE BLOOD COUNT (AUTO) 8.2 K/uL (3.8-11.8)
[2020-10-07] MEDS: HEPARIN SODIUM,PORCINE 5,000 UNITS/ML VIAL SQ SCH ×2 (09:15→20:19)
[2020-10-07] MEDS: COD LIVER OIL/ZINC OXIDE OINT 113 GM TUBE TOP SCH ×2 (09:16→21:00)
[2020-10-07] MEDS: COD LIVER OIL/ZINC OXIDE OINT 113 GM TUBE TP SCH ×2 (09:16→21:00)
[2020-10-07 09:58] LABS: IRON, SERUM 15 ug/dL (50-175)
[2020-10-07 10:22] LABS: FERRITIN 147 ng/mL (8-252)
[2020-10-07] MEDS ORDERED: LORAZEPAM 2 MG/1 ML VIAL IM ONE (12:30)
[2020-10-07] MEDS: LORAZEPAM 2 MG/1 ML VIAL IV PRN (12:34)
[2020-10-07] MEDS ORDERED: TPN IV SCH ×8 (14:00)
--- NOTE | 2020-10-07 17:18 | NUR ---
Continue on PPn at 80 cc/hr,lipids on MWF,on ivatb for UTI,no adverse reaction noted,R femoral triple lumen picc line intact,no redness noted.
[2020-10-07 19:10] VITALS: BP 102/51
--- NOTE | 2020-10-07 21:30 | NUR ---
MESSAGE LEFT TO JEANNINE DUNCAN FOR LAB RESULT WITH NEW ORDER.
[2020-10-07] MEDS: MEROPENEM 0.5 G in IV NORMAL SALINE 50 ML IV SCH (22:00)
[2020-10-07] MEDS: AMPICILLIN IV 1 G in IV NORMAL SALINE 50 ML IV SCH (22:00)
[2020-10-08] MEDS: BLOOD SUGAR DIAGNOSTIC 1 EACH STRIP VI SCH ×5 (00:35→23:46)
[2020-10-08] MEDS ORDERED: [UNRECOGNIZED DRUG - REMARK] IV SCH ×2 (02:00)
[2020-10-08] MEDS: MEROPENEM 0.5 G in IV NORMAL SALINE 50 ML IV SCH ×3 (05:41→21:13)
[2020-10-08] MEDS: AMPICILLIN IV 1 G in IV NORMAL SALINE 50 ML IV SCH ×3 (05:41→21:13)
[2020-10-08] MEDS: INSULIN REGULAR, HUMAN 300 UNIT/3 ML VIAL SQ SCH ×5 (05:43→23:46)
[2020-10-08] MEDS: IPRATROPIUM BROMIDE 0.5 MG/2.5 ML NEBU NEB SCH ×3 (07:35→22:36)
[2020-10-08] MEDS: ALBUTEROL SULFATE 2.5 MG/3 ML NEBU NEB SCH ×3 (07:35→22:36)
[2020-10-08 07:54] VITALS: BP 103/47
[2020-10-08] MEDS: COD LIVER OIL/ZINC OXIDE OINT 113 GM TUBE TOP SCH ×2 (08:17→20:44)
[2020-10-08] MEDS: HEPARIN SODIUM,PORCINE 5,000 UNITS/ML VIAL SQ SCH ×2 (08:18→20:44)
[2020-10-08] MEDS: COD LIVER OIL/ZINC OXIDE OINT 113 GM TUBE TP SCH ×2 (08:18→20:44)
[2020-10-08] MEDS: HYDROGEN PEROXIDE 3% 118 ML BOTTLE TP SCH ×2 (08:44→21:35)
[2020-10-08] MEDS: FAMOTIDINE. 20 MG/2 ML VIAL IV SCH ×2 (09:22→21:00)
[2020-10-08] MEDS: NORMAL SALINE FLUSH 10 ML DISP.SYRIN IV SCH ×2 (09:22→20:44)
[2020-10-08] MEDS: levETIRAcetam IV 500 MG in IV DEXTROSE 5% 100 ML IV SCH ×2 (09:22→21:12)
[2020-10-08] MEDS: LEVOTHYROXINE SODIUM 100 MCG VIAL IV SCH (09:23)
[2020-10-08] MEDS ORDERED: TPN IV SCH ×8 (14:00)
--- NOTE | 2020-10-08 17:19 | NUR ---
Patient continues on TPN and IV medications. Patient also continues on Cefepime IV for UTI. No ASE noted. Tolerating ATB therapy well. No pain/discomfort noted. Remains Afebrile. No SOB noted. All needs met. Will continue to monitor.
--- NOTE | 2020-10-08 17:58 | NUR ---
Continue on Tpn at 80 cc/hr,infusing well on the R femoral,no s/s of infection noted,Iv site dressing intact,on ivatb for Uti,no adverse reaction noted,on isolation precaution for Esbl in urine.
--- NOTE | 2020-10-08 19:45 | NUR ---
Dawood Pt's brother notified regarding Covid 19 results negative,and pt continue on Ivatb for uti,He agreed with plan of care.
[2020-10-08 20:08] VITALS: BP 107/49
[2020-10-09] MEDS: LORAZEPAM 2 MG/1 ML VIAL IV PRN (01:00)
[2020-10-09] MEDS ORDERED: LORAZEPAM 2 MG/1 ML VIAL IM ONE (01:00)
[2020-10-09] MEDS ORDERED: [UNRECOGNIZED DRUG - MIXTURE] IV SCH ×2 (02:00)
--- NOTE | 2020-10-09 02:02 | NUR ---
Patient is on TPN @ 80ml/Hr infusing well on right thigh, Keppra and Pepcid IV given as ordered, on Ampicillin and Merrem IV for UTI; ESBL in the urine, no adverse reactions noted. On contact isolation precaution for ESBL in the urine, Jo catheter is draining well to yellow urine, good je care rendered old GT stoma is still draining with bile color drainage, turned and repositioned, kept clean and comfortable.
[2020-10-09] MEDS: INSULIN REGULAR, HUMAN 300 UNIT/3 ML VIAL SQ SCH ×3 (05:00→17:45)
[2020-10-09] MEDS: BLOOD SUGAR DIAGNOSTIC 1 EACH STRIP VI SCH ×3 (05:01→17:45)
[2020-10-09] MEDS: MEROPENEM 0.5 G in IV NORMAL SALINE 50 ML IV SCH ×3 (05:13→21:21)
[2020-10-09] MEDS: AMPICILLIN IV 1 G in IV NORMAL SALINE 50 ML IV SCH ×3 (05:13→21:21)
[2020-10-09] MEDS: IPRATROPIUM BROMIDE 0.5 MG/2.5 ML NEBU NEB SCH ×3 (07:40→23:14)
[2020-10-09] MEDS: ALBUTEROL SULFATE 2.5 MG/3 ML NEBU NEB SCH ×3 (07:40→23:14)
[2020-10-09 07:50] VITALS: BP 120/60
[2020-10-09] MEDS: IV FAT EMULSIONS 20% 250 ML IV SCH (09:00)
[2020-10-09] MEDS: HYDROGEN PEROXIDE 3% 118 ML BOTTLE TP SCH ×2 (09:05→21:00)
[2020-10-09] MEDS: COD LIVER OIL/ZINC OXIDE OINT 113 GM TUBE TP SCH ×2 (09:08→21:00)
[2020-10-09] MEDS: COD LIVER OIL/ZINC OXIDE OINT 113 GM TUBE TOP SCH ×2 (09:08→21:00)
[2020-10-09] MEDS: FAMOTIDINE. 20 MG/2 ML VIAL IV SCH ×2 (09:25→21:21)
[2020-10-09] MEDS: LEVOTHYROXINE SODIUM 100 MCG VIAL IV SCH (09:25)
[2020-10-09] MEDS: NORMAL SALINE FLUSH 10 ML DISP.SYRIN IV SCH ×2 (09:25→21:21)
[2020-10-09] MEDS: levETIRAcetam IV 500 MG in IV DEXTROSE 5% 100 ML IV SCH ×2 (09:25→21:21)
[2020-10-09] MEDS: HEPARIN SODIUM,PORCINE 5,000 UNITS/ML VIAL SQ SCH ×2 (09:47→21:00)
--- NOTE | 2020-10-09 10:00 | NUR ---
SERAFIN KEARNEY FROM [facility] CALLED AND REQUESTED INFORMATION ABOUT CURRENT PT'S CONDITION AND AWARE OF THE FOLLOWING :STABLE ,STABLE V/S ,ON IV TAB FOR UTI ESBL IN URINE ,AFEBRILE IMPROVED REDNESS SURROUNDING ABDOMINAL STOMA.PROCEDURE PENDING FOR GT RADIOLOGY GUIDED PLACEMENT.
[2020-10-09] MEDS ORDERED: TPN IV SCH ×8 (14:00)
[2020-10-09 20:09] VITALS: BP 119/59
[2020-10-09 22:21] LABS: *OCCULT BLOOD STOOL NEGATIVE (NEGATIVE)
--- NOTE | 2020-10-09 22:40 | NUR ---
PT CONTINUE ON ATB IVPB Q8 HRS FOR UTI.NO A/R NOTED ON TPN 80ML/HRS KEEP CLEAN AND DRY PICC LINE SITE. ON ISOLATION FOR ESBL URINE.
[2020-10-10] MEDS ORDERED: [UNRECOGNIZED DRUG - MIXTURE] IV SCH ×2 (02:00)
--- NOTE | 2020-10-10 02:12 | NUR ---
Lipid is infusing well, Patient is on TPN @ 80ml/Hr infusing well on right thigh, Keppra and Pepcid IV given as ordered, on Ampicillin and Merrem IV for ESBL in the urine, no adverse reactions noted. On contact isolation precaution for ESBL in the urine, Jo catheter is draining well to yellow urine, good je care rendered old GT stoma is still draining with bile color drainage, turned and repositioned, kept clean and comfortable.
[2020-10-10] MEDS: MEROPENEM 0.5 G in IV NORMAL SALINE 50 ML IV SCH ×3 (05:26→22:07)
[2020-10-10] MEDS: AMPICILLIN IV 1 G in IV NORMAL SALINE 50 ML IV SCH ×3 (05:26→22:08)
[2020-10-10] MEDS: INSULIN REGULAR, HUMAN 300 UNIT/3 ML VIAL SQ SCH ×4 (05:28→17:42)
[2020-10-10] MEDS: BLOOD SUGAR DIAGNOSTIC 1 EACH STRIP VI SCH ×4 (05:29→17:42)
[2020-10-10 07:17] VITALS: BP 125/61
[2020-10-10 07:50] LABS: BASOPHILS % (AUTO) 0.4 % (0.0-2.0); EOSINOPHILS # (AUTO) 0.2 K/uL (0.0-0.7); EOSINOPHILS % (AUTO) 5.3 % (0.0-7.0); HEMATOCRIT 26.1 % (31.2-41.9); HEMOGLOBIN 8.6 g/dL (10.9-14.3); LYMPHOCYTES # (AUTO) 1.2 K/uL (20.0-40.0); LYMPHOCYTES % (AUTO) 25.6 % (20.5-51.5); MEAN CORPUSCULAR HEMOGLOBIN 27.4 uug (24.7-32.8); MEAN CORPUSCULAR HGB CONC 33 g/dL (32.3-35.6); MEAN CORPUSCULAR VOLUME 83.4 fL (75.5-95.3); MONOCYTES # (AUTO) 0.5 K/uL (2.0-10.0); MONOCYTES % (AUTO) 11.3 % (0.0-11.0); NEUTROPHILS # (AUTO) 2.7 K/uL (1.8-8.9); NEUTROPHILS % (AUTO) 57.4 % (38.5-71.5); PLATELET COUNT (AUTO) 239 K/uL (179-408); RED BLOOD CELL COUNT(AUTO) 3.13 MIL/uL (3.63-4.92); WHITE BLOOD COUNT (AUTO) 4.8 K/uL (3.8-11.8)
[2020-10-10 07:57] LABS: CREATININE 0.6 mg/dL (0.6-1.3); MAGNESIUM 1.9 mg/dL (1.8-2.4); PHOSPHOROUS 2.6 mg/dL (2.5-4.9); POTASSIUM 4.1 mmol/L (3.5-5.1)
[2020-10-10] MEDS: IPRATROPIUM BROMIDE 0.5 MG/2.5 ML NEBU NEB SCH ×3 (08:01→23:43)
[2020-10-10] MEDS: ALBUTEROL SULFATE 2.5 MG/3 ML NEBU NEB SCH ×3 (08:01→23:43)
[2020-10-10] MEDS: COD LIVER OIL/ZINC OXIDE OINT 113 GM TUBE TOP SCH ×2 (08:38→21:43)
[2020-10-10] MEDS: COD LIVER OIL/ZINC OXIDE OINT 113 GM TUBE TP SCH ×2 (08:38→21:44)
[2020-10-10] MEDS: HEPARIN SODIUM,PORCINE 5,000 UNITS/ML VIAL SQ SCH ×2 (08:40→21:43)
[2020-10-10] MEDS: HYDROGEN PEROXIDE 3% 118 ML BOTTLE TP SCH ×2 (08:56→21:05)
[2020-10-10] MEDS: levETIRAcetam IV 500 MG in IV DEXTROSE 5% 100 ML IV SCH ×2 (09:00→21:01)
[2020-10-10] MEDS: FAMOTIDINE. 20 MG/2 ML VIAL IV SCH ×2 (09:00→21:01)
[2020-10-10] MEDS: LEVOTHYROXINE SODIUM 100 MCG VIAL IV SCH (09:00)
[2020-10-10] MEDS: NORMAL SALINE FLUSH 10 ML DISP.SYRIN IV SCH ×2 (09:00→21:01)
--- NOTE | 2020-10-10 10:52 | NUR ---
Seen and examined by Dr Davidson ,no new orders.
--- NOTE | 2020-10-10 13:01 | NUR ---
New orders noted from Dr Davidson for Ferrlicit Iv for low Iron,carried out.
[2020-10-10] MEDS ORDERED: TPN IV SCH ×8 (14:00)
[2020-10-10] MEDS ORDERED: SOD FERRIC GLUC COMPLX/SUCROSE 125 MG in IV NORMAL SALINE 100 ML IV SCH (14:00)
[2020-10-10] MEDS: SOD FERRIC GLUC COMPLX/SUCROSE 125 MG in IV NORMAL SALINE 100 ML IV SCH (17:57)
--- NOTE | 2020-10-10 17:58 | NUR ---
Continue on PPN at 80 cc/hr,on Ivatb,no adverse reaction noted ,given for uti,picc line on the R thigh triple lumen intact.
[2020-10-10 19:59] VITALS: BP 119/52
[2020-10-11] MEDS: BLOOD SUGAR DIAGNOSTIC 1 EACH STRIP VI SCH ×4 (00:55→17:07)
[2020-10-11] MEDS ORDERED: [UNRECOGNIZED DRUG - MIXTURE] IV SCH ×2 (02:00)
--- NOTE | 2020-10-11 03:03 | NUR ---
continue on merrem iv and ampicillin iv for esbl in urine, no adverse reaction noted, right thigh triple lumen picc line patent, flushed per protocol.
[2020-10-11] MEDS: INSULIN REGULAR, HUMAN 300 UNIT/3 ML VIAL SQ SCH ×4 (05:29→17:10)
[2020-10-11] MEDS: AMPICILLIN IV 1 G in IV NORMAL SALINE 50 ML IV SCH ×3 (05:58→22:07)
[2020-10-11] MEDS: MEROPENEM 0.5 G in IV NORMAL SALINE 50 ML IV SCH ×3 (05:58→22:06)
[2020-10-11 07:16] VITALS: BP 123/69
[2020-10-11 07:19] LABS: CREATININE 0.6 mg/dL (0.6-1.3); PHOSPHOROUS 2.8 mg/dL (2.5-4.9); POTASSIUM 4.1 mmol/L (3.5-5.1)
[2020-10-11] MEDS: ALBUTEROL SULFATE 2.5 MG/3 ML NEBU NEB SCH ×3 (07:49→22:30)
[2020-10-11] MEDS: HYDROGEN PEROXIDE 3% 118 ML BOTTLE TP SCH ×2 (07:49→21:45)
[2020-10-11] MEDS: IPRATROPIUM BROMIDE 0.5 MG/2.5 ML NEBU NEB SCH ×3 (07:49→22:30)
[2020-10-11] MEDS: IV FAT EMULSIONS 20% 250 ML IV SCH (08:10)
[2020-10-11] MEDS: LEVOTHYROXINE SODIUM 100 MCG VIAL IV SCH (08:11)
[2020-10-11] MEDS: levETIRAcetam IV 500 MG in IV DEXTROSE 5% 100 ML IV SCH ×2 (08:11→20:53)
[2020-10-11] MEDS: FAMOTIDINE. 20 MG/2 ML VIAL IV SCH ×2 (08:11→20:53)
[2020-10-11] MEDS: NORMAL SALINE FLUSH 10 ML DISP.SYRIN IV SCH ×2 (08:11→20:53)
[2020-10-11] MEDS: HEPARIN SODIUM,PORCINE 5,000 UNITS/ML VIAL SQ SCH ×2 (08:24→21:43)
[2020-10-11] MEDS: COD LIVER OIL/ZINC OXIDE OINT 113 GM TUBE TP SCH ×2 (08:26→21:43)
[2020-10-11] MEDS: COD LIVER OIL/ZINC OXIDE OINT 113 GM TUBE TOP SCH ×2 (08:26→21:43)
[2020-10-11] MEDS ORDERED: [UNRECOGNIZED DRUG - OTHER] IV SCH ×18 (14:00)
[2020-10-11] MEDS ORDERED: SODIUM ACETATE IV SCH ×18 (14:00)
[2020-10-11] MEDS ORDERED: SODIUM CHLORIDE IV SCH ×18 (14:00)
[2020-10-11] MEDS: SOD FERRIC GLUC COMPLX/SUCROSE 125 MG in IV NORMAL SALINE 100 ML IV SCH (14:53)
--- NOTE | 2020-10-11 15:00 | NUR ---
Seen and examined by Kelsey Dunbar Internal Security Manager ,no new orders noted.
--- NOTE | 2020-10-11 18:00 | NUR ---
Continue on PPn at 80 cc/hr ,lipids ,Ferrlicit IV x 5 days and Ivatb for Uti,no adverse reaction noted.
--- NOTE | 2020-10-11 19:38 | NUR ---
Covid 19 test done today.Silvino pt's brother notified.
[2020-10-11 20:00] VITALS: BP 132/67
[2020-10-12] MEDS: BLOOD SUGAR DIAGNOSTIC 1 EACH STRIP VI SCH ×4 (00:26→17:39)
[2020-10-12] MEDS ORDERED: [UNRECOGNIZED DRUG - REMARK] IV SCH ×2 (02:00)
[2020-10-12] MEDS: INSULIN REGULAR, HUMAN 300 UNIT/3 ML VIAL SQ SCH ×4 (05:57→17:38)
[2020-10-12] MEDS: AMPICILLIN IV 1 G in IV NORMAL SALINE 50 ML IV SCH ×3 (06:06→22:04)
[2020-10-12] MEDS: MEROPENEM 0.5 G in IV NORMAL SALINE 50 ML IV SCH ×3 (06:06→22:04)
[2020-10-12] MEDS: HYDROGEN PEROXIDE 3% 118 ML BOTTLE TP SCH ×2 (07:45→21:44)
[2020-10-12] MEDS: ALBUTEROL SULFATE 2.5 MG/3 ML NEBU NEB SCH ×3 (07:45→22:30)
[2020-10-12] MEDS: IPRATROPIUM BROMIDE 0.5 MG/2.5 ML NEBU NEB SCH ×3 (07:45→22:30)
[2020-10-12 07:49] VITALS: BP 122/70
[2020-10-12 08:18] LABS: CREATININE 0.5 mg/dL (0.6-1.3); MAGNESIUM 2.2 mg/dL (1.8-2.4); PHOSPHOROUS 2.5 mg/dL (2.5-4.9); POTASSIUM 4.3 mmol/L (3.5-5.1)
[2020-10-12] MEDS: NORMAL SALINE FLUSH 10 ML DISP.SYRIN IV SCH ×2 (08:22→21:03)
[2020-10-12] MEDS: levETIRAcetam IV 500 MG in IV DEXTROSE 5% 100 ML IV SCH ×2 (08:22→21:03)
[2020-10-12] MEDS: FAMOTIDINE. 20 MG/2 ML VIAL IV SCH ×2 (08:22→21:03)
[2020-10-12] MEDS: LEVOTHYROXINE SODIUM 100 MCG VIAL IV SCH (08:22)
[2020-10-12] MEDS: COD LIVER OIL/ZINC OXIDE OINT 113 GM TUBE TP SCH ×2 (09:00→21:12)
[2020-10-12] MEDS: COD LIVER OIL/ZINC OXIDE OINT 113 GM TUBE TOP SCH ×2 (09:00→21:12)
[2020-10-12] MEDS: HEPARIN SODIUM,PORCINE 5,000 UNITS/ML VIAL SQ SCH ×2 (09:01→21:15)
[2020-10-12] MEDS ORDERED: SODIUM CHLORIDE IV SCH ×9 (10:15)
[2020-10-12] MEDS ORDERED: SODIUM ACETATE IV SCH ×9 (10:15)
[2020-10-12] MEDS ORDERED: [UNRECOGNIZED DRUG - OTHER] IV SCH ×9 (10:15)
--- NOTE | 2020-10-12 12:00 | NUR ---
SEEN BY KYLER Giron AND WITH NNO.
[2020-10-12] MEDS ORDERED: TPN IV SCH ×9 (14:00)
--- NOTE | 2020-10-12 14:09 | NUR ---
SARA called patient's brother Silvino, . Silvino was not available, and therefore this SW left Silvino a voicemail message letting him know that the next IDT meeting for the patient is scheduled for 10/17 at 11am. SARA asked Silvino to call this SW back to let her know if Silvino would like to participate in the meeting by speaker phone. SARA also informed Silvino in the voicemail that patient's annual admission forms were due for review and signature, asking Silvino to let this SW know how SW could get these forms to Silvino. SW waiting to hear back from Silvino, and will follow-up, as needed.
[2020-10-12] MEDS: SOD FERRIC GLUC COMPLX/SUCROSE 125 MG in IV NORMAL SALINE 100 ML IV SCH (15:00)
[2020-10-12 20:00] VITALS: BP 111/61
[2020-10-13] MEDS: BLOOD SUGAR DIAGNOSTIC 1 EACH STRIP VI SCH ×5 (00:17→23:09)
[2020-10-13] MEDS ORDERED: [UNRECOGNIZED DRUG - REMARK] IV SCH ×2 (02:00)
[2020-10-13] MEDS: INSULIN REGULAR, HUMAN 300 UNIT/3 ML VIAL SQ SCH ×5 (05:28→23:09)
[2020-10-13] MEDS: MEROPENEM 0.5 G in IV NORMAL SALINE 50 ML IV SCH ×3 (06:12→21:20)
[2020-10-13] MEDS: AMPICILLIN IV 1 G in IV NORMAL SALINE 50 ML IV SCH ×3 (06:12→21:20)
[2020-10-13] MEDS: ALBUTEROL SULFATE 2.5 MG/3 ML NEBU NEB SCH ×3 (07:10→22:38)
[2020-10-13] MEDS: IPRATROPIUM BROMIDE 0.5 MG/2.5 ML NEBU NEB SCH ×3 (07:10→22:38)
[2020-10-13 07:25] LABS: CREATININE 0.5 mg/dL (0.6-1.3); PHOSPHOROUS 3.1 mg/dL (2.5-4.9); POTASSIUM 4.3 mmol/L (3.5-5.1)
[2020-10-13 07:41] VITALS: BP 120/60
[2020-10-13] MEDS: NORMAL SALINE FLUSH 10 ML DISP.SYRIN IV SCH ×2 (08:40→20:23)
[2020-10-13] MEDS: FAMOTIDINE. 20 MG/2 ML VIAL IV SCH ×2 (08:40→20:23)
[2020-10-13] MEDS: levETIRAcetam IV 500 MG in IV DEXTROSE 5% 100 ML IV SCH ×2 (08:40→20:23)
[2020-10-13] MEDS: IV FAT EMULSIONS 20% 250 ML IV SCH (08:40)
[2020-10-13] MEDS: LEVOTHYROXINE SODIUM 100 MCG VIAL IV SCH (08:41)
[2020-10-13] MEDS: HEPARIN SODIUM,PORCINE 5,000 UNITS/ML VIAL SQ SCH ×2 (08:59→20:26)
[2020-10-13] MEDS: COD LIVER OIL/ZINC OXIDE OINT 113 GM TUBE TOP SCH ×2 (08:59→20:07)
[2020-10-13] MEDS: COD LIVER OIL/ZINC OXIDE OINT 113 GM TUBE TP SCH ×2 (08:59→20:07)
[2020-10-13] MEDS: HYDROGEN PEROXIDE 3% 118 ML BOTTLE TP SCH ×2 (09:16→21:40)
--- NOTE | 2020-10-13 11:31 | NUR ---
PT'S BROTHER WAS NOTIFIED RE: COVID 19 TEST RESULT NEGATIVE FROM 10/11/20.
[2020-10-13] MEDS ORDERED: TPN IV SCH ×8 (14:00)
[2020-10-13] MEDS: SOD FERRIC GLUC COMPLX/SUCROSE 125 MG in IV NORMAL SALINE 100 ML IV SCH (14:45)
[2020-10-13 20:00] VITALS: BP 119/82
[2020-10-14] MEDS ORDERED: [UNRECOGNIZED DRUG - REMARK] IV SCH ×2 (02:00)
[2020-10-14] MEDS: BLOOD SUGAR DIAGNOSTIC 1 EACH STRIP VI SCH ×4 (05:45→23:09)
[2020-10-14] MEDS: INSULIN REGULAR, HUMAN 300 UNIT/3 ML VIAL SQ SCH ×4 (05:45→23:08)
[2020-10-14 07:42] VITALS: BP 132/76
[2020-10-14] MEDS: HYDROGEN PEROXIDE 3% 118 ML BOTTLE TP SCH ×2 (08:15→21:43)
[2020-10-14] MEDS: ALBUTEROL SULFATE 2.5 MG/3 ML NEBU NEB SCH ×2 (08:15→22:36)
[2020-10-14] MEDS: IPRATROPIUM BROMIDE 0.5 MG/2.5 ML NEBU NEB SCH ×2 (08:15→22:36)
[2020-10-14] MEDS: HEPARIN SODIUM,PORCINE 5,000 UNITS/ML VIAL SQ SCH ×2 (08:24→20:19)
[2020-10-14] MEDS: COD LIVER OIL/ZINC OXIDE OINT 113 GM TUBE TOP SCH ×2 (08:27→21:06)
[2020-10-14] MEDS: COD LIVER OIL/ZINC OXIDE OINT 113 GM TUBE TP SCH ×2 (08:27→21:06)
[2020-10-14] MEDS: FAMOTIDINE. 20 MG/2 ML VIAL IV SCH ×2 (08:33→20:13)
[2020-10-14] MEDS: NORMAL SALINE FLUSH 10 ML DISP.SYRIN IV SCH ×2 (08:33→20:13)
[2020-10-14] MEDS: LEVOTHYROXINE SODIUM 100 MCG VIAL IV SCH (08:33)
[2020-10-14] MEDS: levETIRAcetam IV 500 MG in IV DEXTROSE 5% 100 ML IV SCH ×2 (08:33→20:13)
[2020-10-14 09:35] LABS: CREATININE 0.5 mg/dL (0.6-1.3); MAGNESIUM 2.1 mg/dL (1.8-2.4); PHOSPHOROUS 3.2 mg/dL (2.5-4.9); POTASSIUM 4.3 mmol/L (3.5-5.1)
[2020-10-14] MEDS ORDERED: TPN IV SCH ×8 (14:00)
[2020-10-14] MEDS: SOD FERRIC GLUC COMPLX/SUCROSE 125 MG in IV NORMAL SALINE 100 ML IV SCH (14:10)
[2020-10-14 20:16] VITALS: BP 134/54
[2020-10-15] MEDS ORDERED: [UNRECOGNIZED DRUG - MIXTURE] IV SCH ×2 (02:00)
[2020-10-15] MEDS: INSULIN REGULAR, HUMAN 300 UNIT/3 ML VIAL SQ SCH ×4 (05:49→23:18)
[2020-10-15] MEDS: BLOOD SUGAR DIAGNOSTIC 1 EACH STRIP VI SCH ×4 (05:49→23:18)
[2020-10-15] MEDS: IPRATROPIUM BROMIDE 0.5 MG/2.5 ML NEBU NEB SCH ×3 (07:35→22:30)
[2020-10-15] MEDS: ALBUTEROL SULFATE 2.5 MG/3 ML NEBU NEB SCH ×3 (07:35→22:30)
[2020-10-15 07:40] VITALS: BP 120/61
[2020-10-15 08:03] LABS: CREATININE 0.5 mg/dL (0.6-1.3); MAGNESIUM 2.1 mg/dL (1.8-2.4); PHOSPHOROUS 3.7 mg/dL (2.5-4.9); POTASSIUM 4.5 mmol/L (3.5-5.1)
[2020-10-15] MEDS: COD LIVER OIL/ZINC OXIDE OINT 113 GM TUBE TOP SCH ×2 (08:37→20:30)
[2020-10-15] MEDS: HEPARIN SODIUM,PORCINE 5,000 UNITS/ML VIAL SQ SCH ×2 (08:37→20:30)
[2020-10-15] MEDS: COD LIVER OIL/ZINC OXIDE OINT 113 GM TUBE TP SCH ×2 (08:37→20:30)
[2020-10-15] MEDS: FAMOTIDINE. 20 MG/2 ML VIAL IV SCH ×2 (09:10→21:00)
[2020-10-15] MEDS: NORMAL SALINE FLUSH 10 ML DISP.SYRIN IV SCH ×2 (09:10→21:00)
[2020-10-15] MEDS: levETIRAcetam IV 500 MG in IV DEXTROSE 5% 100 ML IV SCH ×2 (09:10→21:00)
[2020-10-15] MEDS: LEVOTHYROXINE SODIUM 100 MCG VIAL IV SCH (09:10)
[2020-10-15] MEDS: HYDROGEN PEROXIDE 3% 118 ML BOTTLE TP SCH ×2 (09:51→21:46)
[2020-10-15] MEDS ORDERED: TPN IV SCH ×8 (14:00)
[2020-10-15 20:04] VITALS: BP 137/97
[2020-10-16] MEDS ORDERED: [UNRECOGNIZED DRUG - MIXTURE] IV SCH ×2 (02:00)
[2020-10-16] MEDS: BLOOD SUGAR DIAGNOSTIC 1 EACH STRIP VI SCH ×3 (05:19→17:43)
[2020-10-16] MEDS: INSULIN REGULAR, HUMAN 300 UNIT/3 ML VIAL SQ SCH ×3 (05:19→17:42)
[2020-10-16 07:25] VITALS: BP 142/73
[2020-10-16] MEDS: ALBUTEROL SULFATE 2.5 MG/3 ML NEBU NEB SCH ×3 (07:35→23:21)
[2020-10-16] MEDS: IPRATROPIUM BROMIDE 0.5 MG/2.5 ML NEBU NEB SCH ×3 (07:35→23:21)
[2020-10-16 08:03] LABS: CREATININE 0.6 mg/dL (0.6-1.3); MAGNESIUM 2.1 mg/dL (1.8-2.4); PHOSPHOROUS 3.6 mg/dL (2.5-4.9); POTASSIUM 4.1 mmol/L (3.5-5.1)
[2020-10-16] MEDS: HEPARIN SODIUM,PORCINE 5,000 UNITS/ML VIAL SQ SCH ×2 (08:27→21:00)
[2020-10-16] MEDS: COD LIVER OIL/ZINC OXIDE OINT 113 GM TUBE TP SCH ×2 (08:28→21:04)
[2020-10-16] MEDS: COD LIVER OIL/ZINC OXIDE OINT 113 GM TUBE TOP SCH ×2 (08:28→21:04)
[2020-10-16] MEDS: NORMAL SALINE FLUSH 10 ML DISP.SYRIN IV SCH ×2 (09:00→21:07)
[2020-10-16] MEDS: levETIRAcetam IV 500 MG in IV DEXTROSE 5% 100 ML IV SCH ×2 (09:00→21:07)
[2020-10-16] MEDS: FAMOTIDINE. 20 MG/2 ML VIAL IV SCH ×2 (09:00→21:07)
[2020-10-16] MEDS: IV FAT EMULSIONS 20% 250 ML IV SCH (09:00)
[2020-10-16] MEDS: LEVOTHYROXINE SODIUM 100 MCG VIAL IV SCH (09:00)
[2020-10-16] MEDS: HYDROGEN PEROXIDE 3% 118 ML BOTTLE TP SCH ×2 (09:17→21:00)
--- NOTE | 2020-10-16 11:00 | NUR ---
SERAFIN KEARNEY FROM [facility] CALLED AND UPDATED WITH MEDICAL INFORMATION ,PT.WITH STABLE V/S , S/P IV ATB TX AND S/P IV IRON THERAPY AND STOMA SURROUNDING SKIN WITH GREAT IMPROVEMENT AND CURRENTLY USING OSTOMY BAG.PENDING PROCEEDING TO TRANSFER PT. TO [facility] FOR PROCEDURE TO BE DONE AT THE RADIOLOGY DEPARTAMENT (INTERVENTION RADIOLOGY GUIDED FEEDING TUBE PLACEMENT USING PREVIUS ENTEROCUTANEOUS FISTULA.)WILL F/U WITH PRIMARY MD.
[2020-10-16] MEDS: LORAZEPAM 2 MG/1 ML VIAL IV PRN (11:30)
[2020-10-16] MEDS ORDERED: LORAZEPAM 2 MG/1 ML VIAL IM ONE (11:30)
--- NOTE | 2020-10-16 13:45 | NUR ---
DR CK CALLED RE NEW ORDER NOTED AND CARRIED OUT. RT MADE AWARE.
--- NOTE | 2020-10-16 13:45 | NUR ---
TRACH CHANGE ORDERED PER DR. KC. PORTEX 7 CHANGED TO SHILEY 8 DCT DUE TO EXCESSIVE LEAK AROUND TRACH SITE. TRACH CHANGE ASSISTED BY RT CARLOS ALBERTOIT. PATIENT TOLERATED CHANGE WELL. NO BLEEDING NOTED. NO S/S OF RESPIRATORY DISTRESS OBSERVED DURING OR AFTER TRACH CHANGE. VENT SETTINGS REMAIN THE SAME. CHARGE NURSE AUNG MADE AWARE. AMBU BAG AND BACK-UP SHILEY 8 DCT TRACH ARE AT BEDSIDE. WILL CONTINUE TO MONITOR PT.
[2020-10-16] MEDS ORDERED: TPN IV SCH ×8 (14:00)
--- NOTE | 2020-10-16 14:00 | NUR ---
TRACH CHANGED BY RT ROGERT AND TATIANNA TO MIGUEL #8 DCT AND WELL TOLERATED,NO S/S OF ANY ACUTE RESPIRATORY DISTRESS.
--- NOTE | 2020-10-16 15:00 | NUR ---
PT. WAS SEEN AND EXAMINED BY DR. CATHY Gamble AND WITH NEW ORDERS CARRIED OUT ,HE STATED THAT PT.IS READY FOR PROCEDURE AT RADIOLOGY DEPARTMENT FOR INTERVENTION RADIOLOGY GUIDED FEEDING TUBE PLACEMENT USING PREVIOUS ENTEROCUTANEOUS FISTULA.
[2020-10-16 19:49] VITALS: BP 163/91
--- NOTE | 2020-10-16 21:00 | NUR ---
Found pt turn blue after clean and turn position.Ambu was bagging by rt [id number]% v/s temp 97.8 p100/min bp 148/89mmhg.continue monitor for change of condition on tpn 80ml/hrs no s/s hypo or hyperglycemia.
[2020-10-17] VITALS (7 sets, daily range): BP systolic 130–186; BP diastolic 68–102
[2020-10-17] MEDS: BLOOD SUGAR DIAGNOSTIC 1 EACH STRIP VI SCH ×4 (00:57→23:22)
[2020-10-17] MEDS: INSULIN REGULAR, HUMAN 300 UNIT/3 ML VIAL SQ SCH ×4 (00:58→23:23)
[2020-10-17] MEDS ORDERED: [UNRECOGNIZED DRUG - MIXTURE] IV SCH ×2 (02:00)
[2020-10-17] MEDS: LORAZEPAM 2 MG/1 ML VIAL IV PRN ×2 (06:26→20:00)
[2020-10-17 07:42] LABS: CREATININE 0.6 mg/dL (0.6-1.3); MAGNESIUM 2.1 mg/dL (1.8-2.4); PHOSPHOROUS 3.7 mg/dL (2.5-4.9); POTASSIUM 4.3 mmol/L (3.5-5.1)
[2020-10-17] MEDS: ALBUTEROL SULFATE 2.5 MG/3 ML NEBU NEB SCH ×2 (07:45→16:19)
[2020-10-17] MEDS: IPRATROPIUM BROMIDE 0.5 MG/2.5 ML NEBU NEB SCH ×2 (07:45→16:19)
[2020-10-17 08:44] LABS: BASOPHILS % (AUTO) 0.2 % (0.0-2.0); EOSINOPHILS % (AUTO) 0.1 % (0.0-7.0); HEMATOCRIT 32.2 % (31.2-41.9); HEMOGLOBIN 10.8 g/dL (10.9-14.3); LYMPHOCYTES # (AUTO) 0.8 K/uL (20.0-40.0); LYMPHOCYTES % (AUTO) 6.7 % (20.5-51.5); MEAN CORPUSCULAR HGB CONC 34 g/dL (32.3-35.6); MEAN CORPUSCULAR VOLUME 86.3 fL (75.5-95.3); MONOCYTES # (AUTO) 0.9 K/uL (2.0-10.0); MONOCYTES % (AUTO) 7.5 % (0.0-11.0); NEUTROPHILS # (AUTO) 10.3 K/uL (1.8-8.9); NEUTROPHILS % (AUTO) 85.5 % (38.5-71.5); PLATELET COUNT (AUTO) 214 K/uL (179-408); RED BLOOD CELL COUNT(AUTO) 3.73 MIL/uL (3.63-4.92)
[2020-10-17] MEDS: HEPARIN SODIUM,PORCINE 5,000 UNITS/ML VIAL SQ SCH ×2 (09:00→21:00)
--- NOTE | 2020-10-17 09:00 | NUR ---
Pt cough out blood with blood clots,RR32.O2 sat 94%,t 98.1,Bp 180/86,p 95,suction and lavage done,noted pt abdomen is very distended,noted blood from the old gt site,Dr gustafson and Dr Koch was called,kub and CXR done.
--- NOTE | 2020-10-17 09:25 | NUR ---
Dr Davidson with orders to transfer pt to Er for evaluation.
[2020-10-17] MEDS: levETIRAcetam IV 500 MG in IV DEXTROSE 5% 100 ML IV SCH ×2 (09:29→20:36)
[2020-10-17] MEDS: FAMOTIDINE. 20 MG/2 ML VIAL IV SCH ×2 (09:29→20:36)
[2020-10-17] MEDS: LEVOTHYROXINE SODIUM 100 MCG VIAL IV SCH (09:29)
[2020-10-17] MEDS: NORMAL SALINE FLUSH 10 ML DISP.SYRIN IV SCH ×2 (09:29→20:36)
[2020-10-17] MEDS: COD LIVER OIL/ZINC OXIDE OINT 113 GM TUBE TOP SCH ×2 (09:31→21:00)
[2020-10-17] MEDS: COD LIVER OIL/ZINC OXIDE OINT 113 GM TUBE TP SCH ×2 (09:31→21:00)
--- NOTE | 2020-10-17 09:31 | NUR ---
HEPARIN WAS HELD D/T TRACHEAL SECRETIONS BLOODYAND ABDOMINAL OSTOMY WITH BLOODY BILE DRAINAGE AND WITH CHANGE OF CONDITION THAT REQUIRES TRANSFER TO ER FOR FURTHER EVALUATION.
[2020-10-17] MEDS: HYDROGEN PEROXIDE 3% 118 ML BOTTLE TP SCH ×2 (09:40→21:00)
--- NOTE | 2020-10-17 10:00 | NUR ---
PT. WAS TRANSFER AT THIS TIME WITH RT TO ER FOR FURTHER EVALUATION.
[2020-10-17] MEDS ORDERED: LEVO50TA8 IV ×2 (11:14)
[2020-10-17] MEDS ORDERED: DIPH25CA83 IV (11:14)
[2020-10-17] MEDS ORDERED: LORA-259 IV (11:14)
[2020-10-17] MEDS ORDERED: ALBU2.5V38 NEB (11:14)
[2020-10-17] MEDS ORDERED: LEVE500V IV (11:14)
[2020-10-17] MEDS ORDERED: FAT250EM13 IV (11:14)
[2020-10-17] MEDS ORDERED: SODI20VI2 IV (11:14)
[2020-10-17] MEDS ORDERED: NORM126S2 IVF (11:14)
[2020-10-17] MEDS ORDERED: DEXT50DI8 IV (11:14)
[2020-10-17] MEDS ORDERED: FAMO20VI2 IV (11:14)
[2020-10-17] MEDS ORDERED: BISA10SU61 RC (11:14)
[2020-10-17] MEDS ORDERED: IPRA12.9 IH (11:14)
[2020-10-17] MEDS ORDERED: ACET650S24 RC (11:14)
[2020-10-17] MEDS ORDERED: ZINC57OI3 TP (11:16)
[2020-10-17] MEDS ORDERED: HYDR1TOW4 TP (11:20)
[2020-10-17] MEDS ORDERED: INSU100V28 SQ ×2 (11:20→12:31)
[2020-10-17] MEDS ORDERED: ALBU2.5V38 IH (12:30)
[2020-10-17] MEDS ORDERED: HEPA500034 SQ (12:39)
[2020-10-17] MEDS ORDERED: IPRA0.2S6 NEB ×2 (12:39)
--- NOTE | 2020-10-17 13:30 | NUR ---
PT. WAS READMITTED FROM THE ER ASSISTED WITH RT AND NOTED WITH SKIN WARM AND PINK AND V/S CHECKED AND FOLLOW:152/92,02 SAT 99%,HR. 105X',TEMP 97.8F,RR 20X'.OBSERVED RESPONSIVE TO TOUCH STIMULI WITH COUGH REFLEX AND CORNEAL REFLEX.ASPIRATION PRECAUTIONS KEPT AT ALL TIMES,AND NOTED WITH FREQUENT BELCHING AND ABDOMEN VERY DISTENDED DRAINING DARK BILE.
--- NOTE | 2020-10-17 13:47 | NUR ---
INTERDISCIPLINARY TEAM MEETING: Patient was scheduled for IDT meeting today, however patient was transferred to the ED for change in condition.
[2020-10-17] MEDS ORDERED: TPN IV SCH ×8 (14:00)
--- NOTE | 2020-10-17 14:30 | NUR ---
Ngt inserted as ordered,and connected to drainage bag,noted lots of air released,checked for placement,with another RN.Pt appear more calm,not in distress,abdomen is softer to touch.
--- NOTE | 2020-10-17 18:00 | NUR ---
Dr gustafson called ,left message by answering service.
--- NOTE | 2020-10-17 18:15 | NUR ---
PT. STABLE,NO RESPIRATORY DISTRESS NOTED,EVEN AND UNLABORATED RESPIRATION NOTED ,PINK COLOR SKIN ,O2 SAT 100% ,RT OLET WAS CALLED TO CONSIDER TITRATION OF OXIGEN AT THIS TIME ,PT. CURRENTLY ON 4 LITERS AND HE STATED THAT HE WILL COME AND DO IT.
--- NOTE | 2020-10-17 18:40 | NUR ---
PT. HAD NGT DRAINAGE COFFEE GROUND 200ML AND OSTOMY BILE DRAIN 300ML.
--- NOTE | 2020-10-17 18:56 | NUR ---
Dr janay Quintero call back,notified regarding labs and Ct scan result,He will get in touch with Dr Janay Cleveland regarding orders for Gi consult.
--- NOTE | 2020-10-17 18:59 | NUR ---
Dr janay Cleveland call back ,He stated he already spoke to Dr Batista regarding the consult.
--- NOTE | 2020-10-17 19:10 | NUR ---
AFTER AM NURSE GAVE REPORT PT STARTED RESTLESS AND WITH ESCALATING RESPIRATORY DISTRESS STARTING TURNING CYANOTIC AND RT WAS PAGED ,TRACHEAL SUCTION DONE AND NOTED MODERATED BLOODY TRACHEAL SECRETIONS ,OXIGEN INCREASED TO 10L AND NOC SHIFT AND AM CH. NURSE WERE NOTIFIED TO ASSIST AND CONTINUE WITH CARE.
--- NOTE | 2020-10-17 19:20 | NUR ---
Betzaida Hinojosa call,with new orders noted,for increase wbc and suspected infection.
--- NOTE | 2020-10-17 19:25 | NUR ---
I spoke with Dr. Koch and he wants to change the trach and do ABG then we go from there.
--- NOTE | 2020-10-17 19:25 | NUR ---
DR. KC WAS PAGED D/T PER RT AND NOC CH. NURSE WHEN DOING DEEP TRACH SUCTION APPARENTLY SUCTION CATHETER NOT GOING ALL THE WAY.
--- NOTE | 2020-10-17 19:26 | NUR ---
Nurse called to call for RT d/t patient is turning blue, ambu bagged patient, I was unable to pass suction catheter when I was trying to suction patient, repositioned patient, RT suctioned patient but not able to get anything. Checked inner canula and there was no mucus plug but still unable to pass suction catheter through the trach. Changed Tracheostomy tube (Chandrika #8; same size), patient is able to tolerate well, 02 sat was 100% but still gasping for air. Will monitor closely.
--- NOTE | 2020-10-17 19:27 | NUR ---
Patient is connected to vent is noted with work of breathing despite 02 sat of 100%, afebrile, B/P: 150/90 P: 105 RR:14 T:97.7. Suctioned, RT gave breathing treatment, trach is intact and patent. HOB elevated, turned and repositioned, will monitor closely.
--- NOTE | 2020-10-17 19:54 | NUR ---
Spoke to Silvino pt's brother and notified him regarding the patient condition ,with tracheal bleeding with episodes of desaturation,the need of ambubag her again,and increase of o2 to 100 % ,notified regarding Nera Lead Embedded Software Engineer orders ,to start ivatb,for increase Wbc,and the consults with Dr Stuart Rios ,surgeon and Dr Batista,GI called by Dr Stuart Cleveland,He agreed with plan of care.
[2020-10-17] MEDS ORDERED: CEFEPIME HCL 1 G in IV DEXTROSE 5% 50 ML IV SCH (20:00)
--- NOTE | 2020-10-17 20:00 | NUR ---
Patient is restless, HR: 111, Ativan given via IVP as ordered, vent is properly working, trach is intact and patent, 02 sat is 100%, Ngt tube noted to be draining with bile color drainage, abdomen is distended, old JT stoma still draining with bile color drainage and noted with excessive gas. Currently on Pepcid 20 mg IVP every 12 hours, , Jo catheter draining well with yellow urine, good je care rendered, will start on Vancomycin and Cefepime IV for suspected infection; elevated WBC as ordered, kept clean and comfortable, will continue monitor.
[2020-10-17] MEDS ORDERED: VANCOMYCIN IV 1,000 MG in IV DEXTROSE 5% 250 ML IV SCH (21:00)
[2020-10-17 21:58] LABS: ABG BASE EXCESS -1.2 mmol/L; ABG HCO3 27.4 mmol/L; ABG PCO2 66.2 mmHg (35.0-45.0); ABG PH 7.235 (7.350-7.450); ABG PO2 61.6 mmHg (75.0-100.0); ABG SITE RIGHT RADIAL; COHb 0.9 % (0.5-1.5); MetHb 0.5 % (0.0-1.5); O2Hb 87.7 % (94.0-97.0); VENT MODE VENT - A/C; VT, ABG 500 mL
--- NOTE | 2020-10-17 22:30 | NUR ---
I notified Dr. Koch of patient's abnormal ABG results and patient's work of breathing despite 100% 02 sat and on Vent support. Dr. Koch ordered to transfer patient to the ER for further eval.
--- NOTE | 2020-10-17 22:35 | NUR ---
I spoke with Dr. Cristofer Davidson and notified him of patient's abnormal ABG result and that Pulmonary Doctor ordered for patient to be transferred to the ER. I also called and left message to Dawood Nascimento ( Responsible [employer]) to called back as soon as he gets my message.
--- NOTE | 2020-10-17 23:30 | NUR ---
Called ER and gave report to Austen, transferred patient to ER for further evaluation.
[2020-10-18] MEDS ORDERED: COD28PAS TOP (00:18)
[2020-10-18] MEDS ORDERED: [UNRECOGNIZED DRUG - OTHER] (00:18)
[2020-10-18] MEDS ORDERED: PPN PER PHARMACY (00:18)
[2020-10-18] MEDS ORDERED: CEFE1PIG3 IV (00:18)
[2020-10-18] MEDS ORDERED: VANC1PLA9 IV (00:18)
[2020-10-18] MEDS ORDERED: DEXT50VI3 IV (00:18)
[2020-10-18] MEDS ORDERED: TPN (00:18)
[2020-10-18] MEDS ORDERED: [UNRECOGNIZED DRUG - REMARK] IV SCH ×2 (02:00)
[2020-10-18] MEDS ORDERED: COVID-19 VACC,MRNA(MODERNA)/PF 100 MCG/0.5 ML VIAL IM ONE ×2 (10:00)
== END 2020-10-17 23:45 | disposition short-term general hospital (02) | DRG 207 ==
LOC: SA
PROVIDERS: ADMIT Internal Medicine Nephrology; ATTEND Internal Medicine Nephrology
PROC: 5A1955Z Respiratory Ventilation, Greater than 96 Consecutive Hours (ICD-10-PCS; principal; 2020-09-22)
PROC: 05H533Z Insertion of Infusion Device into Right Subclavian Vein, Percutaneous Approach (ICD-10-PCS; 2020-09-26)
PROC: B546ZZA Ultrasonography of Right Subclavian Vein, Guidance (ICD-10-PCS; 2020-09-26)
DX: J96.10 Chronic respiratory failure, unspecified whether with hypoxia or hypercapnia (principal); G92 Toxic encephalopathy; A41.9 Sepsis, unspecified organism; R53.2 Functional quadriplegia; E87.1 Hypo-osmolality and hyponatremia; L03.311 Cellulitis of abdominal wall; K94.23 Gastrostomy malfunction; J96.00 Acute respiratory failure, unspecified whether with hypoxia or hypercapnia; G80.9 Cerebral palsy, unspecified; Z87.440 Personal history of urinary (tract) infections; D50.9 Iron deficiency anemia, unspecified; E03.9 Hypothyroidism, unspecified; E11.9 Type 2 diabetes mellitus without complications; E78.5 Hyperlipidemia, unspecified; G40.909 Epilepsy, unspecified, not intractable, without status epilepticus; I10 Essential (primary) hypertension; K21.9 Gastro-esophageal reflux disease without esophagitis; L89.159 Pressure ulcer of sacral region, unspecified stage; R13.10 Dysphagia, unspecified
CPT/HCPCS: 36415; 36569; 36600; 71045; 74018; 83550; 83735; 84100; 84478; 85025; 85610; 87040; 87070; 87077; 87086; 94003; 94640; C1758; J0290; J0692; J1644; J1815; J1953; J2060; J2185; J2916; J3370; J3475; J3480; J3490; J3590; J7040; J7050; J7060; J7131; U0003

== ENCOUNTER 2020-10-17 10:08 | Emergency (ER) | payer MEDICARE, OTHER ==
[~2020-10-17] VITALS: Ht 152.4 cm; Wt 65.8 kg
[2020-10-17] MEDS ORDERED: IV NORMAL SALINE 1000 ML BAG IV ONE (10:30)
[2020-10-17 11:05] LABS: CREATININE 0.5 mg/dL (0.6-1.3); POTASSIUM 4.2 mmol/L (3.5-5.1)
[2020-10-17 11:06] LABS: BASOPHILS % (AUTO) 0.3 % (0.0-2.0); EOSINOPHILS % (AUTO) 0.1 % (0.0-7.0); HEMATOCRIT 36.1 % (31.2-41.9); HEMOGLOBIN 11.8 g/dL (10.9-14.3); LYMPHOCYTES # (AUTO) 0.8 K/uL (20.0-40.0); LYMPHOCYTES % (AUTO) 4.2 % (20.5-51.5); MEAN CORPUSCULAR HGB CONC 33 g/dL (32.3-35.6); MEAN CORPUSCULAR VOLUME 85.5 fL (75.5-95.3); MONOCYTES # (AUTO) 1.7 K/uL (2.0-10.0); MONOCYTES % (AUTO) 9.1 % (0.0-11.0); NEUTROPHILS # (AUTO) 15.8 K/uL (1.8-8.9); NEUTROPHILS % (AUTO) 86.3 % (38.5-71.5); PLATELET COUNT (AUTO) 280 K/uL (179-408); RED BLOOD CELL COUNT(AUTO) 4.23 MIL/uL (3.63-4.92); WHITE BLOOD COUNT (AUTO) 18.2 K/uL (3.8-11.8)
[2020-10-17] MEDS ORDERED: ACET650S24 RC (11:14)
[2020-10-17] MEDS ORDERED: FAT250EM13 IV (11:14)
[2020-10-17] MEDS ORDERED: DEXT50DI8 IV (11:14)
[2020-10-17] MEDS ORDERED: NORM126S2 IVF (11:14)
[2020-10-17] MEDS ORDERED: LEVE500V IV (11:14)
[2020-10-17] MEDS ORDERED: DIPH25CA83 IV (11:14)
[2020-10-17] MEDS ORDERED: LORA-259 IV (11:14)
[2020-10-17] MEDS ORDERED: ALBU2.5V38 NEB (11:14)
[2020-10-17] MEDS ORDERED: FAMO20VI2 IV (11:14)
[2020-10-17] MEDS ORDERED: IPRA12.9 IH (11:14)
[2020-10-17] MEDS ORDERED: LEVO50TA8 IV ×2 (11:14)
[2020-10-17] MEDS ORDERED: BISA10SU61 RC (11:14)
[2020-10-17] MEDS ORDERED: SODI20VI2 IV (11:14)
[2020-10-17] MEDS ORDERED: ZINC57OI3 TP (11:16)
[2020-10-17 11:18] LABS: BILIRUBIN,DIRECT 0.3 mg/dL (0.0-0.2); BILIRUBIN,TOTAL 0.6 mg/dL (0.2-1.0); TOTAL PROTEIN, SERUM 8.3 g/dL (6.4-8.2)
[2020-10-17] MEDS ORDERED: HYDR1TOW4 TP (11:20)
[2020-10-17] MEDS ORDERED: INSU100V28 SQ ×2 (11:20→12:31)
[2020-10-17] MEDS ORDERED: CEFTRIAXONE 1 G in IV DEXTROSE 5% 50 ML IV ONE (12:15)
[2020-10-17 12:24] LABS: *BILIRUBIN,URIN NEGATIVE (NEGATIVE); *BLOOD, URINE 2+ (NEGATIVE); *CLARITY,URINE SLIGHTLY CLOUDY (CLEAR); *COLOR,URINE YELLOW (YELLOW); *KETONES,URINE NEGATIVE (NEGATIVE); *UROBILINOGEN,URINE 0.2 E.U./dl (NORMAL); LEUKOCYTE ESTERASE ,URINE NEGATIVE (NEGATIVE); NITRITE, URINE NEGATIVE (NEGATIVE); PH,URINE 5.5 (5.0-8.0); UGLUCOSE NEGATIVE (NEGATIVE)
[2020-10-17] MEDS ORDERED: CEFTRIAXONE /D5W 50ML IVPB **ER PYXIS IV ONE (12:25)
[2020-10-17] MEDS ORDERED: ALBU2.5V38 IH (12:30)
[2020-10-17] MEDS ORDERED: HEPA500034 SQ (12:39)
[2020-10-17] MEDS ORDERED: IPRA0.2S6 NEB ×2 (12:39)
[2020-10-17 13:42] VITALS: BP 128/73
[2020-10-17 18:15] LABS: BACTERIA,URINE FEW /HPF (NONE SEEN); SQUAMOUS EPITHELIAL CELL,UR FEW /HPF (NONE SEEN)
[2020-10-17 18:16] LABS: WBC,URINE 0-3 /HPF (0-3)
[2020-10-18] MEDS ORDERED: DEXT50VI3 IV (00:18)
[2020-10-18] MEDS ORDERED: TPN (00:18)
[2020-10-18] MEDS ORDERED: [UNRECOGNIZED DRUG - OTHER] (00:18)
[2020-10-18] MEDS ORDERED: PPN PER PHARMACY (00:18)
[2020-10-18] MEDS ORDERED: COD28PAS TOP (00:18)
[2020-10-18] MEDS ORDERED: VANC1PLA9 IV (00:18)
[2020-10-18] MEDS ORDERED: CEFE1PIG3 IV (00:18)
== END 2020-10-17 13:43 | disposition other institution (70) ==
LOC: ER 10:08
DX: K56.7 Ileus, unspecified (principal); R79.89 Other specified abnormal findings of blood chemistry; R91.8 Other nonspecific abnormal finding of lung field; Z93.0 Tracheostomy status; Z93.3 Colostomy status; Z99.11 Dependence on respirator [ventilator] status; Z20.822 Contact with and (suspected) exposure to COVID-19
CPT/HCPCS: 36415; 74176; 80048; 80076; 81001; 83605; 83690; 84484; 85025; 85730; 87086; 87426; 93005; 96361; 96365; 99285; J0696; U0003; 70030-TC; A4663; J7030

== ENCOUNTER 2020-10-17 23:54 | Inpatient (IN) | payer MEDICARE, OTHER ==
[~2020-10-17] VITALS: Ht 165.1 cm; Wt 83.9 kg
[~2020-10-17 23:54] MED LIST changes: +ACET650S24 RC; +ALBU2.5V38 IH; +ALBU2.5V38 NEB; +BISA10SU61 RC; +DEXT50DI8 IV; +DIPH25CA83 IV; +FAMO20VI2 IV; +FAT250EM13 IV; +HEPA500034 SQ; +HYDR1TOW4 TP; +INSU100V28 SQ; +IPRA0.2S6 NEB; +IPRA12.9 IH; +LEVE500V IV; +LEVO50TA8 IV; +LORA-259 IV; +NORM126S2 IVF; +SODI20VI2 IV; -TUBERCULIN,PURIF.PROT.DERIV. 5 TU/0.1 ML TEST ID ONE; +ZINC57OI3 TP
--- NOTE | 2020-10-18 00:03 | NUR ---
Patient transferred via hospital bed for having abnormal ABG, vitals are stable at this time
[2020-10-18] MEDS ORDERED: TPN (00:18)
[2020-10-18] MEDS ORDERED: [UNRECOGNIZED DRUG - OTHER] (00:18)
[2020-10-18] MEDS ORDERED: PPN PER PHARMACY (00:18)
[2020-10-18] MEDS ORDERED: CEFE1PIG3 IV (00:18)
[2020-10-18] MEDS ORDERED: VANC1PLA9 IV (00:18)
[2020-10-18] MEDS ORDERED: COD28PAS TOP (00:18)
[2020-10-18] MEDS ORDERED: DEXT50VI3 IV (00:18)
[2020-10-18 01:20] LABS: ABG HCO3 32.2 mmol/L; ABG PCO2 68.6 mmHg (35.0-45.0); ABG PO2 43.8 mmHg (75.0-100.0); ABG SITE RIGHT BRACHIAL; ABG TOTAL HEMOGLOBIN 11.8 G/dL (12.0-16.0); COHb 0.5 % (0.5-1.5); MetHb 0.4 % (0.0-1.5); O2Hb 74.7 % (94.0-97.0); VENT MODE VENT - A/C; VT, ABG 500 mL
[2020-10-18 01:23] LABS: CREATININE 0.7 mg/dL (0.6-1.3)
[2020-10-18 01:32] LABS: *BILIRUBIN,URIN NEGATIVE (NEGATIVE); *CLARITY,URINE CLEAR (CLEAR); *COLOR,URINE YELLOW (YELLOW); *KETONES,URINE NEGATIVE (NEGATIVE); *UROBILINOGEN,URINE 0.2 E.U./dl (NORMAL); LEUKOCYTE ESTERASE ,URINE NEGATIVE (NEGATIVE); NITRITE, URINE NEGATIVE (NEGATIVE); PH,URINE 5.5 (5.0-8.0); UGLUCOSE NEGATIVE (NEGATIVE)
[2020-10-18 01:34] LABS: *BLOOD, URINE NEGATIVE (NEGATIVE)
[2020-10-18 01:37] LABS: BASOPHILS % (AUTO) 0.1 % (0.0-2.0); HEMATOCRIT 32.8 % (31.2-41.9); HEMOGLOBIN 10.8 g/dL (10.9-14.3); LYMPHOCYTES # (AUTO) 0.6 K/uL (20.0-40.0); LYMPHOCYTES % (AUTO) 3.5 % (20.5-51.5); MEAN CORPUSCULAR HEMOGLOBIN 28.2 uug (24.7-32.8); MEAN CORPUSCULAR HGB CONC 33 g/dL (32.3-35.6); MEAN CORPUSCULAR VOLUME 85.8 fL (75.5-95.3); MONOCYTES # (AUTO) 1.4 K/uL (2.0-10.0); MONOCYTES % (AUTO) 8.2 % (0.0-11.0); NEUTROPHILS # (AUTO) 15.4 K/uL (1.8-8.9); NEUTROPHILS % (AUTO) 88.2 % (38.5-71.5); PLATELET COUNT (AUTO) 220 K/uL (179-408); RED BLOOD CELL COUNT(AUTO) 3.82 MIL/uL (3.63-4.92); WHITE BLOOD COUNT (AUTO) 17.4 K/uL (3.8-11.8)
[2020-10-18 01:42] LABS: BILIRUBIN,TOTAL 0.6 mg/dL (0.2-1.0); TOTAL PROTEIN, SERUM 6.9 g/dL (6.4-8.2)
[2020-10-18] MEDS ORDERED: VANCOMYCIN IV 1,000 MG in IV DEXTROSE 5% 250 ML IV ONE (03:00)
[2020-10-18] MEDS ORDERED: CEFEPIME HCL 1 G in IV DEXTROSE 5% 50 ML IV ONE (03:00)
--- NOTE | 2020-10-18 03:00 | NUR ---
Patient linens changed at this time, vitals WNLs
--- NOTE | 2020-10-18 05:00 | NUR ---
MD Cristofer Davidson new orders as follows 1) Continuous suction to NG tube 2) Continue TPN at 80 ml/hr 3) Call MD Koch to adjust ventilator settings 4) CBC, BMP, KUB at 0900
[2020-10-18 07:10] LABS: BASOPHILS % (AUTO) 0.1 % (0.0-2.0); HEMATOCRIT 31.9 % (31.2-41.9); HEMOGLOBIN 10.9 g/dL (10.9-14.3); LYMPHOCYTES # (AUTO) 0.3 K/uL (20.0-40.0); LYMPHOCYTES % (AUTO) 1.7 % (20.5-51.5); MEAN CORPUSCULAR HEMOGLOBIN 28.9 uug (24.7-32.8); MEAN CORPUSCULAR HGB CONC 34 g/dL (32.3-35.6); MEAN CORPUSCULAR VOLUME 84.8 fL (75.5-95.3); MONOCYTES # (AUTO) 1.2 K/uL (2.0-10.0); MONOCYTES % (AUTO) 6.6 % (0.0-11.0); NEUTROPHILS # (AUTO) 16.8 K/uL (1.8-8.9); NEUTROPHILS % (AUTO) 91.6 % (38.5-71.5); PLATELET COUNT (AUTO) 204 K/uL (179-408); RED BLOOD CELL COUNT(AUTO) 3.76 MIL/uL (3.63-4.92); WHITE BLOOD COUNT (AUTO) 18.4 K/uL (3.8-11.8)
--- NOTE | 2020-10-18 07:11 | NUR ---
Waiter/Waitress Bar assumes care- received patient awake with eyes open, non-tracking, tachypneac with respiratory rate@high 20's-low 30's/minute, trach to ventilator w/suctioning done:scant secretions noted, +frothy thin whitish oral secretions seen suctioned as well. Radiology-confirmed NGT (left nare) to continuous suction with blood-tinged contents seen, +parker catheter to gravity with yellow urine, abdominal ostomy to make-shift drainage bag with dark greenish contents seen, on air mattress from sub-acute unit of this hospital. Patient is waiting for an accepting [facility] nurse@this time.
[2020-10-18 07:28] LABS: CREATININE 0.6 mg/dL (0.6-1.3); POTASSIUM 3.9 mmol/L (3.5-5.1)
[2020-10-18 08:43] LABS: PHOSPHOROUS 3.4 mg/dL (2.5-4.9)
[2020-10-18] MEDS ORDERED: DIATR MEGLU/DIATRIZOATE SODIUM 30 ML BOTTLE ONE ×2 (09:22)
--- NOTE | 2020-10-18 10:30 | NUR ---
RECEIVED PATIENT FROM ER VERY SOB AND TACHYPNEIC, NOTED WITH LARGE AMOUNT OF ORAL SECRETION SUCTIONING DONE WITH THICK YELLOW SECRETION. HR ON TELE 150-160. DR MORGAN NOTIFIED AND MADE AWARE OF PATIENT STATUS AND ADVISED TO TRANSFER PATIENT BACK TO ER IF ICU IS NOT AVAILABLE.
--- NOTE | 2020-10-18 10:34 | NUR ---
Patient came back from [facility] 10/24 Dr Partida has upgraded patient's care to CCU/ICU. Per nursing supervisor instant potato processing Viviana, "There are no CCU beds or nurse at this time." Dr Davidson is the primary doctor for this patient. ER doctor Tk is aware of this patient's repeat return to ER but this time as an ICU/CCU patient & is now on hold in ER until CCU/ICU opens up a bed with available nurse.
--- NOTE | 2020-10-18 10:45 | NUR ---
PATIENT TRANSFERRED BACK TO ER PER DR MORGAN AND WITH RESPIRATORY ON BOARD. REPORT GIVEN TO GRAVITY PROSPECTOR
[2020-10-18] MEDS ORDERED: IV FAT EMULSIONS 20% 250 ML IV SCH (11:00)
[2020-10-18] MEDS ORDERED: HYDROGEN PEROXIDE 3% 118 ML BOTTLE TP PRN (11:45)
[2020-10-18] MEDS ORDERED: ALBUTEROL SULFATE 2.5 MG/3 ML NEBU NEB PRN (11:45)
[2020-10-18] MEDS ORDERED: IPRATROPIUM BROMIDE 0.5 MG/2.5 ML NEBU NEB PRN (11:45)
[2020-10-18] MEDS ORDERED: BISACODYL 10 MG SUPP.RECT RC PRN (11:45)
[2020-10-18] MEDS ORDERED: DEXTROSE 50% 50 ML DISP.SYRIN IV PRN (11:45)
[2020-10-18] MEDS ORDERED: LORAZEPAM 2 MG/1 ML VIAL IV PRN (11:45)
[2020-10-18] MEDS ORDERED: TPN/PPN PER PHARMACY IV PRN (11:45)
[2020-10-18] MEDS ORDERED: diphenhydrAMINE 50 MG/1 ML VIAL IV PRN (11:45)
[2020-10-18] MEDS ORDERED: IV NORMAL SALINE 1000 ML BAG IV ONE (11:45)
[2020-10-18] MEDS ORDERED: ACETAMINOPHEN 650 MG SUPP.RECT RC PRN ×2 (11:45)
[2020-10-18] MEDS: levETIRAcetam IV 500 MG in IV DEXTROSE 5% 100 ML IV SCH ×2 (12:15→21:59)
[2020-10-18] MEDS: INSULIN REGULAR, HUMAN 300 UNIT/3 ML VIAL SQ SCH ×2 (12:24→17:28)
[2020-10-18] MEDS ORDERED: INSULIN REGULAR, HUMAN 300 UNIT/3 ML VIAL ONE (12:28)
[2020-10-18] MEDS: BLOOD SUGAR DIAGNOSTIC 1 EACH STRIP VI SCH ×2 (12:28→17:29)
[2020-10-18] MEDS ORDERED: LORAZEPAM 2 MG/1 ML VIAL ONE (13:39)
[2020-10-18] MEDS: CEFEPIME HCL 1 G in IV DEXTROSE 5% 50 ML IV SCH ×2 (13:54→22:16)
[2020-10-18] MEDS ORDERED: CEFEPIME HCL 1 G VIAL ONE ×2 (13:55→22:06)
[2020-10-18] MEDS ORDERED: TPN IV SCH ×8 (14:00)
--- NOTE | 2020-10-18 14:32 | NUR ---
Gastrogarffin enema in progress. Patient is tolerating the scan, continuous cardiac & sPo2 monitoring maintained.
--- NOTE | 2020-10-18 15:09 | NUR ---
Dr Koch@bedside & ordered to change the current ventilator machine (from sub-acute unit) to a regular [employer] ventilator. Respiratory therapist Massimo notified.
[2020-10-18] MEDS ORDERED: ALBUTEROL SULFATE 2.5 MG/3 ML NEBU NEB SCH (15:30)
[2020-10-18] MEDS ORDERED: IPRATROPIUM BROMIDE 0.5 MG/2.5 ML NEBU NEB SCH (15:30)
--- NOTE | 2020-10-18 15:47 | NUR ---
Dr Davidson@bedside and verbally ordered to discontinue NGT suction.
[2020-10-18] MEDS ORDERED: IPRATROPIUM BROMIDE 0.5 MG/2.5 ML NEBU ONE (15:57)
[2020-10-18] MEDS ORDERED: ALBUTEROL SULFATE 2.5 MG/3 ML NEBU ONE (15:57)
--- NOTE | 2020-10-18 19:23 | NUR ---
Still for ICU/CCU, endorsed to DEYANIRA Meléndez accordingly
--- NOTE | 2020-10-18 20:10 | NUR ---
patient has B/P of 82/57, MD Cristofer Davidson paged for new orders, awaiting return call at this time
--- NOTE | 2020-10-18 20:34 | NUR ---
MD Cristofer Davidson paged for second time to report patient critical status, awaiting return call at this time
[2020-10-18] MEDS ORDERED: FAMOTIDINE. 20 MG/2 ML VIAL IV SCH (21:00)
[2020-10-18] MEDS ORDERED: COD LIVER OIL/ZINC OXIDE OINT 113 GM TUBE TOP SCH (21:00)
[2020-10-18] MEDS ORDERED: HEPARIN SODIUM,PORCINE 5,000 UNITS/ML VIAL SQ SCH (21:00)
[2020-10-18] MEDS ORDERED: HYDROGEN PEROXIDE 3% 118 ML BOTTLE TP SCH (21:00)
[2020-10-18] MEDS ORDERED: VANCOMYCIN IV 1,000 MG in IV DEXTROSE 5% 250 ML IV SCH (21:00)
[2020-10-18] MEDS ORDERED: NORMAL SALINE FLUSH 10 ML DISP.SYRIN IV SCH (21:00)
[2020-10-18] MEDS ORDERED: COD LIVER OIL/ZINC OXIDE OINT 113 GM TUBE TP SCH (21:00)
[2020-10-18] MEDS ORDERED: HEPARIN SODIUM,PORCINE 5,000 UNITS/ML VIAL ONE (22:07)
[2020-10-18] MEDS ORDERED: FAMOTIDINE. 20 MG/2 ML VIAL IV ONE (22:07)
[2020-10-18] MEDS ORDERED: VANCOMYCIN 1000 MG VIAL ONE (22:07)
--- NOTE | 2020-10-18 22:30 | NUR ---
(2229)*CODE BLUE* CPR began at this time, PEA rhythm, no B/P detected, patient being manually bagged via trach, 0.1 of Epi given IVP (2239) 150 Melly shock given, V-fib detected on monitor (2241) Afib with RVR detected on monitor, B/P: 124/60, return of spontaneous circulation at this time
[2020-10-18] MEDS ORDERED: NOREPINEPHRINE BITARTRATE 4 MG/4 ML VIAL IV ONE (22:55)
--- NOTE | 2020-10-18 22:55 | NUR ---
(2254) *CODE BLUE* CPR Initiated, PEA Rhythm, patient noted being bagged via trach, Epi 0.1 given IVP (2257) Heart rate of 45 noted, Atropine given IVP, CPR continues (2299) Heart Rate 125 Afib, 60/32, Levo 0.1mg started at this time (2306) CPR continues, Asystole noted, Epi 0.1 given IVP PATIENT PRONOUNCED AT 2309 MD Servando Abdi informed of patients , Family member Dawood called without answer
[2020-10-18] MEDS ORDERED: EPINEPHRINE 1:10,000 1 MG/10 ML DISP.SYRIN IV ONE (23:09)
[2020-10-18] MEDS ORDERED: ATROPINE SULFATE 1 MG/10 ML DISP.SYRIN IV ONE (23:09)
--- NOTE | 2020-10-18 23:50 | NUR ---
[facility] called at 0310, case #[id number] (Ayla)
[2020-10-19] MEDS ORDERED: [UNRECOGNIZED DRUG - REMARK] IV SCH ×2 (02:00)
--- NOTE | 2020-10-19 02:15 | NUR ---
BODT TAKEN TO JUÁREZ LANCASTERGabriel VALENZUELA. COPY OF FACE SHEET GIVEN TO TRANSPORTER. NO BELONGINGS PRESENT. BODY WAS IDENTIFIED BY TOE TAG AND BODY BAG TAG.
[2020-10-19] MEDS ORDERED: LEVOTHYROXINE SODIUM 100 MCG VIAL IV SCH (09:00)
--- NOTE | 2020-10-19 10:02 | NUR ---
9:16am: This SW called patients brother Dawood [phone] and left him a voicemail message asking Sheridan to call this SW back. 9:54am: This SW received a call back from Sheridan. Dawood stated that he was aware of patient's change in condition over the last couple of days, per discussions from nursing staff. SW informed Dawood that patient yesterday evening, and that hospital staff attempted to contact him but were unsuccessful. Dawood expressed understanding. Dawood stated that he would be speaking with Stacia at the [facility] and would get back to this SW to discuss further instructions.
--- NOTE | 2020-10-19 13:40 | NUR ---
1:25pm: SARA received a call from patient's brother Dawood [phone], who wanted to follow-up on the next steps pertaining to releasing Tanya's remains to the mortuary. SARA connected Dawood with the Wing Commander, and also provided him with the phone number to the Wing Commander, .
--- NOTE | 2020-10-19 13:44 | NUR ---
1:35pm: SARA called Stacia Delvalle DC liaison at [facility] ([email or web address]) [phone]. Stacia states that she was aware of patient's passing, as patient's brother Dawood had notified her. Stacia requested the following information from the hospital: patient's medical records from the day she was admitted for [facility]. Also, the information of the exact date of passing. SARA stated that SW would need consent to release authorization from the patient's brother, which needs to be submitted to medical records, after which the requested information will be released. Stacia stated she would provide that to this SW. SW to coordinate this request upon receipt of consent to release authorization.
--- NOTE | 2020-10-19 14:40 | NUR ---
This SW received an email from patient's brother Dawood, stating in the email that he was giving consent for patient's records to be released to [facility] ([facility]). SW forwarded this email to HELEN Wiseman in Medical Records. SW also email both the patient's brother Dawood and [facility] DC liaison Stacia Delvalle, informing them that their request has been relayed to medical records, and provided them with name and contact number for HELEN Wiseman, referring them to HELEN regrading getting copies of medical records.
== END 2020-10-18 23:10 | disposition expired | DRG 871 ==
LOC: ER 23:57 → TELE3 10-18 09:25 → DOU3 10-18 10:12 → TELE-TD3 10-18 10:14 → TRANSITION 10-18 10:44
PROVIDERS: ADMIT Internal Medicine Nephrology; ATTEND Internal Medicine Nephrology
PROC: 5A2204Z Restoration of Cardiac Rhythm, Single (ICD-10-PCS; principal; 2020-10-18)
PROC: 5A1935Z Respiratory Ventilation, Less than 24 Consecutive Hours (ICD-10-PCS; 2020-10-18)
DX: A41.9 Sepsis, unspecified organism (principal); J96.21 Acute and chronic respiratory failure with hypoxia; R53.2 Functional quadriplegia; R65.21 Severe sepsis with septic shock; K56.0 Paralytic ileus; G93.40 Encephalopathy, unspecified; K63.2 Fistula of intestine; Z99.11 Dependence on respirator [ventilator] status; J95.01 Hemorrhage from tracheostomy stoma; E11.9 Type 2 diabetes mellitus without complications; E78.5 Hyperlipidemia, unspecified; E03.9 Hypothyroidism, unspecified; G80.9 Cerebral palsy, unspecified; G40.909 Epilepsy, unspecified, not intractable, without status epilepticus; I10 Essential (primary) hypertension; Z74.01 Bed confinement status; Z93.1 Gastrostomy status; K21.9 Gastro-esophageal reflux disease without esophagitis; R13.10 Dysphagia, unspecified; Z20.822 Contact with and (suspected) exposure to COVID-19; Z87.440 Personal history of urinary (tract) infections; Z87.01 Personal history of pneumonia (recurrent); Z79.4 Long term (current) use of insulin; Y83.8 Other surgical procedures as the cause of abnormal reaction of the patient, or of later complication, without mention of misadventure at the time of the procedure; Y72.8 Miscellaneous otorhinolaryngological devices associated with adverse incidents, not elsewhere classified; Y92.129 Unspecified place in nursing home as the place of occurrence of the external cause; J44.9 Chronic obstructive pulmonary disease, unspecified
CPT/HCPCS: 36415; 36600; 70030-TC; 71045; 74018; 74270; 83605; 83615; 83690; 83735; 84100; 84478; 85025; 85610; 85730; 86140; 87077; 87086; 87400; 93005; 94003; 94640; A4663; G0378; J0171; J0461; J0692; J0696; J1644; J1815; J1953; J2060; J3370; J3475; J3480; J3490; J3590; J7030; J7040; J7050; J7060; J7131; Q9963; U0003